=== PATIENT | female | born 1955 | race American Indian/Alaskan Native ===

== ENCOUNTER 2016-08-03 16:15 | Emergency (ER) | payer MEDICARE, OTHER ==
[2016-08-03 16:25] VITALS: BP 240/102
[2016-08-03] MEDS ORDERED: CATAPRES PO ONE (16:57)
--- NOTE | 2016-08-03 17:00 | Emergency Department Report ---
Chief Complaint: Nausea/Vomiting/Diarrhea Stated Complaint: VOMITING/COUGHING Time Seen by Provider: 08/03/16 16:53 - HPI History of Present Illness: Patient here reports cough and 3-4 days. Patient reports that she was vomiting and was noted to be actively vomiting in triage area. She reports right chest pain and abdominal pain at 10 out of 10. Patient has history of high blood pressure and end-stage renal disease and she is on hemodialysis. She got dialysis on Thursday and her chemical dependency counselor is Dr. Teague. She has a left arm fistula. Denies any history of heart disease or heart attacks in the past. She says she has a slight headache. Patient reports that she took her blood pressure medication today. Denies any fever or chills. Blood pressure is 240/ 102 in triage area. - ROS Review of Systems: All systems are negative unless stated in HPI above. - Exam Vital Signs: Vital Signs 08/03/16 16:21 Temperature 97.9 F Pulse Rate 85 Respiratory 24 Rate Blood Pressure 240/102 O2 Sat by Pulse 100 Oximetry Physical Exam: General: This is a 61-year-old female that is nontoxic in appearance. CV: Blood pressure was 240/102. S1-S2. Regular rate and rhythm. Abdomen: Mild tenderness to palpate to lower abdomen. Normal bowel sounds. MSE screening note: Focused history and physical exam performed. Due to findings the following was ordered:see mdm ED Medical Decision Making - Medical Decision Making Medical decision making: Patient seen by provider in triage area. Appropriate protocol activated and patient to main ED to be seen by physician. ED Disposition for MSE Condition: Stable
[2016-08-03 17:40] LABS: Hematocrit 33.5 % (30.3-42.9); Hemoglobin 10.4 gm/dl (10.1-14.3); Mean Corpuscular HGB Conc 31 % (30-34); Mean Corpuscular Volume 71 fl (79-97); Platelet Count 204 K/mm3 (140-440); Red Blood Count 4.74 M/mm3 (3.65-5.03)
[2016-08-03 17:49] LABS: Mean Corpuscular Hemoglobin 22 pg (28-32); Red Cell Distribution Width 25.5 % (13.2-15.2)
[2016-08-03 18:08] LABS: Alanine Aminotransferase 105 units/L (7-56); Albumin 3.9 g/dL (3.9-5); Alkaline Phosphatase 154 units/L (35-129); BUN/Creatinine Ratio 5.57; Bilirubin,Total 0.4 mg/dL (0.1-1.2); Calcium 9.6 mg/dL (8.4-10.2); Chloride 94.6 mmol/L (98-107); Potassium 4.9 mmol/L (3.6-5.0); Total Protein 7.8 g/dL (6.3-8.2)
[2016-08-03 18:12] LABS: Magnesium 2.3 mg/dL (1.7-2.3)
[2016-08-03 18:15] LABS: Bilirubin,Direct < 0.2 mg/dL (0-0.2); Bilirubin,Indirect 0.2 mg/dL
[2016-08-03] MEDS ORDERED: KETALAR IV ONE (18:16)
[2016-08-03] MEDS ORDERED: NACL 0.9% 1000 ML 1,000 ML ONE (18:21)
[2016-08-03 18:44] LABS: Creatine Kinase MB 1.6 ng/mL (0.0-4.0)
[2016-08-03 21:48] LABS: Basophils % (Manual) 0 % (0.0-1.8); Blastocytes % (Manual) 0 %
[2016-08-03 21:49] LABS: Anisocytosis 1+
[2016-08-03 21:50] LABS: Hypochromasia Few; Schistocytes Rare; Target Cells Few
[2016-08-03 21:51] LABS: Diff Status Complete; Platelet Estimate Consistent w Auto
--- NOTE | 2016-08-04 00:49 | Admit Criteria Form ---
Admission Criteria Documentation: ABDOMINAL PAIN Clinical Indications for Admission to Inpatient Care (Place 'X' for any and all applicable criteria): Admission is indicated for ANY ONE of the following(1)(2)(3)(4)(5): [ ]I. Inpatient admission required rather than observation care (Also use Abdominal Pain: Observation Care, as appropriate) because of ANY ONE of the following: [ ]a) Severe pain requiring acute inpatient management [ ]b) Identification of etiology/finding that requires inpatient care (eg, aortic dissection, free air) [ ]c) Absent bowel sounds with complete ileus(6) [ ]d) Suspected toxic megacolon [ ]e) Severe electrolyte abnormalities requiring inpatient care [ ]f) High fever or infection requiring inpatient admission as indicated by ANY ONE of following(7)(8): [ ] i) Appropriate outpatient or observational care antimicrobial treatment unavailable, not effective, or not feasible [ ] ii) Documented bacteremia [ ] iii) Temperature > 104.9 degrees F (oral) [ ] iv) T >103.1 F (oral) or < 96.8 F(rectal) that does not respond to all emergency treatment measures [ ]g) Signs of intestinal obstruction [B] [ ]h) Hemodynamic instability [ ]i) IV fluid to replace significant ongoing losses (greater than 3 L/m2 per day) (12)(13) [ ]j) Percutaneous or open drainage (eg, abscess, biliary tract ) procedures [ ]k) Parenteral nutrition regimen that must be implemented on inpatient basis [ ]l) Other condition,treatment or monitoring requiring inpatient admission. [ ]II. Peritoneal signs present [ ]III. Surgery needed that cannot be performed on an ambulatory basis. [ ]IV. Evaluation requires patient to not eat or drink for extended period ( eg, more than 24 hours). [ ]V. Contraindications and/or Inappropriate clinical situations for Observational Care in patients with abdominal pain, when ANY ONE of the following is required: [ ]a) Thorough evaluation is required to prevent catastrophic events due to delays in diagnosing (e.g.Mesenteric ischemia) 1,3 [ ]b) Patient with severe pathology or with chronic symptoms unlikely to improve in the ED stay (3) [ X]. General contraindications and/or Inappropriate clinical situations for Observational Care in patients with abdominal pain, when ANY ONE of the following is required: [ ]a) Prediction of prolongation of LOS based on ANY ONE of the following may be considered as a contraindication for observational care 2, 3, 4, 5, 6, 7, 8, 9, 10, 11 [ ]i) Age > 65 yrs. [ ]ii) Patient arriving by ambulance [ ]iii) Patient with high acuity [ ]iv) Patient requiring vital sign monitoring [ ]v) Patient on IV medication [ X]b) Systolic blood pressures 180mmHg 3,12 [ ]c) Patient with altered mental status including delirium and other alteration of consciousness, (3) [ ]d) Patient whose discharge disposition will be to a care home home or rehabilitation home should not be managed in Emergency Department Observation Unit. CMS rule requires 3 days hospital stay before such placement.3,13 [ ]e) Patient with failure to thrive due to broad array of etiologies 3,16,17 [ ]f) Inability to ambulate 3,14 Extended stay beyond goal length of stay may be needed for(2)(3): [ ]a) Persistent abdominal pain with suspected intra-abdominal process [ ]b) Diagnosed condition requiring continued stay (e.g., pancreatitis, complicated diverticulitis) [ ]c) Surgery (e.g., colectomy) The original [facility] content created by [employer] has been revised. The portions of the content which have been revised are identified through the use of italic text or in bold, and [facility] has neither reviewed nor approved the modified material.All other unmodified content is copyright [facility]. Please see references footnoted in the original [facility] edition 2016 Admission Criteria Met: Yes
--- NOTE | 2016-08-04 08:19 | XRay Report ---
Chest 2 views. Findings: The heart is mildly enlarged with moderate venous congestion and bibasilar infiltrates, worse on the right. There may be a small right pleural effusion. Impression: CHF and/or pneumonia.
--- NOTE | 2016-08-04 13:09 | ED Elopement Review ---
ED Pt Elopement review - Results review Lab results: Laboratory Tests 08/03/16 08/03/16 08/03/16 17:04 17:25 17:25 WBC 12.0 H RBC 4.74 Hgb 10.4 Hct 33.5 MCV 71 L MCH 22 L MCHC 31 RDW 25.5 H Plt Count 204 Add Manual Diff Complete Total Counted 100 Seg Neuts % (Manual) 83.0 H Band Neutrophils % 0 Lymphocytes % (Manual) 12.0 L Reactive Lymphs % (Man) 0 Monocytes % (Manual) 3.0 Eosinophils % (Manual) 2.0 Basophils % (Manual) 0 Metamyelocytes % 0 Myelocytes % 0 Promyelocytes % 0 Blast Cells % 0 Nucleated RBC % Not Reportable Seg Neutrophils # Man 10.0 H Band Neutrophils # 0.0 Lymphocytes # (Manual) 1.4 Abs React Lymphs (Man) 0.0 Monocytes # (Manual) 0.4 Eosinophils # (Manual) 0.2 Basophils # (Manual) 0.0 Metamyelocytes # 0.0 Myelocytes # 0.0 Promyelocytes # 0.0 Blast Cells # 0.0 WBC Morphology Not Reportable Hypersegmented Neuts Not Reportable Hyposegmented Neuts Not Reportable Hypogranular Neuts Not Reportable Smudge Cells Not Reportable Toxic Granulation Not Reportable Toxic Vacuolation Not Reportable Dohle Bodies Not Reportable Pelger-Huet Anomaly Not Reportable Mell Rods Not Reportable Platelet Estimate Consistent w auto Clumped Platelets Not Reportable Plt Clumps, EDTA Not Reportable Large Platelets Not Reportable Giant Platelets Not Reportable Platelet Satelliting Not Reportable Plt Morphology Comment Not Reportable RBC Morphology Not Reportable Dimorphic RBCs Not Reportable Polychromasia Not Reportable Hypochromasia Few Poikilocytosis Not Reportable Anisocytosis 1+ Microcytosis Not Reportable Macrocytosis Not Reportable Spherocytes Not Reportable Pappenheimer Bodies Not Reportable Sickle Cells Not Reportable Target Cells Few Tear Drop Cells Not Reportable Ovalocytes Not Reportable Helmet Cells Not Reportable Byrne-Bluewater Bodies Not Reportable [place] Rings Not Reportable Teja Cells Not Reportable Bite Cells Not Reportable Crenated Cell Not Reportable Elliptocytes Not Reportable Acanthocytes (Spur) Not Reportable Rouleaux Not Reportable Hemoglobin C Crystals Not Reportable Schistocytes Rare Malaria parasites Not Reportable Jeffrey Bodies Not Reportable Hem Pathologist Commnt No Sodium 140 Potassium 4.9 Chloride 94.6 L Carbon Dioxide 29 Anion Gap 21 BUN 58 H Creatinine 10.4 H Estimated GFR 5 BUN/Creatinine Ratio 5.57 Glucose 266 H POC Glucose 260 H Calcium 9.6 Magnesium Total Bilirubin Direct Bilirubin Indirect Bilirubin AST ALT Alkaline Phosphatase Total Creatine Kinase CK-MB (CK-2) CK-MB (CK-2) Rel Index Troponin T 0.063 H Total Protein Albumin Albumin/Globulin Ratio Triglycerides 96 Cholesterol 167 LDL Cholesterol Direct 103 HDL Cholesterol 45 Cholesterol/HDL Ratio 3.71 Amylase Lipase 72 H 08/03/16 08/03/16 08/03/16 17:25 17:25 20:10 WBC RBC Hgb Hct MCV MCH MCHC RDW Plt Count Add Manual Diff Total Counted Seg Neuts % (Manual) Band Neutrophils % Lymphocytes % (Manual) Reactive Lymphs % (Man) Monocytes % (Manual) Eosinophils % (Manual) Basophils % (Manual) Metamyelocytes % Myelocytes % Promyelocytes % Blast Cells % Nucleated RBC % Seg Neutrophils # Man Band Neutrophils # Lymphocytes # (Manual) Abs React Lymphs (Man) Monocytes # (Manual) Eosinophils # (Manual) Basophils # (Manual) Metamyelocytes # Myelocytes # Promyelocytes # Blast Cells # WBC Morphology Hypersegmented Neuts Hyposegmented Neuts Hypogranular Neuts Smudge Cells Toxic Granulation Toxic Vacuolation Dohle Bodies Pelger-Huet Anomaly Mell Rods Platelet Estimate Clumped Platelets Plt Clumps, EDTA Large Platelets Giant Platelets Platelet Satelliting Plt Morphology Comment RBC Morphology Dimorphic RBCs Polychromasia Hypochromasia Poikilocytosis Anisocytosis Microcytosis Macrocytosis Spherocytes Pappenheimer Bodies Sickle Cells Target Cells Tear Drop Cells Ovalocytes Helmet Cells Byrne-Bluewater Bodies [place] Rings Teja Cells Bite Cells Crenated Cell Elliptocytes Acanthocytes (Spur) Rouleaux Hemoglobin C Crystals Schistocytes Malaria parasites Jeffrey Bodies Hem Pathologist Commnt Sodium Potassium Chloride Carbon Dioxide Anion Gap BUN Creatinine Estimated GFR BUN/Creatinine Ratio Glucose POC Glucose Calcium Magnesium 2.3 Total Bilirubin 0.4 Direct Bilirubin < 0.2 Indirect Bilirubin 0.2 AST 111 H ALT 105 H Alkaline Phosphatase 154 H Total Creatine Kinase 54 CK-MB (CK-2) 1.6 CK-MB (CK-2) Rel Index 2.9 Troponin T 0.050 H D Total Protein 7.8 Albumin 3.9 Albumin/Globulin Ratio 1.0 Triglycerides Cholesterol LDL Cholesterol Direct HDL Cholesterol Cholesterol/HDL Ratio Amylase 118 Lipase - Call Back decision Pt Call Back Decision: Call pt to return to ED [facility] (hypertensive, + troponin needs to return)
== END 2016-08-04 00:05 | disposition left against medical advice (07) ==
LOC: ED 16:15
DX: R11.2 Nausea with vomiting, unspecified (principal); R05 Cough; R07.89 Other chest pain; R51 Headache; R10.30 Lower abdominal pain, unspecified; I12.0 Hypertensive chronic kidney disease with stage 5 chronic kidney disease or end stage renal disease; N18.6 End stage renal disease; Z99.2 Dependence on renal dialysis; Z53.21 Procedure and treatment not carried out due to patient leaving prior to being seen by health care provider
CPT/HCPCS: 36415; 71020; 80048; 80061; 80074; 82150; 82550; 82553; 82962; 83690; 83735; 84484; 85007; 85025; 93005; 93010; J7030

== ENCOUNTER 2016-09-01 02:28 | Inpatient (IN) | payer MEDICARE ==
[2016-09-01] MEDS ORDERED: TRIDIL DRIP 50MG/250ML 50 MG/250 ML BOTTLE IV ONE (03:03)
[2016-09-01] MEDS ORDERED: ZOFRAN IV ONE (03:06)
[2016-09-01 03:49] LABS: Basophils % (Auto) 0.5 % (0.0-1.8); Hematocrit 32.5 % (30.3-42.9); Hemoglobin 10.2 gm/dl (10.1-14.3); Mean Corpuscular HGB Conc 31 % (30-34); Mean Corpuscular Volume 74 fl (79-97); Platelet Count 176 K/mm3 (140-440); Red Blood Count 4.37 M/mm3 (3.65-5.03); White Blood Count 9.6 K/mm3 (4.5-11.0)
[2016-09-01 03:51] LABS: Mean Corpuscular Hemoglobin 23 pg (28-32); Red Cell Distribution Width 24.4 % (13.2-15.2)
[2016-09-01 03:58] LABS: Albumin/Globulin Ratio 1.1 %; BUN/Creatinine Ratio 5.33; Bilirubin,Total 0.5 mg/dL (0.1-1.2); Calcium 9.3 mg/dL (8.4-10.2); Potassium 5.5 mmol/L (3.6-5.0); Total Protein 7.7 g/dL (6.3-8.2)
--- NOTE | 2016-09-01 04:21 | Emergency Department Report ---
ED Shortness of Breath HPI - General Chief Complaint: Dyspnea/Respdistress Stated Complaint: SOB Time Seen by Provider: 09/01/16 03:01 Source: family, police, EMS Mode of arrival: Stretcher Limitations: Other - History of Present Illness Initial Comments: This is a 61-year-old female brought in by daughter. She comes in with respiratory distress. According to the daughter the patient has dialysis Thursday and Thursday. It is not unusual for her over the weekend to her becoming dyspneic due to increased fluid overload. He is anuric. She had an almost identical presentation last . She denies significant chest pain with this she just feels very short of breath. She denies significant pedal edema edema states that her legs or her baseline. He denies fever she denies cough. Of all questions are going through daughter as patient speaks foreign language. MD Complaint: shortness of breath Onset/Timin -: days(s) Severity: moderate Consistency: constant Improves With: oxygen, upright position Worsens With: lying flat Known History Of: other (esrd) Associated Symptoms: denies other symptoms - Related Data Home Medications Medication Instructions Recorded Confirmed Last Taken Cetirizine HCl 10 mg PO DAILY 09/01/16 09/01/16 Unknown Furosemide [Lasix TAB] 80 mg PO QDAY 09/01/16 09/01/16 Unknown cloNIDine [Catapres] 0.2 mg PO TID 09/01/16 09/01/16 Unknown glipiZIDE [Glucotrol] 10 mg PO QDAY 09/01/16 09/01/16 Unknown hydrALAZINE [Apresoline TAB] 10 mg PO BID 09/01/16 09/01/16 Unknown Previous Rx's Medication Instructions Recorded Last Taken Type Levothyroxine [Synthroid] 175 mcg PO QAM #30 tablet 04/16/16 Unknown Rx Simvastatin [Zocor TAB] 20 mg PO QHS #30 tablet 04/16/16 Unknown Rx Allergies Allergy/AdvReac Type Severity Reaction Status Date / Time No Known Allergies Allergy Verified 01/19/16 17:29 ED Review of Systems ROS: Stated complaint: SOB Other details as noted in HPI Constitutional: denies: chills, fever Eyes: denies: eye pain, eye discharge, vision change ENT: denies: ear pain, throat pain Respiratory: shortness of breath, SOB with exertion, SOB at rest. denies: cough , wheezing Cardiovascular: denies: chest pain, palpitations Endocrine: no symptoms reported Gastrointestinal: denies: abdominal pain, nausea, diarrhea Genitourinary: other (anuric). denies: urgency, dysuria, discharge Musculoskeletal: denies: back pain, joint swelling, arthralgia Skin: denies: rash, lesions Neurological: denies: headache, weakness, paresthesias Psychiatric: denies: anxiety, depression Hematological/Lymphatic: denies: easy bleeding, easy bruising ED Past Medical Hx - Past Medical History Hx Hypertension: Yes Hx Heart Attack/AMI: No Hx Congestive Heart Failure: No Hx Diabetes: Yes Hx Renal Disease: Yes Hx Seizures: No Hx Asthma: No Hx COPD: No Hx HIV: No Additional medical history: anemia. thyroid - Surgical History Additional Surgical History: thyroidectomy. eye surgery. abd for dialysis - Social History Smoking Status: Never Smoker Substance Use Type: None - Medications Home Medications: Home Medications Medication Instructions Recorded Confirmed Last Taken Type Levothyroxine [Synthroid] 175 mcg PO QAM #30 tablet 04/16/16 09/01/16 Unknown Rx Simvastatin [Zocor TAB] 20 mg PO QHS #30 tablet 04/16/16 09/01/16 Unknown Rx Cetirizine HCl 10 mg PO DAILY 09/01/16 09/01/16 Unknown History Furosemide [Lasix TAB] 80 mg PO QDAY 09/01/16 09/01/16 Unknown History cloNIDine [Catapres] 0.2 mg PO TID 09/01/16 09/01/16 Unknown History glipiZIDE [Glucotrol] 10 mg PO QDAY 09/01/16 09/01/16 Unknown History hydrALAZINE [Apresoline TAB] 10 mg PO BID 09/01/16 09/01/16 Unknown History ED Physical Exam - General Limitations: Language Barrier, Other General appearance: alert, in distress (anxious and dyspneic appearing- speaks in 2-3 word phrases) - Head Head exam: Present: atraumatic, normocephalic - Eye Eye exam: Present: normal appearance - ENT ENT exam: Present: mucous membranes moist - Neck Neck exam: Present: normal inspection - Respiratory Respiratory exam: Present: normal lung sounds bilaterally, rales, decreased breath sounds. Absent: respiratory distress - Cardiovascular Cardiovascular Exam: Present: regular rate, normal rhythm. Absent: systolic murmur, diastolic murmur, rubs, gallop - GI/Abdominal GI/Abdominal exam: Present: soft, normal bowel sounds. Absent: tenderness - Extremities Exam Extremities exam: Present: normal inspection, pedal edema (1+ bilat) - Back Exam Back exam: Present: normal inspection - Neurological Exam Neurological exam: Present: alert, oriented X3 - Psychiatric Psychiatric exam: Present: normal affect, normal mood - Skin Skin exam: Present: warm, dry, intact, normal color. Absent: rash ED Course Vital Signs 09/01/16 09/01/16 09/01/16 02:48 03:01 03:20 Temperature 98.1 F Pulse Rate 90 81 Respiratory 32 H 32 H 33 H Rate Blood Pressure 252/206 247/106 Blood Pressure 252/206 [Right] O2 Sat by Pulse 93 94 100 Oximetry - Reevaluation(s) Reevaluation #1: 09/01/16 04:21 ECG done at 254 demonstrating sinus rhythm at 90 bpm with left atrial enlargement and normal QRS and normal MT interval normal axis is noted as well is noted to have LVH. There is nonspecific ST and T wave abnormalities. No specific ischemic pattern is noted however. Reevaluation #2: 09/01/16 05:22 Patient subjectively much more comfortable on BiPAP. She is not even requiring significant FiO2. Leave she is a 35%. She just needs the extra pressure appears. Using Lasix as she is anuric. I did start her on a nitroglycerin drip for her blood pressure as well as mobilization of fluids. I did speak with Dr. Darling regarding admission. I don't feel like she can go home tonight as she will likely need dialysis before she is going to feel better. I suspect dialysis will solve the problem completely well. Consider acute cardiac process I don't suspect. I did consider PE. I don't suspect. Electrolyte studies noted consistent with end-stage renal disease. ED Medical Decision Making - Lab Data Result diagrams: 09/01/16 03:16 09/01/16 03:16 Critical care attestation.: If time is entered above; I have spent that time in minutes in the direct care of this critically ill patient, excluding procedure time. ED Disposition Clinical Impression: End stage renal disease Pulmonary edema Qualifiers: Chronicity: acute Qualified Code(s): J81.0 - Acute pulmonary edema Disposition: OP ADMITTED IP TO THIS HOSP Is pt being admited?: Yes Does the pt Need Aspirin: No Condition: Stable Instructions: Pulmonary Edema (ED) Referrals: PRIMARY CARE, [Primary Care Provider] - 3-5 Days Time of Disposition: 04:21
--- NOTE | 2016-09-01 04:46 | History and Physical Report ---
History of Present Illness Date of examination: 09/01/16 History of present illness: 61-year-old man with a history of hypertension, diabetes, hyperlipidemia, end- stage renal disease on dialysis Thursday, Thursday, Thursday, hypothyroidism comes emergency room because today she had acute onset of shortness of breath. Patient states she did not missed dialysis, she is currently on BiPAP, doing well Patient denies chest pain, palpitation, cough, abdominal pain, hematochezia, dysuria, frequency, focal weakness, dysarthria, fever chills, polydipsia polyuria, hot or cold intolerance, easy bruisability, or rash or bleeding from mucosal membrane, rhinorrhea, epistaxis, earache, tinnitus, blurry vision, eye discharge, anxiety, depression. Other review of systems negative PAST SURGICAL HISTORY: Thyroidectomy, AV fistula SOCIAL HISTORY: Denies alcohol, tobacco, drugs FAMILY HISTORY: Hypertension Medications and Allergies Allergies Allergy/AdvReac Type Severity Reaction Status Date / Time No Known Allergies Allergy Verified 01/19/16 17:29 Home Medications Medication Instructions Recorded Confirmed Last Taken Type Levothyroxine [Synthroid] 175 mcg PO QAM #30 tablet 04/16/16 09/01/16 Unknown Rx Simvastatin [Zocor TAB] 20 mg PO QHS #30 tablet 04/16/16 09/01/16 Unknown Rx Cetirizine HCl 10 mg PO DAILY 09/01/16 09/01/16 Unknown History Furosemide [Lasix TAB] 80 mg PO QDAY 09/01/16 09/01/16 Unknown History cloNIDine [Catapres] 0.2 mg PO TID 09/01/16 09/01/16 Unknown History glipiZIDE [Glucotrol] 10 mg PO QDAY 09/01/16 09/01/16 Unknown History hydrALAZINE [Apresoline TAB] 10 mg PO BID 09/01/16 09/01/16 Unknown History Active Meds: Active Medications Nitroglycerin/Dextrose (Tridil Drip 50mg/250ml) 50 mg in 250 mls @ 3 mls/hr IV TITR ONE; 10 MCG/MIN PRN Reason: Protocol Stop: 09/04/16 14:22 Last Admin: 09/01/16 03:49 Dose: 3 mls/hr Exam - Physical Exam Narrative exam: Gen. appearance: Patient lying in bed, no apparent distress on BiPAP HEENT: Normocephalic, atraumatic, pupils equally round and reactive to light, extraocular movement intact, and no sclericterus,. No JVD or thyromegaly or nodule,neck supple, no carotid bruit ,mucous membranes moist, no exudate or erythema Heart: S1, S2, regular rate and rhythm Lungs: crackle over the right lung, breathing comfortable Abdomen: Positive bowel sounds, nontender, nondistended, no organomegaly Extremity: No edema, cyanosis, clubbing Skin: No rash, nodules, warm, dry Neuro: Oriented 3, cranial nerves II-12 intact, speech is fluent, motor and sensory intact - Constitutional Vitals: Temp Pulse Resp BP Pulse Ox 98.1 F 90 32 H 252/206 94 09/01/16 02:48 09/01/16 02:48 09/01/16 03:01 09/01/16 02:48 09/01/16 03:01 Results - Labs CBC & Chem 7: 09/01/16 03:16 09/01/16 03:16 Labs: Abnormal lab results 09/01/16 09/01/16 Range/Units 03:16 03:16 MCV 74 L (79-97) fl MCH 23 L (28-32) pg RDW 24.4 H (13.2-15.2) % Potassium 5.5 H (3.6-5.0) mmol/L Chloride 92.0 L (98-107) mmol/L BUN 56 H (7-17) mg/dL Creatinine 10.5 H (0.7-1.2) mg/dL Glucose 271 H (65-100) mg/dL AST 247 H (5-40) units/L ALT 244 H (7-56) units/L Alkaline Phosphatase 193 H (35-129) units/L Troponin T 0.068 H (0.00-0.029) ng/mL - Imaging and Cardiology EKG: image reviewed Chest x-ray: image reviewed Assessment and Plan Acute respiratory failure Fluid overload Hypertension malignant Diabetes of 2 End-stage renal disease on dialysis Admits medicine Continue BiPAP Start Cardene drip, d/c nitroglycerin drip Check fingersticks initiate insulin sliding scale Consult renal for dialysis, consult critical care Start DVT prophylaxis
[2016-09-01] MEDS ORDERED: D50W (25GM) IV PRN (04:48)
[2016-09-01] MEDS ORDERED: ALUM-MAG HYDROX-SIMETH 200-200-20MG/5ML PO PRN (04:48)
[2016-09-01] MEDS ORDERED: DULCOLAX PR PRN (04:48)
[2016-09-01] MEDS ORDERED: ZOFRAN IV PRN (04:48)
[2016-09-01] MEDS ORDERED: TYLENOL PO PRN (04:48)
[2016-09-01] MEDS ORDERED: CARDENE DRIP 40 MG/200 ML 40 MG/200 ML BAG IV SCH (06:00)
--- NOTE | 2016-09-01 06:57 | Admit Criteria Form ---
Admission Criteria Documentation: RENAL FAILURE, CHRONIC Clinical Indications for Admission to Inpatient Care (Place 'X' for any and all applicable criteria): Admission is indicated for ANY ONE of the following (1)(2)(3)(4)(5): [X]I. Inpatient admission required rather than observation care (Use Renal Failure, Chronic: Observation Care Criteria as appropriate) because of ANY ONE of the following: [X]a) Volume overload or uremic symptoms (eg, clinically significant pulmonary edema, hypertension, pericarditis, acidosis) too severe for, or not responsive (eg, for over 24 hours) to emergency department or observation care dialysis or treatment regimen (11) [ ]b) Hemodynamic instability that is severe or persistent [X]c) Respiratory distress that is severe or persistent (11) [X]d) Clinically significant electrolyte abnormality that requires inpatient care (eg,hyperkalemia with severe ECG findings)[B] [X]e) Supplement O2 or respiratory therapy for over 24hrs that is performable only in acute inpatient setting [ ]f) Continuous IV infusion of anticoagulation, platelet inhibitor, vasoactive, or Antiarrhythmic medication (15), [ ]g) Pulmonary artery catheter monitoring [ ]h) Temporary pacemaker placement [ ]i) Emergent pericardiocentesis [X]j) Other condition, treatment or monitoring requiring inpatient admission [ ]II. Unexplained syncope [A] [ ]III. Recurrent seizures [ ]IV. Severe infections not treatable in outpatient setting (eg, peritonitis)(9 ) [ ]V. Cardiac arrhythmias of immediate concern [ ]. Encephalopathy [ ]VII.Bleeding abnormalities (eg, platelet dysfunction) with active (eg, gastrointestinal) bleeding Extended stay beyond goal length of stay may be needed for (3)(4)(35)(36): [ ]a) Continuing uremic complications [ ]b) Comorbidities or complications The original [email or web address] content created by [email or web address] has been revised. The portions of the content which have been revised are identified through the use of italic text or in bold, and [email or web address] has neither reviewed nor approved the modified material. All other unmodified content is copyright [email or web address]. Please see references footnoted in the original [email or web address] edition 2016 Admission Criteria Met: Yes
--- NOTE | 2016-09-01 07:35 | XRay Report ---
AP CHEST History: Dyspnea. Findings: Compared to 08/25/16. Cardiomegaly, pulmonary venous congestion and small bilateral pleural effusions are suspected. There is poor visualization of the lower lobes. The upper lung zones are clear. No pneumothorax. No overwhelming change since 08/25/16. Impression: Mild CHF.
--- NOTE | 2016-09-01 08:46 | Event Note ---
Date: 09/01/16 Patient 61 yo with ESRD, fluid overload, HTN emergency. She was seen and examined. Continue Nitroglycerin drip. Transferred to ICU when bed available.
[2016-09-01] MEDS: SYNTHROID PO SCH ×2 (08:51)
[2016-09-01] MEDS: NOVOLOG SUB-Q SCH ×4 (08:52→22:17)
[2016-09-01] MEDS ORDERED: SYNTHROID PO SCH (10:00)
[2016-09-01] MEDS ORDERED: NACL 0.9% 1000 ML 1,000 ML IV PRN (10:07)
[2016-09-01] MEDS: GLUCOTROL PO SCH (13:25)
[2016-09-01] MEDS: LOVENOX SUB-Q SCH (13:25)
--- NOTE | 2016-09-01 14:27 | Consultation ---
History of Present Illness - Reason for Consult Consult date: 09/01/16 end stage renal disease, accelerated hypertension Requesting physician: MARY OQUENDO - History of Present Illness This is a 61-year-old female known to us from out patient dialysis, with a past medical history difficult to control hypertension, Type 2 DM, ESRD on dialysis on MWF schedule at [facility], who has multiple hospitalizations in the past due to hypertensive emergencies, who now presents to the [facility] ER again with complaints of shortness of breath x1 day in association with, dyspnea on exertion, chest tightness, non productive cough. patient was found to be in hypertensive emergency with BP as high as 250/130s mmHg, along with evidence of acute pulmonary edema on CXR. pt was started on nitro gtt, and renal consult is requested for urgent HD for volume and BP control. Patient received her last dialysis on Thursday, reports that she was compliant with all her meds. No reports of fever, calf tenderness, or leg edema. No aggravating or relieving factors. Past History Past Medical History: diabetes, dialysis, ESRD, hypertension Past Surgical History: thyroidectomy, Other (AVF placement, peritoneal dialysis catheter placement, permacath placement, peritoneal dialysis catheter removal) Social history: lives with family. denies: smoking, alcohol abuse, prescription drug abuse, IV drug use Family history: diabetes, hypertension Medications and Allergies Allergies Allergy/AdvReac Type Severity Reaction Status Date / Time No Known Allergies Allergy Verified 01/19/16 17:29 Home Medications Medication Instructions Recorded Confirmed Last Taken Type Levothyroxine [Synthroid] 175 mcg PO QAM #30 tablet 04/16/16 09/01/16 Unknown Rx Simvastatin [Zocor TAB] 20 mg PO QHS #30 tablet 04/16/16 09/01/16 Unknown Rx Cetirizine HCl 10 mg PO DAILY 09/01/16 09/01/16 Unknown History Furosemide [Lasix TAB] 80 mg PO QDAY 09/01/16 09/01/16 Unknown History cloNIDine [Catapres] 0.2 mg PO TID 09/01/16 09/01/16 Unknown History glipiZIDE [Glucotrol] 10 mg PO QDAY 09/01/16 09/01/16 Unknown History hydrALAZINE [Apresoline TAB] 10 mg PO BID 09/01/16 09/01/16 Unknown History Active Meds: Active Medications Acetaminophen (Tylenol) 650 mg PO Q6H PRN PRN Reason: Pain Al Hydrox/Mg Hydrox/Simethicone (Alum-Mag Hydrox-Simeth [phone]/5ml) 30 ml PO Q4H PRN PRN Reason: Indigestion Bisacodyl (Dulcolax) 10 mg [place] QDAY PRN PRN Reason: constipation unrelieved by MOM Dextrose (D50w (25gm)) 50 ml IV PRN PRN PRN Reason: Hypoglycemia Enoxaparin Sodium (Lovenox) 30 mg SUB-Q QDAY [facility] Last Admin: 09/01/16 13:25 Dose: 30 mg Glipizide (Glucotrol) 10 mg PO QDDIAB [facility] Last Admin: 09/01/16 13:25 Dose: 10 mg Nitroglycerin/Dextrose (Tridil Drip 50mg/250ml) 50 mg in 250 mls @ 3 mls/hr IV TITR ONE; 10 MCG/MIN PRN Reason: Protocol Stop: 09/04/16 14:22 Last Admin: 09/01/16 03:49 Dose: 3 mls/hr Nicardipine/Sodium Chloride (Cardene Drip 40 Mg/200 Ml) 40 mg in 200 mls @ 25 mls/hr IV TITR [place]; 5 MG/HR PRN Reason: Protocol Sodium Chloride (Nacl 0.9% 1000 Ml) 1,000 mls @ 999 mls/hr IV [place] PRN PRN Reason: Hypotension Insulin Aspart (Novolog) 0 units SUB-Q ACHS [place] PRN Reason: Protocol Last Admin: 09/01/16 13:23 Dose: Not Given Levothyroxine Sodium (Synthroid) 100 mcg PO DAILY@0600 [facility] Last Admin: 09/01/16 08:51 Dose: 100 mcg Levothyroxine Sodium (Synthroid) 75 mcg PO DAILY@0600 [facility] Last Admin: 09/01/16 08:51 Dose: 75 mcg Ondansetron HCl (Zofran) 4 mg IV Q8H PRN PRN Reason: N/V unrelieved by Reglan Simvastatin (Zocor) 20 mg PO QHS [facility] Review of Systems All systems: negative Constitutional: fatigue, weakness Cardiovascular: shortness of breath, dyspnea on exertion, paroxysmal nocturnal dyspnea Respiratory: shortness of breath, dyspnea on exertion Exam - Vital Signs Vital signs: Vital Signs Pulse Ox 97 09/01/16 02:44 - General Appearance General appearance: well-developed, well-nourished, appears stated age EENT: ATNC, PERRL, mucous membranes moist Neck: Present: neck supple Respiratory: Rales, Decreased Breath Sounds Heart: regular, S1S2 Gastrointestinal: Present: normal, normoactive bowel sounds Integumentary: no rash, other (no edema ) Neurologic: no focal deficit, alert and oriented x3, strength 5/5, CN 3-12 intact Psychiatric: mood/affect appropriate, cooperative Results - Lab Results 09/01/16 03:16 09/01/16 03:16 Most recent lab results Calcium 9.3 mg/dL (8.4-10.2) 09/01/16 03:16 Laboratory Tests 09/01/16 03:16 Calcium 9.3 Total Bilirubin 0.5 AST 247 H ALT 244 H Alkaline Phosphatase 193 H Troponin T 0.068 H Total Protein 7.7 Albumin 4.0 Albumin/Globulin Ratio 1.1 Triglycerides 83 Cholesterol 159 LDL Cholesterol Direct 96 HDL Cholesterol 47 Cholesterol/HDL Ratio 3.38 Assessment and Plan - Patient Problems (1) Accelerated hypertension Current Visit: No Status: Acute Plan to address problem: continue nitro drip to target SBP 160-180smmHg within 24hrs. will arranged HD today with UF target of 4kg as tolerated. Transition to po BP regimen as tolerated. increase hydralazine to 100mg po tid, clonidine to 0.2mg tid, add nifedipine XL 30mg po qd and titrate up gradually. (2) Pulmonary edema Current Visit: Yes Status: Acute Qualifiers: Chronicity: acute Qualified Code(s): J81.0 - Acute pulmonary edema Plan to address problem: respiratory status improved with nitro gtt, will target UF of 4kg with HD for further volume/BP control (3) End stage renal disease Current Visit: Yes Status: Chronic Plan to address problem: continue HD on // schedule, will adjust UF as indicated and tolerated. total CCM time spent 41min. (4) Acute respiratory failure with hypoxemia Current Visit: No Status: Acute Plan to address problem: improved oxygenation with nitro gtt and on HD. (5) Anemia in end-stage renal disease Current Visit: No Status: Acute Plan to address problem: Hb currently at target. will consider EPO if BP better controlled and Hb < 10 (6) Type 2 diabetes mellitus with diabetic chronic kidney disease Current Visit: No Status: Chronic Qualifiers: Diabetes mellitus retirement insulin use: D Chronic kidney disease stage: on chronic dialysis Plan to address problem: glucose control as per primary attending (7) Hyperkalemia Current Visit: Yes Status: Acute Plan to address problem: will use 2 k bath to correct hyperkalemia. cont low K renal diet.
--- NOTE | 2016-09-01 16:51 | Consultation ---
History of Present Illness Consult date: 09/01/16 Requesting physician: ROJAS ANAND Reason for consult: dyspnea History of present illness: 61 yo presents with SBP > 200, increased SOB, increased work of breathing, chest tightness. No fevers, chills, sputum, hemoptysis, LE edema. Denies missing HD. Same clinical scenario happened recently. Active Medications Acetaminophen (Tylenol) 650 mg PO Q6H PRN PRN Reason: Pain Al Hydrox/Mg Hydrox/Simethicone (Alum-Mag Hydrox-Simeth [phone]/5ml) 30 ml PO Q4H PRN PRN Reason: Indigestion Bisacodyl (Dulcolax) 10 mg [place] QDAY PRN PRN Reason: constipation unrelieved by MOM Clonidine HCl (Catapres) 0.2 mg PO TID [place] Dextrose (D50w (25gm)) 50 ml IV PRN PRN PRN Reason: Hypoglycemia Enoxaparin Sodium (Lovenox) 30 mg SUB-Q QDAY [facility] Last Admin: 09/01/16 13:25 Dose: 30 mg Glipizide (Glucotrol) 10 mg PO QDDIAB [facility] Last Admin: 09/01/16 13:25 Dose: 10 mg Nitroglycerin/Dextrose (Tridil Drip 50mg/250ml) 50 mg in 250 mls @ 3 mls/hr IV TITR ONE; 10 MCG/MIN PRN Reason: Protocol Stop: 09/04/16 14:22 Last Admin: 09/01/16 03:49 Dose: 3 mls/hr Nicardipine/Sodium Chloride (Cardene Drip 40 Mg/200 Ml) 40 mg in 200 mls @ 25 mls/hr IV TITR [place]; 5 MG/HR PRN Reason: Protocol Sodium Chloride (Nacl 0.9% 1000 Ml) 1,000 mls @ 999 mls/hr IV [place] PRN PRN Reason: Hypotension Insulin Aspart (Novolog) 0 units SUB-Q ACHS [place] PRN Reason: Protocol Last Admin: 09/01/16 13:23 Dose: Not Given Levothyroxine Sodium (Synthroid) 100 mcg PO DAILY@0600 [facility] Last Admin: 09/01/16 08:51 Dose: 100 mcg Levothyroxine Sodium (Synthroid) 75 mcg PO DAILY@0600 [facility] Last Admin: 09/01/16 08:51 Dose: 75 mcg Ondansetron HCl (Zofran) 4 mg IV Q8H PRN PRN Reason: N/V unrelieved by Reglan Simvastatin (Zocor) 20 mg PO QHS [facility] Past History Past Medical History: diabetes, dialysis, ESRD, hypertension Past Surgical History: thyroidectomy, Other (AVF placement, peritoneal dialysis catheter placement, permacath placement, peritoneal dialysis catheter removal) Social history: lives with family. denies: smoking, alcohol abuse, prescription drug abuse, IV drug use Family history: diabetes, hypertension Medications and Allergies Allergies Allergy/AdvReac Type Severity Reaction Status Date / Time No Known Allergies Allergy Verified 01/19/16 17:29 Home Medications Medication Instructions Recorded Confirmed Last Taken Type Levothyroxine [Synthroid] 175 mcg PO QAM #30 tablet 04/16/16 09/01/16 Unknown Rx Simvastatin [Zocor TAB] 20 mg PO QHS #30 tablet 04/16/16 09/01/16 Unknown Rx Cetirizine HCl 10 mg PO DAILY 09/01/16 09/01/16 Unknown History Furosemide [Lasix TAB] 80 mg PO QDAY 09/01/16 09/01/16 Unknown History cloNIDine [Catapres] 0.2 mg PO TID 09/01/16 09/01/16 Unknown History glipiZIDE [Glucotrol] 10 mg PO QDAY 09/01/16 09/01/16 Unknown History hydrALAZINE [Apresoline TAB] 10 mg PO BID 09/01/16 09/01/16 Unknown History Active Meds: Active Medications Acetaminophen (Tylenol) 650 mg PO Q6H PRN PRN Reason: Pain Al Hydrox/Mg Hydrox/Simethicone (Alum-Mag Hydrox-Simeth [phone]/5ml) 30 ml PO Q4H PRN PRN Reason: Indigestion Bisacodyl (Dulcolax) 10 mg [place] QDAY PRN PRN Reason: constipation unrelieved by MOM Clonidine HCl (Catapres) 0.2 mg PO TID [facility] Dextrose (D50w (25gm)) 50 ml IV PRN PRN PRN Reason: Hypoglycemia Enoxaparin Sodium (Lovenox) 30 mg SUB-Q QDAY [facility] Last Admin: 09/01/16 13:25 Dose: 30 mg Glipizide (Glucotrol) 10 mg PO QDDIAB [facility] Last Admin: 09/01/16 13:25 Dose: 10 mg Nitroglycerin/Dextrose (Tridil Drip 50mg/250ml) 50 mg in 250 mls @ 3 mls/hr IV TITR ONE; 10 MCG/MIN PRN Reason: Protocol Stop: 09/04/16 14:22 Last Admin: 09/01/16 03:49 Dose: 3 mls/hr Nicardipine/Sodium Chloride (Cardene Drip 40 Mg/200 Ml) 40 mg in 200 mls @ 25 mls/hr IV TITR [place]; 5 MG/HR PRN Reason: Protocol Sodium Chloride (Nacl 0.9% 1000 Ml) 1,000 mls @ 999 mls/hr IV [place] PRN PRN Reason: Hypotension Insulin Aspart (Novolog) 0 units SUB-Q ACHS [place] PRN Reason: Protocol Last Admin: 09/01/16 13:23 Dose: Not Given Levothyroxine Sodium (Synthroid) 100 mcg PO DAILY@0600 [facility] Last Admin: 09/01/16 08:51 Dose: 100 mcg Levothyroxine Sodium (Synthroid) 75 mcg PO DAILY@0600 [facility] Last Admin: 09/01/16 08:51 Dose: 75 mcg Ondansetron HCl (Zofran) 4 mg IV Q8H PRN PRN Reason: N/V unrelieved by Reglan Simvastatin (Zocor) 20 mg PO QHS [facility] Review of Systems All systems: negative Physical Examination Vital signs: Vital Signs Pulse Ox 97 09/01/16 02:44 General appearance: no acute distress, alert Eyes: non-icteric ENT: oropharynx moist Neck: supple Effort: normal Ascultation: Bilateral: wheezes, rales, rhonchi Cardiovascular: regular rate and rhythm (no mrg) Gastrointestinal: normoactive bowel sounds, soft, non-tender, non-distended Integumentary: normal Extremities: no cyanosis, no edema, pink and warm normal mental status, non-focal exam, pupils equal and round, CN II-XII normal mood appropriate, affect normal Results - Laboratory Findings CBC and BMP: 09/01/16 03:16 09/01/16 03:16 Abnormal lab findings: Abnormal Labs 09/01/16 09/01/16 08:43 11:50 POC Glucose 214 H 120 H - Diagnostic Findings Chest x-ray: report reviewed, image reviewed Assessment and Plan Imp: 1. Acute diastolic CHF/pulm edema; suspect noncompliance with diet or BP meds 2. ESRD 3. Acute respiratory failure, hypoxia 4. Accelerated HTN 5. Transaminitis Rec: 1. Volume removal with HD 2. Add back Clonidine; would consider stopping this long-term as noncompliance can result in rebound HTN; will defer to renal 3. Wean off NTG drip as tolerated 4. DVT PPx 5. Monitor Plan of care reviewed w/ patient, she understands/agrees
[2016-09-01] MEDS: APRESOLINE PO SCH ×2 (18:53→22:00)
[2016-09-01] MEDS ORDERED: TRIDIL DRIP 50MG/250ML 50 MG/250 ML BOTTLE IV SCH (19:00)
[2016-09-01] MEDS: CATAPRES PO SCH (19:13)
[2016-09-01] MEDS: ZOCOR PO SCH (22:17)
[2016-09-02 04:46] LABS: Basophils % (Auto) 0.4 % (0.0-1.8); Eosinophils % (Auto) 3.5 % (0.0-4.3); Hematocrit 27.6 % (30.3-42.9); Hemoglobin 8.8 gm/dl (10.1-14.3); Mean Corpuscular HGB Conc 32 % (30-34); Mean Corpuscular Volume 75 fl (79-97); Platelet Count 150 K/mm3 (140-440); Red Blood Count 3.69 M/mm3 (3.65-5.03); White Blood Count 8.1 K/mm3 (4.5-11.0)
[2016-09-02 04:48] LABS: Mean Corpuscular Hemoglobin 24 pg (28-32); Red Cell Distribution Width 24.1 % (13.2-15.2)
[2016-09-02 04:57] LABS: BUN/Creatinine Ratio 4.69; Calcium 8.3 mg/dL (8.4-10.2); Potassium 4.8 mmol/L (3.6-5.0)
[2016-09-02] MEDS: SYNTHROID PO SCH ×2 (06:13)
[2016-09-02] MEDS: APRESOLINE PO SCH ×3 (06:15→21:04)
[2016-09-02] MEDS: NOVOLOG SUB-Q SCH ×4 (07:30→23:40)
--- NOTE | 2016-09-02 08:06 | Progress Note ---
Assessment and Plan Assessment and plan: Acute respiratory failure secondary to fluid overload. Patient was dialyzed. Less shortness of breath. Pulmonary edema/fluid overload from ESRD Hypertensive emergency. Blood pressure is now improved after nitro drip followed by Cardene drip. Since is now stable to be transferred to medical floor Diabetes mellitus type 2. Check fingerstick glucose before every meal and at bedtime Hyperlipidemia. Zocor Hypothyroidism. On Levothyroxine. FULL CODE STATUS History Interval history: Blood pressure improved, No chest pain, Less shortness of breath Hospitalist Physical - Physical exam Narrative exam: Gen appearance: not in acute distress, HEENT: Normocephalic, atraumatic Neck : supple, no JVD Lungs: Bilateral basal crackles, no wheezing. Heart : S1 and S2 regular, no murmurs rubs or gallop, Abdomen: soft, non-tender, non-distended, normal bowel sounds Extremities: No edema, clubbing, or cyanosis, Neuro :awake ,alert , oriented x 3, no focal signs Psych: calm - Constitutional Vitals: Temp Pulse Resp BP Pulse Ox 98.2 F 71 18 134/54 94 09/02/16 06:01 09/02/16 06:15 09/02/16 06:00 09/02/16 06:15 09/02/16 06:00 Results - Labs CBC & Chem 7: 09/02/16 04:25 09/02/16 04:25 Labs: Laboratory Last Values WBC 8.1 K/mm3 (4.5-11.0) 09/02/16 04:25 RBC 3.69 M/mm3 (3.65-5.03) 09/02/16 04:25 Hgb 8.8 gm/dl (10.1-14.3) L 09/02/16 04:25 Hct 27.6 % (30.3-42.9) L 09/02/16 04:25 MCV 75 fl (79-97) L 09/02/16 04:25 MCH 24 pg (28-32) L 09/02/16 04:25 MCHC 32 % (30-34) 09/02/16 04:25 RDW 24.1 % (13.2-15.2) H 09/02/16 04:25 Plt Count 150 K/mm3 (140-440) 09/02/16 04:25 Lymph % (Auto) 19.8 % (13.4-35.0) 09/02/16 04:25 [place] % (Auto) 9.8 % (0.0-7.3) H 09/02/16 04:25 Eos % (Auto) 3.5 % (0.0-4.3) 09/02/16 04:25 Baso % (Auto) 0.4 % (0.0-1.8) 09/02/16 04:25 Lymph # 1.6 K/mm3 (1.2-5.4) 09/02/16 04:25 [place] # 0.8 K/mm3 (0.0-0.8) 09/02/16 04:25 Eos # 0.3 K/mm3 (0.0-0.4) 09/02/16 04:25 Baso # 0.0 K/mm3 (0.0-0.1) 09/02/16 04:25 Seg Neutrophils % 66.5 % (40.0-70.0) 09/02/16 04:25 Seg Neutrophils # 5.4 K/mm3 (1.8-7.7) 09/02/16 04:25 Sodium 133 mmol/L (137-145) L 09/02/16 04:25 Potassium 4.8 mmol/L (3.6-5.0) 09/02/16 04:25 Chloride 92.0 mmol/L (98-107) L 09/02/16 04:25 Carbon Dioxide 28 mmol/L (22-30) 09/02/16 04:25 Anion Gap 18 mmol/L 09/02/16 04:25 BUN 39 mg/dL (7-17) H 09/02/16 04:25 Creatinine 8.3 mg/dL (0.7-1.2) H 09/02/16 04:25 Estimated GFR 6 ml/min 09/02/16 04:25 BUN/Creatinine Ratio 4.69 % 09/02/16 04:25 Glucose 88 mg/dL (65-100) 09/02/16 04:25 POC Glucose 258 (70-105) H 09/01/16 21:43 Calcium 8.3 mg/dL (8.4-10.2) L 09/02/16 04:25 Total Bilirubin 0.5 mg/dL (0.1-1.2) 09/01/16 03:16 AST 247 units/L (5-40) H 09/01/16 03:16 ALT 244 units/L (7-56) H 09/01/16 03:16 Alkaline Phosphatase 193 units/L (35-129) H 09/01/16 03:16 Troponin T 0.068 ng/mL (0.00-0.029) H 09/01/16 03:16 Total Protein 7.7 g/dL (6.3-8.2) 09/01/16 03:16 Albumin 4.0 g/dL (3.9-5) 09/01/16 03:16 Albumin/Globulin Ratio 1.1 % 09/01/16 03:16 Triglycerides 83 mg/dL (2-149) 09/01/16 03:16 Cholesterol 159 mg/dL (50-199) 09/01/16 03:16 LDL Cholesterol Direct 96 mg/dL (50-130) 09/01/16 03:16 HDL Cholesterol 47 mg/dL (40-59) 09/01/16 03:16 Cholesterol/HDL Ratio 3.38 % 09/01/16 03:16
[2016-09-02] MEDS: GLUCOTROL PO SCH (09:00)
[2016-09-02] MEDS: CATAPRES PO SCH ×3 (09:00→21:05)
[2016-09-02] MEDS: LOVENOX SUB-Q SCH (10:30)
--- NOTE | 2016-09-02 12:02 | Progress Note ---
Assessment and Plan - Patient Problems (1) Accelerated hypertension Current Visit: No Status: Acute Plan to address problem: BP well controlled currently on cardene drip. Transition to po BP regimen, titrate up hydralazine to 100mg po tid, continue clonidine to 0.2mg tid. if BP remains uncontrolled after discontinuation of cardene drip, will add nifedipine XL 30mg po qd and titrate up as indicated. Will titrate off clonidine gradually as outpatient, to avoid rebound hypertension with missed clonidine doses. D/w ICU team (2) Pulmonary edema Current Visit: Yes Status: Acute Qualifiers: Chronicity: acute Qualified Code(s): J81.0 - Acute pulmonary edema Plan to address problem: resolved with BP control and HD (3) End stage renal disease Current Visit: Yes Status: Chronic Plan to address problem: continue HD on // schedule (4) Acute respiratory failure with hypoxemia Current Visit: No Status: Acute Plan to address problem: improved respiratory status (5) Anemia in end-stage renal disease Current Visit: No Status: Acute Plan to address problem: start epo [id number] w/ HD (6) Type 2 diabetes mellitus with diabetic chronic kidney disease Current Visit: No Status: Chronic Qualifiers: Diabetes mellitus assisted insulin use: D Chronic kidney disease stage: on chronic dialysis Plan to address problem: glucose control as per primary attending (7) Hyperkalemia Current Visit: Yes Status: Acute Plan to address problem: resolved with HD, continue low K renal diet Subjective Date of service: 09/02/16 Interval history: patient awake, alert, in NAD, BP improved on cardene drip. Objective - Vital Signs Vital signs: Vital Signs - 12hr 09/02/16 09/02/16 09/02/16 02:20 06:00 06:01 Temperature 98.2 F Pulse Rate Pulse Rate [ 67 67 Right Dorsalis Pedis] Respiratory 16 18 Rate Blood Pressure O2 Sat by Pulse 96 94 Oximetry 09/02/16 09/02/16 09/02/16 06:15 08:00 08:17 Temperature 98.1 F Pulse Rate 71 Pulse Rate [ Right Dorsalis Pedis] Respiratory Rate Blood Pressure 134/54 O2 Sat by Pulse 98 Oximetry - General Appearance General appearance: well-developed, well-nourished, appears stated age EENT: ATNC, PERRL, mucous membranes moist Neck: no JVD Respiratory: Present: Clear to Ascultation Cardiology: regular, S1S2 Gastrointestinal: normal, normoactive bowel sounds Integumentary: no rash, other (no edema ) Neurologic: no focal deficit, alert and oriented x3, strength 5/5, CN 3-12 intact Psychiatric: mood/affect appropriate, cooperative - Lab 09/02/16 04:25 09/02/16 04:25 Most recent lab results Calcium 8.3 mg/dL (8.4-10.2) L 09/02/16 04:25
--- NOTE | 2016-09-02 13:37 | Progress Note ---
Assessment and Plan Imp: 1. Acute diastolic CHF/pulm edema; suspect noncompliance with diet or BP meds 2. ESRD 3. Acute respiratory failure, hypoxia 4. Accelerated HTN 5. Transaminitis Rec: 1. Volume removal with HD 2. Added back Clonidine; would consider stopping this long-term as noncompliance can result in rebound HTN; Hydralazine increased to 50mg TID 3. Wean off Cardene drip as tolerated 4. DVT PPx 5. Consider outpatient sleep study given degree of HTN; patient could not really tell me whether any symptoms of JV 6. Repeat LFTs 7. Monitor; can go to floor once off Cardene Plan of care reviewed w/ patient, she understands/agrees Subjective Date of service: 09/02/16 Principal diagnosis: Accelerated HTN Interval history: No events. Had HD. SOB better. No chest pain. On NC. Still on Cardene drip. Active Medications Acetaminophen (Tylenol) 650 mg PO Q6H PRN PRN Reason: Pain Al Hydrox/Mg Hydrox/Simethicone (Alum-Mag Hydrox-Simeth [phone]/5ml) 30 ml PO Q4H PRN PRN Reason: Indigestion Bisacodyl (Dulcolax) 10 mg [place] QDAY PRN PRN Reason: constipation unrelieved by MOM Clonidine HCl (Catapres) 0.2 mg PO TID [facility] Last Admin: 09/02/16 09:00 Dose: 0.2 mg Dextrose (D50w (25gm)) 50 ml IV PRN PRN PRN Reason: Hypoglycemia Enoxaparin Sodium (Lovenox) 30 mg SUB-Q QDAY [facility] Last Admin: 09/02/16 10:30 Dose: 30 mg Glipizide (Glucotrol) 10 mg PO QDDIAB [facility] Last Admin: 09/02/16 09:00 Dose: 10 mg Hydralazine HCl (Apresoline) 50 mg PO Q8HR [facility] Nicardipine/Sodium Chloride (Cardene Drip 40 Mg/200 Ml) 40 mg in 200 mls @ 25 mls/hr IV TITR [place]; 5 MG/HR PRN Reason: Protocol Last Titration: 09/02/16 13:12 Dose: 0 mg/hr, 0 mls/hr Sodium Chloride (Nacl 0.9% 1000 Ml) 1,000 mls @ 999 mls/hr IV [place] PRN PRN Reason: Hypotension Insulin Aspart (Novolog) 0 units SUB-Q ACHS [place] PRN Reason: Protocol Last Admin: 09/02/16 12:30 Dose: 4 units Levothyroxine Sodium (Synthroid) 100 mcg PO DAILY@0600 [facility] Last Admin: 09/02/16 06:13 Dose: 100 mcg Levothyroxine Sodium (Synthroid) 75 mcg PO DAILY@0600 [facility] Last Admin: 09/02/16 06:13 Dose: 75 mcg Ondansetron HCl (Zofran) 4 mg IV Q8H PRN PRN Reason: N/V unrelieved by [place] Last Admin: 09/01/16 17:10 Dose: 4 mg Simvastatin (Zocor) 20 mg PO QHS [facility] Last Admin: 09/01/16 22:17 Dose: 20 mg Objective Vital Signs - 12hr 09/02/16 09/02/16 09/02/16 02:20 06:00 06:01 Temperature 98.2 F Pulse Rate Pulse Rate [ 67 67 Right Dorsalis Pedis] Respiratory 16 18 Rate Blood Pressure O2 Sat by Pulse 96 94 Oximetry 09/02/16 09/02/16 09/02/16 06:15 08:00 08:17 Temperature 98.1 F Pulse Rate 71 Pulse Rate [ Right Dorsalis Pedis] Respiratory Rate Blood Pressure 134/54 O2 Sat by Pulse 98 Oximetry 09/02/16 12:00 Temperature 97.6 F Pulse Rate Pulse Rate [ Right Dorsalis Pedis] Respiratory Rate Blood Pressure O2 Sat by Pulse Oximetry Constitutional: no acute distress, alert Eyes: non-icteric ENT: oropharynx moist Neck: supple Effort: normal Ascultation: Bilateral: clear Cardiovascular: regular rate and rhythm (no mrg) Gastrointestinal: normoactive bowel sounds, soft, non-tender, non-distended Integumentary: normal Extremities: no cyanosis, no edema, pink and warm Neurologic: normal mental status, non-focal exam, pupils equal and round, CN II- XII normal Psychiatric: mood appropriate, affect normal CBC and BMP: 09/02/16 04:25 09/02/16 04:25 Abnormal lab findings: Abnormal Labs 09/01/16 09/01/16 09/01/16 08:43 11:50 17:04 Hgb Hct MCV MCH RDW [place] % (Auto) Sodium Chloride BUN Creatinine POC Glucose 214 H 120 H 218 H Calcium 09/01/16 09/02/16 09/02/16 21:43 04:25 04:25 Hgb 8.8 L Hct 27.6 L MCV 75 L MCH 24 L RDW 24.1 H [place] % (Auto) 9.8 H Sodium 133 L Chloride 92.0 L BUN 39 H Creatinine 8.3 H POC Glucose 258 H Calcium 8.3 L 09/02/16 12:18 Hgb Hct MCV MCH RDW [place] % (Auto) Sodium Chloride BUN Creatinine POC Glucose 219 H Calcium Chest x-ray: report reviewed, image reviewed
[2016-09-02] MEDS ORDERED: PROCARDIA XL PO SCH (18:00)
[2016-09-02] MEDS: ZOCOR PO SCH (21:04)
[2016-09-03] MEDS: APRESOLINE PO SCH ×3 (04:35→17:38)
[2016-09-03 05:59] LABS: Basophils % (Auto) 0.7 % (0.0-1.8); Eosinophils % (Auto) 4.1 % (0.0-4.3); Hematocrit 29.8 % (30.3-42.9); Hemoglobin 9.4 gm/dl (10.1-14.3); Mean Corpuscular HGB Conc 32 % (30-34); Mean Corpuscular Volume 74 fl (79-97); Platelet Count 190 K/mm3 (140-440); Red Blood Count 4.03 M/mm3 (3.65-5.03); White Blood Count 5.6 K/mm3 (4.5-11.0)
[2016-09-03 06:04] LABS: Mean Corpuscular Hemoglobin 23 pg (28-32); Red Cell Distribution Width 24.6 % (13.2-15.2)
[2016-09-03] MEDS: SYNTHROID PO SCH ×2 (06:23→06:25)
[2016-09-03 06:28] LABS: Albumin 3.3 g/dL (3.9-5); BUN/Creatinine Ratio 5.28; Bilirubin,Total 0.3 mg/dL (0.1-1.2); Calcium 8.5 mg/dL (8.4-10.2); Chloride 91.2 mmol/L (98-107); Potassium 5.5 mmol/L (3.6-5.0); Total Protein 6.5 g/dL (6.3-8.2)
[2016-09-03] MEDS: CATAPRES PO SCH ×2 (08:35→14:35)
[2016-09-03] MEDS: NOVOLOG SUB-Q SCH ×3 (08:35→17:20)
[2016-09-03] MEDS ORDERED: APRESOLINE IV PRN (09:37)
--- NOTE | 2016-09-03 10:21 | Discharge Summary ---
Providers - Providers Date of Admission: 09/01/16 04:49 Date of discharge: 09/03/16 Attending physician: ROJAS ANAND Primary care physician: [employer] Hospitalization Condition: Fair Hospital course: Patient is 61 yo with ESRD, hypertension, diabetes. She presented with shortness of breath. In ED her initial BP was 252/206. She was started on Nitroglycerin drip. Blood pressure remained uncontrolled so was switched to Cardene drip. her chest X ray showed pulmonary edema due to fluid overload from ESRD. She stated she did not miss dialysis. She was admitted to ICU. Hemodialysis was done. Her BP improved and she was transferred out of ICU to medical floor. BP remained controlled, shortness of breath resolved and he was discharged home 09/03/16, two days after admission. Total tie spent on dis Disposition: DISCHARGED TO HOME OR SELFCARE - Discharge Diagnoses (1) Accelerated hypertension Status: Acute (2) Acute respiratory failure with hypoxemia Status: Acute (3) Fluid overload Status: Acute Qualifiers: Hypervolemia type: H Comment: due to ESRD (4) Pulmonary edema Status: Acute Qualifiers: Chronicity: C (5) Hypertensive emergency Status: Acute (6) End stage renal disease Status: Chronic (7) Diabetes mellitus type 2 in nonobese Status: Acute Core Measure Documentation - Palliative Care Palliative Care/ Comfort Measures: Not Applicable - Core Measures Any of the following diagnoses?: none Exam - Physical Exam Narrative exam: Gen appearance: not in acute distress, HEENT: Normocephalic, atraumatic Neck : supple, no JVD Lungs:clear to auscultation, no wheezing. Heart : S1 and S2 regular, no murmurs rubs or gallop, Abdomen: soft, non-tender, non-distended, normal bowel sounds Extremities: No edema, clubbing, or cyanosis, Neuro :awake ,alert , oriented x 3, no focal signs Psych: calm - Constitutional Vitals: Temp Pulse Resp BP Pulse Ox 98.8 F 66 16 177/64 96 09/03/16 00:00 09/03/16 08:35 09/03/16 08:00 09/03/16 08:35 09/03/16 08:36 Plan Activity: advance as tolerated Diet: low fat, low cholesterol, low salt, renal Additional Instructions: 1.Follow up with PCP in 3-5 days,. 2.Continue hemodialysis as scheduled. 3.Follow up with Kerrie Longoria in 1 week to arrange outpatient sleep study Follow up with: PRIMARY CARE, [Primary Care Provider] - 3-5 Days Prescriptions: hydrALAZINE [Apresoline TAB] 50 mg PO Q8HR #90 tablet NIFEdipine XL [Procardia Xl] 60 mg PO QDAY #60 tablet
[2016-09-03] MEDS ORDERED: PROCARDIA XL PO SCH (10:30)
--- NOTE | 2016-09-03 10:30 | Progress Note ---
Assessment and Plan - Patient Problems (1) Accelerated hypertension Current Visit: No Status: Acute Plan to address problem: off cardene drip ransition to po BP regimen, continue clonidine to 0.2mg tid, increase nifedipine XL to 60mg po qd given persistently elevated BP. If BP remains uncontrolled even after HD, will titrate up hydralazine to 100mg po tid. Will titrate off clonidine gradually as outpatient, to avoid rebound hypertension with missed clonidine doses. (2) Pulmonary edema Current Visit: Yes Status: Acute Qualifiers: Chronicity: acute Qualified Code(s): J81.0 - Acute pulmonary edema Plan to address problem: resolved with BP control and HD (3) End stage renal disease Current Visit: Yes Status: Chronic Plan to address problem: continue HD on // schedule. stable for discharge from renal stand point after HD today. (4) Acute respiratory failure with hypoxemia Current Visit: No Status: Acute Plan to address problem: improved respiratory status (5) Anemia in end-stage renal disease Current Visit: No Status: Acute Plan to address problem: continue epo [id number] w/ HD (6) Type 2 diabetes mellitus with diabetic chronic kidney disease Current Visit: No Status: Chronic Qualifiers: Diabetes mellitus medical terminologist insulin use: D Chronic kidney disease stage: on chronic dialysis Plan to address problem: glucose control as per primary attending (7) Hyperkalemia Current Visit: Yes Status: Acute Plan to address problem: resolved with HD, continue low K renal diet Subjective Date of service: 09/03/16 Principal diagnosis: Accelerated HTN Interval history: patient transferred to regular floor, off cardene drip. no acute complaints, denies CP, headaches, blurry vision, SOB, f/c/n/v Objective - Vital Signs Vital signs: Vital Signs - 12hr 09/02/16 09/03/16 09/03/16 23:00 00:00 01:01 Temperature 98.8 F Pulse Rate 63 65 68 Respiratory 20 20 15 Rate Blood Pressure 174/60 173/62 176/66 O2 Sat by Pulse 93 96 97 Oximetry 09/03/16 09/03/16 09/03/16 01:51 02:00 03:00 Temperature Pulse Rate 63 62 68 Respiratory 18 19 17 Rate Blood Pressure 178/66 177/69 174/63 O2 Sat by Pulse 94 96 95 Oximetry 09/03/16 09/03/16 09/03/16 04:01 05:00 06:00 Temperature Pulse Rate 64 63 65 Respiratory 20 18 20 Rate Blood Pressure 156/60 165/60 179/69 O2 Sat by Pulse 95 96 97 Oximetry 09/03/16 09/03/16 09/03/16 07:00 08:00 08:13 Temperature Pulse Rate 68 65 Respiratory 16 16 Rate Blood Pressure 179/69 178/64 O2 Sat by Pulse 96 96 97 Oximetry 09/03/16 09/03/16 08:35 08:36 Temperature Pulse Rate 66 Respiratory Rate Blood Pressure 177/64 O2 Sat by Pulse 96 Oximetry - General Appearance General appearance: well-developed, well-nourished, appears stated age EENT: ATNC, PERRL, mucous membranes moist Neck: no JVD Respiratory: Present: Clear to Ascultation Cardiology: regular, S1S2 Gastrointestinal: normal, normoactive bowel sounds Integumentary: no rash, other (no edema ) Neurologic: no focal deficit, alert and oriented x3, strength 5/5, CN 3-12 intact Psychiatric: mood/affect appropriate, cooperative - Lab 09/03/16 04:54 09/03/16 04:54 Most recent lab results Calcium 8.5 mg/dL (8.4-10.2) 09/03/16 04:54
[2016-09-03] MEDS: LOVENOX SUB-Q SCH (12:36)
[2016-09-03] MEDS: PROCARDIA XL PO SCH ×2 (12:36→17:37)
--- NOTE | 2016-09-03 12:56 | Progress Note ---
Assessment and Plan Imp: 1. Acute diastolic CHF/pulm edema; suspect noncompliance with diet or BP meds 2. ESRD 3. Acute respiratory failure, hypoxia 4. Accelerated HTN 5. Transaminitis Rec: 1. Volume removal with HD 2. Clonidine/Hydralazine/Procardia XL; further adjustment per renal 3. DVT PPx 4. Consider outpatient sleep study given degree of HTN; patient could not really tell me whether any symptoms of JV 6. Repeat LFTs better 7. Okay to d/c home pulm-espinosa; discussed with patient/daughter about sodium avoidance Plan of care reviewed w/ patient, she understands/agrees Subjective Date of service: 09/03/16 Principal diagnosis: Accelerated HTN Interval history: No events. On HD. SOB resolved w/ no chest pain. On RA. Active Medications Acetaminophen (Tylenol) 650 mg PO Q6H PRN PRN Reason: Pain Al Hydrox/Mg Hydrox/Simethicone (Alum-Mag Hydrox-Simeth [phone]/5ml) 30 ml PO Q4H PRN PRN Reason: Indigestion Bisacodyl (Dulcolax) 10 mg DE QDAY PRN PRN Reason: constipation unrelieved by MOM Clonidine HCl (Catapres) 0.2 mg PO TID [facility] Last Admin: 09/03/16 08:35 Dose: 0.2 mg Dextrose (D50w (25gm)) 50 ml IV PRN PRN PRN Reason: Hypoglycemia Enoxaparin Sodium (Lovenox) 30 mg SUB-Q QDAY [facility] Last Admin: 09/03/16 12:36 Dose: Not Given Glipizide (Glucotrol) 10 mg PO QDDIAB [facility] Last Admin: 09/02/16 09:00 Dose: 10 mg Hydralazine HCl (Apresoline) 50 mg PO Q8HR [facility] Last Admin: 09/03/16 06:23 Dose: 50 mg Hydralazine HCl (Apresoline) 10 mg IV Q4HR PRN PRN Reason: For SBP>170 or DBP>110 Sodium Chloride (Nacl 0.9% 1000 Ml) 1,000 mls @ 999 mls/hr IV [facility] PRN PRN Reason: Hypotension Insulin Aspart (Novolog) 0 units SUB-Q ACHS [facility] PRN Reason: Protocol Last Admin: 09/03/16 12:36 Dose: Not Given Levothyroxine Sodium (Synthroid) 100 mcg PO DAILY@0600 [facility] Last Admin: 09/03/16 06:25 Dose: 100 mcg Levothyroxine Sodium (Synthroid) 75 mcg PO DAILY@0600 [facility] Last Admin: 09/03/16 06:23 Dose: 75 mcg Nifedipine (Procardia Xl) 60 mg PO QDAY [facility] Last Admin: 09/03/16 12:36 Dose: Not Given Ondansetron HCl (Zofran) 4 mg IV Q8H PRN PRN Reason: N/V unrelieved by Reglan Last Admin: 09/01/16 17:10 Dose: 4 mg Simvastatin (Zocor) 20 mg PO QHS [facility] Last Admin: 09/02/16 21:04 Dose: 20 mg Objective Vital Signs - 12hr 09/03/16 09/03/16 09/03/16 01:01 01:51 02:00 Temperature Pulse Rate 68 63 62 Respiratory 15 18 19 Rate Blood Pressure 176/66 178/66 177/69 O2 Sat by Pulse 97 94 96 Oximetry 09/03/16 09/03/16 09/03/16 03:00 04:01 05:00 Temperature Pulse Rate 68 64 63 Respiratory 17 20 18 Rate Blood Pressure 174/63 156/60 165/60 O2 Sat by Pulse 95 95 96 Oximetry 09/03/16 09/03/16 09/03/16 06:00 07:00 08:00 Temperature Pulse Rate 65 68 65 Respiratory 20 16 16 Rate Blood Pressure 179/69 179/69 178/64 O2 Sat by Pulse 97 96 96 Oximetry 09/03/16 09/03/16 09/03/16 08:13 08:35 08:36 Temperature Pulse Rate 66 Respiratory Rate Blood Pressure 177/64 O2 Sat by Pulse 97 96 Oximetry 09/03/16 09/03/16 09/03/16 11:15 11:30 11:45 Temperature 97.9 F Pulse Rate 62 64 62 Respiratory 20 Rate Blood Pressure 166/71 152/79 123/99 O2 Sat by Pulse Oximetry Constitutional: no acute distress, alert Eyes: non-icteric ENT: oropharynx moist Neck: supple Effort: normal Ascultation: Bilateral: clear Cardiovascular: regular rate and rhythm (no mrg) Gastrointestinal: normoactive bowel sounds, soft, non-tender, non-distended Integumentary: normal Extremities: no cyanosis, no edema, pink and warm Neurologic: normal mental status, non-focal exam, pupils equal and round, CN II- XII normal Psychiatric: mood appropriate, affect normal CBC and BMP: 09/03/16 04:54 09/03/16 04:54 Abnormal lab findings: Abnormal Labs 09/01/16 09/01/16 09/01/16 08:43 11:50 17:04 Hgb Hct MCV MCH RDW Craig % (Auto) Sodium Chloride BUN Creatinine Glucose POC Glucose 214 H 120 H 218 H Calcium AST ALT Alkaline Phosphatase Albumin 09/01/16 09/02/16 09/02/16 21:43 04:25 04:25 Hgb 8.8 L Hct 27.6 L MCV 75 L MCH 24 L RDW 24.1 H Craig % (Auto) 9.8 H Sodium 133 L Chloride 92.0 L BUN 39 H Creatinine 8.3 H Glucose POC Glucose 258 H Calcium 8.3 L AST ALT Alkaline Phosphatase Albumin 09/02/16 09/02/16 09/02/16 12:18 16:20 23:33 Hgb Hct MCV MCH RDW Craig % (Auto) Sodium Chloride BUN Creatinine Glucose POC Glucose 219 H 256 H 166 H Calcium AST ALT Alkaline Phosphatase Albumin 09/03/16 09/03/16 09/03/16 04:54 04:54 07:58 Hgb 9.4 L Hct 29.8 L MCV 74 L MCH 23 L RDW 24.6 H Craig % (Auto) 9.3 H Sodium Chloride BUN 55 H Creatinine 10.4 H Glucose 152 H POC Glucose 176 H Calcium AST 73 H ALT 101 H Alkaline Phosphatase 133 H Albumin 3.3 L Chest x-ray: report reviewed, image reviewed
[2016-09-03 16:28] VITALS: BP 156/69
== END 2016-09-03 18:00 | disposition home or self-care (01) | DRG 304 ==
LOC: ED 02:28 → CC1 04:49 → 3A 09-03 09:51
PROVIDERS: ADMIT Internal Medicine; ATTEND Internal Medicine
PROC: 5A1D60Z (ICD-10-PCS; principal; 2016-09-01)
PROC: 5A09357 Assistance with Respiratory Ventilation, Less than 24 Consecutive Hours, Continuous Positive Airway Pressure (ICD-10-PCS; 2016-09-01)
DX: I16.1 Hypertensive emergency (principal); I50.31 Acute diastolic (congestive) heart failure; J96.01 Acute respiratory failure with hypoxia; N18.6 End stage renal disease; J81.0 Acute pulmonary edema; I13.2 Hypertensive heart and chronic kidney disease with heart failure and with stage 5 chronic kidney disease, or end stage renal disease; E78.5 Hyperlipidemia, unspecified; E11.9 Type 2 diabetes mellitus without complications; E11.22 Type 2 diabetes mellitus with diabetic chronic kidney disease; D63.1 Anemia in chronic kidney disease; E87.5 Hyperkalemia; E03.9 Hypothyroidism, unspecified; F32.9 Major depressive disorder, single episode, unspecified; F41.9 Anxiety disorder, unspecified; Z82.49 Family history of ischemic heart disease and other diseases of the circulatory system; Z90.89 Acquired absence of other organs; Z83.3 Family history of diabetes mellitus; Z99.2 Dependence on renal dialysis; Z79.84 Long term (current) use of oral hypoglycemic drugs; Z91.14 Patient's other noncompliance with medication regimen
CPT/HCPCS: 36415; 71010; 80048; 80053; 80061; 82962; 84484; 85025; 93005; 93010; 94760; 96374; 96375; J1650; J1815; J2405; J7030

== ENCOUNTER 2017-05-24 12:31 | Inpatient (IN) | payer MEDICARE ==
[2017-05-24 13:02] LABS: Basophils % (Auto) 0.8 % (0.0-1.8); Eosinophils % (Auto) 2.3 % (0.0-4.3); Hematocrit 31.1 % (30.3-42.9); Hemoglobin 9.8 gm/dl (10.1-14.3); Mean Corpuscular HGB Conc 31 % (30-34); Mean Corpuscular Volume 74 fl (79-97); Platelet Count 156 K/mm3 (140-440); Red Blood Count 4.18 M/mm3 (3.65-5.03); White Blood Count 6.4 K/mm3 (4.5-11.0)
[2017-05-24 13:03] LABS: Mean Corpuscular Hemoglobin 23 pg (28-32); Red Cell Distribution Width 21.5 % (13.2-15.2)
--- NOTE | 2017-05-24 13:12 | XRay Report ---
Single view chest: Compared to 02/04/17. History: Shortness of breath. Findings: Marked cardiomegaly. Trachea is midline. Pulmonary venous congestion with faint interstitial infiltrates bilaterally. Normal CP angles. Impression: Probable CHF.
[2017-05-24 13:27] LABS: Calcium 9.2 mg/dL (8.4-10.2); Potassium 5.3 mmol/L (3.6-5.0)
[2017-05-24] MEDS ORDERED: CATAPRES ONE (13:51)
[2017-05-24] MEDS ORDERED: CATAPRES PO ONE (14:32)
[2017-05-24] MEDS ORDERED: APRESOLINE IV ONE (16:14)
--- NOTE | 2017-05-24 16:17 | Emergency Department Report ---
ED Shortness of Breath HPI - General Chief Complaint: Dyspnea/Respdistress Stated Complaint: SOB Time Seen by Provider: 05/24/17 16:09 Source: patient, family Mode of arrival: Ambulatory Limitations: No Limitations - History of Present Illness Initial Comments: Patient is 62 years old female end-stage renal disease on dialysis last dialysis was Thursday 2 days ago patient is coming with shortness of breath cough whitish sputum denied any fever. No nausea no vomiting. Patient denied chest pain MD Complaint: shortness of breath, cough -: days(s) - Related Data Home Medications Medication Instructions Recorded Confirmed Last Taken Cetirizine HCl 10 mg PO DAILY 09/01/16 02/01/17 Unknown Furosemide [Lasix TAB] 80 mg PO QDAY 09/01/16 02/01/17 Unknown glipiZIDE [Glucotrol] 10 mg PO BID 09/01/16 02/01/17 Unknown Brimonidine Tartrate [Brimonidine 1 drop OU BID 09/02/16 02/01/17 Unknown Tartrate 0.15%] Latanoprost 0.005% [Xalatan 0.005%] 1 drop OU QPM #0 09/02/16 02/01/17 Unknown Lisinopril [Zestril TAB] 40 mg PO QDAY 02/01/17 02/01/17 Unknown Metoprolol [Lopressor TAB] 50 mg PO BID 02/01/17 02/01/17 Unknown NIFEdipine [Nifedipine ER] 60 mg PO BID 02/01/17 02/01/17 Unknown Zolpidem [Ambien] 5 mg PO QHS PRN 02/01/17 02/01/17 Unknown hydrALAZINE [Apresoline TAB] 50 mg PO BID 02/01/17 02/01/17 Unknown Previous Rx's Medication Instructions Recorded Last Taken Type Levothyroxine [Synthroid] 175 mcg PO QAM #30 tablet 04/16/16 Unknown Rx Simvastatin [Zocor TAB] 20 mg PO QHS #30 tablet 04/16/16 Unknown Rx Allergies Allergy/AdvReac Type Severity Reaction Status Date / Time No Known Allergies Allergy Verified 01/19/16 17:29 ED Review of Systems ROS: Stated complaint: SOB Other details as noted in HPI Comment: All other systems reviewed and negative Constitutional: denies: chills, fever Respiratory: cough, orthopnea, shortness of breath, SOB with exertion, SOB at rest Cardiovascular: dyspnea on exertion. denies: chest pain, palpitations Gastrointestinal: denies: abdominal pain, nausea, vomiting Skin: denies: rash, lesions Neurological: denies: headache, weakness, numbness, paresthesias ED Past Medical Hx - Past Medical History Previous Medical History?: Yes Hx Hypertension: Yes Hx Heart Attack/AMI: No Hx Congestive Heart Failure: Yes Hx Diabetes: Yes Hx Renal Disease: Yes Hx Seizures: No Hx Asthma: No Hx COPD: No Hx HIV: No Additional medical history: anemia. thyroid - Surgical History Past Surgical History?: Yes Additional Surgical History: thyroidectomy. eye surgery. abd for dialysis - Social History Smoking Status: Never Smoker Substance Use Type: Prescribed - Medications Home Medications: Home Medications Medication Instructions Recorded Confirmed Last Taken Type Levothyroxine [Synthroid] 175 mcg PO QAM #30 tablet 04/16/16 02/01/17 Unknown Rx Simvastatin [Zocor TAB] 20 mg PO QHS #30 tablet 04/16/16 02/01/17 Unknown Rx Cetirizine HCl 10 mg PO DAILY 09/01/16 02/01/17 Unknown History Furosemide [Lasix TAB] 80 mg PO QDAY 09/01/16 02/01/17 Unknown History glipiZIDE [Glucotrol] 10 mg PO BID 09/01/16 02/01/17 Unknown History Brimonidine Tartrate [Brimonidine 1 drop OU BID 09/02/16 02/01/17 Unknown History Tartrate 0.15%] Latanoprost 0.005% [Xalatan 0.005%] 1 drop OU QPM #0 09/02/16 02/01/17 Unknown History Lisinopril [Zestril TAB] 40 mg PO QDAY 02/01/17 02/01/17 Unknown History Metoprolol [Lopressor TAB] 50 mg PO BID 02/01/17 02/01/17 Unknown History NIFEdipine [Nifedipine ER] 60 mg PO BID 02/01/17 02/01/17 Unknown History Zolpidem [Ambien] 5 mg PO QHS PRN 02/01/17 02/01/17 Unknown History hydrALAZINE [Apresoline TAB] 50 mg PO BID 02/01/17 02/01/17 Unknown History ED Physical Exam - General Limitations: No Limitations General appearance: alert, in distress (moderate respiratory distress) - Head Head exam: Present: atraumatic, normocephalic - Eye Eye exam: Present: normal appearance, PERRL - ENT ENT exam: Present: normal exam - Neck Neck exam: Present: normal inspection. Absent: tenderness, meningismus - Respiratory Respiratory exam: Present: respiratory distress, rales, decreased breath sounds. Absent: accessory muscle use - Cardiovascular Cardiovascular Exam: Present: regular rate, normal rhythm, normal heart sounds - GI/Abdominal GI/Abdominal exam: Present: soft, normal bowel sounds. Absent: distended, tenderness, guarding, rebound, mass, bruit, pulsatile mass, hernia - Back Exam Back exam: Present: normal inspection, full ROM. Absent: CVA tenderness (R), CVA tenderness (L) - Neurological Exam Neurological exam: Present: alert, oriented X3, CN II-XII intact, normal gait - Skin Skin exam: Present: warm, intact, normal color. Absent: cyanosis ED Course Vital Signs 05/24/17 05/24/17 05/24/17 12:33 12:34 12:36 Temperature 97.7 F Pulse Rate 66 66 65 Respiratory 24 Rate Blood Pressure 186/78 186/78 Blood Pressure [Right] O2 Sat by Pulse 96 97 96 Oximetry 05/24/17 05/24/17 05/24/17 13:30 13:46 14:00 Temperature Pulse Rate 65 63 64 Respiratory 11 L 18 17 Rate Blood Pressure 210/97 215/93 Blood Pressure [Right] O2 Sat by Pulse 96 97 Oximetry 05/24/17 05/24/17 05/24/17 14:03 14:04 14:52 Temperature Pulse Rate 64 66 Respiratory 20 Rate Blood Pressure 221/88 Blood Pressure [Right] O2 Sat by Pulse 7 L Oximetry 05/24/17 15:57 Temperature Pulse Rate 62 Respiratory 26 H Rate Blood Pressure Blood Pressure 218/105 [Right] O2 Sat by Pulse 98 Oximetry - Reevaluation(s) Reevaluation #1: 05/24/17 16:[address] Dempsey from [facility], the patient and he requested emergency dialysis patient will be admitted to the hospital. ED Medical Decision Making - Lab Data Result diagrams: 05/24/17 12:47 05/24/17 12:47 - EKG Data -: EKG Interpreted by Me EKG shows normal: sinus rhythm - EKG Data Interpretation: no acute changes - Radiology Data Radiology results: report reviewed Chest x-ray showed pulmonary congestion - Medical Decision Making Discussed with Dr. Gannon for admission to the hospital. Critical care attestation.: If time is entered above; I have spent that time in minutes in the direct care of this critically ill patient, excluding procedure time. ED Disposition Clinical Impression: Volume overload, ESRD on hemodialysis Disposition: OP ADMIT IP TO THIS HOSP Is pt being admited?: Yes Condition: Stable Referrals: PRIMARY CARE, [Primary Care Provider] - 3-5 Days
[2017-05-24] MEDS ORDERED: NACL 0.9% 100 ML IV PRN (16:32)
--- NOTE | 2017-05-24 18:12 | History and Physical Report ---
History of Present Illness Chief complaint: I cant breathe-my doctor History of present illness: 62 YO Female with ESRD on HD(M,W,F), HTN, CHF, Anemia, Hypothyroidism, DM presents to ED for evaluation. Pt states that she has experienced shortness of breath for the past 2 days with worsening symptoms all day today. Pt states that she checked her blood pressure and it was very high. No reports of fever, chills, CP, Palpitations, NVD, Unilateral leg swelling,prolonged travel/ immobility, calf pain, individual/family history of DVT/PE, syncope, hemoptysis. Pt seen and evaluated in ED and found to have a systolic blood pressure of 220, and in respiratory distress. Pt placed on supplemental oxygen with improvement in symptoms. Nephrology consulted in ED for urgent dialysis. Past History Past Medical History: anemia, diabetes, ESRD, heart failure, hypertension, hypothyroidism Past Surgical History: Other (LUE AVF, ) Social history: . denies: smoking, alcohol abuse, prescription drug abuse Family history: diabetes, hypertension Medications and Allergies Allergies Allergy/AdvReac Type Severity Reaction Status Date / Time No Known Allergies Allergy Verified 01/19/16 17:29 Home Medications Medication Instructions Recorded Confirmed Last Taken Type Levothyroxine [Synthroid] 175 mcg PO QAM #30 tablet 04/16/16 02/01/17 Unknown Rx Simvastatin [Zocor TAB] 20 mg PO QHS #30 tablet 04/16/16 02/01/17 Unknown Rx Cetirizine HCl 10 mg PO DAILY 09/01/16 02/01/17 Unknown History Furosemide [Lasix TAB] 80 mg PO QDAY 09/01/16 02/01/17 Unknown History glipiZIDE [Glucotrol] 10 mg PO BID 09/01/16 02/01/17 Unknown History Brimonidine Tartrate [Brimonidine 1 drop OU BID 09/02/16 02/01/17 Unknown History Tartrate 0.15%] Latanoprost 0.005% [Xalatan 0.005%] 1 drop OU QPM #0 09/02/16 02/01/17 Unknown History Lisinopril [Zestril TAB] 40 mg PO QDAY 02/01/17 02/01/17 Unknown History Metoprolol [Lopressor TAB] 50 mg PO BID 02/01/17 02/01/17 Unknown History NIFEdipine [Nifedipine ER] 60 mg PO BID 02/01/17 02/01/17 Unknown History Zolpidem [Ambien] 5 mg PO QHS PRN 02/01/17 02/01/17 Unknown History hydrALAZINE [Apresoline TAB] 50 mg PO BID 02/01/17 02/01/17 Unknown History Active Meds: Active Medications Sodium Chloride (Nacl 0.9%) 100 mls @ 999 mls/hr IV [facility] PRN PRN Reason: Hypotension Review of Systems Constitutional: no weight loss, no weight gain, no fever, no chills Ears, nose, mouth and throat: no ear pain, no ear discharge, no tinnitis, no decreased hearing, no nose pain, no nasal congestion, no nasal discharge Breasts: no change in shape, no swelling, no mass Cardiovascular: shortness of breath, dyspnea on exertion, no chest pain, no orthopnea, no palpitations Respiratory: no cough, no cough with sputum, no excessive sputum, no hemoptysis Gastrointestinal: no abdominal pain, no nausea, no vomiting, no diarrhea Genitourinary Female: no pelvic pain, no flank pain, no menorrhagia, no dysuria Rectal: no pain, no incontinence, no bleeding Musculoskeletal: no neck stiffness, no neck pain, no shooting arm pain, no arm numbness/tingling, no low back pain, no shooting leg pain Integumentary: no rash, no pruritis, no redness, no sores, no wounds, no jaundice Neurological: no head injury, no paralysis, no weakness, no parathesias, no numbness, no tingling Psychiatric: no anxiety, no memory loss, no change in sleep habits, no sleep disturbances Endocrine: no cold intolerance, no heat intolerance, no polyphagia, no excessive thirst, no polydipsia, no polyuria Hematologic/Lymphatic: no easy bruising, no easy bleeding Allergic/Immunologic: no urticaria, no allergic rhinitis, no wheezing Exam - Constitutional Vitals: Temp Pulse Resp BP Pulse Ox 97.7 F 63 25 H 216/93 96 05/24/17 12:36 05/24/17 17:20 05/24/17 17:00 05/24/17 17:20 05/24/17 17:00 General appearance: Present: mild distress - EENT Eyes: Present: PERRL ENT: hearing intact, clear oral mucosa - Neck Neck: Present: supple, normal ROM - Respiratory Respiratory effort: labored Respiratory: bilateral: diminished, rhonchi - Cardiovascular Heart Sounds: Present: S1 & S2. Absent: rub, click - Extremities Extremities: pulses symmetrical, No edema Peripheral Pulses: within normal limits - Abdominal General gastrointestinal: Present: soft, non-tender, non-distended, normal bowel sounds Female genitourinary: Present: normal - Integumentary Integumentary: Present: clear, warm, dry - Musculoskeletal Musculoskeletal: generalized weakness - Psychiatric Psychiatric: appropriate mood/affect, intact judgment & insight - Neurologic Neurologic: CNII-XII intact, moves all extremities Results - Labs CBC & Chem 7: 05/24/17 12:47 05/24/17 12:47 Labs: Abnormal lab results 05/24/17 05/24/17 Range/Units 12:47 12:47 Hgb 9.8 L (10.1-14.3) gm/dl MCV 74 L (79-97) fl MCH 23 L (28-32) pg RDW 21.5 H (13.2-15.2) % Lymph # 1.1 L (1.2-5.4) K/mm3 Seg Neutrophils % 73.5 H (40.0-70.0) % Potassium 5.3 H (3.6-5.0) mmol/L Chloride 93.0 L (98-107) mmol/L BUN 46 H (7-17) mg/dL Creatinine 8.1 H (0.7-1.2) mg/dL Glucose 246 H (65-100) mg/dL Troponin T 0.061 H (0.00-0.029) ng/mL Assessment and Plan - Patient Problems (1) Acute respiratory failure with hypoxemia Current Visit: No Status: Acute Plan to address problem: supplemental oxygen, nebs, aspiration precautions, supportive care, NIPPV as clinically indicated, (2) Malignant hypertensive urgency Current Visit: Yes Status: Acute Plan to address problem: IV hydralazine q 4 hrs. Goal systolic BP overnight 170-190. Pt admitted with systolic above 220. Urgent dialysis, monitor BP q shift, (3) ESRD on hemodialysis Current Visit: Yes Status: Acute Plan to address problem: nephrology consulted, Patient pending urgent dialysis. (4) Diabetes Current Visit: No Status: Acute Qualifiers: Diabetes mellitus type: D Diabetes mellitus complication status: D Diabetes mellitus complication detail: D Diabetic retinopathy severity: D Proliferative retinopathy type: P Diabetes mellitus macular edema: D Diabetes mellitus long-term insulin use: D Laterality: L Chronic kidney disease stage: C Plan to address problem: ADA diet, insulin, accu check (5) CHF (congestive heart failure) Current Visit: Yes Status: Acute Qualifiers: Congestive heart failure type: diastolic Congestive heart failure chronicity: acute on chronic Qualified Code(s): I50.33 - Acute on chronic diastolic (congestive) heart failure Plan to address problem: Monitor uop q shift, fluid restriction, monitor uop q shift to ensure negative fluid balance, Urgent dialysis, afterload reduction, continue medical management. remote telemetry. (6) DVT prophylaxis Current Visit: No Status: Acute
[2017-05-25] MEDS ORDERED: NACL 0.9 (PRIMING MACHINE ONLY DIALYSIS) MC ONE ×2 (00:18→15:08)
[2017-05-25] MEDS ORDERED: APRESOLINE IV ONE (05:50)
--- NOTE | 2017-05-25 07:35 | Progress Note ---
<JHON MACKEY - Last Filed: 05/25/17 08:37> Assessment and Plan Assessment and plan: Acute respiratory failure with hypoxia Patient oxygen saturation improved with 2LNC; currently SPO2 98%. No acute respiratory distress noted. Aggressive Nebulizers/Inhalers ABG when necessary Oxygen supplement Supportive care Acute on chronic diastolic Congestive heart failure Echocardiogram with EF 60-65% ON 04/15/2016 Started on IV Diuresis, beta blockers and ACEI/ARB Strict I&O's and daily weights Low-sodium/cardiac diet/fluid restriction Closely monitor electrolytes Cardiology evaluation End-stage renal disease on dialysis Nephrology consulted Hyperkalemia Patient will have hemodialysis today, that will correct it. Diabetes mellitus Accu-Chek before meals and at bedtime Sliding scale insulin/NovoLog ADA carbohydrate consistent diet Hypertensive urgency Continue home antihypertensive medications Closely monitor blood pressure Chronic anemia H&H stable for patient at this point; no blood transfusions needed Closely monitor H&H DVT prophylaxis Heparin History Interval history: Patient denies chest pain, shortness of breath at present time. Labs and nurse notes are reviewed. Hospitalist Physical - Constitutional Vitals: Temp Pulse Resp BP Pulse Ox 98.7 F 64 18 195/89 100 05/25/17 05:16 05/25/17 06:40 05/25/17 06:40 05/25/17 06:20 05/25/17 06:40 General appearance: Present: mild distress - EENT Eyes: Present: PERRL ENT: hearing intact - Neck Neck: Present: supple - Respiratory Respiratory effort: normal Respiratory: bilateral: CTA - Cardiovascular Rhythm: regular Heart Sounds: Present: S1 & S2 - Abdominal General gastrointestinal: soft, non-tender - Integumentary Integumentary: Present: clear, warm, dry - Psychiatric Psychiatric: appropriate mood/affect - Neurologic Neurologic: CNII-XII intact - Allied Health Allied health notes reviewed: nursing Results - Labs CBC & Chem 7: 05/24/17 12:47 05/24/17 12:47 Labs: Laboratory Last Values WBC 6.4 K/mm3 (4.5-11.0) 05/24/17 12:47 RBC 4.18 M/mm3 (3.65-5.03) 05/24/17 12:47 Hgb 9.8 gm/dl (10.1-14.3) L 05/24/17 12:47 Hct 31.1 % (30.3-42.9) 05/24/17 12:47 MCV 74 fl (79-97) L 05/24/17 12:47 MCH 23 pg (28-32) L 05/24/17 12:47 MCHC 31 % (30-34) 05/24/17 12:47 RDW 21.5 % (13.2-15.2) H 05/24/17 12:47 Plt Count 156 K/mm3 (140-440) 05/24/17 12:47 Lymph % (Auto) 17.3 % (13.4-35.0) 05/24/17 12:47 [place] % (Auto) 6.1 % (0.0-7.3) 05/24/17 12:47 Eos % (Auto) 2.3 % (0.0-4.3) 05/24/17 12:47 Baso % (Auto) 0.8 % (0.0-1.8) 05/24/17 12:47 Lymph # 1.1 K/mm3 (1.2-5.4) L 05/24/17 12:47 [place] # 0.4 K/mm3 (0.0-0.8) 05/24/17 12:47 Eos # 0.1 K/mm3 (0.0-0.4) 05/24/17 12:47 Baso # 0.0 K/mm3 (0.0-0.1) 05/24/17 12:47 Seg Neutrophils % 73.5 % (40.0-70.0) H 05/24/17 12:47 Seg Neutrophils # 4.7 K/mm3 (1.8-7.7) 05/24/17 12:47 Sodium 137 mmol/L (137-145) 05/24/17 12:47 Potassium 5.3 mmol/L (3.6-5.0) H 05/24/17 12:47 Chloride 93.0 mmol/L (98-107) L 05/24/17 12:47 Carbon Dioxide 30 mmol/L (22-30) 05/24/17 12:47 Anion Gap 19 mmol/L 05/24/17 12:47 BUN 46 mg/dL (7-17) H 05/24/17 12:47 Creatinine 8.1 mg/dL (0.7-1.2) H 05/24/17 12:47 Estimated GFR 6 ml/min 05/24/17 12:47 BUN/Creatinine Ratio 6 % 05/24/17 12:47 Glucose 246 mg/dL (65-100) H 05/24/17 12:47 POC Glucose 149 (70-105) H 05/25/17 05:17 Calcium 9.2 mg/dL (8.4-10.2) 05/24/17 12:47 Troponin T 0.061 ng/mL (0.00-0.029) H 05/24/17 12:47 Triglycerides 83 mg/dL (2-149) 05/24/17 12:47 Cholesterol 163 mg/dL (50-199) 05/24/17 12:47 LDL Cholesterol Direct 97 mg/dL (50-130) 05/24/17 12:47 HDL Cholesterol 50 mg/dL (40-59) 05/24/17 12:47 Cholesterol/HDL Ratio 3.26 % 05/24/17 12:47 <CAROL ANN BAÑUELOS - Last Filed: 05/25/17 19:41> Hospitalist Physical - Constitutional Vitals: Temp Pulse Resp BP Pulse Ox 97.7 F 58 L 18 158/80 99 05/25/17 17:50 05/25/17 17:50 05/25/17 17:50 05/25/17 17:50 05/25/17 08:36 Results - Labs CBC & Chem 7: 05/24/17 12:47 05/24/17 12:47 Labs: Laboratory Last Values WBC 6.4 K/mm3 (4.5-11.0) 05/24/17 12:47 RBC 4.18 M/mm3 (3.65-5.03) 05/24/17 12:47 Hgb 9.8 gm/dl (10.1-14.3) L 05/24/17 12:47 Hct 31.1 % (30.3-42.9) 05/24/17 12:47 MCV 74 fl (79-97) L 05/24/17 12:47 MCH 23 pg (28-32) L 05/24/17 12:47 MCHC 31 % (30-34) 05/24/17 12:47 RDW 21.5 % (13.2-15.2) H 05/24/17 12:47 Plt Count 156 K/mm3 (140-440) 05/24/17 12:47 Lymph % (Auto) 17.3 % (13.4-35.0) 05/24/17 12:47 [place] % (Auto) 6.1 % (0.0-7.3) 05/24/17 12:47 Eos % (Auto) 2.3 % (0.0-4.3) 05/24/17 12:47 Baso % (Auto) 0.8 % (0.0-1.8) 05/24/17 12:47 Lymph # 1.1 K/mm3 (1.2-5.4) L 05/24/17 12:47 [place] # 0.4 K/mm3 (0.0-0.8) 05/24/17 12:47 Eos # 0.1 K/mm3 (0.0-0.4) 05/24/17 12:47 Baso # 0.0 K/mm3 (0.0-0.1) 05/24/17 12:47 Seg Neutrophils % 73.5 % (40.0-70.0) H 05/24/17 12:47 Seg Neutrophils # 4.7 K/mm3 (1.8-7.7) 05/24/17 12:47 Sodium 137 mmol/L (137-145) 05/24/17 12:47 Potassium 5.3 mmol/L (3.6-5.0) H 05/24/17 12:47 Chloride 93.0 mmol/L (98-107) L 05/24/17 12:47 Carbon Dioxide 30 mmol/L (22-30) 05/24/17 12:47 Anion Gap 19 mmol/L 05/24/17 12:47 BUN 46 mg/dL (7-17) H 05/24/17 12:47 Creatinine 8.1 mg/dL (0.7-1.2) H 05/24/17 12:47 Estimated GFR 6 ml/min 05/24/17 12:47 BUN/Creatinine Ratio 6 % 05/24/17 12:47 Glucose 246 mg/dL (65-100) H 05/24/17 12:47 POC Glucose 247 (70-105) H 05/25/17 12:28 Calcium 9.2 mg/dL (8.4-10.2) 05/24/17 12:47 Troponin T 0.061 ng/mL (0.00-0.029) H 05/24/17 12:47 Triglycerides 83 mg/dL (2-149) 05/24/17 12:47 Cholesterol 163 mg/dL (50-199) 05/24/17 12:47 LDL Cholesterol Direct 97 mg/dL (50-130) 05/24/17 12:47 HDL Cholesterol 50 mg/dL (40-59) 05/24/17 12:47 Cholesterol/HDL Ratio 3.26 % 05/24/17 12:47
[2017-05-25] MEDS ORDERED: SYNTHROID PO SCH ×2 (07:55→10:00)
[2017-05-25] MEDS ORDERED: D50W (25GM) Syringe IV PRN (08:41)
[2017-05-25] MEDS ORDERED: CETIRIZINE HCL 10 MG PO SCH (10:00)
[2017-05-25] MEDS ORDERED: CLARITIN PO SCH (10:00)
--- NOTE | 2017-05-25 10:48 | Consultation ---
History of Present Illness - Reason for Consult Consult date: 05/25/17 end stage renal disease, other Requesting physician: SYLVESTER FLORES - History of Present Illness 62 YO Female with ESRD on HD(M,W,F), at [facility], HTN, CHF, Anemia, Hypothyroidism, DM presents to ED with a c/o of worsening shortness of breath x 2 days duration in association with elevated BP of >200 systolic. No chest pain , palpitations. No aggravating or reliving factors. She had her last HD on Thursday. We are consulted last night for urgent dialysis. Past History Past Medical History: anemia, diabetes, ESRD, heart failure, hypertension, hypothyroidism Past Surgical History: Other (VANDANA LAUGHLIN, ) Social history: . denies: smoking, alcohol abuse, prescription drug abuse Family history: diabetes, hypertension Medications and Allergies Allergies Allergy/AdvReac Type Severity Reaction Status Date / Time No Known Allergies Allergy Verified 01/19/16 17:29 Home Medications Medication Instructions Recorded Confirmed Last Taken Type Levothyroxine [Synthroid] 175 mcg PO QAM #30 tablet 04/16/16 05/25/17 05/24/17 Rx 200 mcg Cetirizine HCl 10 mg PO DAILY MDD 10 mg 09/01/16 05/25/17 05/24/17 History 10 mg Furosemide [Lasix TAB] 80 mg PO QDAY MDD 80 mg 09/01/16 05/25/17 05/23/17 History 80 mg glipiZIDE [Glucotrol] 10 mg PO BID MDD 10 mg 09/01/16 05/25/17 05/24/17 History 10 mg Brimonidine Tartrate [Brimonidine 1 drop OU BID MDD 1 drop 09/02/16 05/25/17 History Tartrate 0.15%] 1 drop Latanoprost 0.005% [Xalatan 0.005%] 1 drop OU QPM #0 MDD 1 drop 09/02/1605/23/17 History 1 drop Lisinopril [Zestril TAB] 40 mg PO QDAY MDD 40 mg 02/01/17 05/25/17 05/24/17 History 40 mg Metoprolol [Lopressor TAB] 50 mg PO BID MDD 50 mg 02/01/17 05/25/17 05/24/17 History 50 mg NIFEdipine [Nifedipine ER] 60 mg PO BID MDD 60 mg 02/01/17 05/25/17 05/23/17 History 60 mg Zolpidem [Ambien] 5 mg PO QHS PRN MDD 5 mg 02/01/17 05/25/17 05/23/17 History 5 mg hydrALAZINE [Apresoline TAB] 100 mg PO BID MDD 100 02/01/17 05/25/17 05/24/17 History 100 mg Loratadine [Claritin] 10 mg PO DAILY MDD 10 mg 05/25/17 05/25/17 05/24/17 History 10 mg Active Meds: Active Medications Brimonidine Tartrate (Alphagan P 0.15%) 1 drops OU BID MONTSERRAT Dextrose (D50w (25gm) Syringe) 50 ml IV PRN PRN PRN Reason: Hypoglycemia Furosemide (Lasix) 40 mg IV 0600,1800 MON[place]ERRAT Glipizide (Glucotrol) 10 mg PO BIDDIAB [place]ERRAT Hydralazine HCl (Apresoline) 50 mg PO BID MON[place]ERRAT Sodium Chloride (Nacl 0.9%) 100 mls @ 999 mls/hr IV [place] PRN PRN Reason: Hypotension Insulin Aspart (Novolog) 0 units SUB-Q AC MON[place]AT PRN Reason: Protocol Insulin Aspart (Novolog) 0 units SUB-Q QHS MON[place]ERRAT PRN Reason: Protocol Latanoprost (Xalatan 0.005%) 1 drops OU QPM [place]AT Levothyroxine Sodium (Synthroid) 100 mcg PO DAILY@0600 MON[place]AT Levothyroxine Sodium (Synthroid) 75 mcg PO DAILY@0600 [place] Lisinopril (Zestril) 40 mg PO QDAY MONTSERRAT Loratadine (Claritin) 10 mg PO DAILY MON[place]ERRAT Metoprolol Tartrate (Lopressor) 50 mg PO BID MONTSERRAT Nifedipine (Procardia Xl) 60 mg PO BID MONTSERRAT Simvastatin (Zocor) 20 mg PO QHS MONTSERRAT Zolpidem Tartrate (Ambien) 5 mg PO QHS PRN PRN Reason: Sleep Review of Systems All systems: negative Constitutional: no weight loss, no weight gain, no fever, no chills, no anorexia , no fatigue Ears, nose, mouth and throat: no ear pain, no ear discharge, no tinnitis, no decreased hearing Cardiovascular: shortness of breath, no chest pain, no orthopnea, no palpitations Respiratory: shortness of breath, no cough, no hemoptysis Gastrointestinal: no abdominal pain, no nausea, no vomiting, no diarrhea Genitourinary Female: no dysmenorrhea, no pelvic pain, no flank pain Rectal: no pain, no incontinence Musculoskeletal: no neck stiffness, no neck pain, no shooting arm pain Integumentary: no rash, no pruritis, no redness Neurological: no paralysis, no weakness, no parathesias Psychiatric: no anxiety, no memory loss Endocrine: no cold intolerance, no heat intolerance Hematologic/Lymphatic: no easy bruising, no easy bleeding Exam - Vital Signs Vital signs: Vital Signs Pulse BP Pulse Ox 66 186/78 96 05/24/17 12:33 05/24/17 12:33 05/24/17 12:33 - General Appearance General appearance: well-developed, well-nourished, appears stated age EENT: PERRL, mucous membranes moist Neck: Present: neck supple, trachea midline. Absent: JVD/HJR, Masses Respiratory: Decreased Breath Sounds, Other (no wheezing ) Heart: regular, normal heart rate, S1S2, no murmurs Gastrointestinal: Present: normoactive bowel sounds. Absent: tenderness Integumentary: no rash, warm and dry Neurologic: no focal deficit, alert and oriented x3, gait normal, strength 5/5 Musculoskeletal: Absent: deformities, joint swelling Psychiatric: mood/affect appropriate, cooperative Results - Lab Results 05/24/17 12:47 05/24/17 12:47 Most recent lab results Calcium 9.2 mg/dL (8.4-10.2) 05/24/17 12:47 Assessment and Plan (1) Fluid overload Current Visit: No Status: Acute Plan to address problem: Urgent HD arrangements made last night. HD again today and will continue on MWF schedule Discussed fluid/salt restrictions with ESRD (2) Hypertensive urgency Current Visit: Yes Status: Acute Plan to address problem: 2/2 fluid overload. Will expect more BP improvement on dialysis today Oral antihypertensives resumed-Nifedipine XL/hydralazine and Lisinopril Also added Clonidine 0.1 mg BID (3) ESRD on hemodialysis Current Visit: Yes Status: Chronic Plan to address problem: HD on MWF schedule (4) Diabetes Melliteous type II Current Visit: No Status: chronic Plan to address problem: Management per primary team (5) Anemia of ESRD Current Visit: No Status: chronic Plan to address problem: Epogen on dialysis
[2017-05-25] MEDS ORDERED: NACL 0.9% 100 ML IV PRN (11:00)
[2017-05-25] MEDS: SYNTHROID PO SCH ×2 (11:40)
[2017-05-25] MEDS: LOPRESSOR PO SCH ×2 (11:40→22:05)
[2017-05-25] MEDS: CLARITIN PO SCH (11:41)
[2017-05-25] MEDS: ZESTRIL PO SCH (11:41)
[2017-05-25] MEDS: APRESOLINE PO SCH ×2 (11:44→22:04)
[2017-05-25] MEDS: PROCARDIA XL PO SCH ×2 (11:45→22:05)
[2017-05-25] MEDS: GLUCOTROL PO SCH ×2 (12:34→18:40)
[2017-05-25] MEDS: LASIX IV SCH ×2 (12:34→18:40)
[2017-05-25] MEDS: ALPHAGAN P 0.15% OU SCH ×2 (12:36→22:55)
[2017-05-25] MEDS: CATAPRES PO SCH ×2 (12:37→22:04)
[2017-05-25] MEDS: NOVOLOG SUB-Q SCH ×2 (15:23→16:30)
[2017-05-25] MEDS ORDERED: XALATAN 0.005% OU SCH (18:00)
[2017-05-25] MEDS ORDERED: AMBIEN PO PRN (22:00)
[2017-05-25] MEDS ORDERED: ZOCOR PO SCH (22:00)
[2017-05-25] MEDS ORDERED: NOVOLOG SUB-Q SCH (22:00)
[2017-05-26] MEDS: LASIX IV SCH (05:38)
[2017-05-26] MEDS: SYNTHROID PO SCH ×2 (06:07→06:08)
[2017-05-26 09:02] LABS: Calcium 9.1 mg/dL (8.4-10.2); Chloride 96.6 mmol/L (98-107); Potassium 4.9 mmol/L (3.6-5.0)
[2017-05-26] MEDS: PROCARDIA XL PO SCH (09:34)
[2017-05-26] MEDS: CLARITIN PO SCH (09:34)
[2017-05-26] MEDS: APRESOLINE PO SCH (09:35)
[2017-05-26] MEDS: ZESTRIL PO SCH (09:39)
[2017-05-26] MEDS: GLUCOTROL PO SCH (09:39)
[2017-05-26] MEDS: LOPRESSOR PO SCH (09:41)
[2017-05-26] MEDS: CATAPRES PO SCH (09:42)
[2017-05-26] MEDS: NOVOLOG SUB-Q SCH ×2 (09:44→13:56)
[2017-05-26] MEDS: ALPHAGAN P 0.15% OU SCH (10:15)
--- NOTE | 2017-05-26 10:35 | Progress Note ---
Assessment and Plan (1) Fluid overload Current Visit: No Status: Acute Plan to address problem: S/p HD x 2 with improvement in her SOB. Discussed fluid/salt restrictions with ESRD Next HD on Thursday (2) Hypertensive urgency Current Visit: Yes Status: Acute Plan to address problem: 2/2 fluid overload. Oral antihypertensives resumed-Nifedipine XL/hydralazine and Lisinopril Also added Clonidine 0.1 mg BID BP improved with meds and dialysis (3) ESRD on hemodialysis Current Visit: Yes Status: Chronic Plan to address problem: HD on MWF schedule (4) Diabetes Melliteous type II Current Visit: No Status: chronic Plan to address problem: Management per primary team (5) Anemia of ESRD Current Visit: No Status: chronic Plan to address problem: Epogen on dialysis Subjective Date of service: 05/26/17 Interval history: SOB improved, + constipation Objective - Vital Signs Vital signs: Vital Signs - 12hr 05/25/17 05/26/17 05/26/17 23:51 08:09 09:35 Temperature 98.4 F 98.4 F Pulse Rate 18 L 61 64 Respiratory 18 18 Rate Blood Pressure 146/70 Blood Pressure 161/72 146/70 [Right] O2 Sat by Pulse 100 99 Oximetry 05/26/17 05/26/17 05/26/17 09:39 09:41 09:42 Temperature Pulse Rate 64 Respiratory Rate Blood Pressure 146/70 146/70 146/70 Blood Pressure [Right] O2 Sat by Pulse Oximetry - General Appearance General appearance: well-developed, well-nourished, appears stated age EENT: PERRL, mucous membranes moist Neck: no JVD, no thyromegaly, no carotid bruit, supple Respiratory: Present: Clear to Ascultation. Absent: Wheezes Cardiology: regular, normal heart rate, S1S2, no murmurs Gastrointestinal: normoactive bowel sounds, no tenderness Integumentary: no rash, warm and dry Neurologic: no focal deficit, alert and oriented x3, reflexes 2+ and symmetric, gait normal, strength 5/5 Musculoskeletal: no deformities, no erythema, no cyanosis, no clubbing Psychiatric: mood/affect appropriate, cooperative - Lab 05/24/17 12:47 05/26/17 08:22 Most recent lab results Calcium 9.1 mg/dL (8.4-10.2) 05/26/17 08:22
--- NOTE | 2017-05-26 11:22 | Discharge Summary ---
Providers - Providers Date of Admission: 05/24/17 18:17 Date of discharge: 05/26/17 Attending physician: CAROL ANN BAÑUELOS 05/25/17 08:27 Consult to Physician [CONS] Routine Consulting Provider: KANWAL WEISS Reason For Exam: ESRD Place consult to:: benson/DR. WEISS Notified:: OFFICE Phone number called:: [phone] Was contact made?: Yes If yes, spoke with:: SUBHASH Time called:: 09:21 Comment:: PAT NOTIFIED Primary care physician: FR[facility]IER Hospitalization Reason for admission: CHF Exacerbation Condition: Good Hospital course: Patient is a 62 years old female with past medical histroy of ESRD on HD(M,W,F) , HTN, CHF, Anemia, Hypothyroidism, DM presents to ED for evaluation. Pt states that she has experienced shortness of breath for the past 2 days with worsening symptoms all day today. Patient was diagnosed with Acute respiratory failure with hypoxia, Acute on chronic diastolic Congestive heart failure,Hypertension urgency, End-stage renal disease on dialysis, Diabetes mellitus, Hypothyroidism , Hyperlipidemia and chronic anemia. Echocardiogram with EF 60-65% ON 2015. Chest xray showed CHF. She was treated with dialysis, supplemental oxygen, nebulizer therapy, IV diuretic, antilipid, antidabetic/insulin agents, antihypertensive medication. Patient clinically improved. Patient advised to follow up with her Strip Feeder and primary care provider. Discharge Diagnosed Acute respiratory failure with hypoxia Acute on chronic diastolic Congestive heart failure Hypertension urgency End-stage renal disease on dialysis Diabetes mellitus Hypothyroidism Hyperlipidemia Chronic anemia Disposition: - TO HOME OR SELFCARE Time spent for discharge: 33 minutes Core Measure Documentation - Palliative Care Palliative Care/ Comfort Measures: Not Applicable - Core Measures Any of the following diagnoses?: none Exam - Constitutional Vitals: Temp Pulse Resp BP Pulse Ox 98.4 F 64 18 146/70 99 05/26/17 08:09 05/26/17 09:41 05/26/17 08:09 05/26/17 09:42 05/26/17 08:09 General appearance: Present: no acute distress - EENT Eyes: Present: PERRL ENT: hearing intact - Neck Neck: Present: supple - Respiratory Respiratory effort: normal Respiratory: bilateral: CTA - Cardiovascular Rhythm: regular Heart Sounds: Present: S1 & S2 - Abdominal General gastrointestinal: Present: soft, non-tender Female genitourinary: Present: deferred - Rectal Rectal Exam: deferred - Integumentary Integumentary: Present: clear, warm, dry - Musculoskeletal Musculoskeletal: strength equal bilaterally - Psychiatric Psychiatric: appropriate mood/affect - Neurologic Neurologic: CNII-XII intact - Allied Health Allied health notes reviewed: nursing Plan Weight Bearing Status: Weight Bear as Tolerated Diet: low salt Follow up with: PRIMARY CARE, [Primary Care Provider] - 3-5 Days
[2017-05-26 15:55] VITALS: BP 135/67
[2017-05-26] MEDS ORDERED: CEPHULAC PO PRN (22:00)
== END 2017-05-26 17:24 | disposition home or self-care (01) | DRG 291 ==
LOC: ED 12:31 → 3A 18:17
PROVIDERS: ADMIT Internal Medicine; ATTEND Internal Medicine
PROC: 5A1D70Z Performance of Urinary Filtration, Intermittent, Less than 6 Hours Per Day (ICD-10-PCS; principal; 2017-05-24)
PROC: 5A1D70Z Performance of Urinary Filtration, Intermittent, Less than 6 Hours Per Day (ICD-10-PCS; 2017-05-25)
DX: I13.2 Hypertensive heart and chronic kidney disease with heart failure and with stage 5 chronic kidney disease, or end stage renal disease (principal); I50.33 Acute on chronic diastolic (congestive) heart failure; N18.6 End stage renal disease; J96.01 Acute respiratory failure with hypoxia; I16.0 Hypertensive urgency; E87.5 Hyperkalemia; D64.9 Anemia, unspecified; E11.22 Type 2 diabetes mellitus with diabetic chronic kidney disease; E03.9 Hypothyroidism, unspecified; E78.5 Hyperlipidemia, unspecified; D63.1 Anemia in chronic kidney disease; Z83.3 Family history of diabetes mellitus; Z82.49 Family history of ischemic heart disease and other diseases of the circulatory system; Z99.2 Dependence on renal dialysis
CPT/HCPCS: 36415; 71020; 80048; 80061; 82962; 84484; 85025; 93005; 93010; 96374; J0360; J1815; J1940; J7030

== ENCOUNTER 2017-06-10 12:34 | Inpatient (IN) | payer MEDICARE ==
[2017-06-10 14:04] LABS: Hemoglobin 10.3 gm/dl (10.1-14.3); Mean Corpuscular HGB Conc 31 % (30-34); Mean Corpuscular Hemoglobin 24 pg (28-32); Mean Corpuscular Volume 75 fl (79-97); Red Blood Count 4.39 M/mm3 (3.65-5.03); Red Cell Distribution Width 22.4 % (13.2-15.2); White Blood Count 6.8 K/mm3 (4.5-11.0)
[2017-06-10 14:05] LABS: Platelet Count 223 K/mm3 (140-440)
[2017-06-10 14:09] LABS: Mean Platelet Volume 9.6 fl (6-12)
[2017-06-10 14:10] LABS: Basophils % (Auto) 1.1 % (0.0-1.8); Eosinophils % (Auto) 3.8 % (0.0-4.3)
[2017-06-10 14:13] LABS: Albumin 4.1 g/dL (3.9-5); Albumin/Globulin Ratio 1.1 %; Bilirubin,Total 0.3 mg/dL (0.1-1.2); Calcium 9.6 mg/dL (8.4-10.2); Chloride 92.7 mmol/L (98-107); Total Protein 7.8 g/dL (6.3-8.2)
[2017-06-10 14:14] LABS: Potassium 6.1 mmol/L (3.6-5.0)
--- NOTE | 2017-06-10 14:59 | Emergency Department Report ---
ED General Adult HPI - General Chief complaint: Medical Clearance Stated complaint: DIALYSIS, POTASSIUM HIGH Time Seen by Provider: 06/10/17 14:19 Source: patient Mode of arrival: Ambulatory Limitations: No Limitations - History of Present Illness Initial comments: The patient was transferred to this facility from her dialysis clinic. As I understand it she was on a dialysis run when the nurse practitioner was notified that she had a potassium of 7.1. Therefore it was thought to be necessary to send her to the hospital for dialysis. As far as I can tell a patient was asymptomatic during her dialysis run. She was last dialyzed as scheduled on Thursday. She admits to dietary indiscretion. History is limited secondary to language barrier. She does not appear to have any complaints at this time. -: Gradual Severity scale (0 -10): 0 Associated Symptoms: denies other symptoms - Related Data Home Medications Medication Instructions Recorded Confirmed Last Taken Cetirizine HCl 10 mg PO DAILY MDD 10 mg 09/01/16 05/25/17 05/24/17 10 mg Furosemide [Lasix TAB] 80 mg PO QDAY MDD 80 mg 09/01/16 05/25/17 05/23/17 80 mg glipiZIDE [Glucotrol] 10 mg PO BID MDD 10 mg 09/01/16 05/25/17 05/24/17 10 mg Brimonidine Tartrate [Brimonidine 1 drop OU BID MDD 1 drop 09/02/16 05/25/17 Tartrate 0.15%] 1 drop Latanoprost 0.005% [Xalatan 0.005%] 1 drop OU QPM #0 MDD 1 drop 09/02/1605/23/17 1 drop Lisinopril [Zestril TAB] 40 mg PO QDAY MDD 40 mg 02/01/17 05/25/17 05/24/17 40 mg Metoprolol [Lopressor TAB] 50 mg PO BID MDD 50 mg 02/01/17 05/25/17 05/24/17 50 mg NIFEdipine [Nifedipine ER] 60 mg PO BID MDD 60 mg 02/01/17 05/25/17 05/23/17 60 mg hydrALAZINE [Apresoline TAB] 100 mg PO BID MDD 100 02/01/17 05/25/17 05/24/17 100 mg Loratadine [Claritin] 10 mg PO DAILY MDD 10 mg 05/25/17 05/25/17 05/24/17 10 mg Previous Rx's Medication Instructions Recorded Last Taken Type Levothyroxine [Synthroid] 175 mcg PO QAM #30 tablet 04/16/16 05/24/17 Rx 200 mcg Levothyroxine [Synthroid] 75 mcg PO DAILY@0600 tablet 05/26/17 Unknown Rx Levothyroxine [Synthroid] 100 mcg PO DAILY@0600 tablet 05/26/17 Unknown Rx Loratadine [Claritin] 10 mg PO DAILY tablet 05/26/17 Unknown Rx Simvastatin [Zocor TAB] 20 mg PO QHS tablet 05/26/17 Unknown Rx cloNIDine [Catapres] 0.1 mg PO Q12HR tablet 05/26/17 Unknown Rx Allergies Allergy/AdvReac Type Severity Reaction Status Date / Time No Known Allergies Allergy Verified 01/19/16 17:29 ED Review of Systems ROS: Stated complaint: DIALYSIS, POTASSIUM HIGH Other details as noted in HPI Constitutional: denies: chills, fever Eyes: denies: eye pain, eye discharge, vision change ENT: denies: ear pain, throat pain Respiratory: denies: cough, shortness of breath, wheezing Cardiovascular: denies: chest pain, palpitations Endocrine: no symptoms reported Gastrointestinal: denies: abdominal pain, nausea, diarrhea Genitourinary: denies: urgency, dysuria, discharge Musculoskeletal: denies: back pain, joint swelling Skin: denies: rash, lesions Neurological: denies: headache, weakness Psychiatric: denies: anxiety, depression Hematological/Lymphatic: denies: easy bleeding, easy bruising ED Past Medical Hx - Past Medical History Previous Medical History?: Yes Hx Hypertension: Yes Hx Heart Attack/AMI: No Hx Congestive Heart Failure: Yes Hx Diabetes: Yes Hx Renal Disease: Yes Hx Seizures: No Hx Asthma: No Hx COPD: No Hx HIV: No Additional medical history: anemia. thyroid - Surgical History Past Surgical History?: Yes Additional Surgical History: thyroidectomy. eye surgery. abd for dialysis - Social History Smoking Status: Never Smoker Substance Use Type: Prescribed - Medications Home Medications: Home Medications Medication Instructions Recorded Confirmed Last Taken Type Levothyroxine [Synthroid] 175 mcg PO QAM #30 tablet 04/16/16 05/25/17 05/24/17 Rx 200 mcg Cetirizine HCl 10 mg PO DAILY MDD 10 mg 09/01/16 05/25/17 05/24/17 History 10 mg Furosemide [Lasix TAB] 80 mg PO QDAY MDD 80 mg 09/01/16 05/25/17 05/23/17 History 80 mg glipiZIDE [Glucotrol] 10 mg PO BID MDD 10 mg 09/01/16 05/25/17 05/24/17 History 10 mg Brimonidine Tartrate [Brimonidine 1 drop OU BID MDD 1 drop 09/02/16 05/25/17 History Tartrate 0.15%] 1 drop Latanoprost 0.005% [Xalatan 0.005%] 1 drop OU QPM #0 MDD 1 drop 09/02/1605/23/17 History 1 drop Lisinopril [Zestril TAB] 40 mg PO QDAY MDD 40 mg 02/01/17 05/25/17 05/24/17 History 40 mg Metoprolol [Lopressor TAB] 50 mg PO BID MDD 50 mg 02/01/17 05/25/17 05/24/17 History 50 mg NIFEdipine [Nifedipine ER] 60 mg PO BID MDD 60 mg 02/01/17 05/25/17 05/23/17 History 60 mg hydrALAZINE [Apresoline TAB] 100 mg PO BID MDD 100 02/01/17 05/25/17 05/24/17 History 100 mg Loratadine [Claritin] 10 mg PO DAILY MDD 10 mg 05/25/17 05/25/17 05/24/17 History 10 mg Levothyroxine [Synthroid] 75 mcg PO DAILY@0600 tablet 05/26/17 Unknown Rx Levothyroxine [Synthroid] 100 mcg PO DAILY@0600 tablet 05/26/17 Unknown Rx Loratadine [Claritin] 10 mg PO DAILY tablet 05/26/17 Unknown Rx Simvastatin [Zocor TAB] 20 mg PO QHS tablet 05/26/17 Unknown Rx cloNIDine [Catapres] 0.1 mg PO Q12HR tablet 05/26/17 Unknown Rx ED Physical Exam - General Limitations: No Limitations General appearance: alert, in no apparent distress - Head Head exam: Present: atraumatic, normocephalic - Eye Eye exam: Present: normal appearance. Absent: scleral icterus - ENT ENT exam: Present: mucous membranes moist - Neck Neck exam: Present: normal inspection. Absent: tenderness, meningismus - Respiratory Respiratory exam: Present: normal lung sounds bilaterally. Absent: respiratory distress - Cardiovascular Cardiovascular Exam: Present: regular rate, normal rhythm. Absent: systolic murmur, diastolic murmur, rubs, gallop - GI/Abdominal GI/Abdominal exam: Present: soft, normal bowel sounds. Absent: distended, tenderness, guarding, rebound, rigid - Extremities Exam Extremities exam: Present: normal inspection - Back Exam Back exam: Present: normal inspection - Neurological Exam Neurological exam: Present: alert, oriented X3, CN II-XII intact. Absent: motor sensory deficit - Psychiatric Psychiatric exam: Present: normal affect, normal mood - Skin Skin exam: Present: warm, dry, intact, normal color. Absent: rash ED Course Vital Signs 06/10/17 06/10/17 06/10/17 13:01 13:25 13:26 Temperature 97.9 F Pulse Rate 63 63 63 Respiratory 18 12 12 Rate Blood Pressure 185/75 O2 Sat by Pulse 99 99 99 Oximetry 06/10/17 06/10/17 06/10/17 13:28 13:30 13:59 Temperature Pulse Rate 62 62 Respiratory 15 14 16 Rate Blood Pressure O2 Sat by Pulse 99 98 Oximetry 06/10/17 14:03 Temperature 97.8 F Pulse Rate 61 Respiratory 12 Rate Blood Pressure O2 Sat by Pulse 96 Oximetry - Reevaluation(s) Reevaluation #1: She has been paged. Patient admitted by Dr. Adams to the hosptialist service. 06/10/17 14:59 ED Medical Decision Making - Lab Data Result diagrams: 06/10/17 13:29 06/10/17 13:29 Laboratory Results - last 24 hr 06/10/17 06/10/17 13:29 13:29 WBC 6.8 RBC 4.39 Hgb 10.3 Hct 33.0 MCV 75 L MCH 24 L MCHC 31 RDW 22.4 H Plt Count 223 Lymph % (Auto) 25.4 Atkinson % (Auto) 7.1 Eos % (Auto) 3.8 Baso % (Auto) 1.1 Lymph # 1.7 Atkinson # 0.5 Eos # 0.3 Baso # 0.1 Seg Neutrophils % 62.6 Seg Neutrophils # 4.2 Sodium 138 Potassium 6.1 H* Chloride 92.7 L Carbon Dioxide 31 H Anion Gap 20 BUN 49 H Creatinine 9.4 H Estimated GFR 5 BUN/Creatinine Ratio 5 Glucose 274 H Calcium 9.6 Total Bilirubin 0.30 AST 40 ALT 32 Alkaline Phosphatase 145 H Total Protein 7.8 Albumin 4.1 Albumin/Globulin Ratio 1.1 Lipase 139 H - EKG Data -: EKG Interpreted by Me EKG shows normal: sinus rhythm Rate: normal - EKG Data 06/10/17 15:02 Suggested hyperkalemia and LVH. Critical Care Time: Yes Critical care time in (mins) excluding proc time.: 40 Critical care attestation.: If time is entered above; I have spent that time in minutes in the direct care of this critically ill patient, excluding procedure time. ED Disposition Clinical Impression: Hyperkalemia, End-stage renal disease needing dialysis Disposition: OP ADMIT IP TO THIS HOSP Is pt being admited?: Yes Does the pt Need Aspirin: Yes Condition: Stable Referrals: PRIMARY CARE, [Primary Care Provider] - 3-5 Days Time of Disposition: 15:04
[2017-06-10] MEDS ORDERED: BABY ASPIRIN PO ONE (15:05)
[2017-06-10] MEDS ORDERED: APRESOLINE ONE ×2 (15:16→17:57)
[2017-06-10] MEDS ORDERED: APRESOLINE IV ONE (15:20)
[2017-06-10] MEDS ORDERED: NACL 0.9% 100 ML IV PRN (15:46)
--- NOTE | 2017-06-10 17:06 | Consultation ---
History of Present Illness - Reason for Consult Consult date: 06/10/17 end stage renal disease Requesting physician: HAL MULTANI - History of Present Illness 62 yo with Diabetes mellitus, Hypertension and End stage renal disease on Hemodialysis sent from the dialysis clinic because of potassium of 7.1. Patient was just discharged from the hospital on May 25 with acute respiratory failure, acute on chronic diastolic heart failure. Chest Xray showed pulmonary edema. She received intensive dialysis, IV diuretics, nebulizer and supplemental oxygen. She says she was doing well. On further inquiry, admits that she has been poorly compliant with low potassium diet. She denies any chest pain, shortness of breath, palpitations or lower extremity swelling. No nausea or vomiting. 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 denies: smoking, alcohol abuse, prescription drug abuse Family history: diabetes, hypertension Medications and Allergies Allergies Allergy/AdvReac Type Severity Reaction Status Date / Time No Known Allergies Allergy Verified 01/19/16 17:29 Home Medications Medication Instructions Recorded Confirmed Last Taken Type Levothyroxine [Synthroid] 175 mcg PO QAM #30 tablet 04/16/16 06/10/17 06/10/17 Rx Cetirizine HCl 10 mg PO DAILY MDD 10 mg 09/01/16 06/10/17 06/10/17 History Furosemide [Lasix TAB] 80 mg PO QDAY MDD 80 mg 09/01/16 06/10/17 06/10/17 History glipiZIDE [Glucotrol] 10 mg PO BID MDD 10 mg 09/01/16 06/10/17 06/10/17 History Brimonidine Tartrate [Brimonidine 1 drop OU BID MDD 1 drop 09/02/16 06/10/17 History Tartrate 0.15%] Latanoprost 0.005% [Xalatan 0.005%] 1 drop OU QPM #0 MDD 1 drop 09/02/1606/10/17 History NIFEdipine [Nifedipine ER] 60 mg PO BID MDD 60 mg 02/01/17 06/10/17 06/10/17 History hydrALAZINE [Apresoline TAB] 100 mg PO BID MDD 100 02/01/17 06/10/17 06/10/17 History Loratadine [Claritin] 10 mg PO DAILY tablet 05/26/17 06/10/17 06/10/17 Rx Simvastatin [Zocor TAB] 20 mg PO QHS tablet 05/26/17 06/10/17 06/10/17 Rx cloNIDine [Catapres] 0.1 mg PO Q12HR tablet 05/26/17 06/10/17 06/10/17 Rx Active Meds: Active Medications Sodium Chloride (Nacl 0.9%) 100 mls @ 999 mls/hr IV LAMONT PRN PRN Reason: Hypotension Review of Systems All systems: negative (Constitutional: no fever or chills. No anorexia or weight loss. HEENT: No sore throat or sinus drainage no hearing or vision impairment . Cardiovascular: No chest pain, shortness of breath, palpitations, lower extremity swelling or dizziness. Respiratory: No cough, sputum, shortness of breath, hemoptysis or wheezing. Gastrointestinal: No nausea, vomiting, diarrhea, abdominal pain, hematemesis or melena. Genitourinary: No frequency urgency dysuria or hematuria. hematologic: No abnormal bleeding or bruising. Integumentary: no pruritus or rash. Neurological: No headache no focal weakness or numbness, no syncope or seizures. Musculoskeletal: No joint pains no stiffness. Psychiatry: no anxiety or depression) Exam - Vital Signs Vital signs: Vital Signs Temp Pulse Resp BP Pulse Ox 97.9 F 63 18 185/75 99 06/10/17 13:01 06/10/17 13:01 06/10/17 13:01 06/10/17 13:01 06/10/17 13:01 - Physical Exam Narrative exam: Middle-aged -[place] female lying in bed in no acute distress HEENT: NCAT, pink oral mucous membrane Neck: Supple, no venous distention CVS: S1S2 RRR with no murmur, rub or gallop Chest: Clear to auscultation Abdomen: Protuberant, soft, nontender, no organomegaly, bowel sounds are present Extremities: No edema Neuro: Awake, alert no focal deficits Results - Lab Results 06/10/17 13:29 06/10/17 13:29 Most recent lab results Calcium 9.6 mg/dL (8.4-10.2) 06/10/17 13:29 Assessment and Plan - Patient Problems (1) End-stage renal disease needing dialysis Current Visit: Yes Status: Acute Plan to address problem: Hemodialysis PREMA. Called Dialysis nurse and gave orders - I was in my car with no computer access (2) Hyperkalemia Current Visit: Yes Status: Acute Plan to address problem: Poor dietary adherence to Potassium restriction. Reinforced improved adherence (3) Accelerated hypertension Current Visit: No Status: Acute Plan to address problem: Give Hydralazine iv now. Resume home meds and fu BP (4) Anemia in end-stage renal disease Current Visit: No Status: Acute Plan to address problem: Give Epogen on Dialysis (5) Type 2 diabetes mellitus with diabetic chronic kidney disease Current Visit: No Status: Chronic Qualifiers: Diabetes mellitus senior care insulin use: D Chronic kidney disease stage: C Plan to address problem: Blood sugar management per Keena FERNANDEZ MD
[2017-06-10] MEDS ORDERED: APRESOLINE IV PRN (17:37)
[2017-06-10] MEDS ORDERED: NACL 0.9 (PRIMING MACHINE ONLY DIALYSIS) MC ONE (18:31)
[2017-06-10] MEDS ORDERED: PERCOCET 5/325 PO PRN (19:24)
[2017-06-10] MEDS ORDERED: DULCOLAX PR PRN (19:24)
[2017-06-10] MEDS ORDERED: TYLENOL PO PRN (19:24)
[2017-06-10] MEDS ORDERED: ZOFRAN IV PRN (19:24)
[2017-06-10] MEDS ORDERED: MILK OF MAGNESIA PO PRN (19:24)
[2017-06-10] MEDS ORDERED: AMBIEN PO PRN (19:24)
--- NOTE | 2017-06-10 19:24 | History and Physical Report ---
History of Present Illness Date of examination: 06/10/17 Date of admission: 06/10/17 Chief complaint: CC Sent fromn HD clinic for k level of 7.1 History of present illness: - History of Present Illness 62 yo with Diabetes mellitus, Hypertension and End stage renal disease on Hemodialysis sent from the dialysis clinic because of potassium of 7.1. Patient was just discharged from the hospital on May 25 with acute respiratory failure, acute on chronic diastolic heart failure. Chest Xray showed pulmonary edema. She received intensive dialysis, IV diuretics, nebulizer and supplemental oxygen. She says she was doing well. On further inquiry, admits that she has been poorly compliant with low potassium diet. She denies any chest pain, shortness of breath, palpitations or lower extremity swelling. No nausea or vomiting. 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 denies: smoking, alcohol abuse, prescription drug abuse Family history: diabetes, hypertension Medications and Allergies Allergies Allergy/AdvReac Type Severity Reaction Status Date / Time No Known Allergies Allergy Verified 01/19/16 17:29 Home Medications Medication Instructions Recorded Confirmed Last Taken Type Levothyroxine [Synthroid] 175 mcg PO QAM #30 tablet 04/16/16 06/10/17 06/10/17 Rx Cetirizine HCl 10 mg PO DAILY MDD 10 mg 09/01/16 06/10/17 06/10/17 History Furosemide [Lasix TAB] 80 mg PO QDAY MDD 80 mg 09/01/16 06/10/17 06/10/17 History glipiZIDE [Glucotrol] 10 mg PO BID MDD 10 mg 09/01/16 06/10/17 06/10/17 History Brimonidine Tartrate [Brimonidine 1 drop OU BID MDD 1 drop 09/02/16 06/10/17 History Tartrate 0.15%] Latanoprost 0.005% [Xalatan 0.005%] 1 drop OU QPM #0 MDD 1 drop 09/02/1606/10/17 History NIFEdipine [Nifedipine ER] 60 mg PO BID MDD 60 mg 02/01/17 06/10/17 06/10/17 History hydrALAZINE [Apresoline TAB] 100 mg PO BID MDD 100 02/01/17 06/10/17 06/10/17 History Loratadine [Claritin] 10 mg PO DAILY tablet 05/26/17 06/10/17 06/10/17 Rx Simvastatin [Zocor TAB] 20 mg PO QHS tablet 05/26/17 06/10/17 06/10/17 Rx cloNIDine [Catapres] 0.1 mg PO Q12HR tablet 05/26/17 06/10/17 06/10/17 Rx Past History Past Medical History: CAD, diabetes, ESRD, hypertension Past Surgical History: Other (PD catheter placement, Permacath placement, PD catheter removal, AV access placement) Social history: lives with family, 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 denies: smoking, alcohol abuse, prescription drug abuse Family history: diabetes, hypertension Medications and Allergies Allergies Allergy/AdvReac Type Severity Reaction Status Date / Time No Known Allergies Allergy Verified 01/19/16 17:29 Home Medications Medication Instructions Recorded Confirmed Last Taken Type Levothyroxine [Synthroid] 175 mcg PO QAM #30 tablet 04/16/16 06/10/17 06/10/17 Rx Cetirizine HCl 10 mg PO DAILY MDD 10 mg 09/01/16 06/10/17 06/10/17 History Furosemide [Lasix TAB] 80 mg PO QDAY MDD 80 mg 09/01/16 06/10/17 06/10/17 History glipiZIDE [Glucotrol] 10 mg PO BID MDD 10 mg 09/01/16 06/10/17 06/10/17 History Brimonidine Tartrate [Brimonidine 1 drop OU BID MDD 1 drop 09/02/16 06/10/17 History Tartrate 0.15%] Latanoprost 0.005% [Xalatan 0.005%] 1 drop OU QPM #0 MDD 1 drop 09/02/1606/10/17 History NIFEdipine [Nifedipine ER] 60 mg PO BID MDD 60 mg 02/01/17 06/10/17 06/10/17 History hydrALAZINE [Apresoline TAB] 100 mg PO BID MDD 100 02/01/17 06/10/17 06/10/17 History Loratadine [Claritin] 10 mg PO DAILY tablet 05/26/17 06/10/17 06/10/17 Rx Simvastatin [Zocor TAB] 20 mg PO QHS tablet 05/26/17 06/10/17 06/10/17 Rx cloNIDine [Catapres] 0.1 mg PO Q12HR tablet 05/26/17 06/10/17 06/10/17 Rx Active Meds: Active Medications Hydralazine HCl (Apresoline) 10 mg IV PRN PRN PRN Reason: Blood Pressure Sodium Chloride (Nacl 0.9%) 100 mls @ 999 mls/hr IV LAMONT PRN PRN Reason: Hypotension Review of Systems All systems: negative Exam - Constitutional Vitals: Temp Pulse Resp BP Pulse Ox 97.5 F L 61 18 159/75 93 06/10/17 16:25 06/10/17 19:15 06/10/17 16:25 06/10/17 19:15 06/10/17 15:46 General appearance: Present: no acute distress, well-nourished - EENT Eyes: Present: PERRL ENT: hearing intact, clear oral mucosa - Neck Neck: Present: supple, normal ROM - Respiratory Respiratory effort: normal Respiratory: bilateral: CTA - Cardiovascular Heart rate: 80 Rhythm: regular Heart Sounds: Present: S1 & S2. Absent: rub, click - Extremities Extremities: no ischemia, pulses intact, pulses symmetrical, No edema Peripheral Pulses: within normal limits - Abdominal General gastrointestinal: Present: soft, non-tender, non-distended, normal bowel sounds Female genitourinary: Present: normal - Rectal Rectal Exam: deferred - Integumentary Integumentary: Present: clear, warm, dry - Musculoskeletal Musculoskeletal: gait normal, strength equal bilaterally - Psychiatric Psychiatric: appropriate mood/affect, intact judgment & insight - Neurologic Neurologic: CNII-XII intact, moves all extremities - Allied Health Allied health notes reviewed: nursing, case management Results - Labs CBC & Chem 7: 06/10/17 13:29 06/10/17 13:29 Labs: Laboratory Last Values WBC 6.8 K/mm3 (4.5-11.0) 06/10/17 13:29 RBC 4.39 M/mm3 (3.65-5.03) 06/10/17 13:29 Hgb 10.3 gm/dl (10.1-14.3) 06/10/17 13:29 Hct 33.0 % (30.3-42.9) 06/10/17 13:29 MCV 75 fl (79-97) L 06/10/17 13:29 MCH 24 pg (28-32) L 06/10/17 13:29 MCHC 31 % (30-34) 06/10/17 13:29 RDW 22.4 % (13.2-15.2) H 06/10/17 13:29 Plt Count 223 K/mm3 (140-440) 06/10/17 13:29 Lymph % (Auto) 25.4 % (13.4-35.0) 06/10/17 13:29 Lamb % (Auto) 7.1 % (0.0-7.3) 06/10/17 13:29 Eos % (Auto) 3.8 % (0.0-4.3) 06/10/17 13:29 Baso % (Auto) 1.1 % (0.0-1.8) 06/10/17 13:29 Lymph # 1.7 K/mm3 (1.2-5.4) 06/10/17 13:29 Lamb # 0.5 K/mm3 (0.0-0.8) 06/10/17 13:29 Eos # 0.3 K/mm3 (0.0-0.4) 06/10/17 13:29 Baso # 0.1 K/mm3 (0.0-0.1) 06/10/17 13:29 Seg Neutrophils % 62.6 % (40.0-70.0) 06/10/17 13:29 Seg Neutrophils # 4.2 K/mm3 (1.8-7.7) 06/10/17 13:29 Sodium 138 mmol/L (137-145) 06/10/17 13:29 Potassium 6.1 mmol/L (3.6-5.0) H* 06/10/17 13:29 Chloride 92.7 mmol/L (98-107) L 06/10/17 13:29 Carbon Dioxide 31 mmol/L (22-30) H 06/10/17 13:29 Anion Gap 20 mmol/L 06/10/17 13:29 BUN 49 mg/dL (7-17) H 06/10/17 13:29 Creatinine 9.4 mg/dL (0.7-1.2) H 06/10/17 13:29 Estimated GFR 5 ml/min 06/10/17 13:29 BUN/Creatinine Ratio 5 % 06/10/17 13:29 Glucose 274 mg/dL (65-100) H 06/10/17 13:29 Calcium 9.6 mg/dL (8.4-10.2) 06/10/17 13:29 Total Bilirubin 0.30 mg/dL (0.1-1.2) 06/10/17 13:29 AST 40 units/L (5-40) 06/10/17 13:29 ALT 32 units/L (7-56) 06/10/17 13:29 Alkaline Phosphatase 145 units/L (35-129) H 06/10/17 13:29 Total Protein 7.8 g/dL (6.3-8.2) 06/10/17 13:29 Albumin 4.1 g/dL (3.9-5) 06/10/17 13:29 Albumin/Globulin Ratio 1.1 % 06/10/17 13:29 Lipase 139 units/L (13-60) H 06/10/17 13:29 - Imaging and Cardiology EKG: report reviewed Assessment and Plan Advance Directives: Yes VTE prophylaxis?: Chemical Plan of care discussed with patient/family: Yes - Patient Problems (1) Hyperkalemia Current Visit: Yes Status: Acute Plan to address problem: Patient taken for emergent HD and Calcium gluconate given. Repeat k level pending (2) End-stage renal disease needing dialysis Current Visit: Yes Status: Chronic Plan to address problem: For HD today and Nephrology consulted (3) HTN (hypertension) Current Visit: Yes Status: Acute (4) HTN (hypertension) Current Visit: Yes Status: Chronic Qualifiers: Hypertension type: essential hypertension Qualified Code(s): I10 - Essential (primary) hypertension Plan to address problem: cont Hydralazine clonidine and Nifedipine (5) T2DM (type 2 diabetes mellitus) Current Visit: Yes Status: Chronic Qualifiers: Diabetes mellitus complication status: with kidney complications Chronic kidney disease stage: on chronic dialysis Plan to address problem: Cont Glipizide and coverage (6) Hypothyroidism Current Visit: Yes Status: Chronic Qualifiers: Hypothyroidism type: acquired Qualified Code(s): E03.9 - Hypothyroidism, unspecified Plan to address problem: Cont Levothyroxine 175 mcg po qd (7) HLD (hyperlipidemia) Current Visit: Yes Status: Chronic Qualifiers: Hyperlipidemia type: mixed hyperlipidemia Qualified Code(s): E78.2 - Mixed hyperlipidemia Plan to address problem: Cont statins (8) DVT prophylaxis Current Visit: Yes Status: Acute Plan to address problem: On Heparin sq
[2017-06-10] MEDS ORDERED: CALCIUM GLUCONATE 2,000 MG in NACL 0.9% 100 ML IV ONE (19:34)
[2017-06-10] MEDS ORDERED: CETIRIZINE HCL 10 MG PO SCH (19:45)
[2017-06-10] MEDS ORDERED: CLARITIN PO SCH (20:00)
[2017-06-10] MEDS ORDERED: PRAVACHOL PO SCH (22:00)
[2017-06-10] MEDS ORDERED: HEPARIN SUB-Q SCH (22:00)
[2017-06-10] MEDS ORDERED: NON-FORMULARY (Simvastatin 20 MG) PO SCH (22:00)
[2017-06-10] MEDS: ALPHAGAN P 0.15% OU SCH (22:19)
[2017-06-10] MEDS: CATAPRES PO SCH (23:09)
[2017-06-10] MEDS: APRESOLINE PO SCH (23:09)
[2017-06-10] MEDS: PROCARDIA XL PO SCH (23:10)
[2017-06-10] MEDS: GLUCOTROL PO SCH (23:10)
[2017-06-11] MEDS: NOVOLOG SUB-Q SCH ×2 (01:03→08:43)
[2017-06-11] MEDS ORDERED: SYNTHROID PO SCH ×3 (06:00→10:00)
[2017-06-11 06:52] LABS: Basophils % (Auto) 0.7 % (0.0-1.8); Eosinophils % (Auto) 4.1 % (0.0-4.3); Hematocrit 32.8 % (30.3-42.9); Hemoglobin 10.2 gm/dl (10.1-14.3); Mean Corpuscular HGB Conc 31 % (30-34); Mean Corpuscular Volume 76 fl (79-97); Platelet Count 198 K/mm3 (140-440); Red Blood Count 4.31 M/mm3 (3.65-5.03); White Blood Count 6.6 K/mm3 (4.5-11.0)
[2017-06-11 07:00] LABS: Mean Corpuscular Hemoglobin 24 pg (28-32)
[2017-06-11 07:11] LABS: Albumin 3.5 g/dL (3.9-5); Bilirubin,Total 0.3 mg/dL (0.1-1.2); Calcium 9.7 mg/dL (8.4-10.2); Total Protein 7.1 g/dL (6.3-8.2)
[2017-06-11 07:15] LABS: Potassium 4.4 mmol/L (3.6-5.0)
--- NOTE | 2017-06-11 08:18 | Progress Note ---
Assessment and Plan Assessment and plan: 62 yo with Diabetes mellitus, Hypertension and End stage renal disease on Hemodialysis sent from the dialysis clinic because of potassium of 7.1. Likley secondary to poor compliance with low K diet per patients own admission. (1) Hyperkalemia Current Visit: Yes Status: Acute Plan to address problem: Patient taken for emergent HD and Calcium gluconate given. Repeat k level normalized post dialysis will obtain nutrition consult for education and re-enforcement (2) End-stage renal disease needing dialysis Current Visit: Yes Status: Chronic Plan to address problem: For HD today and Nephrology consulted (3) HTN (hypertension) Current Visit: Yes Status: Acute (4) HTN (hypertension) Current Visit: Yes Status: Chronic Qualifiers: Hypertension type: essential hypertension Qualified Code(s): I10 - Essential (primary) hypertension Plan to address problem: cont Hydralazine clonidine and Nifedipine (5) T2DM (type 2 diabetes mellitus) Current Visit: Yes Status: Chronic Qualifiers: Diabetes mellitus complication status: with kidney complications Chronic kidney disease stage: on chronic dialysis Plan to address problem: Cont Glipizide and coverage (6) Hypothyroidism Current Visit: Yes Status: Chronic Qualifiers: Hypothyroidism type: acquired Qualified Code(s): E03.9 - Hypothyroidism, unspecified Plan to address problem: Cont Levothyroxine 175 mcg po qd (7) HLD (hyperlipidemia) Current Visit: Yes Status: Chronic Qualifiers: Hyperlipidemia type: mixed hyperlipidemia Qualified Code(s): E78.2 - Mixed hyperlipidemia Plan to address problem: Cont statins (8) Pulmonary Edema -No acute pulmonary distress noted. Daily weights recommended (9)DVT prophylaxis Current Visit: Yes Status: Acute Plan to address problem: On Heparin sq Hospitalist Physical - Constitutional Vitals: Temp Pulse Resp BP Pulse Ox 97.4 F L 64 20 220/82 96 06/11/17 00:02 06/10/17 23:09 06/10/17 19:50 06/10/17 23:09 06/10/17 16:00 General appearance: Present: no acute distress, well-nourished Results - Labs CBC & Chem 7: 06/11/17 05:20 06/11/17 05:20 Labs: Laboratory Last Values WBC 6.6 K/mm3 (4.5-11.0) 06/11/17 05:20 RBC 4.31 M/mm3 (3.65-5.03) 06/11/17 05:20 Hgb 10.2 gm/dl (10.1-14.3) 06/11/17 05:20 Hct 32.8 % (30.3-42.9) 06/11/17 05:20 MCV 76 fl (79-97) L 06/11/17 05:20 MCH 24 pg (28-32) L 06/11/17 05:20 MCHC 31 % (30-34) 06/11/17 05:20 RDW 22.0 % (13.2-15.2) H 06/11/17 05:20 Plt Count 198 K/mm3 (140-440) 06/11/17 05:20 Lymph % (Auto) 19.3 % (13.4-35.0) 06/11/17 05:20 Cass % (Auto) 8.6 % (0.0-7.3) H 06/11/17 05:20 Eos % (Auto) 4.1 % (0.0-4.3) 06/11/17 05:20 Baso % (Auto) 0.7 % (0.0-1.8) 06/11/17 05:20 Lymph # 1.3 K/mm3 (1.2-5.4) 06/11/17 05:20 Cass # 0.6 K/mm3 (0.0-0.8) 06/11/17 05:20 Eos # 0.3 K/mm3 (0.0-0.4) 06/11/17 05:20 Baso # 0.0 K/mm3 (0.0-0.1) 06/11/17 05:20 Seg Neutrophils % 67.3 % (40.0-70.0) 06/11/17 05:20 Seg Neutrophils # 4.4 K/mm3 (1.8-7.7) 06/11/17 05:20 Sodium 139 mmol/L (137-145) 06/11/17 05:20 Potassium 4.4 mmol/L (3.6-5.0) D 06/11/17 05:20 Chloride 98.0 mmol/L (98-107) 06/11/17 05:20 Carbon Dioxide 30 mmol/L (22-30) 06/11/17 05:20 Anion Gap 15 mmol/L 06/11/17 05:20 BUN 30 mg/dL (7-17) H 06/11/17 05:20 Creatinine 6.4 mg/dL (0.7-1.2) H 06/11/17 05:20 Estimated GFR 8 ml/min 06/11/17 05:20 BUN/Creatinine Ratio 5 % 06/11/17 05:20 Glucose 64 mg/dL (65-100) L 06/11/17 05:20 POC Glucose 314 (70-105) H 06/10/17 23:25 Hemoglobin A1c 7.1 % (4-6) H 06/10/17 13:29 Calcium 9.7 mg/dL (8.4-10.2) 06/11/17 05:20 Total Bilirubin 0.30 mg/dL (0.1-1.2) 06/11/17 05:20 AST 33 units/L (5-40) 06/11/17 05:20 ALT 27 units/L (7-56) 06/11/17 05:20 Alkaline Phosphatase 132 units/L (35-129) H 06/11/17 05:20 Total Protein 7.1 g/dL (6.3-8.2) 06/11/17 05:20 Albumin 3.5 g/dL (3.9-5) L 06/11/17 05:20 Albumin/Globulin Ratio 1.0 % 06/11/17 05:20 Lipase 139 units/L (13-60) H 06/10/17 13:29
[2017-06-11 08:24] VITALS: BP 169/72
--- NOTE | 2017-06-11 08:42 | Progress Note ---
Assessment and Plan - Patient Problems (1) End-stage renal disease needing dialysis Current Visit: Yes Status: Chronic Plan to address problem: Patient tolerated hemodialysis yesterday. Potassium is normal this morning. Okay to discharge from renal standpoint. I have discussed with the patient about importance of adhering to low potassium diet. Discussed consequences of hyperkalemia including potentially life-threatening complications. Patient expressed understanding and promises to do better. (2) Hyperkalemia Current Visit: Yes Status: Acute Plan to address problem: Poor dietary adherence to Potassium restriction. Potassium improved back to normal post dialysis. Reinforced improved adherence (3) Accelerated hypertension Current Visit: No Status: Acute Plan to address problem: Blood pressure has improved though suboptimal. Give all her medications this morning and follow blood pressure. Patient can be discharged and we'll follow- up her blood pressure as an outpatient (4) Anemia in end-stage renal disease Current Visit: No Status: Acute Plan to address problem: Give Epogen on Dialysis (5) Type 2 diabetes mellitus with diabetic chronic kidney disease Current Visit: No Status: Chronic Plan to address problem: Blood sugar management per Keena FERNANDEZ MD Subjective Date of service: 06/11/17 Principal diagnosis: end-stage renal disease Interval history: Patient seen lying in bed. She has no complaints. She feels good and would like to go home Objective - Exam Narrative Exam: Middle-aged -German female lying in bed in no acute distress HEENT: NCAT, pink oral mucous membrane Neck: Supple, no venous distention CVS: S1S2 RRR with no murmur, rub or gallop Chest: Clear to auscultation Abdomen: Protuberant, soft, nontender, no organomegaly, bowel sounds are present Extremities: No edema Neuro: Awake, alert no focal deficits - Vital Signs Vital signs: Vital Signs - 12hr 06/10/17 06/11/17 06/11/17 23:09 00:02 01:55 Temperature 97.4 F L 98.7 F Pulse Rate 64 55 L Respiratory 20 Rate Blood Pressure 220/82 188/75 O2 Sat by Pulse 99 Oximetry 06/11/17 06/11/17 06/11/17 01:56 06:34 06:35 Temperature 97.6 F Pulse Rate 55 L 62 65 Respiratory 20 Rate Blood Pressure 178/78 178/78 O2 Sat by Pulse 100 100 99 Oximetry 06/11/17 07:42 Temperature 99.3 F Pulse Rate 61 Respiratory 18 Rate Blood Pressure 169/72 O2 Sat by Pulse 97 Oximetry - Lab 06/11/17 05:20 06/11/17 05:20 Most recent lab results Calcium 9.7 mg/dL (8.4-10.2) 06/11/17 05:20
[2017-06-11] MEDS: APRESOLINE PO SCH (08:46)
[2017-06-11] MEDS: PROCARDIA XL PO SCH (08:47)
[2017-06-11] MEDS: CATAPRES PO SCH (08:47)
[2017-06-11] MEDS: GLUCOTROL PO SCH (08:47)
[2017-06-11] MEDS: ALPHAGAN P 0.15% OU SCH (08:48)
--- NOTE | 2017-06-11 09:00 | Discharge Summary ---
Providers - Providers Date of Admission: 06/10/17 19:24 Attending physician: MARGARET CHOWDARY MD 06/10/17 15:08 Consult to Physician [CONS] Stat Consulting Provider: NIRANJAN WALDEN Reason For Exam: dialysis Notified:: paged 06/11/17 08:18 Consult to Dietitian/Nutrition [CONS] Routine Physician Instructions: renal diet education Reason For Exam: Reason for Consult: Diet education Primary care physician: [employer] Hospitalization Reason for admission: hyperkalemia Condition: Stable Hospital course: 62 yo with Diabetes mellitus, Hypertension and End stage renal disease on Hemodialysis sent from the dialysis clinic because of potassium of 7.1. Likley secondary to poor compliance with low K diet per patients own admission. Patient was seen and had emergent dialysis in the ED with calcium gluconate was also given repeat potassium postdialysis shows normalization. Medication on renal diet was provided to the patient she verbalized understanding. Due to hypertensive notation and also reported by the patient and her blood pressures remain significantly elevated metoprolol was added to the patient's discharge med rec. She is clinically stable at this point for discharge of this to follow up with nephrology for continued dialysis outpatient. (1) severe Hyperkalemia (2) End-stage renal disease needing dialysis (3) HTN (hypertension) (4) HTN (hypertension) (5) T2DM (type 2 diabetes mellitus) (6) Hypothyroidism (7) HLD (hyperlipidemia) (8) Pulmonary Edema Disposition: TO HOME OR SELFCARE Time spent for discharge: 35 mins Core Measure Documentation - Palliative Care Palliative Care/ Comfort Measures: Not Applicable - Core Measures Any of the following diagnoses?: none - VTE Discharge Requirements Deep Vein Thrombosis/Pulmonary Embolism Present on Admission: Yes Exam - Physical Exam Narrative exam: VITAL SIGNS: Reviewed. GENERAL: The patient appeared well nourished and normally developed. Vital signs as documented. HEAD: No signs of head trauma. EYES: Pupils are equal. Extraocular motions intact. EARS: Hearing grossly intact. MOUTH: Oropharynx is normal. NECK: No adenopathy, no JVD. CHEST: Chest with clear breath sounds bilaterally. No wheezes, rales, or rhonchi. CARDIAC: Regular rate and rhythm. S1 and S2, without murmurs, gallops, or rubs. VASCULAR: No Edema. Peripheral pulses normal and equal in all extremities. ABDOMEN: Soft, without detectable tenderness. No sign of distention. No rebound or guarding, and no masses palpated. Bowel Sounds normal. MUSCULOSKELETAL: Good range of motion of all major joints. Extremities without clubbing, cyanosis or edema. NEUROLOGIC EXAM: Alert and oriented x 3. No focal sensory or strength deficits. Speech normal. Follows commands. PSYCHIATRIC: Mood normal. SKIN: No rash or lesions. - Constitutional Vitals: Temp Pulse Resp BP Pulse Ox 99.3 F 61 18 169/72 97 06/11/17 07:42 06/11/17 07:42 06/11/17 07:42 06/11/17 07:42 06/11/17 07:42 Plan Activity: advance as tolerated, fall precautions Diet: diabetic, renal Special Instructions: record daily weights, record daily BP diary, record blood sugar diary Follow up with: PRIMARY CAREMD [Primary Care Provider] - 3-5 Days NIRANJAN WALDEN MD [Staff Physician] - 7 Days Prescriptions: Metoprolol [Lopressor TAB] 25 mg PO BID #60 tablet
[2017-06-11] MEDS ORDERED: NON-FORMULARY (Furosemide [Lasix Tab] 80 MG) PO SCH (10:00)
[2017-06-11] MEDS ORDERED: LASIX PO SCH (10:00)
[2017-06-11] MEDS ORDERED: LOPRESSOR PO SCH (10:00)
[2017-06-11] MEDS ORDERED: CLARITIN PO SCH (10:00)
[2017-06-11] MEDS ORDERED: XALATAN 0.005% OU SCH (18:00)
== END 2017-06-11 10:37 | disposition home or self-care (01) | DRG 291 ==
LOC: ED 12:34 → 3A 19:24
PROVIDERS: ADMIT Internal Medicine; ATTEND Internal Medicine
PROC: 5A1D70Z Performance of Urinary Filtration, Intermittent, Less than 6 Hours Per Day (ICD-10-PCS; principal; 2017-06-10)
DX: I13.2 Hypertensive heart and chronic kidney disease with heart failure and with stage 5 chronic kidney disease, or end stage renal disease (principal); N18.6 End stage renal disease; J81.1 Chronic pulmonary edema; E87.5 Hyperkalemia; E78.5 Hyperlipidemia, unspecified; E11.22 Type 2 diabetes mellitus with diabetic chronic kidney disease; I50.9 Heart failure, unspecified; E89.0 Postprocedural hypothyroidism; Y83.8 Other surgical procedures as the cause of abnormal reaction of the patient, or of later complication, without mention of misadventure at the time of the procedure; D63.1 Anemia in chronic kidney disease; I25.10 Atherosclerotic heart disease of native coronary artery without angina pectoris; Z83.3 Family history of diabetes mellitus; Z82.49 Family history of ischemic heart disease and other diseases of the circulatory system; Z79.899 Other long term (current) drug therapy; Z99.2 Dependence on renal dialysis
CPT/HCPCS: 36415; 80053; 82962; 83036; 83690; 85025; 93005; 93010; 96374; J0360; J0610; J1644; J1815; J7030

== ENCOUNTER 2017-06-25 11:43 | Inpatient (IN) | payer MEDICARE ==
--- NOTE | 2017-06-25 12:39 | XRay Report ---
ROUTINE CHEST, TWO VIEWS: HISTORY: Short of breath. Mild cardiomegaly is stable since 05/24/17. There is decreased pulmonary venous congestion and trace bilateral pleural effusions. The lungs are relatively clear. The bony structures are grossly intact. IMPRESSION: Cardiomegaly. Pulmonary venous congestion and small pleural effusions have nearly resolved since 05/24/17.
[2017-06-25 12:49] LABS: Basophils % (Auto) 0.7 % (0.0-1.8); Eosinophils % (Auto) 3.7 % (0.0-4.3); Mean Corpuscular HGB Conc 30 % (30-34); Mean Corpuscular Volume 83 fl (79-97); Platelet Count 194 K/mm3 (140-440); Red Blood Count 4.85 M/mm3 (3.65-5.03); White Blood Count 4.9 K/mm3 (4.5-11.0)
[2017-06-25 12:51] LABS: Hemoglobin 12.2 gm/dl (10.1-14.3); Mean Corpuscular Hemoglobin 25 pg (28-32); Red Cell Distribution Width 23.6 % (13.2-15.2)
[2017-06-25 12:56] LABS: Calcium 9.2 mg/dL (8.4-10.2); Potassium 4.4 mmol/L (3.6-5.0)
[2017-06-25 12:58] LABS: INR 1.02 (0.87-1.13); Partial Thromboplastin Time 27.6 Sec. (24.2-36.6)
--- NOTE | 2017-06-25 15:08 | Cat Scan Report ---
FINAL REPORT EXAM: CT HEAD/BRAIN WO CON HISTORY: change in speech TECHNIQUE: CT of the Head without IV contrast. PRIORS: CT head October 12, 2015. FINDINGS: Decreased attenuation regions in the periventricular and subcortical white matter are nonspecific and may represent small vessel ischemic disease or a demyelinating process. Small vessel ischemic disease is more likely. Chronic lacunar type infarct in the left basal ganglia. Vascular calcifications noted. There is no evidence for acute ischemia. There is no hemorrhage. There is no midline shift. There is no hydrocephalus. There is no mass. Age appropriate ochoa-white matter attenuation is noted. There is no calvarial fracture. The temporal bones demonstrate aerated mastoid air cells. The middle ears appear unremarkable. Paranasal sinuses are unremarkable. Globes are intact. IMPRESSION: No acute intracranial findings. Chronic ischemic disease.
--- NOTE | 2017-06-25 18:32 | Emergency Department Report ---
HPI - General Chief Complaint: Neuro Symptoms/Deficit Time Seen by Provider: 06/25/17 18:20 - HPI HPI: This is a 62-year-old female presents to the emergency department with her brother with a complaint of a one-week history of weakness and some altered mental status. He says that she has been very forgetful, that he feels that her speech has changed, and she often will get very repetitive and ask the same things over and over again. He says that she is no longer able to get up from a laying or seated position and is not stable standing in one place let alone moving about the house. She has a past medical history of diabetes, hypertension and end-stage renal disease on hemodialysis on Thursday/Thursday/ Thursday. They contacted the director of exhibits, Dr. Teague, who also acts as her primary care physician, and they were told to come to the emergency department. She did not take anything for her symptoms prior to presentation. The patient does not appear to speak [place]ian but the brother is there and is able to translate. ED Past Medical Hx - Past Medical History Previous Medical History?: Yes Hx Hypertension: Yes Hx Heart Attack/AMI: No Hx Congestive Heart Failure: No Hx Diabetes: Yes Hx Renal Disease: Yes Hx Seizures: No Hx Asthma: No Hx COPD: No Hx HIV: No Additional medical history: anemia. thyroid - Surgical History Past Surgical History?: Yes Additional Surgical History: thyroidectomy. eye surgery. abd for dialysis - Social History Smoking Status: Never Smoker Substance Use Type: None - Medications Home Medications: Home Medications Medication Instructions Recorded Confirmed Last Taken Type Cetirizine HCl 10 mg PO DAILY MDD 10 mg 09/01/16 06/25/17 06/10/17 History Furosemide [Lasix TAB] 80 mg PO QDAY MDD 80 mg 09/01/16 06/25/17 06/10/17 History glipiZIDE [Glucotrol] 10 mg PO BID MDD 10 mg 09/01/16 06/25/17 06/10/17 History Latanoprost 0.005% [Xalatan 0.005%] 1 drop OS QPM #0 09/02/16 06/25/17 06/10/17 History NIFEdipine [Nifedipine ER] 60 mg PO BID MDD 60 mg 02/01/17 06/25/17 06/10/17 History Betaxolol HCl [Betaxolol HCl 0.5%] 1 drop OS BID 06/25/17 06/25/17 Unknown History Ketorolac Tromethamine [Acular 1 drop OD QID 06/25/17 06/25/17 Unknown History 0.5% Opth Soln] Levothyroxine [Synthroid] 200 mcg PO QDAY 06/25/17 06/25/17 Unknown History Lisinopril [Zestril] 40 mg PO QDAY 06/25/17 06/25/17 Unknown History Metoprolol [Lopressor TAB] 50 mg PO BID 06/25/17 06/25/17 Unknown History acetaZOLAMIDE [Diamox Sequels] 500 mg PO BID 06/25/17 06/25/17 Unknown History hydrALAZINE [Apresoline TAB] 100 mg PO BID 06/25/17 06/25/17 Unknown History ED Review of Systems ROS: Stated complaint: SOB, MEMORY LOST Other details as noted in HPI Comment: All other systems reviewed and negative Constitutional: weakness. denies: chills, fever Eyes: denies: eye pain, eye discharge, vision change ENT: denies: ear pain, throat pain Respiratory: shortness of breath. denies: wheezing Cardiovascular: denies: chest pain, palpitations Gastrointestinal: denies: abdominal pain, nausea, diarrhea Genitourinary: denies: urgency, dysuria, discharge Musculoskeletal: denies: back pain, joint swelling, arthralgia Skin: denies: rash, lesions Neurological: weakness, confusion. denies: headache Physical Exam - Physical Exam Vital Signs: Vital Signs 06/25/17 06/25/17 06/25/17 11:50 17:22 17:30 Temperature 98.5 F Pulse Rate 63 60 Respiratory 18 16 Rate Blood Pressure 152/63 169/69 Blood Pressure [Right] O2 Sat by Pulse 99 94 99 Oximetry 06/25/17 06/25/17 17:41 17:42 Temperature 98.2 F Pulse Rate 63 Respiratory 18 18 Rate Blood Pressure Blood Pressure 177/70 [Right] O2 Sat by Pulse 100 100 Oximetry Physical Exam: GENERAL: The patient is well-developed well-nourished. HENT: Normocephalic. Atraumatic. Patient has moist mucous membranes. EYES: Extraocular motions are intact. Pupils equal reactive to light bilaterally. No nystagmus. NECK: Supple. Trachea is midline. CHEST/LUNGS: Clear to auscultation. There is no respiratory distress noted. HEART/CARDIOVASCULAR: Regular. There is no tachycardia. There is no gallop rub or murmur. ABDOMEN: Abdomen is soft, nontender. Patient has normal bowel sounds. There is no abdominal distention. SKIN: Skin is warm and dry. NEURO: The patient is awake, alert The patient is cooperative. No facial asymmetry. No pronator drift. The patient has normal speech. MUSCULOSKELETAL: There is no tenderness or deformity. There is no evidence of acute injury. ED Course Vital Signs 06/25/17 06/25/17 06/25/17 11:50 17:22 17:30 Temperature 98.5 F Pulse Rate 63 60 Respiratory 18 16 Rate Blood Pressure 152/63 169/69 Blood Pressure [Right] O2 Sat by Pulse 99 94 99 Oximetry 06/25/17 06/25/17 17:41 17:42 Temperature 98.2 F Pulse Rate 63 Respiratory 18 18 Rate Blood Pressure Blood Pressure 177/70 [Right] O2 Sat by Pulse 100 100 Oximetry ED Medical Decision Making - Lab Data Result diagrams: 06/25/17 12:09 06/25/17 12:09 - EKG Data -: EKG Interpreted by Me EKG shows normal: sinus rhythm, axis, intervals, QRS complexes (LVH with some anterior early repolarization), ST-T waves Rate: normal - EKG Data When compared to previous EKG there are: previous EKG unavailable Interpretation: LVH - Radiology Data Radiology results: report reviewed, image reviewed interpreted by me: Chest x-ray shows some mild pulmonary vascular congestion. No obvious pneumonia. EXAM: CT HEAD/BRAIN WO CON HISTORY: change in speech TECHNIQUE: CT of the Head without IV contrast. PRIORS: CT head October 12, 2015. FINDINGS: Decreased attenuation regions in the periventricular and subcortical white matter are nonspecific and may represent small vessel ischemic disease or a demyelinating process. Small vessel ischemic disease is more likely. Chronic lacunar type infarct in the left basal ganglia. Vascular calcifications noted. There is no evidence for acute ischemia. There is no hemorrhage. There is no midline shift. There is no hydrocephalus. There is no mass. Age appropriate ochoa-white matter attenuation is noted. There is no calvarial fracture. The temporal bones demonstrate aerated mastoid air cells. The middle ears appear unremarkable. Paranasal sinuses are unremarkable. Globes are intact. IMPRESSION: No acute intracranial findings. Chronic ischemic disease. Transcribed By: TYM Dictated By: OPAL SANCHEZ MD Electronically Authenticated By: OPAL SANCHEZ MD Signed Date/Time: 06/25/17 0938 - Medical Decision Making 62-year-old female presents to the emergency department with a complaint of a one-week history of some progressively worsening weakness and/or fatigue. It has gotten to the point where she has trouble standing and weightbearing. CT of the head did not show any acute bleed, shift, mass or any other acute processes. Chest x-ray showed some mild pulmonary vascular congestion but she does not appear to be in overt CHF or a need for emergent dialysis. The patient will be admitted to the hospital for further evaluation and treatment and has been accepted for admission by the hospitalist, Dr. Adams. - Differential Diagnosis CHF, CVA, TIA, Anemia Critical Care Time: No Critical care attestation.: If time is entered above; I have spent that time in minutes in the direct care of this critically ill patient, excluding procedure time. ED Disposition Clinical Impression: Debility, Elevated troponin level, ESRD (end stage renal disease) on dialysis, Weakness generalized Hypertension Qualifiers: Hypertension type: essential hypertension Qualified Code(s): I10 - Essential ( primary) hypertension Altered mental status Qualifiers: Altered mental status type: unspecified Qualified Code(s): R41.82 - Altered mental status, unspecified Disposition: OP ADMIT IP TO THIS HOSP Is pt being admited?: Yes Condition: Stable
--- NOTE | 2017-06-25 21:17 | History and Physical Report ---
History of Present Illness Chief complaint: She is weak, and cant do anything anymore History of present illness: 62 YO Female with ESRD on HD(M,W,F), HTN, CHF, Anemia, Hypothyroidism, DM presents to ED for evaluation. Pt lethargic, and confused, and unable to provide history. Pt brother states that she has experienced progressive weakness and confusion over the past week. Pt is unable to conduct activities of daily living and now requires 6/6 assistance for ADL's. Pt brother states that she has been very forgetful, unable to speak clearly, and she often will get very repetitive and ask the same things over and over again. Pt is no longer able to get up from a lying or seated position and is not stable stand independently, or ambulate without standby assistance. No reports of fever, chills, CP, Palpitations, NVD, Unilateral leg swelling,prolonged travel/ immobility, calf pain, individual/family history of DVT/PE, syncope, hemoptysis. Pt seen and evaluated in ED and found to be lethargic with a systolic blood pressure around 190. Nephrology consulted in ED for urgent dialysis. CT head revealed chronic small vessel changes which may be due to demyelinating polyneuropathy. Past History Past Medical History: diabetes, ESRD, hypertension, hypothyroidism, renal failure Past Surgical History: thyroidectomy Social history: , lives with family. denies: smoking, alcohol abuse, prescription drug abuse, IV drug use Family history: diabetes, hypertension Medications and Allergies Allergies Allergy/AdvReac Type Severity Reaction Status Date / Time No Known Allergies Allergy Verified 01/19/16 17:29 Home Medications Medication Instructions Recorded Confirmed Last Taken Type Cetirizine HCl 10 mg PO DAILY MDD 10 mg 09/01/16 06/25/17 06/10/17 History Furosemide [Lasix TAB] 80 mg PO QDAY MDD 80 mg 09/01/16 06/25/17 06/10/17 History glipiZIDE [Glucotrol] 10 mg PO BID MDD 10 mg 09/01/16 06/25/17 06/10/17 History Latanoprost 0.005% [Xalatan 0.005%] 1 drop OS QPM #0 09/02/16 06/25/17 06/10/17 History NIFEdipine [Nifedipine ER] 60 mg PO BID MDD 60 mg 02/01/17 06/25/17 06/10/17 History Betaxolol HCl [Betaxolol HCl 0.5%] 1 drop OS BID 06/25/17 06/25/17 Unknown History Ketorolac Tromethamine [Acular 1 drop OD QID 06/25/17 06/25/17 Unknown History 0.5% Opth Soln] Levothyroxine [Synthroid] 200 mcg PO QDAY 06/25/17 06/25/17 Unknown History Lisinopril [Zestril] 40 mg PO QDAY 06/25/17 06/25/17 Unknown History Metoprolol [Lopressor TAB] 50 mg PO BID 06/25/17 06/25/17 Unknown History acetaZOLAMIDE [Diamox Sequels] 500 mg PO BID 06/25/17 06/25/17 Unknown History hydrALAZINE [Apresoline TAB] 100 mg PO BID 06/25/17 06/25/17 Unknown History Review of Systems ROS unobtainable: due to mental status Exam - Constitutional Vitals: Temp Pulse Resp BP Pulse Ox 97.9 F 62 19 182/76 100 06/25/17 20:21 06/25/17 20:21 06/25/17 20:21 06/25/17 20:21 06/25/17 20:21 General appearance: Present: mild distress, cachectic - EENT Eyes: Present: PERRL ENT: hearing intact, clear oral mucosa - Neck Neck: Present: supple, normal ROM - Respiratory Respiratory: bilateral: diminished - Cardiovascular Heart Sounds: Present: S1 & S2. Absent: rub, click - Extremities Extremities: pulses symmetrical, No edema Peripheral Pulses: within normal limits - Abdominal General gastrointestinal: Present: soft, non-tender, non-distended Female genitourinary: Present: normal - Rectal Rectal Exam: normal rectal tone - Integumentary Integumentary: Present: clear, dry, decreased turgor - Musculoskeletal Musculoskeletal: generalized weakness - Psychiatric Psychiatric: no intact judgment & insight, no memory intact - Neurologic Neurologic: moves all extremities, no gait normal Results - Labs CBC & Chem 7: 06/25/17 12:09 06/25/17 12:09 Labs: Abnormal lab results 06/25/17 06/25/17 06/25/17 Range/Units 11:57 12:09 12:09 MCH 25 L (28-32) pg RDW 23.6 H (13.2-15.2) % [place] % (Auto) 10.7 H (0.0-7.3) % Lymph # 0.8 L (1.2-5.4) K/mm3 Chloride 94.0 L (98-107) mmol/L Carbon Dioxide 33 H (22-30) mmol/L BUN 28 H (7-17) mg/dL Creatinine 7.7 H (0.7-1.2) mg/dL Glucose 153 H (65-100) mg/dL POC Glucose 137 H (70-105) Troponin T 0.062 H (0.00-0.029) ng/mL 06/25/17 Range/Units 21:07 MCH (28-32) pg RDW (13.2-15.2) % [place] % (Auto) (0.0-7.3) % Lymph # (1.2-5.4) K/mm3 Chloride (98-107) mmol/L Carbon Dioxide (22-30) mmol/L BUN (7-17) mg/dL Creatinine (0.7-1.2) mg/dL Glucose (65-100) mg/dL POC Glucose 205 H (70-105) Troponin T (0.00-0.029) ng/mL Assessment and Plan - Patient Problems (1) Accelerated hypertension Current Visit: No Status: Acute Plan to address problem: Monitor bp q shift, continue medical management, Hydralazine prn. (2) Encephalopathy Current Visit: Yes Status: Acute Plan to address problem: CT Head, MRI brain, neruro checks, supportive care (3) ESRD (end stage renal disease) on dialysis Current Visit: Yes Status: Acute Plan to address problem: Nephrology consulted in ED, fluid restriction, monitor uop q shift, (4) Demyelinating neuropathy Current Visit: Yes Status: Suspected Plan to address problem: CT Head, MRI Brain, EREN, ESR, S PEP, U PEP, consider lumbar puncture in AM (5) DVT prophylaxis Current Visit: Yes Status: Acute
[2017-06-25] MEDS ORDERED: DULCOLAX PR PRN (21:27)
[2017-06-25] MEDS ORDERED: TYLENOL PO PRN (21:27)
[2017-06-25] MEDS ORDERED: MILK OF MAGNESIA PO PRN (21:27)
[2017-06-25] MEDS ORDERED: PROVENTIL IH PRN (21:27)
[2017-06-25] MEDS ORDERED: ZOFRAN IV PRN (21:27)
[2017-06-25] MEDS ORDERED: KETOROLAC TROMETHAMINE OD SCH (22:00)
[2017-06-25] MEDS ORDERED: BETAXOLOL HCL OS SCH (22:00)
[2017-06-25] MEDS: APRESOLINE PO SCH (22:17)
[2017-06-25] MEDS ORDERED: APRESOLINE ONE (22:18)
[2017-06-26] MEDS: XALATAN 0.005% OS SCH ×2 (00:05→22:23)
[2017-06-26] MEDS: PROCARDIA XL PO SCH ×3 (00:05→22:24)
[2017-06-26] MEDS: DIAMOX PO SCH ×3 (00:06→22:24)
[2017-06-26] MEDS: LOPRESSOR PO SCH ×3 (00:06→22:24)
[2017-06-26] MEDS: LASIX IV SCH ×2 (05:26→18:26)
[2017-06-26] MEDS: SYNTHROID PO SCH (05:26)
[2017-06-26] MEDS: APRESOLINE PO SCH ×2 (09:35→22:25)
[2017-06-26] MEDS: CLARITIN PO SCH (09:36)
[2017-06-26] MEDS: ZESTRIL PO SCH (09:38)
[2017-06-26] MEDS ORDERED: NACL 0.9% 100 ML IV PRN (10:10)
--- NOTE | 2017-06-26 10:53 | Progress Note ---
Assessment and Plan Assessment and plan: Toxic metabolic encephalopathy with altered mental status. She is improved, less confused. Dialysis dysequilibrium syndrome. neurochecks, supportive care. ESRD on dialysis. Nephrology following. Discussed with nephrology Hypertension. BP uncontrolled. Will monitor Debility, generalized weakness. may consider placement Full code status History Interval history: Altered mental status generalized weakness Hospitalist Physical - Physical exam Narrative exam: GEN APPEARANCE : Not in acute distress HEENT: Normocephalic Atrauma NECK : supple, no JVD LUNGS: clear to auscultation bilaterally, no rales, no wheeze HEART: S1 and S2 regular, tachycardia, no murmurs, rubs or gallop, ABD: Soft, no tenderness, no distension, normal bowel sounds EXT: No edema, no clubbing, no cyanosis NEURO: Awake,alert,oriented x 3, no facial asymmetry,no focal signs, - Constitutional Vitals: Temp Pulse Resp BP Pulse Ox 98.0 F 60 16 172/67 99 06/26/17 08:57 06/26/17 09:35 06/26/17 08:57 06/26/17 09:38 06/26/17 08:57 General appearance: Present: mild distress, cachectic Results - Labs CBC & Chem 7: 06/25/17 12:09 06/27/17 06:00 Labs: Laboratory Last Values WBC 4.9 K/mm3 (4.5-11.0) 06/25/17 12:09 RBC 4.85 M/mm3 (3.65-5.03) 06/25/17 12:09 Hgb 12.2 gm/dl (10.1-14.3) 06/25/17 12:09 Hct 40.0 % (30.3-42.9) 06/25/17 12:09 MCV 83 fl (79-97) 06/25/17 12:09 MCH 25 pg (28-32) L 06/25/17 12:09 MCHC 30 % (30-34) 06/25/17 12:09 RDW 23.6 % (13.2-15.2) H 06/25/17 12:09 Plt Count 194 K/mm3 (140-440) 06/25/17 12:09 Lymph % (Auto) 16.0 % (13.4-35.0) 06/25/17 12:09 [place] % (Auto) 10.7 % (0.0-7.3) H 06/25/17 12:09 Eos % (Auto) 3.7 % (0.0-4.3) 06/25/17 12:09 Baso % (Auto) 0.7 % (0.0-1.8) 06/25/17 12:09 Lymph # 0.8 K/mm3 (1.2-5.4) L 06/25/17 12:09 [place] # 0.5 K/mm3 (0.0-0.8) 06/25/17 12:09 Eos # 0.2 K/mm3 (0.0-0.4) 06/25/17 12:09 Baso # 0.0 K/mm3 (0.0-0.1) 06/25/17 12:09 Seg Neutrophils % 68.9 % (40.0-70.0) 06/25/17 12:09 Seg Neutrophils # 3.4 K/mm3 (1.8-7.7) 06/25/17 12:09 ESR 11 mm/Hr (0-20) 06/25/17 Unknown PT 13.9 Sec. (12.2-14.9) 06/25/17 12:09 INR 1.02 (0.87-1.13) 06/25/17 12:09 APTT 27.6 Sec. (24.2-36.6) 06/25/17 12:09 Thrombin Time 18.4 Sec. (15.1-19.6) 06/25/17 12:09 Sodium 141 mmol/L (137-145) 06/25/17 12:09 Potassium 4.4 mmol/L (3.6-5.0) 06/25/17 12:09 Chloride 94.0 mmol/L (98-107) L 06/25/17 12:09 Carbon Dioxide 33 mmol/L (22-30) H 06/25/17 12:09 Anion Gap 18 mmol/L 06/25/17 12:09 BUN 28 mg/dL (7-17) H 06/25/17 12:09 Creatinine 7.7 mg/dL (0.7-1.2) H 06/25/17 12:09 Estimated GFR 6 ml/min 06/25/17 12:09 BUN/Creatinine Ratio 4 % 06/25/17 12:09 Glucose 153 mg/dL (65-100) H 06/25/17 12:09 POC Glucose 138 (70-105) H 06/26/17 05:33 Calcium 9.2 mg/dL (8.4-10.2) 06/25/17 12:09 Troponin T 0.062 ng/mL (0.00-0.029) H 06/25/17 12:09 Triglycerides 130 mg/dL (2-149) 06/25/17 12:09 Cholesterol 162 mg/dL (50-199) 06/25/17 12:09 LDL Cholesterol Direct 90 mg/dL (50-130) 06/25/17 12:09 HDL Cholesterol 46 mg/dL (40-59) 06/25/17 12:09 Cholesterol/HDL Ratio 3.52 % 06/25/17 12:09
--- NOTE | 2017-06-26 12:43 | Magnetic Resonance Report ---
MRI BRAIN WITHOUT CONTRAST: 06/26/17 CLINICAL: Encephalopathy. TECHNIQUE: Axial diffusion, T1, T2, FLAIR, gradient echo T2*, and sagittal T1 sequences on a 1.5 Lizy magnet. FINDINGS: Normal ventricles and sulci. No restricted diffusion. Moderate bilateral periventricular white matter hyperintensities LAYER in T2. A small chronic right basal ganglia lacunar infarct involving the putamen. No mass or mass effect. No hemorrhage, edema or extra-axial collection. Normal pituitary and optic chiasm. The brainstem and cerebellum are normal. Intact vascular flow voids. Normal sinuses. The orbits, and soft tissues are normal. Normal calvarium and skull base. IMPRESSION: Moderate chronic white matter microangiopathy. No evidence of acute/subacute infarct or hemorrhage. Chronic left basal ganglia lacunar infarct.
[2017-06-26] MEDS: NOVOLOG SUB-Q SCH ×3 (13:33→22:31)
--- NOTE | 2017-06-26 14:10 | Consultation ---
History of Present Illness - Reason for Consult Consult date: 06/26/17 end stage renal disease Requesting physician: SYLVESTER FLORES - History of Present Illness 62 yo with Diabetes mellitus, Hypertension and End stage renal disease, Anemia, Hypothyroidism, DM presents to ED with complaints of change of mental status, confusion, lethargy. As per family, pt has experienced progressive weakness and confusion over the past week. Pt is unable to perform active daily living and requires assistance around the clock. Pt is reportedly so weak that she is not able to get up from a lying or seated position and is not stable stand independently, or ambulate without standby assistance. Pt denies fever, chills, nausea, vomiting, diarrhea, abd pain, dysuria, dizziness, blurry vision, CP, SOB. Pt receives maintenance HD on MWF schedule at [facility], did not miss HD last week. Past History Past Medical History: diabetes, ESRD, hypertension, hypothyroidism, renal failure Past Surgical History: thyroidectomy Social history: , lives with family. denies: smoking, alcohol abuse, prescription drug abuse, IV drug use Family history: diabetes, hypertension Medications and Allergies Allergies Allergy/AdvReac Type Severity Reaction Status Date / Time No Known Allergies Allergy Verified 01/19/16 17:29 Home Medications Medication Instructions Recorded Confirmed Last Taken Type Cetirizine HCl 10 mg PO DAILY MDD 10 mg 09/01/16 06/25/17 06/10/17 History Furosemide [Lasix TAB] 80 mg PO QDAY MDD 80 mg 09/01/16 06/25/17 06/10/17 History glipiZIDE [Glucotrol] 10 mg PO BID MDD 10 mg 09/01/16 06/25/17 06/10/17 History Latanoprost 0.005% [Xalatan 0.005%] 1 drop OS QPM #0 09/02/16 06/25/17 06/10/17 History NIFEdipine [Nifedipine ER] 60 mg PO BID MDD 60 mg 02/01/17 06/25/17 06/10/17 History Betaxolol HCl [Betaxolol HCl 0.5%] 1 drop OS BID 06/25/17 06/25/17 Unknown History Ketorolac Tromethamine [Acular 1 drop OD QID 06/25/17 06/25/17 Unknown History 0.5% Opth Soln] Levothyroxine [Synthroid] 200 mcg PO QDAY 06/25/17 06/25/17 Unknown History Lisinopril [Zestril] 40 mg PO QDAY 06/25/17 06/25/17 Unknown History Metoprolol [Lopressor TAB] 50 mg PO BID 06/25/17 06/25/17 Unknown History acetaZOLAMIDE [Diamox Sequels] 500 mg PO BID 06/25/17 06/25/17 Unknown History hydrALAZINE [Apresoline TAB] 100 mg PO BID 06/25/17 06/25/17 Unknown History Active Meds: Active Medications Acetaminophen (Tylenol) 650 mg PO Q4H PRN PRN Reason: Pain MILD(1-3)/Fever >100.5/[place] Acetazolamide (Diamox) 500 mg PO BID [facility] Last Admin: 06/26/17 09:37 Dose: 500 mg Albuterol (Proventil) 2.5 mg IH Q4HRT PRN PRN Reason: Shortness Of Breath Bisacodyl (Dulcolax) 10 mg [place] QDAY PRN PRN Reason: Constipation unrelieved by MOM Furosemide (Lasix) 40 mg IV 0600,1800 [facility] Last Admin: 06/26/17 05:26 Dose: 40 mg Hydralazine HCl (Apresoline) 100 mg PO BID [facility] Last Admin: 06/26/17 09:35 Dose: 100 mg Sodium Chloride (Nacl 0.9%) 100 mls @ 999 mls/hr IV [place] PRN PRN Reason: Hypotension Insulin Aspart (Novolog) 0 units SUB-Q ACHS [facility] PRN Reason: Protocol Last Admin: 06/26/17 13:33 Dose: Not Given Latanoprost (Xalatan 0.005%) 1 drops OS QHS [facility] Last Admin: 06/26/17 00:05 Dose: 1 drops Levothyroxine Sodium (Synthroid) 200 mcg PO QDAY@0600 [facility] Last Admin: 06/26/17 05:26 Dose: 200 mcg Lisinopril (Zestril) 40 mg PO QDAY [facility] Last Admin: 06/26/17 09:38 Dose: 40 mg Loratadine (Claritin) 10 mg PO DAILY [facility] Last Admin: 06/26/17 09:36 Dose: 10 mg Magnesium Hydroxide (Milk Of Magnesia) 30 ml PO Q4H PRN PRN Reason: Constipation Metoprolol Tartrate (Lopressor) 50 mg PO BID [facility] Last Admin: 06/26/17 09:35 Dose: 50 mg Miscellaneous Medication (Betaxolol Hcl [Betaxolol Hcl 0.5%]) 1 drop OS BID [facility] Miscellaneous Medication (Ketorolac Tromethamine [Acular 0.5% Opth Soln]) 1 drop OD QID [facility] Nifedipine (Procardia Xl) 60 mg PO BID [facility] Last Admin: 06/26/17 09:34 Dose: 60 mg Ondansetron HCl (Zofran) 4 mg IV Q8H PRN PRN Reason: N/V unrelieved by Reglan Review of Systems All systems: negative Constitutional: fatigue, weakness, malaise, poor appetite Exam - Vital Signs Vital signs: Vital Signs Temp Pulse Resp BP Pulse Ox 98.5 F 63 18 152/63 99 06/25/17 11:50 06/25/17 11:50 06/25/17 11:50 06/25/17 11:50 06/25/17 11:50 Results - Lab Results 06/25/17 12:09 06/25/17 12:09 Most recent lab results Calcium 9.2 mg/dL (8.4-10.2) 06/25/17 12:09 Laboratory Tests 06/25/17 06/25/17 06/25/17 11:57 12:09 12:09 ESR PT 13.9 INR 1.02 APTT 27.6 Thrombin Time POC Glucose 137 H Calcium 9.2 Troponin T 0.062 H Triglycerides 130 Cholesterol 162 LDL Cholesterol Direct 90 HDL Cholesterol 46 06/25/17 06/25/17 06/25/17 12:09 21:07 Unknown ESR 11 PT INR APTT Thrombin Time 18.4 POC Glucose 205 H Calcium Troponin T Triglycerides Cholesterol LDL Cholesterol Direct HDL Cholesterol 06/26/17 05:33 ESR PT INR APTT Thrombin Time POC Glucose 138 H Calcium Troponin T Triglycerides Cholesterol LDL Cholesterol Direct HDL Cholesterol Assessment and Plan - Patient Problems (1) ESRD (end stage renal disease) on dialysis Current Visit: Yes Status: Acute Plan to address problem: cont HD on MWF schedule, will target UF 3-4L as tolerated for further volume/BP control (2) Encephalopathy Current Visit: Yes Status: Acute Plan to address problem: unclear etiology of encephalopathy, CT head shows chronic ischemic changes. MRI brain pending. pt was compliant with HD treatments, doubt uremic encephalopathy. (3) Debility Current Visit: Yes Status: Acute Plan to address problem: PT/OT eval (4) HTN (hypertension) Current Visit: Yes Status: Chronic Qualifiers: Hypertension type: essential hypertension Qualified Code(s): I10 - Essential (primary) hypertension Plan to address problem: resume home BP regimen. If BP remains uncontrolled with HD/UF will adjust meds (5) Diabetes mellitus type 2 in nonobese Current Visit: No Status: Acute Plan to address problem: glucose control as per primary attending
[2017-06-27] MEDS: LASIX IV SCH ×2 (06:15→17:39)
[2017-06-27] MEDS: SYNTHROID PO SCH (06:15)
[2017-06-27 06:44] LABS: Calcium 8.6 mg/dL (8.4-10.2); Chloride 97.7 mmol/L (98-107); Potassium 4.4 mmol/L (3.6-5.0)
[2017-06-27] MEDS: NOVOLOG SUB-Q SCH ×4 (09:08→22:29)
[2017-06-27] MEDS: PROCARDIA XL PO SCH ×2 (09:09→22:24)
[2017-06-27] MEDS: ZESTRIL PO SCH (09:09)
[2017-06-27] MEDS: APRESOLINE PO SCH ×2 (09:09→22:28)
[2017-06-27] MEDS: CLARITIN PO SCH (09:09)
[2017-06-27] MEDS: LOPRESSOR PO SCH ×2 (09:09→22:28)
--- NOTE | 2017-06-27 11:56 | Progress Note ---
Assessment and Plan - Patient Problems (1) Altered mental status Current Visit: Yes Status: Acute Qualifiers: Altered mental status type: unspecified Qualified Code(s): R41.82 - Altered mental status, unspecified Plan to address problem: Mental status improved. (2) ESRD (end stage renal disease) on dialysis Current Visit: Yes Status: Acute Plan to address problem: Continue hemodialysis on a Thursday, Thursday and Thursday schedule (3) HTN (hypertension) Current Visit: Yes Status: Chronic Qualifiers: Hypertension type: essential hypertension Qualified Code(s): I10 - Essential (primary) hypertension Plan to address problem: Blood pressure is controlled now. Follow blood pressure on current medications (4) Anemia in chronic kidney disease Current Visit: No Status: Acute Plan to address problem: Continue Erythropoetin on dialysis Subjective Date of service: 06/27/17 Principal diagnosis: end-stage renal disease Interval history: Patient seen lying in bed. She has no complaints. Says my daughter, and brother's say "I was walking and talking strange" Objective - Exam Narrative Exam: Middle-aged gentleman, comfortably lying in bed in no acute distress HEENT: NCAT, pink oral mucous membrane Neck: Supple, no venous distention CVS: S1S2 RRR with no murmur, rub or gallop Chest: Clear to auscultation Abdomen: Protuberant, soft, nontender, no organomegaly, bowel sounds are present Extremities: No edema, Neuro: Awake, alert no focal deficits - Vital Signs Vital signs: Vital Signs - 12hr 06/27/17 06/27/17 04:06 08:12 Temperature 98.5 F 98.7 F Pulse Rate 63 66 Respiratory 16 20 Rate Blood Pressure 126/63 141/62 O2 Sat by Pulse 98 100 Oximetry - Lab 06/25/17 12:09 06/27/17 06:00 Most recent lab results Calcium 8.6 mg/dL (8.4-10.2) 06/27/17 06:00
[2017-06-27] MEDS: DIAMOX PO SCH ×2 (12:56→22:25)
[2017-06-27] MEDS: COLACE PO SCH ×2 (13:49→22:28)
--- NOTE | 2017-06-27 18:53 | Progress Note ---
Assessment and Plan Assessment and plan: Toxic metabolic encephalopathy with altered mental status. She is improved, less confused. Dialysis dysequilibrium syndrome. Neurochecks, supportive care. ESRD on dialysis. Nephrology following. Discussed with nephrology Hypertension. BP improved. Will monitor Debility, generalized weakness. may consider placement Full code status I discussed with case packer and sealer about arranging placement. Patient interested in placement at SNF. History Interval history: Altered mental status improving, less confused generalized weakness Hospitalist Physical - Physical exam Narrative exam: GEN APPEARANCE : Not in acute distress HEENT: Normocephalic Atrauma NECK : supple, no JVD LUNGS: clear to auscultation bilaterally, no rales, no wheeze HEART: S1 and S2 regular, tachycardia, no murmurs, rubs or gallop, ABD: Soft, no tenderness, no distension, normal bowel sounds EXT: No edema, no clubbing, no cyanosis NEURO: Awake,alert, confusion improved, no facial asymmetry,no focal signs, - Constitutional Vitals: Temp Pulse Resp BP Pulse Ox 99.0 F 67 18 135/58 100 06/27/17 16:03 06/27/17 12:00 06/27/17 16:03 06/27/17 16:03 06/27/17 08:14 General appearance: Present: mild distress, cachectic Results - Labs CBC & Chem 7: 06/25/17 12:09 06/27/17 06:00 Labs: Laboratory Last Values WBC 4.9 K/mm3 (4.5-11.0) 06/25/17 12:09 RBC 4.85 M/mm3 (3.65-5.03) 06/25/17 12:09 Hgb 12.2 gm/dl (10.1-14.3) 06/25/17 12:09 Hct 40.0 % (30.3-42.9) 06/25/17 12:09 MCV 83 fl (79-97) 06/25/17 12:09 MCH 25 pg (28-32) L 06/25/17 12:09 MCHC 30 % (30-34) 06/25/17 12:09 RDW 23.6 % (13.2-15.2) H 06/25/17 12:09 Plt Count 194 K/mm3 (140-440) 06/25/17 12:09 Lymph % (Auto) 16.0 % (13.4-35.0) 06/25/17 12:09 [place] % (Auto) 10.7 % (0.0-7.3) H 06/25/17 12:09 Eos % (Auto) 3.7 % (0.0-4.3) 06/25/17 12:09 Baso % (Auto) 0.7 % (0.0-1.8) 06/25/17 12:09 Lymph # 0.8 K/mm3 (1.2-5.4) L 06/25/17 12:09 [place] # 0.5 K/mm3 (0.0-0.8) 06/25/17 12:09 Eos # 0.2 K/mm3 (0.0-0.4) 06/25/17 12:09 Baso # 0.0 K/mm3 (0.0-0.1) 06/25/17 12:09 Seg Neutrophils % 68.9 % (40.0-70.0) 06/25/17 12:09 Seg Neutrophils # 3.4 K/mm3 (1.8-7.7) 06/25/17 12:09 ESR 11 mm/Hr (0-20) 06/25/17 Unknown PT 13.9 Sec. (12.2-14.9) 06/25/17 12:09 INR 1.02 (0.87-1.13) 06/25/17 12:09 APTT 27.6 Sec. (24.2-36.6) 06/25/17 12:09 Thrombin Time 18.4 Sec. (15.1-19.6) 06/25/17 12:09 Sodium 142 mmol/L (137-145) 06/27/17 06:00 Potassium 4.4 mmol/L (3.6-5.0) 06/27/17 06:00 Chloride 97.7 mmol/L (98-107) L 06/27/17 06:00 Carbon Dioxide 29 mmol/L (22-30) 06/27/17 06:00 Anion Gap 20 mmol/L 06/27/17 06:00 BUN 35 mg/dL (7-17) H 06/27/17 06:00 Creatinine 8.3 mg/dL (0.7-1.2) H 06/27/17 06:00 Estimated GFR 6 ml/min 06/27/17 06:00 BUN/Creatinine Ratio 4 % 06/27/17 06:00 Glucose 140 mg/dL (65-100) H 06/27/17 06:00 POC Glucose 324 (70-105) H 06/27/17 17:03 Calcium 8.6 mg/dL (8.4-10.2) 06/27/17 06:00 Troponin T 0.062 ng/mL (0.00-0.029) H 06/25/17 12:09 Triglycerides 130 mg/dL (2-149) 06/25/17 12:09 Cholesterol 162 mg/dL (50-199) 06/25/17 12:09 LDL Cholesterol Direct 90 mg/dL (50-130) 06/25/17 12:09 HDL Cholesterol 46 mg/dL (40-59) 06/25/17 12:09 Cholesterol/HDL Ratio 3.52 % 06/25/17 12:09 TSH 6.930 mlU/mL (0.270-4.200) H 06/27/17 06:00 Free T4 1.34 ng/dL (0.76-1.46) 06/27/17 06:00
[2017-06-27] MEDS: XALATAN 0.005% OS SCH (22:22)
[2017-06-28] MEDS: LASIX IV SCH ×2 (06:41→18:05)
[2017-06-28] MEDS: SYNTHROID PO SCH (06:41)
[2017-06-28] MEDS: NOVOLOG SUB-Q SCH ×4 (10:35→22:47)
[2017-06-28] MEDS: ZESTRIL PO SCH (10:36)
[2017-06-28] MEDS: LOPRESSOR PO SCH ×2 (10:36→21:25)
[2017-06-28] MEDS: COLACE PO SCH ×2 (10:36→21:26)
[2017-06-28] MEDS: CLARITIN PO SCH (10:36)
[2017-06-28] MEDS: APRESOLINE PO SCH ×2 (10:36→21:25)
[2017-06-28] MEDS: DIAMOX PO SCH ×2 (10:36→21:24)
[2017-06-28] MEDS: PROCARDIA XL PO SCH ×2 (10:36→21:23)
--- NOTE | 2017-06-28 16:50 | Progress Note ---
Assessment and Plan - Patient Problems (1) Altered mental status Current Visit: Yes Status: Acute Qualifiers: Altered mental status type: unspecified Qualified Code(s): R41.82 - Altered mental status, unspecified Plan to address problem: Mental status improved. Patient is back to baseline. Discharge planning by primary attending. Okay to discharge from my standpoint (2) ESRD (end stage renal disease) on dialysis Current Visit: Yes Status: Acute Plan to address problem: Continue hemodialysis on a Thursday, Thursday and Thursday schedule (3) HTN (hypertension) Current Visit: Yes Status: Chronic Qualifiers: Hypertension type: essential hypertension Qualified Code(s): I10 - Essential (primary) hypertension Plan to address problem: Blood pressure is controlled now. Follow blood pressure on current medications (4) Anemia in chronic kidney disease Current Visit: No Status: Acute Plan to address problem: Continue Erythropoetin on dialysis Subjective Date of service: 06/28/17 Principal diagnosis: end-stage renal disease Interval history: Patient seen lying in bed. She has no complaints. Would like to go home Objective - Exam Narrative Exam: Middle-aged gentleman, comfortably lying in bed in no acute distress HEENT: NCAT, pink oral mucous membrane Neck: Supple, no venous distention CVS: S1S2 RRR with no murmur, rub or gallop Chest: Clear to auscultation Abdomen: Protuberant, soft, nontender, no organomegaly, bowel sounds are present Extremities: No edema, Neuro: Awake, alert no focal deficits - Vital Signs Vital signs: Vital Signs - 12hr 06/28/17 06/28/17 06/28/17 05:36 07:56 10:36 Temperature 98.1 F 98.2 F Pulse Rate 60 61 61 Respiratory 20 16 Rate Blood Pressure 161/59 164/67 164/67 O2 Sat by Pulse 98 99 Oximetry 06/28/17 06/28/17 12:22 15:18 Temperature 98.3 F 98.8 F Pulse Rate 66 67 Respiratory 18 18 Rate Blood Pressure 172/72 153/67 O2 Sat by Pulse 97 100 Oximetry - Lab 06/25/17 12:09 06/27/17 06:00 Most recent lab results Calcium 8.6 mg/dL (8.4-10.2) 06/27/17 06:00
--- NOTE | 2017-06-28 17:38 | Progress Note ---
Assessment and Plan Assessment and plan: Toxic metabolic encephalopathy with altered mental status. She is improved, No more confusion.. Dialysis dysequilibrium syndrome. Improving. Neurochecks, supportive care. ESRD on dialysis. Nephrology following. Discussed with nephrology Hypertension. BP improved. Will monitor Debility, generalized weakness. may consider placement Full code status I discussed with case picker about arranging placement. Patient interested in placement at SNF. engagement manager working on placement. She is medically stable for d/c to SNF History Interval history: Altered mental status improved, back to baseline, No more confusion generalized weakness Hospitalist Physical - Physical exam Narrative exam: GEN APPEARANCE : Not in acute distress HEENT: Normocephalic Atrauma NECK : supple, no JVD LUNGS: clear to auscultation bilaterally, no rales, no wheeze HEART: S1 and S2 regular, tachycardia, no murmurs, rubs or gallop, ABD: Soft, no tenderness, no distension, normal bowel sounds EXT: No edema, no clubbing, no cyanosis NEURO: Awake,alert, oriented, no facial asymmetry,no focal signs, - Constitutional Vitals: Temp Pulse Resp BP Pulse Ox 98.8 F 67 18 153/67 100 06/28/17 15:18 06/28/17 15:18 06/28/17 15:18 06/28/17 15:18 06/28/17 15:18 General appearance: Present: mild distress, cachectic Results - Labs CBC & Chem 7: 06/25/17 12:09 06/27/17 06:00 Labs: Laboratory Last Values WBC 4.9 K/mm3 (4.5-11.0) 06/25/17 12:09 RBC 4.85 M/mm3 (3.65-5.03) 06/25/17 12:09 Hgb 12.2 gm/dl (10.1-14.3) 06/25/17 12:09 Hct 40.0 % (30.3-42.9) 06/25/17 12:09 MCV 83 fl (79-97) 06/25/17 12:09 MCH 25 pg (28-32) L 06/25/17 12:09 MCHC 30 % (30-34) 06/25/17 12:09 RDW 23.6 % (13.2-15.2) H 06/25/17 12:09 Plt Count 194 K/mm3 (140-440) 06/25/17 12:09 Lymph % (Auto) 16.0 % (13.4-35.0) 06/25/17 12:09 [place] % (Auto) 10.7 % (0.0-7.3) H 06/25/17 12:09 Eos % (Auto) 3.7 % (0.0-4.3) 06/25/17 12:09 Baso % (Auto) 0.7 % (0.0-1.8) 06/25/17 12:09 Lymph # 0.8 K/mm3 (1.2-5.4) L 06/25/17 12:09 [place] # 0.5 K/mm3 (0.0-0.8) 06/25/17 12:09 Eos # 0.2 K/mm3 (0.0-0.4) 06/25/17 12:09 Baso # 0.0 K/mm3 (0.0-0.1) 06/25/17 12:09 Seg Neutrophils % 68.9 % (40.0-70.0) 06/25/17 12:09 Seg Neutrophils # 3.4 K/mm3 (1.8-7.7) 06/25/17 12:09 ESR 11 mm/Hr (0-20) 06/25/17 Unknown PT 13.9 Sec. (12.2-14.9) 06/25/17 12:09 INR 1.02 (0.87-1.13) 06/25/17 12:09 APTT 27.6 Sec. (24.2-36.6) 06/25/17 12:09 Thrombin Time 18.4 Sec. (15.1-19.6) 06/25/17 12:09 Sodium 142 mmol/L (137-145) 06/27/17 06:00 Potassium 4.4 mmol/L (3.6-5.0) 06/27/17 06:00 Chloride 97.7 mmol/L (98-107) L 06/27/17 06:00 Carbon Dioxide 29 mmol/L (22-30) 06/27/17 06:00 Anion Gap 20 mmol/L 06/27/17 06:00 BUN 35 mg/dL (7-17) H 06/27/17 06:00 Creatinine 8.3 mg/dL (0.7-1.2) H 06/27/17 06:00 Estimated GFR 6 ml/min 06/27/17 06:00 BUN/Creatinine Ratio 4 % 06/27/17 06:00 Glucose 140 mg/dL (65-100) H 06/27/17 06:00 POC Glucose 198 (70-105) H 06/28/17 17:17 Calcium 8.6 mg/dL (8.4-10.2) 06/27/17 06:00 Troponin T 0.062 ng/mL (0.00-0.029) H 06/25/17 12:09 Triglycerides 130 mg/dL (2-149) 06/25/17 12:09 Cholesterol 162 mg/dL (50-199) 06/25/17 12:09 LDL Cholesterol Direct 90 mg/dL (50-130) 06/25/17 12:09 HDL Cholesterol 46 mg/dL (40-59) 06/25/17 12:09 Cholesterol/HDL Ratio 3.52 % 06/25/17 12:09 TSH 6.930 mlU/mL (0.270-4.200) H 06/27/17 06:00 Free T4 1.34 ng/dL (0.76-1.46) 06/27/17 06:00
[2017-06-28] MEDS: XALATAN 0.005% OS SCH (21:26)
[2017-06-28] MEDS: HEPARIN SUB-Q SCH (21:42)
[2017-06-29] MEDS: SYNTHROID PO SCH (06:25)
[2017-06-29] MEDS: LASIX IV SCH ×2 (06:27→20:05)
[2017-06-29] MEDS: NOVOLOG SUB-Q SCH ×3 (08:47→19:31)
--- NOTE | 2017-06-29 09:20 | Progress Note ---
Hospitalist Physical - Constitutional Vitals: Temp Pulse Resp BP Pulse Ox 99.0 F 60 20 160/59 99 06/29/17 08:04 06/29/17 08:04 06/29/17 08:04 06/29/17 08:04 06/29/17 08:04 General appearance: Present: mild distress, cachectic Results - Labs CBC & Chem 7: 06/25/17 12:09 06/27/17 06:00 Labs: Laboratory Last Values WBC 4.9 K/mm3 (4.5-11.0) 06/25/17 12:09 RBC 4.85 M/mm3 (3.65-5.03) 06/25/17 12:09 Hgb 12.2 gm/dl (10.1-14.3) 06/25/17 12:09 Hct 40.0 % (30.3-42.9) 06/25/17 12:09 MCV 83 fl (79-97) 06/25/17 12:09 MCH 25 pg (28-32) L 06/25/17 12:09 MCHC 30 % (30-34) 06/25/17 12:09 RDW 23.6 % (13.2-15.2) H 06/25/17 12:09 Plt Count 194 K/mm3 (140-440) 06/25/17 12:09 Lymph % (Auto) 16.0 % (13.4-35.0) 06/25/17 12:09 [place] % (Auto) 10.7 % (0.0-7.3) H 06/25/17 12:09 Eos % (Auto) 3.7 % (0.0-4.3) 06/25/17 12:09 Baso % (Auto) 0.7 % (0.0-1.8) 06/25/17 12:09 Lymph # 0.8 K/mm3 (1.2-5.4) L 06/25/17 12:09 [place] # 0.5 K/mm3 (0.0-0.8) 06/25/17 12:09 Eos # 0.2 K/mm3 (0.0-0.4) 06/25/17 12:09 Baso # 0.0 K/mm3 (0.0-0.1) 06/25/17 12:09 Seg Neutrophils % 68.9 % (40.0-70.0) 06/25/17 12:09 Seg Neutrophils # 3.4 K/mm3 (1.8-7.7) 06/25/17 12:09 ESR 11 mm/Hr (0-20) 06/25/17 Unknown PT 13.9 Sec. (12.2-14.9) 06/25/17 12:09 INR 1.02 (0.87-1.13) 06/25/17 12:09 APTT 27.6 Sec. (24.2-36.6) 06/25/17 12:09 Thrombin Time 18.4 Sec. (15.1-19.6) 06/25/17 12:09 Sodium 142 mmol/L (137-145) 06/27/17 06:00 Potassium 4.4 mmol/L (3.6-5.0) 06/27/17 06:00 Chloride 97.7 mmol/L (98-107) L 06/27/17 06:00 Carbon Dioxide 29 mmol/L (22-30) 06/27/17 06:00 Anion Gap 20 mmol/L 06/27/17 06:00 BUN 35 mg/dL (7-17) H 06/27/17 06:00 Creatinine 8.3 mg/dL (0.7-1.2) H 06/27/17 06:00 Estimated GFR 6 ml/min 06/27/17 06:00 BUN/Creatinine Ratio 4 % 06/27/17 06:00 Glucose 140 mg/dL (65-100) H 06/27/17 06:00 POC Glucose 145 (70-105) H 06/29/17 06:20 Calcium 8.6 mg/dL (8.4-10.2) 06/27/17 06:00 Troponin T 0.062 ng/mL (0.00-0.029) H 06/25/17 12:09 Triglycerides 130 mg/dL (2-149) 06/25/17 12:09 Cholesterol 162 mg/dL (50-199) 06/25/17 12:09 LDL Cholesterol Direct 90 mg/dL (50-130) 06/25/17 12:09 HDL Cholesterol 46 mg/dL (40-59) 06/25/17 12:09 Cholesterol/HDL Ratio 3.52 % 06/25/17 12:09 TSH 6.930 mlU/mL (0.270-4.200) H 06/27/17 06:00 Free T4 1.34 ng/dL (0.76-1.46) 06/27/17 06:00
--- NOTE | 2017-06-29 10:16 | Discharge Summary ---
Providers - Providers Date of Admission: 06/25/17 21:27 Date of discharge: 06/29/17 Attending physician: ROJAS ANAND 06/25/17 21:26 Consult to Physician [CONS] Routine Consulting Provider: NIRANJAN ALLEN Reason For Exam: esrd on hd Place consult to:: dr. allen/ alexandro Notified:: office Phone number called:: Was contact made?: Yes If yes, spoke with:: fernando Time called:: 09:19 06/28/17 17:57 Physical Therapy Evaluation and Treat [CONS] Routine Comment: Reason For Exam: Gen weakness Primary care physician: SYSTEMS ANALYST DEVELOPER Hospitalization Condition: Good Hospital course: Patient is 62 yo with ESRD on dialysis, hypertension, diabetes, presented with generalized weakness, lethargy, altered mental status. CT head showed chronic changes. She was admitted, evaluated by Patient Resource Specialist and dialysis resumed. She had metabolic encephalopathy, mental status returned close to baseline. Patient debilitated and patient and family interested in SNF placement. This was arranged by Case management and she was discharged to SNF on 06/29/17. Total time spent on discharge, 33 mins. Disposition: DC/TX-03 SNF W [facility] CERT - Discharge Diagnoses (1) Acute metabolic encephalopathy Status: Acute (2) ESRD on hemodialysis Status: Chronic (3) HLD (hyperlipidemia) Status: Chronic Qualifiers: Hyperlipidemia type: mixed hyperlipidemia Qualified Code(s): E78.2 - Mixed hyperlipidemia (4) Hypertension Status: Chronic Qualifiers: Hypertension type: essential hypertension Qualified Code(s): I10 - Essential (primary) hypertension (5) Hypothyroidism Status: Chronic Qualifiers: Hypothyroidism type: acquired Qualified Code(s): E03.9 - Hypothyroidism, unspecified (6) T2DM (type 2 diabetes mellitus) Status: Chronic Qualifiers: Diabetes mellitus complication status: with kidney complications Chronic kidney disease stage: on chronic dialysis Core Measure Documentation - Palliative Care Palliative Care/ Comfort Measures: Not Applicable - Core Measures Any of the following diagnoses?: none Exam - Physical Exam Narrative exam: GEN APPEARANCE : Not in acute distress HEENT: Normocephalic Atrauma NECK : supple, no JVD LUNGS: clear to auscultation bilaterally, no rales, no wheeze HEART: S1 and S2 regular, tachycardia, no murmurs, rubs or gallop, ABD: Soft, no tenderness, no distension, normal bowel sounds EXT: No edema, no clubbing, no cyanosis NEURO: Awake,alert, oriented, no facial asymmetry,no focal signs, - Constitutional Vitals: Temp Pulse Resp BP Pulse Ox 99.0 F 60 20 160/59 99 06/29/17 08:04 06/29/17 08:04 06/29/17 08:04 06/29/17 08:04 06/29/17 08:04 Plan Activity: advance as tolerated Diet: low fat, low cholesterol, low salt, renal Additional Instructions: 1.Follow up with Physician at SNF in 3-5 days. 2.Continue routine hemodialysis as scheduled Follow up with: PRIMARY CAREMD [Primary Care Provider] - 3-5 Days
[2017-06-29] MEDS: HEPARIN SUB-Q SCH (10:27)
[2017-06-29] MEDS: APRESOLINE PO SCH (10:27)
[2017-06-29] MEDS: LOPRESSOR PO SCH (10:27)
[2017-06-29 17:44] VITALS: BP 173/73
--- NOTE | 2017-06-29 17:45 | Progress Note ---
Assessment and Plan (1) Altered mental status Current Visit: Yes Status: Acute Qualifiers: Altered mental status type: unspecified Qualified Code(s): R41.82 - Altered mental status, unspecified Plan to address problem: Mental status improved. Patient is back to baseline. Discharge planning by primary team (2) ESRD (end stage renal disease) on dialysis Current Visit: Yes Status: Acute Plan to address problem: Continue hemodialysis on a Thursday, Thursday and Thursday schedule (3) HTN (hypertension) Current Visit: Yes Status: Chronic Qualifiers: Hypertension type: essential hypertension Qualified Code(s): I10 - Essential (primary) hypertension Plan to address problem: Blood pressure is controlled now. Follow blood pressure on current medications (4) Anemia in chronic kidney disease Current Visit: No Status: Acute Plan to address problem: Continue Erythropoetin on dialysis Subjective Date of service: 06/29/17 Principal diagnosis: end-stage renal disease Interval history: No SOB/CP Objective - Vital Signs Vital signs: Vital Signs - 12hr 06/29/17 06/29/17 06/29/17 08:04 12:55 13:15 Temperature 99.0 F 98.4 F 98.2 F Pulse Rate 60 67 67 Respiratory 20 18 18 Rate Blood Pressure 160/59 118/43 170/75 O2 Sat by Pulse 99 96 Oximetry 06/29/17 06/29/17 06/29/17 13:25 13:30 13:45 Temperature Pulse Rate 66 64 63 Respiratory Rate Blood Pressure 167/75 166/73 136/69 O2 Sat by Pulse Oximetry 06/29/17 06/29/17 06/29/17 14:00 14:15 14:30 Temperature Pulse Rate 62 66 63 Respiratory Rate Blood Pressure 134/65 151/72 136/69 O2 Sat by Pulse Oximetry 06/29/17 06/29/17 06/29/17 14:45 15:00 15:15 Temperature Pulse Rate 66 66 66 Respiratory Rate Blood Pressure 143/65 142/65 149/70 O2 Sat by Pulse Oximetry 06/29/17 06/29/17 06/29/17 15:30 15:45 16:00 Temperature Pulse Rate 67 67 66 Respiratory Rate Blood Pressure 127/55 155/70 126/60 O2 Sat by Pulse Oximetry 06/29/17 06/29/17 06/29/17 16:15 16:30 16:45 Temperature Pulse Rate 66 64 64 Respiratory Rate Blood Pressure 132/66 131/59 134/58 O2 Sat by Pulse Oximetry 06/29/17 17:39 Temperature 98.4 F Pulse Rate 66 Respiratory 18 Rate Blood Pressure 173/73 O2 Sat by Pulse 100 Oximetry - General Appearance General appearance: well-developed, well-nourished, appears stated age EENT: PERRL, mucous membranes moist Neck: no JVD, no thyromegaly, no carotid bruit, supple Respiratory: Present: Clear to Ascultation Cardiology: regular, normal heart rate, S1S2, no murmurs Gastrointestinal: normoactive bowel sounds, no tenderness Integumentary: no rash, warm and dry Neurologic: no focal deficit, alert and oriented x3, reflexes 2+ and symmetric, gait normal, strength 5/5 Musculoskeletal: no deformities, no erythema, no cyanosis, no clubbing Psychiatric: mood/affect appropriate, cooperative - Lab 06/25/17 12:09 06/27/17 06:00 Most recent lab results Calcium 8.6 mg/dL (8.4-10.2) 06/27/17 06:00
[2017-06-29] MEDS ORDERED: APRESOLINE IV ONE (18:32)
[2017-06-29] MEDS: DIAMOX PO SCH (19:10)
[2017-06-29] MEDS: CLARITIN PO SCH (20:03)
[2017-06-29] MEDS: COLACE PO SCH (20:04)
[2017-06-29] MEDS: ZESTRIL PO SCH (20:04)
[2017-06-29] MEDS: PROCARDIA XL PO SCH (20:04)
[2017-07-06 13:27] LABS: Albumin 3.8 g/dL (3.8-4.8); Gamma Globulin 1.6 g/dL (0.8-1.7)
== END 2017-06-29 20:30 | DRG 91 ==
LOC: ED 11:43 → 3A 21:27
PROVIDERS: ADMIT Internal Medicine; ATTEND Internal Medicine
PROC: 5A1D70Z Performance of Urinary Filtration, Intermittent, Less than 6 Hours Per Day (ICD-10-PCS; principal; 2017-06-26)
PROC: 5A1D70Z Performance of Urinary Filtration, Intermittent, Less than 6 Hours Per Day (ICD-10-PCS; 2017-06-29)
DX: G92 Toxic encephalopathy (principal); N18.6 End stage renal disease; I13.2 Hypertensive heart and chronic kidney disease with heart failure and with stage 5 chronic kidney disease, or end stage renal disease; E03.9 Hypothyroidism, unspecified; E78.5 Hyperlipidemia, unspecified; E11.22 Type 2 diabetes mellitus with diabetic chronic kidney disease; Z99.2 Dependence on renal dialysis; Z79.899 Other long term (current) drug therapy; I50.9 Heart failure, unspecified; Z83.3 Family history of diabetes mellitus; Z82.49 Family history of ischemic heart disease and other diseases of the circulatory system; E11.40 Type 2 diabetes mellitus with diabetic neuropathy, unspecified; D63.1 Anemia in chronic kidney disease; R42 Dizziness and giddiness
CPT/HCPCS: 36415; 70450; 70551; 71020; 80048; 80061; 82962; 84165; 84166; 84439; 84443; 84484; 85025; 85610; 85652; 85670; 85730; 86038; 93005; 93010; G8978-GP; G8979-GP; J0360; J1644; J1815; J1940

== ENCOUNTER 2017-12-08 19:07 | Inpatient (IN) | payer MEDICARE ==
[2017-12-08 20:21] LABS: Eosinophils # (Auto) 0.1 K/mm3 (0.0-0.4); Eosinophils % (Auto) 2.4 % (0.0-4.3); Hematocrit 35.3 % (30.3-42.9); Hemoglobin 11.1 gm/dl (10.1-14.3); Lymphocytes % (Auto) 23.5 % (13.4-35.0); Mean Corpuscular HGB Conc 31 % (30-34); Mean Corpuscular Hemoglobin 24 pg (28-32); Mean Corpuscular Volume 76 fl (79-97); Monocytes # (Auto) 0.4 K/mm3 (0.0-0.8); Monocytes % (Auto) 8.4 % (0.0-7.3); Platelet Count 178 K/mm3 (140-440); Red Blood Count 4.67 M/mm3 (3.65-5.03); Red Cell Distribution Width 19.7 % (13.2-15.2)
[2017-12-08 20:38] LABS: BUN/Creatinine Ratio 6; Blood Urea Nitrogen 45 mg/dL (7-17); Calcium 9.8 mg/dL (8.4-10.2); Hemolysis Index 4
[2017-12-08] MEDS ORDERED: APRESOLINE IV ONE (21:27)
[2017-12-08] MEDS ORDERED: HumuLIN R IV ONE (21:27)
--- NOTE | 2017-12-08 21:36 | Emergency Department Report ---
HPI - General Chief Complaint: Dyspnea/Respdistress Time Seen by Provider: 12/08/17 21:30 - HPI HPI: The patient is 62-year-old female with a history of end-stage renal disease and diabetes, who presents for evaluation of dyspnea. The patient reports 1 day of constant and severe dyspnea, exacerbated by lying flat or exertion, improved with sitting up. The patient denies trauma to the chest, chest pain, syncope, hemoptysis, unilateral leg swelling, recent immobilization. ED Past Medical Hx - Past Medical History Hx Hypertension: Yes Hx Heart Attack/AMI: No Hx Congestive Heart Failure: No Hx Diabetes: Yes Hx Renal Disease: Yes (HD MWF- left arm graft) Hx Seizures: No Hx Asthma: No Hx COPD: No Hx HIV: No Additional medical history: anemia, transaminasemia,catarats,pancreatitis, pnuemonia. thyroid - Surgical History Additional Surgical History: thyroidectomy. eye surgery. abd for dialysis - Social History Smoking Status: Never Smoker Substance Use Type: None - Medications Home Medications: Home Medications Medication Instructions Recorded Confirmed Last Taken Type Cetirizine HCl 10 mg PO DAILY MDD 10 mg 09/01/16 12/08/17 06/10/17 History Furosemide [Lasix TAB] 80 mg PO QDAY MDD 80 mg 09/01/16 12/08/17 06/10/17 History glipiZIDE [Glucotrol] 10 mg PO BID MDD 10 mg 09/01/16 12/08/17 06/10/17 History Latanoprost 0.005% 1 drop OS QPM #0 09/02/16 12/09/17 06/10/17 History NIFEdipine [Nifedipine ER] 60 mg PO BID MDD 60 mg 02/01/17 12/08/17 06/10/17 History Betaxolol HCl [Betaxolol HCl 0.5%] 1 drop OS BID 06/25/17 12/09/17 Unknown History Levothyroxine (Nf) [Synthroid (Nf)] 200 mcg PO QDAY 06/25/17 12/08/17 Unknown History Lisinopril [Zestril] 40 mg PO QDAY 06/25/17 12/08/17 Unknown History Metoprolol [Lopressor TAB] 50 mg PO BID 06/25/17 12/08/17 Unknown History hydrALAZINE [Apresoline TAB] 100 mg PO BID 06/25/17 12/08/17 Unknown History ED Review of Systems ROS: Stated complaint: DIFFICULTY BREATHING Other details as noted in HPI Constitutional: denies: fever ENT: denies: throat or neck pain Respiratory: denies: cough reports shortness of breath Cardiovascular: denies: chest pain Endocrine: denies unexplained weight loss or gain Gastrointestinal: denies: abdominal pain, nausea Genitourinary: denies: dysuria Musculoskeletal: re[ports leg swelling Skin: denies: rash Neurological: denies: headache Hematological/Lymphatic: denies: easy bleeding or easy bruising Psych: denies sadness or hopelessness Physical Exam - Physical Exam Vital Signs: Vital Signs 12/08/17 20:00 Temperature 98.2 F Pulse Rate 65 Respiratory 18 Rate Blood Pressure 192/78 O2 Sat by Pulse 94 Oximetry Physical Exam: General: well-nourished, well-developed, no acute distress Head: Normocephalic, atraumatic Eyes: normal sclera ENT: Mucous membranes are pink and moist Neck: trachea midline, neck supple, No neck stiffness, no cervical adenopathy Respiratory: Mildly decreased breath sounds and rales present bibasilar lung lei Cardio: S1 and S2 present, no murmurs, rubs, gallops, capillary refill is brisk Abdomen: Normoactive bowel sounds, soft abdomen, no rigidity, no guarding or rebound tenderness Chest WALL/Back: No tenderness to palpation of the chest wall, no CVA tenderness with percussion Musc: 1+ pitting edema of bilateral lower legs Skin: No rash Neuro: no facial drooping, normal speech Psych: Normal affect ED Course Vital Signs 12/08/17 20:00 Temperature 98.2 F Pulse Rate 65 Respiratory 18 Rate Blood Pressure 192/78 O2 Sat by Pulse 94 Oximetry ED Medical Decision Making - Lab Data Result diagrams: 12/08/17 20:12 12/08/17 20:12 - Medical Decision Making The patient was seen and examined by myself. The patient is placed on a manager cardiac cath and continuous pulse ox. On initial evaluation, the patient was found to be in no distress. EKG was negative for findings suggestive of acute cardiac infarct. Labs and imaging are obtained. Chest x-ray exhibits cardiomegaly and pulmonary vascular congestion. Lab results reveal elevated BUN /creatinine 45 and 8, elevated glucose of 225, mildly elevated troponin 0.094, at patient baseline, and elevated BNP 35,000. The patient is given IV insulin for treatment of her hyperglycemia. ABG reveals low PaO2 of 50, consistent with acute hypoxic respiratory failure. The on-call hospitalist service was contacted. They agreed to admit the patient for further treatment and close monitoring. The ED admit order was placed. The patient was admitted in guarded condition. Critical care attestation.: If time is entered above; I have spent that time in minutes in the direct care of this critically ill patient, excluding procedure time. ED Disposition Clinical Impression: Acute hypoxemic respiratory failure, End-stage renal disease needing dialysis, Acute hyperglycemia CHF (congestive heart failure) Qualifiers: Heart failure type: systolic Heart failure chronicity: acute Qualified Code(s) : I50.21 - Acute systolic (congestive) heart failure Disposition: OP ADMIT IP TO THIS HOSP Is pt being admited?: Yes Does the pt Need Aspirin: Yes Condition: Serious Time of Disposition: 22:28
--- NOTE | 2017-12-08 22:26 | XRay Report ---
FINAL REPORT EXAM: XR CHEST 1V AP HISTORY: dyspnea TECHNIQUE: Chest single portable upright PRIORS: Comparison is dated August 25, 2016 FINDINGS: Cardiac silhouette is moderately enlarged There is some mild diffuse interstitial and vascular prominence may reflect CHF. More focal infiltrate in the right lower lobe seen previously is resolved. No pleural fluid collection identified. IMPRESSION: Cardiomegaly with findings suggestive of mild CHF
[2017-12-08] MEDS ORDERED: BABY ASPIRIN PO ONE (23:59)
[2017-12-09] MEDS ORDERED: APRESOLINE IV PRN (01:33)
[2017-12-09] MEDS ORDERED: PROVENTIL IH PRN (01:34)
[2017-12-09] MEDS ORDERED: ZOFRAN IV PRN (01:34)
[2017-12-09] MEDS ORDERED: TYLENOL PO PRN (01:35)
[2017-12-09] MEDS ORDERED: D50W (25GM) Syringe IV PRN (01:37)
[2017-12-09] MEDS: HEPARIN SUB-Q SCH ×3 (02:38→22:29)
--- NOTE | 2017-12-09 04:09 | History and Physical Report ---
CHIEF COMPLAINT: Shortness of breath. HISTORY OF PRESENT ILLNESS: The patient is a 62-year-old female with end-stage renal disease, on dialysis, who presented with shortness of breath. The patient's symptoms started yesterday and worse on exertion and also when the patient lays flat on the bed. Symptoms improve with sitting up. The patient denies history of chest pain. Denies history of cough, nausea or vomiting, and gets her dialysis on Mondays, Wednesdays and Fridays, and had dialysis the day prior to symptoms initiation. There is also no history of fever and chills. PAST MEDICAL HISTORY: Pertinent for heart, diabetes mellitus, anemia, cataract, pancreatitis, pneumonia, thyroid disease. PAST SURGICAL HISTORY: Pertinent for thyroidectomy, eye surgery, dialysis shunt placement. FAMILY HISTORY: Noncontributory. SOCIAL HISTORY: The patient lives with family. Does not smoke cigarette, does not drink and does not use illicit drug. MEDICATIONS: The patient is on Lasix 80 mg by mouth daily, hydralazine 50 mg by mouth twice daily, Synthroid 175 mcg by mouth daily, lisinopril 40 mg by mouth daily, Lopressor 50 mg by mouth twice daily, nifedipine ER 60 mg by mouth twice daily, Zocor 20 mg by mouth at bedtime, Catapres 0.1 mg by mouth twice daily, glipizide 10 mg by mouth daily, cetirizine 10 mg by mouth daily, Lasix 80 mg by mouth daily, latanoprost 0.005% one drop affected eye every evening, nifedipine 60 mg by mouth twice daily at bedtime, betaxolol hydrochloride 1 drop affected eye twice daily, ketorolac 1 drop to affected eye 4 times daily, Synthroid 200 mcg by mouth daily, lisinopril 40 mg by mouth daily, metoprolol 50 mg by mouth twice daily, Diamox 500 mg by mouth twice daily, hydralazine 100 mg by mouth twice daily. ALLERGIES: There are no known drug allergies. REVIEW OF SYSTEMS: CONSTITUTIONAL: There is no fever, no chills, no diaphoresis. HEENT: There is no headache or sore throat. CARDIOVASCULAR: There is no chest pain, but there is orthopnea. RESPIRATORY: Shortness of breath is present. No cough. GASTROINTESTINAL: There is no nausea, no vomiting, no abdominal pain, diarrhea or constipation. NEUROLOGICAL: There is no numbness, no dizziness, no altered mental status. MUSCULOSKELETAL: Swelling of the left noted. No joint pain. DERMATOLOGICAL: There is no skin rash or itching. GENITOURINARY: There is dysuria, but no hematuria or flank pain. Rest of system review is normal. PHYSICAL EXAMINATION: GENERAL: At the time of exam, the patient was found to be alert, oriented x3 and not in acute distress. VITAL SIGNS: Shows normal temperature with pulse of 63, respirations 21, blood pressure 152/74, O2 sat of 95% on room air. HEENT: Showed pupils appear to be septal round, reactive to light and accommodating. The extraocular muscles are intact. NECK: Supple, with no JVD or carotid bruit. CARDIOVASCULAR: Showed normal first and second heart sounds with no gallops, murmurs. RESPIRATORY: Show good air entry on both sides of the lungs with bibasilar rales. GASTROINTESTINAL: Show abdomen to be full, soft, nontender with no organomegaly or rigidity. NEUROLOGIC: Shows no focal deficit. MUSCULOSKELETAL: Shows ankle swelling with no joint tenderness. DERMATOLOGICAL: Show no skin rash. GENITOURINARY: Showing no costovertebral angle tenderness. PERTINENT LABORATORY AND IMAGING STUDIES: The patient had chest x-ray done that shows cardiomegaly with findings suggestive of mild congestive heart failure. Patient's lab results shows CBC with a normal hemoglobin, normal hematocrit with low MCV of 76, but CBC differential showing elevated monocyte count of 8.4%, and ABG shows elevated pH of 7.52 with normal pCO2, low pO2 of 50, low O2 sat of 89, and this was done on room air. The patient's chemistry shows elevated BUN of 45, elevated creatinine of 8.0 consistent with end-stage renal disease, on dialysis. The patient's glucose level is high with a value of 226 and troponin level is elevated with a value of 0.094. The patient's brain natriuretic peptide level is high with a value of 35,000. DIAGNOSES: 1. Fluid overload. 2. Hypertensive crisis. 3. End-stage renal disease, on dialysis. PLAN: The patient will be admitted to medical floor on telemetry, and we will have cardiac enzymes checked q. 6 hours x 2 more levels. The patient will be on Accu-Chek a.c. and at bedtime, followed by sliding scale using low dose sliding scale involving the use of regular insulin coverage. The patient will be on IV hydralazine 10 mg every 4 hours as needed for elevated blood pressure with systolic of more than 160 mmHg. The patient will be on albuterol nebulizer 2.5 mg every 6 hours as needed for shortness of breath. We will have a Nephrology consult with Dr. Mora for management of end-stage renal disease, on dialysis. The patient's diet will be consistent carbohydrate diet with low sodium. The patient's home medications will be reconciled and started accordingly. The patient's DVT prophylaxis will be through heparin 5000 subcutaneously q. 12 hours. The patient will also be on Zofran 4 mg IV every 8 hours as needed for nausea and vomiting and will be on Tylenol 650 mg by mouth every 4 hours for fever and headache. JOB# [id number] OCN/NTS
[2017-12-09] MEDS ORDERED: CATAPRES PO ONE ×2 (04:33→05:46)
[2017-12-09] MEDS: APRESOLINE IV PRN (05:58)
[2017-12-09 07:09] LABS: Creatine Kinase MB 1.7 ng/mL (0.0-4.0)
[2017-12-09 07:22] LABS: Chol/HDL Ratio 2.97 %
[2017-12-09] MEDS: HumuLIN R SUB-Q SCH ×4 (08:29→22:39)
[2017-12-09] MEDS ORDERED: PROCARDIA XL PO SCH ×2 (10:00→16:10)
[2017-12-09] MEDS ORDERED: NON-FORMULARY (Furosemide [Lasix Tab] 80 MG) PO SCH (10:00)
[2017-12-09] MEDS ORDERED: CETIRIZINE HCL 10 MG PO SCH (10:00)
[2017-12-09] MEDS ORDERED: BETAXOLOL HCL OS SCH (10:00)
[2017-12-09] MEDS ORDERED: APRESOLINE PO SCH (10:00)
[2017-12-09] MEDS ORDERED: NON-FORMULARY (Levothyroxine (Nf) [Synthroid (Nf)] 200 MCG) PO SCH (10:00)
[2017-12-09] MEDS: SYNTHROID PO SCH (10:14)
[2017-12-09] MEDS: LOPRESSOR PO SCH ×2 (10:14→22:29)
[2017-12-09] MEDS: ZESTRIL PO SCH (10:15)
[2017-12-09] MEDS: LASIX PO SCH (10:15)
[2017-12-09] MEDS: GLUCOTROL PO SCH ×2 (10:15→18:44)
[2017-12-09] MEDS ORDERED: NACL 0.9% 100 ML IV PRN (10:22)
[2017-12-09] MEDS ORDERED: NACL 0.9 (PRIMING MACHINE ONLY DIALYSIS) MC ONE (12:12)
[2017-12-09 15:17] LABS: Creatine Kinase MB 1.7 ng/mL (0.0-4.0)
--- NOTE | 2017-12-09 16:02 | Consultation ---
History of Present Illness - Reason for Consult Consult date: 12/09/17 end stage renal disease, accelerated hypertension Requesting physician: LA MCCLELLAN - History of Present Illness This is a 62 yo F with history of Diabetes mellitus, uncontrolled Hypertension and End stage renal disease, Anemia, Hypothyroidism, who presents to ED with complaints of progressive shortness of breath, dyspnea on exertion, for the last 1-2 days, exacerbated by lying flat or exertion, improved with sitting up. The patient denies fever, chills, nausea, vomiting, diarrhea, abd pain, dysuria, dizziness, blurry vision, trauma to the chest, chest pain, syncope, hemoptysis, leg swelling, recent immobilization. Pt receives maintenance HD on MWF schedule at [facility], did not miss HD last week. CXR showed cardiomegaly with suggestion of pulmonary edema. BP was elevated at 220/100mmHg, pt is admitted for hypertensive emergency, renal consult requested for management of ESRD/HD. Past History Past Medical History: diabetes, ESRD, hypertension, hypothyroidism Past Surgical History: thyroidectomy, Other (AVF placement ) Social history: denies: smoking, alcohol abuse, prescription drug abuse, IV drug use Family history: diabetes, hypertension Medications and Allergies Allergies Allergy/AdvReac Type Severity Reaction Status Date / Time No Known Allergies Allergy Verified 01/19/16 17:29 Home Medications Medication Instructions Recorded Confirmed Last Taken Type Cetirizine HCl 10 mg PO DAILY MDD 10 mg 09/01/16 12/08/17 06/10/17 History Furosemide [Lasix TAB] 80 mg PO QDAY MDD 80 mg 09/01/16 12/08/17 06/10/17 History glipiZIDE [Glucotrol] 10 mg PO BID MDD 10 mg 09/01/16 12/08/17 06/10/17 History Latanoprost 0.005% 1 drop OS QPM #0 09/02/16 12/09/17 06/10/17 History NIFEdipine [Nifedipine ER] 60 mg PO BID MDD 60 mg 02/01/17 12/08/17 06/10/17 History Betaxolol HCl [Betaxolol HCl 0.5%] 1 drop OS BID 06/25/17 12/09/17 Unknown History Levothyroxine (Nf) [Synthroid (Nf)] 200 mcg PO QDAY 06/25/17 12/08/17 Unknown History Lisinopril [Zestril] 40 mg PO QDAY 06/25/17 12/08/17 Unknown History Metoprolol [Lopressor TAB] 50 mg PO BID 06/25/17 12/08/17 Unknown History hydrALAZINE [Apresoline TAB] 100 mg PO BID 06/25/17 12/08/17 Unknown History Active Meds: Active Medications Acetaminophen (Tylenol) 650 mg PO Q4H PRN PRN Reason: For Pain/Fever/Headache Albuterol (Proventil) 2.5 mg IH Q6H PRN PRN Reason: Shortness Of Breath Dextrose (D50w (25gm) Syringe) 50 ml IV PRN PRN PRN Reason: Hypoglycemia Furosemide (Lasix) 80 mg PO DAILY [facility] Last Admin: 12/09/17 10:15 Dose: 80 mg Glipizide (Glucotrol) 10 mg PO BIDDIAB [facility] Last Admin: 12/09/17 10:15 Dose: 10 mg Heparin Sodium (Porcine) (Heparin) 5,000 unit SUB-Q Q12HR [facility] Last Admin: 12/09/17 10:17 Dose: 5,000 unit Hydralazine HCl (Apresoline) 20 mg IV Q4HR PRN PRN Reason: Blood Pressure Last Admin: 12/09/17 05:58 Dose: 20 mg Hydralazine HCl (Apresoline) 100 mg PO BID [facility] Last Admin: 12/09/17 10:15 Dose: 100 mg Sodium Chloride (Nacl 0.9%) 100 mls @ 999 mls/hr IV [facility] PRN PRN Reason: Hypotension Insulin Human Regular (Humulin R) 0 units SUB-Q [facility]; Protocol Last Admin: 12/09/17 08:29 Dose: Not Given Insulin Human Regular (Humulin R) 0 units SUB-Q QHS [facility]; Protocol Latanoprost (Latanoprost 0.005%) 1 drops OS QPM [facility] Levothyroxine Sodium (Synthroid) 200 mcg PO DAILY@0600 [facility] Last Admin: 12/09/17 10:14 Dose: 200 mcg Lisinopril (Zestril) 40 mg PO QDAY [facility] Last Admin: 12/09/17 10:15 Dose: 40 mg Loratadine (Claritin) 10 mg PO DAILY [facility] Metoprolol Tartrate (Lopressor) 50 mg PO BID [facility] Last Admin: 12/09/17 10:14 Dose: 50 mg Miscellaneous Medication (Betaxolol Hcl [Betaxolol Hcl 0.5%]) 1 drop OS BID [facility] Nifedipine (Procardia Xl) 60 mg PO BID [facility] Last Admin: 12/09/17 10:15 Dose: 60 mg Ondansetron HCl (Zofran) 4 mg IV Q8H PRN PRN Reason: Nausea And Vomiting Review of Systems All systems: negative Constitutional: weakness Cardiovascular: orthopnea, shortness of breath, dyspnea on exertion Respiratory: cough Exam - Vital Signs Vital signs: Vital Signs Temp Pulse Resp BP Pulse Ox 98.2 F 65 18 192/78 94 12/08/17 20:00 12/08/17 20:00 12/08/17 20:00 12/08/17 20:00 12/08/17 20:00 - General Appearance General appearance: well-developed, well-nourished, appears stated age EENT: ATNC, PERRL, mucous membranes moist Neck: Present: neck supple Respiratory: Decreased Breath Sounds Heart: regular, S1S2 Gastrointestinal: Present: normoactive bowel sounds Integumentary: no rash, other (no edema ) Neurologic: no focal deficit, alert and oriented x3, strength 5/5, CN 3-12 intact Psychiatric: mood/affect appropriate, cooperative Results - Lab Results 12/08/17 20:12 12/08/17 20:12 Most recent lab results Calcium 9.8 mg/dL (8.4-10.2) 12/08/17 20:12 Laboratory Tests 12/08/17 12/09/17 12/09/17 20:12 06:03 14:34 Calcium 9.8 CK-MB (CK-2) 1.7 CK-MB (CK-2) Rel Index 5.3 H 5.0 H Troponin T 0.094 H 0.085 H 0.121 H* D NT-Pro-B Natriuret Pep > 39402 H Triglycerides 60 Cholesterol 146 LDL Cholesterol Direct 92 HDL Cholesterol 49 Cholesterol/HDL Ratio 2.97 Assessment and Plan - Patient Problems (1) Hypertensive emergency Current Visit: No Status: Acute Plan to address problem: resume home BP regimen. will increase hydralazine to 100mg po tid and nifedipine to 90mg po bid. Will target UF 3-4L as tolerated with HD for further volume control. (2) Pulmonary edema Current Visit: No Status: Acute Plan to address problem: fluid removal with HD today (3) End stage renal disease Current Visit: No Status: Chronic Plan to address problem: will cont HD on MWF schedule, target UF 3-4 L as tolerated (4) Hypertensive chronic kidney disease with stage 5 chronic kidney disease or end stage renal disease Current Visit: Yes Status: Acute Plan to address problem: BP meds adjusted as above
--- NOTE | 2017-12-09 16:28 | Event Note ---
Date: 12/09/17 Pt seen and examined Admitted with complaints of progressive shortness of breath, dyspnea on exertion Nephrology consulted for HD, BP on admission was 220/110 resumed home meds, obtain 2d echo for elevated troponin, cont current mx and plan as dictated in H and p
[2017-12-09] MEDS: LATANOPROST 0.005% OS SCH (18:46)
[2017-12-09] MEDS: APRESOLINE PO SCH (21:28)
[2017-12-09] MEDS: PROCARDIA XL PO SCH (22:29)
[2017-12-10] MEDS: SYNTHROID PO SCH (05:33)
[2017-12-10] MEDS: PROCARDIA XL PO SCH ×2 (10:44→22:21)
[2017-12-10] MEDS: ZESTRIL PO SCH (10:44)
[2017-12-10] MEDS: LASIX PO SCH (10:44)
[2017-12-10] MEDS: CLARITIN PO SCH (10:44)
[2017-12-10] MEDS: BABY ASPIRIN PO SCH (10:45)
[2017-12-10] MEDS: LOPRESSOR PO SCH ×2 (10:45→22:22)
[2017-12-10] MEDS: HEPARIN SUB-Q SCH ×2 (10:45→22:23)
[2017-12-10] MEDS: APRESOLINE PO SCH ×3 (10:48→22:23)
[2017-12-10] MEDS: GLUCOTROL PO SCH ×2 (10:49→18:58)
[2017-12-10] MEDS: HumuLIN R SUB-Q SCH ×4 (11:04→22:33)
--- NOTE | 2017-12-10 15:49 | Progress Note ---
Assessment and Plan Acute respiratory failure, POA - due to pulmonary edema from Volume overload - improved with HD /Hypertensive emergency - resumed home BP regimen. - Increased hydralazine to 100mg po tid and nifedipine to 90mg po bid. / Pulmonary edema Due to ESRD fluid removal with HD per renal / End stage renal disease ON HD with MWF schedule, nephrology following / Hypoglycemic event - monitor BG, could be from poor oral intake - will do SSI as needed and hypoglycemia protocol /DM type 2, cont SSI only /hypothyroidism, cont synthroid /physical debility, PT consult Brief History: This is a 62 yo F with history of Diabetes mellitus, uncontrolled Hypertension and End stage renal disease, Anemia, Hypothyroidism, who presents to ED with complaints of progressive shortness of breath, dyspnea on exertion, for the last 1-2 days. Pt receives maintenance HD on MWF schedule at [facility], did not miss HD last week. CXR showed cardiomegaly with suggestion of pulmonary edema. BP was elevated at 220/100mmHg, pt was admitted for hypertensive emergency, renal consult requested for management of ESRD/HD. Subjective Date of service: 12/10/17 Interval history: Pt seen and examined was hypoglycemic earlier today c/o generalized weakness Objective - Constitutional Vitals: Vital Signs - 12hr 12/10/17 12/10/17 12/10/17 04:25 07:48 10:00 Temperature 98.6 F 97.3 F L Pulse Rate 58 L 53 L Pulse Rate [ 59 L Apical] Respiratory 18 Rate Blood Pressure 123/63 140/67 Blood Pressure [Right] O2 Sat by Pulse 100 99 Oximetry 12/10/17 12/10/17 12/10/17 10:45 11:29 12:46 Temperature 97.6 F Pulse Rate 66 57 L Pulse Rate [ Apical] Respiratory 20 Rate Blood Pressure 140/67 165/75 Blood Pressure [Right] O2 Sat by Pulse 100 Oximetry 12/10/17 13:30 Temperature Pulse Rate Pulse Rate [ Apical] Respiratory Rate Blood Pressure Blood Pressure 146/72 [Right] O2 Sat by Pulse Oximetry General appearance: Present: no acute distress, other (lethergic) - EENT Eyes: PERRL, EOM intact ENT: hearing intact, clear oral mucosa Ears: bilateral: normal - Neck Neck: supple, normal ROM - Respiratory Respiratory effort: normal Respiratory: bilateral: CTA - Cardiovascular Rhythm: regular Heart Sounds: Present: S1 & S2. Absent: gallop, rub Extremities: pulses intact, No edema, normal color, Full ROM - Gastrointestinal General gastrointestinal: Present: soft, non-tender, non-distended, normal bowel sounds - Integumentary Integumentary: clear, warm, dry - Musculoskeletal Musculoskeletal: 1, strength equal bilaterally - Neurologic Neurologic: moves all extremities - Psychiatric Psychiatric: memory intact, appropriate mood/affect, intact judgment & insight - Labs CBC & Chem 7: 12/08/17 20:12 12/08/17 20:12 Labs: Abnormal lab results 12/09/17 12/09/17 12/10/17 Range/Units 17:26 21:52 06:19 POC Glucose 214 H 257 H 307 H (70-105) 12/10/17 Range/Units 11:42 POC Glucose 310 H (70-105)
--- NOTE | 2017-12-10 17:39 | Progress Note ---
Assessment and Plan - Patient Problems (1) Hypertensive emergency Current Visit: No Status: Acute Plan to address problem: BP improved with HD and on current BP regimen (2) Pulmonary edema Current Visit: No Status: Acute Plan to address problem: improved with HD (3) End stage renal disease Current Visit: No Status: Chronic Plan to address problem: cont HD on MWF schedule (4) Hypertensive chronic kidney disease with stage 5 chronic kidney disease or end stage renal disease Current Visit: Yes Status: Acute Plan to address problem: monitor BP on current meds Subjective Date of service: 12/10/17 Principal diagnosis: ESRD Interval history: pt awake, alert, in NAD Objective - Vital Signs Vital signs: Vital Signs - 12hr 12/10/17 12/10/17 12/10/17 07:48 10:00 10:45 Temperature 97.3 F L Pulse Rate 53 L Pulse Rate [ 59 L Apical] Respiratory 18 Rate Blood Pressure 140/67 140/67 Blood Pressure [Right] O2 Sat by Pulse 99 Oximetry 12/10/17 12/10/17 12/10/17 11:29 12:46 13:30 Temperature 97.6 F Pulse Rate 66 57 L Pulse Rate [ Apical] Respiratory 20 Rate Blood Pressure 165/75 Blood Pressure 146/72 [Right] O2 Sat by Pulse 100 Oximetry - General Appearance General appearance: well-developed, well-nourished, appears stated age EENT: ATNC, PERRL, mucous membranes moist Neck: no JVD Respiratory: Present: Clear to Ascultation Cardiology: regular, S1S2 Gastrointestinal: normoactive bowel sounds Integumentary: no rash, other (no edema ) Neurologic: no focal deficit, alert and oriented x3, strength 5/5, CN 3-12 intact Psychiatric: mood/affect appropriate, cooperative - Lab 12/08/17 20:12 12/08/17 20:12 Most recent lab results Calcium 9.8 mg/dL (8.4-10.2) 12/08/17 20:12
[2017-12-10] MEDS: LATANOPROST 0.005% OS SCH (20:28)
[2017-12-11] MEDS: SYNTHROID PO SCH (06:10)
[2017-12-11] MEDS: HumuLIN R SUB-Q SCH ×4 (07:30→18:26)
[2017-12-11] MEDS: APRESOLINE PO SCH ×3 (08:40→21:45)
[2017-12-11] MEDS: GLUCOTROL PO SCH ×2 (08:40→18:25)
[2017-12-11] MEDS: LOPRESSOR PO SCH ×2 (10:00→21:45)
[2017-12-11] MEDS: PROCARDIA XL PO SCH ×2 (10:00→21:47)
[2017-12-11] MEDS: HEPARIN SUB-Q SCH ×2 (10:00→21:47)
--- NOTE | 2017-12-11 13:57 | Progress Note ---
Assessment and Plan - Patient Problems (1) Hypertensive emergency Current Visit: No Status: Acute Plan to address problem: BP improved with HD and on current BP regimen (2) Pulmonary edema Current Visit: No Status: Acute Plan to address problem: improved with HD (3) End stage renal disease Current Visit: No Status: Chronic Plan to address problem: cont HD on MWF schedule. stable for discharge from renal stand point (4) Hypertensive chronic kidney disease with stage 5 chronic kidney disease or end stage renal disease Current Visit: Yes Status: Acute Plan to address problem: monitor BP on current meds Subjective Date of service: 12/11/17 Principal diagnosis: ESRD Interval history: pt seen and examined during HD, no acute complaints, awake, alert, BP 125/69, UF 3 L as tolerated Objective - Vital Signs Vital signs: Vital Signs - 12hr 12/11/17 12/11/17 12/11/17 05:17 10:25 11:00 Temperature 98.9 F 97.4 F L Pulse Rate 58 L 55 L 56 L Respiratory 18 16 Rate Blood Pressure 167/73 167/73 Blood Pressure 130/64 [Right] O2 Sat by Pulse 98 Oximetry 12/11/17 12/11/17 12/11/17 11:15 11:30 11:45 Temperature Pulse Rate 55 L 53 L 54 L Respiratory Rate Blood Pressure 158/74 159/69 148/70 Blood Pressure [Right] O2 Sat by Pulse Oximetry - General Appearance General appearance: well-developed, well-nourished, appears stated age EENT: ATNC, PERRL, mucous membranes moist Neck: no JVD Respiratory: Present: Clear to Ascultation Cardiology: regular, S1S2 Gastrointestinal: normoactive bowel sounds Integumentary: no rash, other (no edema ) Neurologic: no focal deficit, alert and oriented x3, strength 5/5, CN 3-12 intact Psychiatric: mood/affect appropriate, cooperative - Lab 12/08/17 20:12 12/08/17 20:12 Most recent lab results Calcium 9.8 mg/dL (8.4-10.2) 12/08/17 20:12
--- NOTE | 2017-12-11 14:02 | Discharge Summary ---
Providers - Providers Date of Admission: 12/09/17 01:30 Date of discharge: 12/11/17 Attending physician: JANA DONOVAN 12/09/17 06:32 Consult to Physician [CONS] Routine Comment: Consulting Provider: NIRANJAN WALDEN Physician Instructions: Reason For Exam: ESRD ON DIALYSIS 12/10/17 15:48 Physical Therapy Evaluation and Treat [CONS] Routine Comment: Reason For Exam: debility Primary care physician: [employer] Hospitalization Condition: Serious Hospital course: Brief History: This is a 62 yo F with history of Diabetes mellitus, uncontrolled Hypertension and End stage renal disease, Anemia, Hypothyroidism, who presents to ED with complaints of progressive shortness of breath, dyspnea on exertion, for the last 1-2 days. Pt receives maintenance HD on MWF schedule at [facility], did not miss HD last week. CXR showed cardiomegaly with suggestion of pulmonary edema. BP was elevated at 220/100mmHg, pt was admitted for hypertensive emergency, renal consult requested for management of ESRD/HD. Discharge diagnosis and management: Acute respiratory failure, POA - due to pulmonary edema from Volume overload and CHF exacerbation - improved with HD /Hypertensive emergency - resumed home BP regimen. - Increased hydralazine to 100mg po tid and nifedipine to 90mg po bid. / Pulmonary edema Due to ESRD and underlying CHF fluid removal with HD per renal /acute CHF with systolic dysfuction - No prior h/o CHF - will consult cardiology /Elevated troponin, chonically elevated / End stage renal disease ON HD with MWF schedule, nephrology following / Hypoglycemic event - monitor BG, could be from poor oral intake - will do SSI as needed and hypoglycemia protocol /DM type 2, cont SSI only /hypothyroidism, cont synthroid /physical debility, ordered PT Disposition: [id number] HOME UNDER HOME HLTH Time spent for discharge: 32 minutes Core Measure Documentation - Palliative Care Palliative Care/ Comfort Measures: Not Applicable - Core Measures Any of the following diagnoses?: none Exam - Constitutional Vitals: Temp Pulse Resp BP Pulse Ox 97.4 F L 54 L 16 148/70 98 12/11/17 10:25 12/11/17 11:45 12/11/17 10:25 12/11/17 11:45 12/11/17 05:17 Plan Activity: advance as tolerated (with roller walker) Weight Bearing Status: Non-Weight Bearing Diet: renal Durable Medical Equipment Needed Upon Discharge: Walker-Rolling Follow up with: PRIMARY CARE, [Primary Care Provider] - 7 Days Prescriptions: AtorvaSTATin [Lipitor] 40 mg PO QHS #30 tablet Aspirin [Aspirin BABY CHEW TAB] 81 mg PO QDAY #30 tab.chew hydrALAZINE [Apresoline TAB] 100 mg PO TID #30 tab NIFEdipine XL [Procardia Xl] 90 mg PO BID #60 tablet
--- NOTE | 2017-12-11 14:08 | Progress Note ---
Assessment and Plan Acute respiratory failure, POA - due to pulmonary edema from Volume overload and CHF exacerbation - improved with HD /acute CHF with systolic dysfuction - No prior h/o CHF, 2d echo on 2015 showed preserved EF - will consult cardiology /Elevated troponin, chonically elevated - will follow cardiology recommendation /Hypertensive emergency - resumed home BP regimen. - Increased hydralazine to 100mg po tid and nifedipine to 90mg po bid. / Pulmonary edema Due to ESRD and underlying CHF fluid removal with HD per renal / End stage renal disease ON HD with MWF schedule, nephrology following / Hypoglycemic event - monitor BG, could be from poor oral intake - will do SSI as needed and hypoglycemia protocol /DM type 2, cont SSI only /hypothyroidism, cont synthroid /physical debility, ordered PT consult Brief History: This is a 62 yo F with history of Diabetes mellitus, uncontrolled Hypertension and End stage renal disease, Anemia, Hypothyroidism, who presents to ED with complaints of progressive shortness of breath, dyspnea on exertion, for the last 1-2 days. Pt receives maintenance HD on MWF schedule at [facility], did not miss HD last week. CXR showed cardiomegaly with suggestion of pulmonary edema. BP was elevated at 220/100mmHg, pt was admitted for hypertensive emergency, renal consult requested for management of ESRD/HD. Subjective Date of service: 12/11/17 Principal diagnosis: ESRD Interval history: Pt seen and examined getting HD today 2d echo showed reduction of EF comparing to prior study Objective - Constitutional Vitals: Vital Signs - 12hr 12/11/17 12/11/17 12/11/17 05:17 10:25 11:00 Temperature 98.9 F 97.4 F L Pulse Rate 58 L 55 L 56 L Respiratory 18 16 Rate Blood Pressure 167/73 167/73 Blood Pressure 130/64 [Right] O2 Sat by Pulse 98 Oximetry 12/11/17 12/11/17 12/11/17 11:15 11:30 11:45 Temperature Pulse Rate 55 L 53 L 54 L Respiratory Rate Blood Pressure 158/74 159/69 148/70 Blood Pressure [Right] O2 Sat by Pulse Oximetry 12/11/17 12/11/17 12/11/17 12:00 12:15 12:30 Temperature Pulse Rate 47 L 42 L 56 L Respiratory Rate Blood Pressure 119/59 110/59 116/64 Blood Pressure [Right] O2 Sat by Pulse Oximetry 12/11/17 13:45 Temperature Pulse Rate 46 L Respiratory Rate Blood Pressure 125/69 Blood Pressure [Right] O2 Sat by Pulse Oximetry General appearance: Present: no acute distress - EENT Eyes: PERRL, EOM intact ENT: hearing intact, clear oral mucosa Ears: bilateral: normal - Neck Neck: supple, normal ROM - Respiratory Respiratory effort: normal Respiratory: bilateral: CTA - Cardiovascular Rhythm: regular Heart Sounds: Present: S1 & S2. Absent: gallop, rub Extremities: pulses intact, No edema, normal color, Full ROM - Gastrointestinal General gastrointestinal: Present: soft, non-tender, non-distended, normal bowel sounds - Integumentary Integumentary: clear, warm, dry - Musculoskeletal Musculoskeletal: 1, strength equal bilaterally - Neurologic Neurologic: moves all extremities - Psychiatric Psychiatric: memory intact, appropriate mood/affect, intact judgment & insight - Labs CBC & Chem 7: 12/08/17 20:12 12/08/17 20:12 Labs: Abnormal lab results 12/10/17 12/10/17 12/10/17 Range/Units 16:41 18:49 22:36 POC Glucose 233 H 201 H 55 L (70-105) 12/11/17 Range/Units 07:49 POC Glucose 140 H (70-105) - Imaging and cardiology Chest x-ray: report reviewed
--- NOTE | 2017-12-11 14:31 | Consultation ---
History of Present Illness Consult date: 12/11/17 Requesting physician: JANA DONOVAN Consult reason: congestive heart failure History of present illness: The pt is a 62 Yo female with a past medical history significant for ESRD on HD (MWF schedule, followed by Dr. Teague), HTN, HLP, DM, hypothyroidism. She is previously unknown to our practice. She presented with complaints of shortness of breath for 1 week prior to arrival. Following arrival, she was found to have elevated BPs and CXR consistent with mild heart failure. She reports compliance with her medication regimen and dialysis schedule. On evaluation, she is undergoing HD and states that her SOB has improved. She underwent echo on 2017 which showed EF 25-30%, LV mildly dilated, mod to severe LVH, LA mildly dilated, mild MR, mild TR. Pt denies any prior diagnosis of heart failure or other cardiac issues. Stress MPI done 09/2015 was negative, EF greater than 65%. Echo done 03/2016 showed EF 60-65%, LVH, grade 1 diastolic dysfunction, mild MR, mild TR, trivial pericardial effusion. Past History Past Medical History: diabetes, dialysis, ESRD, hypertension, hyperlipidemia, hypothyroidism Past Surgical History: thyroidectomy, Other (AVF placement ) Social history: denies: smoking, alcohol abuse, prescription drug abuse, IV drug use Family history: diabetes, hypertension Medications and Allergies Allergies Allergy/AdvReac Type Severity Reaction Status Date / Time No Known Allergies Allergy Verified 01/19/16 17:29 Home Medications Medication Instructions Recorded Confirmed Last Taken Type Cetirizine HCl 10 mg PO DAILY MDD 10 mg 09/01/16 12/08/17 06/10/17 History Furosemide [Lasix TAB] 80 mg PO QDAY MDD 80 mg 09/01/16 12/08/17 06/10/17 History Latanoprost 0.005% 1 drop OS QPM #0 09/02/16 12/09/17 06/10/17 History NIFEdipine [Nifedipine ER] 60 mg PO BID MDD 60 mg 02/01/17 12/08/17 06/10/17 History Betaxolol HCl [Betaxolol HCl 0.5%] 1 drop OS BID 06/25/17 12/09/17 Unknown History Levothyroxine (Nf) [Synthroid (Nf)] 200 mcg PO QDAY 06/25/17 12/08/17 Unknown History Lisinopril [Zestril] 40 mg PO QDAY 06/25/17 12/08/17 Unknown History Metoprolol [Lopressor TAB] 50 mg PO BID 06/25/17 12/08/17 Unknown History Aspirin [Aspirin BABY CHEW TAB] 81 mg PO QDAY #30 tab.chew 12/11/17 Unknown Rx AtorvaSTATin [Lipitor] 40 mg PO QHS #30 tablet 12/11/17 Unknown Rx NIFEdipine XL [Procardia Xl] 90 mg PO BID #60 tablet 12/11/17 Unknown Rx glipiZIDE [Glucotrol] 5 mg PO BID #30 MDD 10 mg 12/11/17 12/08/17 06/10/17 Rx hydrALAZINE [Apresoline TAB] 100 mg PO TID #30 tab 12/11/17 Unknown Rx Active Meds: Active Medications Acetaminophen (Tylenol) 650 mg PO Q4H PRN PRN Reason: For Pain/Fever/Headache Albuterol (Proventil) 2.5 mg IH Q6H PRN PRN Reason: Shortness Of Breath Aspirin (Baby Aspirin) 81 mg PO QDAY [facility] Last Admin: 12/10/17 10:45 Dose: 81 mg Atorvastatin Calcium (Lipitor) 40 mg PO QHS [facility] Last Admin: 12/10/17 22:22 Dose: 40 mg Dextrose (D50w (25gm) Syringe) 50 ml IV PRN PRN PRN Reason: Hypoglycemia Furosemide (Lasix) 80 mg PO DAILY [facility] Last Admin: 12/10/17 10:44 Dose: 80 mg Glipizide (Glucotrol) 10 mg PO BIDDIAB [facility] Last Admin: 12/11/17 08:40 Dose: 10 mg Heparin Sodium (Porcine) (Heparin) 5,000 unit SUB-Q Q12HR [facility] Last Admin: 12/10/17 22:23 Dose: 5,000 unit Hydralazine HCl (Apresoline) 20 mg IV Q4HR PRN PRN Reason: Blood Pressure Last Admin: 12/09/17 05:58 Dose: 20 mg Hydralazine HCl (Apresoline) 100 mg PO TID [facility] Last Admin: 12/11/17 08:40 Dose: 100 mg Sodium Chloride (Nacl 0.9%) 100 mls @ 999 mls/hr IV [place] PRN PRN Reason: Hypotension Insulin Human Regular (Humulin R) 0 units SUB-Q AC [facility]; Protocol Last Admin: 12/11/17 07:30 Dose: Not Given Insulin Human Regular (Humulin R) 0 units SUB-Q QHS [facility]; Protocol Last Admin: 12/10/17 22:33 Dose: Not Given Latanoprost (Latanoprost 0.005%) 1 drops OS QPM [facility] Last Admin: 12/10/17 20:28 Dose: 1 drops Levothyroxine Sodium (Synthroid) 200 mcg PO DAILY@0600 [facility] Last Admin: 12/11/17 06:10 Dose: 200 mcg Lisinopril (Zestril) 40 mg PO QDAY [facility] Last Admin: 12/10/17 10:44 Dose: 40 mg Loratadine (Claritin) 10 mg PO DAILY [facility] Last Admin: 12/10/17 10:44 Dose: 10 mg Metoprolol Tartrate (Lopressor) 50 mg PO BID [facility] Last Admin: 12/10/17 22:22 Dose: 50 mg Nifedipine (Procardia Xl) 90 mg PO BID [facility] Last Admin: 12/10/17 22:21 Dose: 90 mg Ondansetron HCl (Zofran) 4 mg IV Q8H PRN PRN Reason: Nausea And Vomiting Review of Systems Constitutional: no weight loss, no weight gain, no fever, no chills, no sweats Ears, nose, mouth and throat: no ear pain, no nose pain, no sinus pressure, no sinus pain Cardiovascular: shortness of breath, dyspnea on exertion, high blood pressure, no chest pain, no palpitations, no rapid/irregular heart beat, no edema, no syncope, no lightheadedness, no leg edema Respiratory: shortness of breath, dyspnea on exertion, no cough, no congestion, no wheezing, no pain on inspiration Gastrointestinal: no abdominal pain, no nausea, no vomiting, no diarrhea, no constipation, no change in bowel habits, no hematemesis Genitourinary Female: no pelvic pain, no flank pain, no dysuria, no urinary frequency, no urgency Musculoskeletal: no neck stiffness, no neck pain, no shooting arm pain, no arm numbness/tingling, no low back pain, no shooting leg pain, no leg numbness/ tingling, no redness of joints Integumentary: no rash, no pruritis, no redness, no sores, no wounds Neurological: no head injury, no paralysis, no weakness, no parathesias, no numbness, no tingling, no seizures, no syncope Psychiatric: no anxiety Endocrine: no cold intolerance, no heat intolerance Hematologic/Lymphatic: no easy bruising, no easy bleeding, no lymphadenopathy Allergic/Immunologic: no urticaria, no wheezing, no persistent infections Physical Examination Vital Signs Temp Pulse Resp BP Pulse Ox 98.2 F 65 18 192/78 94 12/08/17 20:00 12/08/17 20:00 12/08/17 20:00 12/08/17 20:00 12/08/17 20:00 General appearance: no acute distress HEENT: Positive: PERRL, Normocephaly, Mucus Membranes Moist Neck: Positive: neck supple, trachea midline Cardiac: Positive: Reg Rate and Rhythm, S1/S2 Lungs: Positive: clear to auscultation Neuro: Positive: Grossly Intact, Cranial Nerve 2-12 Intact Abdomen: Positive: Soft. Negative: Tender Skin: Positive: Clear. Negative: Rash, Wound Musculoskeletal: No Fluid Collection, No Pain, Normal Range of Motion Extremities: Absent: edema Results 12/08/17 20:12 12/08/17 20:12 - Imaging and Cardiology Echo: report reviewed (12/09/2017 which showed EF 25-30%, LV mildly dilated, mod to severe LVH, LA mildly dilated, mild MR, mild TR.) EKG: report reviewed, image reviewed EKG interpretations - Telemetry EKG Rhythm: Sinus Bradycardia - EKG Sinus rhythms and dysrhythmias: sinus rhythm Supraventricular dysrhythmia: atrial premature complexe Chamber hypertrophy or enlargement: left ventricular hypertro Repolarization changes or abnormalities: repolarization abn secondary to ventricular hypertrophy Assessment and Plan Assessment: Acute systolic heart failure Dilated CMP - EF 25-30% Accelerated HTN - improving ESRD on HD NSTEMI type II - pt denies chest pain; ECG with NAF; suspect CE elevation is secondary to ESRD, HF and accelerated HTN HLP DM Hypothyroidism Mod to severe LVH Plan: Agree with current cardiac regimen. Continue volume optimization per HD. Plan for ischemic evaluation once medically stabilized. Assessment and plan reviewed with pt at bedside. The patient has been seen in conjunction with Dr. Lopez who agrees with the assessment and plan of care.
[2017-12-11] MEDS ORDERED: NACL 0.9 (PRIMING MACHINE ONLY DIALYSIS) MC ONE (16:18)
[2017-12-11] MEDS: ZESTRIL PO SCH (18:25)
[2017-12-11] MEDS: LASIX PO SCH (18:25)
[2017-12-11] MEDS: BABY ASPIRIN PO SCH (18:25)
[2017-12-11] MEDS: CLARITIN PO SCH (18:25)
[2017-12-11] MEDS: LATANOPROST 0.005% OS SCH (18:26)
[2017-12-12] MEDS: HumuLIN R SUB-Q SCH ×5 (01:22→22:34)
[2017-12-12] MEDS: SYNTHROID PO SCH (05:08)
[2017-12-12 07:47] LABS: Creatine Kinase MB 1.2 ng/mL (0.0-4.0)
[2017-12-12 07:49] LABS: Calcium 9.1 mg/dL (8.4-10.2)
[2017-12-12] MEDS: GLUCOTROL PO SCH ×2 (09:24→17:01)
[2017-12-12] MEDS: BABY ASPIRIN PO SCH (10:02)
[2017-12-12] MEDS: LOPRESSOR PO SCH ×2 (10:03→22:30)
--- NOTE | 2017-12-12 10:16 | Progress Note ---
Assessment and Plan 62yo female: Assessment: Acute systolic heart failure/volume overload Dilated CMP - EF 25-30% Accelerated HTN - improving ESRD on HD NSTEMI type II - pt denies chest pain; ECG with NAF; suspect CE elevation is secondary to ESRD, HF and accelerated HTN HLP DM Hypothyroidism Mod to severe LVH - hypertensive heart disease Plan: Agree with current cardiac regimen. Continue volume optimization per HD. Stress mpi in am Assessment and plan reviewed with pt at bedside. Subjective Date of service: 12/12/17 Principal diagnosis: ESRD Interval history: feeling better rn at bedside Objective Vital Signs Temp Pulse Resp BP BP Pulse Ox 12/12/17 08:00 98.2 F 57 L 18 135/65 100 12/12/17 04:09 49 L 104/41 100 12/12/17 04:07 98.1 F 18 102/46 12/12/17 01:31 100 12/11/17 23:37 98.2 F 55 L 16 121/61 100 12/11/17 22:00 52 L 12/11/17 21:01 98.3 F 59 L 18 122/58 100 12/11/17 18:08 100 12/11/17 17:49 97.6 F 53 L 18 159/64 100 12/11/17 16:00 16 12/11/17 15:48 97.4 F L 56 L 16 159/80 12/11/17 15:15 56 L 127/64 12/11/17 15:00 53 L 129/54 12/11/17 14:45 56 L 131/60 12/11/17 14:30 56 L 114/60 12/11/17 14:15 56 L 114/60 12/11/17 14:00 56 L 124/55 12/11/17 13:45 56 L 125/69 12/11/17 13:30 56 L 117/53 12/11/17 13:15 50 L 108/52 12/11/17 13:00 58 L 95/40 12/11/17 12:45 56 L 107/52 12/11/17 12:30 56 L 116/64 12/11/17 12:15 56 L 110/59 12/11/17 12:00 55 L 119/59 12/11/17 11:45 54 L 148/70 12/11/17 11:30 53 L 159/69 12/11/17 11:15 55 L 158/74 12/11/17 11:00 56 L 167/73 12/11/17 10:25 97.4 F L 55 L 16 167/73 - Physical Examination HEENT: Positive: PERRL, Normocephaly, Mucus Membranes Moist Neck: Positive: neck supple, trachea midline Neuro: Positive: Grossly Intact, Cranial Nerve 2-12 Intact Abdomen: Positive: Soft. Negative: Tender Skin: Positive: Clear. Negative: Rash, Wound Musculoskeletal: No Fluid Collection, No Pain, Normal Range of Motion Extremities: Absent: edema - Labs and Meds Cardiac Enzymes 12/12/17 Range/Units 06:01 CK-MB (CK-2) 1.2 (0.0-4.0) ng/mL Comprehensive Metabolic Panel 12/12/17 Range/Units 06:01 Sodium 139 (137-145) mmol/L Potassium 4.7 (3.6-5.0) mmol/L Chloride 93.4 L (98-107) mmol/L Carbon Dioxide 28 (22-30) mmol/L BUN 38 H (7-17) mg/dL Creatinine 6.6 H (0.7-1.2) mg/dL Glucose 143 H (65-100) mg/dL Calcium 9.1 (8.4-10.2) mg/dL - Imaging and Cardiology EKG: report reviewed, image reviewed Echo: report reviewed (12/09/2017 which showed EF 25-30%, LV mildly dilated, mod to severe LVH, LA mildly dilated, mild MR, mild TR.) - EKG Sinus rhythms and dysrhythmias: sinus rhythm Chamber hypertrophy or enlargement: left ventricular hypertro Repolarization changes or abnormalities: repolarization abn secondary to ventricular hypertrophy
[2017-12-12] MEDS: ZESTRIL PO SCH (10:24)
[2017-12-12] MEDS: CLARITIN PO SCH (10:24)
[2017-12-12] MEDS: LASIX PO SCH (10:32)
[2017-12-12] MEDS: HEPARIN SUB-Q SCH ×2 (10:32→22:23)
[2017-12-12] MEDS: APRESOLINE PO SCH ×3 (10:43→20:10)
[2017-12-12] MEDS: PROCARDIA XL PO SCH (10:55)
--- NOTE | 2017-12-12 14:28 | Progress Note ---
Assessment and Plan - Patient Problems (1) CHF (congestive heart failure) Current Visit: Yes Status: Acute Qualifiers: Heart failure type: systolic Heart failure chronicity: acute Qualified Code(s): I50.21 - Acute systolic (congestive) heart failure Plan to address problem: Fluid removal on dialysis (2) Hypertensive chronic kidney disease with stage 5 chronic kidney disease or end stage renal disease Current Visit: Yes Status: Acute Plan to address problem: Follow up Blood pressure current medications (3) Dizziness Current Visit: Yes Status: Acute Plan to address problem: Decrease hypotensive medications and monitor standing blood pressure. Suspect related to hypotension Subjective Date of service: 12/12/17 Principal diagnosis: ESRD Interval history: Patient seen lying in bed. She is unhappy with the nursing care she is receiving. Vomited earlier. She had been calling for help for more than 30 minutes with no response. Objective - Exam Narrative Exam: Middle-aged -[place] female lying in bed in no acute distress HEENT: NCAT, pink oral mucous membrane Neck: Supple, no venous distention CVS: S1S2 RRR with no murmur, rub or gallop Chest: Clear to auscultation Abdomen: Protuberant, soft, nontender, no organomegaly, bowel sounds are present Extremities: No edema Neuro: Awake, alert no focal deficits - Vital Signs Vital signs: Vital Signs - 12hr 12/12/17 12/12/17 12/12/17 04:07 04:09 08:00 Temperature 98.1 F 98.2 F Pulse Rate 49 L 57 L Respiratory 18 18 Rate Blood Pressure 102/46 104/41 Blood Pressure 135/65 [Right] O2 Sat by Pulse 100 100 Oximetry 12/12/17 11:30 Temperature 97.9 F Pulse Rate 59 L Respiratory 20 Rate Blood Pressure Blood Pressure 136/65 [Right] O2 Sat by Pulse 100 Oximetry - Lab 12/08/17 20:12 12/12/17 06:01 Most recent lab results Calcium 9.1 mg/dL (8.4-10.2) 12/12/17 06:01
[2017-12-12] MEDS: APRESOLINE IV PRN (17:01)
--- NOTE | 2017-12-12 19:33 | Progress Note ---
Assessment and Plan Acute respiratory failure, POA - due to pulmonary edema from Volume overload and CHF exacerbation - improved with HD /acute CHF with systolic dysfuction - No prior h/o CHF, 2d echo on 2015 showed preserved EF - Consult cardiology, plan for stress test tomorrow /Elevated troponin, chonically elevated - will follow stress test result /Hypertensive emergency, improving - resumed home BP regimen. - Increased hydralazine to 100mg po tid and nifedipine to 90mg po bid. / Pulmonary edema Due to ESRD and underlying CHF fluid removal with HD per renal / End stage renal disease ON HD with MWF schedule, nephrology following / Hypoglycemic event - monitor BG, could be from poor oral intake - will do SSI as needed and hypoglycemia protocol /DM type 2, cont SSI only /hypothyroidism, cont synthroid /physical debility, ordered PT consult Brief History: This is a 62 yo F with history of Diabetes mellitus, uncontrolled Hypertension and End stage renal disease, Anemia, Hypothyroidism, who presents to ED with complaints of progressive shortness of breath, dyspnea on exertion, for the last 1-2 days. Pt receives maintenance HD on MWF schedule at [facility], did not miss HD last week. CXR showed cardiomegaly with suggestion of pulmonary edema. BP was elevated at 220/100mmHg, pt was admitted for hypertensive emergency, renal consult requested for management of ESRD/HD. Physical exam: General appearance: Present: no acute distress, other (lethergic) - EENT Eyes: PERRL, EOM intact ENT: hearing intact, clear oral mucosa Ears: bilateral: normal - Neck Neck: supple, normal ROM - Respiratory Respiratory effort: normal Respiratory: bilateral: CTA - Cardiovascular Rhythm: regular Heart Sounds: Present: S1 & S2. Absent: gallop, rub Extremities: pulses intact, No edema, normal color, Full ROM - Gastrointestinal General gastrointestinal: Present: soft, non-tender, non-distended, normal bowel sounds - Integumentary Integumentary: clear, warm, dry - Musculoskeletal Musculoskeletal: 1, strength equal bilaterally - Neurologic Neurologic: moves all extremities - Psychiatric Psychiatric: memory intact, appropriate mood/affect, intact judgment & insight Subjective Date of service: 12/12/17 Principal diagnosis: ESRD Interval history: Pt seen and examined denies any chest pain or SOB Objective - Constitutional Vitals: Vital Signs - 12hr 12/12/17 12/12/17 12/12/17 07:44 08:00 09:39 Temperature 98.2 F 98.2 F 97.8 F Pulse Rate 57 L 57 L 58 L Respiratory 18 18 20 Rate Blood Pressure 135/65 178/73 Blood Pressure 135/65 [Right] O2 Sat by Pulse 100 100 100 Oximetry 12/12/17 12/12/17 12/12/17 10:00 11:26 11:30 Temperature 97.9 F 97.9 F Pulse Rate 58 L 59 L Respiratory 20 Rate Blood Pressure 136/65 Blood Pressure 136/65 [Right] O2 Sat by Pulse 95 100 100 Oximetry 12/12/17 12/12/17 15:10 17:01 Temperature 97.1 F L Pulse Rate 62 60 Respiratory 16 Rate Blood Pressure 183/77 164/70 Blood Pressure [Right] O2 Sat by Pulse 100 Oximetry - Labs CBC & Chem 7: 12/08/17 20:12 12/12/17 06:01 Labs: Abnormal lab results 12/11/17 12/12/17 12/12/17 Range/Units 22:00 06:01 06:43 Chloride 93.4 L (98-107) mmol/L BUN 38 H (7-17) mg/dL Creatinine 6.6 H (0.7-1.2) mg/dL Glucose 143 H (65-100) mg/dL POC Glucose 218 H 190 H (70-105) Troponin T 0.081 H D (0.00-0.029) ng/mL 12/12/17 12/12/17 12/12/17 Range/Units 10:01 11:36 16:29 Chloride (98-107) mmol/L BUN (7-17) mg/dL Creatinine (0.7-1.2) mg/dL Glucose (65-100) mg/dL POC Glucose 175 H 186 H 211 H (70-105) Troponin T (0.00-0.029) ng/mL
[2017-12-13] MEDS: SYNTHROID PO SCH (07:20)
[2017-12-13] MEDS ORDERED: LEXISCAN IV ONE ×2 (07:58→08:07)
[2017-12-13] MEDS: GLUCOTROL PO SCH (08:21)
--- NOTE | 2017-12-13 10:57 | Progress Note ---
Assessment and Plan 62yo female: Assessment: Acute systolic heart failure/volume overload Dilated CMP - EF 25-30% Accelerated HTN - improving ESRD on HD NSTEMI type II - pt denies chest pain; ECG with NAF; suspect CE elevation is secondary to ESRD, HF and accelerated HTN HLP DM Hypothyroidism Mod to severe LVH - hypertensive heart disease Plan: Agree with current cardiac regimen. Continue volume optimization per HD. stress mpi this am without evidence of ischemia or prior infarct. EF 53% stable cv status BP control improved as well Subjective Date of service: 12/13/17 Principal diagnosis: ESRD Interval history: feel a lot better Objective Vital Signs Temp Pulse Resp BP BP Pulse Ox 12/13/17 03:55 55 L 100 12/13/17 03:54 98.5 F 54 L 16 144/58 100 12/13/17 00:22 98.5 F 60 18 127/64 100 12/12/17 22:30 57 L 137/59 12/12/17 20:19 98.6 F 65 18 146/63 99 12/12/17 17:01 60 164/70 12/12/17 15:10 97.1 F L 62 16 183/77 100 12/12/17 11:30 97.9 F 59 L 20 136/65 100 12/12/17 11:26 97.9 F 58 L 136/65 100 - Physical Examination HEENT: Positive: PERRL, Normocephaly, Mucus Membranes Moist Neck: Positive: neck supple, trachea midline Neuro: Positive: Grossly Intact, Cranial Nerve 2-12 Intact Abdomen: Positive: Soft. Negative: Tender Skin: Positive: Clear. Negative: Rash, Wound Musculoskeletal: No Fluid Collection, No Pain, Normal Range of Motion Extremities: Absent: edema - Imaging and Cardiology EKG: report reviewed, image reviewed Echo: report reviewed (12/09/2017 which showed EF 25-30%, LV mildly dilated, mod to severe LVH, LA mildly dilated, mild MR, mild TR.) - EKG Sinus rhythms and dysrhythmias: sinus rhythm Chamber hypertrophy or enlargement: left ventricular hypertro Repolarization changes or abnormalities: repolarization abn secondary to ventricular hypertrophy
[2017-12-13 11:47] VITALS: BP 136/60
[2017-12-13] MEDS: LOPRESSOR PO SCH (11:51)
[2017-12-13] MEDS: ZESTRIL PO SCH (11:52)
[2017-12-13] MEDS: CLARITIN PO SCH (11:52)
[2017-12-13] MEDS: LASIX PO SCH (11:52)
[2017-12-13] MEDS: BABY ASPIRIN PO SCH (11:53)
[2017-12-13] MEDS: HEPARIN SUB-Q SCH (11:53)
[2017-12-13] MEDS: HumuLIN R SUB-Q SCH ×2 (12:21→12:22)
[2017-12-13 12:41] LABS: Creatine Kinase MB 1.3 ng/mL (0.0-4.0)
--- NOTE | 2017-12-13 14:59 | Discharge Summary ---
Providers - Providers Date of Admission: 12/09/17 01:30 Date of discharge: 12/13/17 Attending physician: JANA DONOVAN 12/09/17 06:32 Consult to Physician [CONS] Routine Comment: Consulting Provider: NIRANJAN WALDEN Physician Instructions: Reason For Exam: ESRD ON DIALYSIS 12/10/17 15:48 Physical Therapy Evaluation and Treat [CONS] Routine Comment: Reason For Exam: debility 12/11/17 14:09 Consult to Physician [CONS] Routine Comment: Consulting Provider: VI MARADIAGA Physician Instructions: Reason For Exam: acute chf Primary care physician: ACCOUNTANT CERTIFIED PUBLIC Hospitalization Condition: Serious Hospital course: Brief History: This is a 62 yo F with history of Diabetes mellitus, uncontrolled Hypertension and End stage renal disease, Anemia, Hypothyroidism, who presents to ED with complaints of progressive shortness of breath, dyspnea on exertion, for the last 1-2 days. Pt receives maintenance HD on MWF schedule at [facility], did not miss HD last week. CXR showed cardiomegaly with suggestion of pulmonary edema. BP was elevated at 220/100mmHg, pt was admitted for hypertensive emergency, renal consult requested for management of ESRD/HD. Discharge diagnosi and management: Acute respiratory failure, POA - due to pulmonary edema from Volume overload and CHF exacerbation - improved with HD /Acute CHF with systolic dysfuction - due to nonischemic cardiomyopathy - No prior h/o CHF, 2d echo on 2015 showed preserved EF - 2d echo on this admission showed Ef of 25-30% - Consulted cardiology, s/p stress test today and that was normal /NSTEMI type 2, chronically elevated troponin - likley from underlying CHF and volume overload - normal stress test result /Hypertensive emergency, improving - resumed home BP regimen. - Increased hydralazine to 100mg po tid and nifedipine to 90mg po bid. / Pulmonary edema Due to ESRD and underlying CHF fluid removal with HD per renal / End stage renal disease ON HD with MWF schedule, nephrology following / Hypoglycemic event - monitor BG, could be from poor oral intake - will do SSI as needed and hypoglycemia protocol /DM type 2, cont SSI only /hypothyroidism, cont synthroid /physical debility, ordered PT consult Physical exam: General appearance: Present: no acute distress, other (lethergic) - EENT Eyes: PERRL, EOM intact ENT: hearing intact, clear oral mucosa Ears: bilateral: normal - Neck Neck: supple, normal ROM - Respiratory Respiratory effort: normal Respiratory: bilateral: CTA - Cardiovascular Rhythm: regular Heart Sounds: Present: S1 & S2. Absent: gallop, rub Extremities: pulses intact, No edema, normal color, Full ROM - Gastrointestinal General gastrointestinal: Present: soft, non-tender, non-distended, normal bowel sounds - Integumentary Integumentary: clear, warm, dry - Musculoskeletal Musculoskeletal: 1, strength equal bilaterally - Neurologic Neurologic: moves all extremities - Psychiatric Psychiatric: memory intact, appropriate mood/affect, intact judgment & insight Disposition: [id number] HOME UNDER HOME HL Time spent for discharge: 34 minutes Core Measure Documentation - Palliative Care Palliative Care/ Comfort Measures: Not Applicable - Core Measures Any of the following diagnoses?: heart failure - Heart Failure Discharge Requirements TEODORA/ARB for LVSD if EF <40%: Yes Beta dulce maria at discharge: Yes Exam - Constitutional Vitals: Temp Pulse Resp BP Pulse Ox 98.5 F 73 16 136/60 97 12/13/17 03:54 12/13/17 10:13 12/13/17 03:54 12/13/17 10:13 12/13/17 12:47 Plan Activity: advance as tolerated Weight Bearing Status: Non-Weight Bearing Diet: renal Special Instructions: record daily BP diary Follow up with: PRIMARY CARE, [Primary Care Provider] - 7 Days Prescriptions: AtorvaSTATin [Lipitor] 40 mg PO QHS #30 tablet Aspirin [Aspirin BABY CHEW TAB] 81 mg PO QDAY #30 tab.chew hydrALAZINE [Apresoline TAB] 100 mg PO TID #30 tab NIFEdipine XL [Procardia Xl] 90 mg PO BID #60 tablet
--- NOTE | 2017-12-13 15:35 | Progress Note ---
Assessment and Plan - Patient Problems (1) CHF (congestive heart failure) Current Visit: Yes Status: Acute Qualifiers: Heart failure type: systolic Heart failure chronicity: acute Qualified Code(s): I50.21 - Acute systolic (congestive) heart failure Plan to address problem: Fluid removal on dialysis (2) Hypertensive chronic kidney disease with stage 5 chronic kidney disease or end stage renal disease Current Visit: Yes Status: Acute Plan to address problem: Follow up Blood pressure on current medications (3) Dizziness Current Visit: Yes Status: Acute Plan to address problem: Blood pressure has improved and no longer having episodes of dizziness Subjective Date of service: 12/13/17 Principal diagnosis: ESRD Interval history: Patient seen lying in bed. She has no complaints. She is feeling better. No longer having dizziness. Objective - Exam Narrative Exam: Middle-aged -[place] female lying in bed in no acute distress HEENT: NCAT, pink oral mucous membrane Neck: Supple, no venous distention CVS: S1S2 RRR with no murmur, rub or gallop Chest: Clear to auscultation Abdomen: Protuberant, soft, nontender, no organomegaly, bowel sounds are present Extremities: No edema Neuro: Awake, alert no focal deficits - Vital Signs Vital signs: Vital Signs - 12hr 12/13/17 12/13/17 12/13/17 03:54 03:55 08:46 Temperature 98.5 F Pulse Rate 54 L 55 L 60 Respiratory 16 Rate Blood Pressure 144/58 176/78 O2 Sat by Pulse 100 100 Oximetry 12/13/17 12/13/17 12/13/17 10:09 10:10 10:11 Temperature Pulse Rate 74 76 75 Respiratory Rate Blood Pressure 151/69 177/73 151/69 O2 Sat by Pulse Oximetry 12/13/17 12/13/17 12/13/17 10:12 10:13 12:47 Temperature Pulse Rate 73 73 Respiratory Rate Blood Pressure 129/59 136/60 O2 Sat by Pulse 97 Oximetry - Lab 12/08/17 20:12 12/12/17 06:01 Most recent lab results Calcium 9.1 mg/dL (8.4-10.2) 12/12/17 06:01
[2017-12-13] MEDS ORDERED: PROCARDIA XL PO SCH (22:00)
--- NOTE | 2017-12-14 04:10 | Treadmill Report ---
NUCLEAR PERFUSION SCAN REFERRING PHYSICIAN: Aubrie Earl MD PROTOCOL: The patient was brought to the stress lab in a postabsorptive state, given 10 mCi of technetium 99m. The patient underwent rest imaging. The patient underwent Lexiscan stress test. At peak stress, the patient was given 26 mCi of technetium 99m. Shortly thereafter, the patient underwent stress imaging. Raw imaging reveals mild GI artifact, no significant motion artifact. SPECT images examined carefully in horizontal long axis, vertical long axis, short axis views. There is normal homogenous uptake of radioisotope in all reported segments. No evidence of significant fixed or reversible perfusion defects suggestive of prior infarction or ischemia. Gated wall motion reveals normal systolic thickening, calculated ejection fraction of 53%, no TID. CONCLUSIONS: 1. Normal myocardial perfusion scan without evidence of active ischemia or prior infarction. 2. Normal left ventricular systolic performance with a calculated ejection fraction of 53% without evidence of transient ischemic dilatation or stress-induced segmental wall motion abnormalities. JOB# [id number] JULIETA/RAMOS
== END 2017-12-13 18:08 | disposition home health service (06) | DRG 280 ==
LOC: ED 19:07 → 4A 12-09 01:30
PROVIDERS: ADMIT Internal Medicine; ATTEND Internal Medicine
PROC: 4A033R1 Measurement of Arterial Saturation, Peripheral, Percutaneous Approach (ICD-10-PCS; principal; 2017-12-09)
PROC: 5A1D70Z Performance of Urinary Filtration, Intermittent, Less than 6 Hours Per Day (ICD-10-PCS; 2017-12-09)
PROC: 5A1D70Z Performance of Urinary Filtration, Intermittent, Less than 6 Hours Per Day (ICD-10-PCS; 2017-12-11)
DX: I21.A1 Myocardial infarction type 2 (principal); N18.6 End stage renal disease; J96.01 Acute respiratory failure with hypoxia; I50.23 Acute on chronic systolic (congestive) heart failure; I13.2 Hypertensive heart and chronic kidney disease with heart failure and with stage 5 chronic kidney disease, or end stage renal disease; I16.1 Hypertensive emergency; I42.0 Dilated cardiomyopathy; E87.70 Fluid overload, unspecified; E11.22 Type 2 diabetes mellitus with diabetic chronic kidney disease; E11.65 Type 2 diabetes mellitus with hyperglycemia; E89.0 Postprocedural hypothyroidism; Y83.8 Other surgical procedures as the cause of abnormal reaction of the patient, or of later complication, without mention of misadventure at the time of the procedure; E11.649 Type 2 diabetes mellitus with hypoglycemia without coma; E78.5 Hyperlipidemia, unspecified; I08.2 Rheumatic disorders of both aortic and tricuspid valves; Z79.899 Other long term (current) drug therapy; Z83.3 Family history of diabetes mellitus; Z87.01 Personal history of pneumonia (recurrent); Z82.49 Family history of ischemic heart disease and other diseases of the circulatory system; Z79.4 Long term (current) use of insulin; Z99.2 Dependence on renal dialysis
CPT/HCPCS: 36415; 71045; 78452; 80048; 80061; 82550; 82553; 82803; 82962; 83880; 84484; 85025; 93005; 93010; 93017; 93306; 94760; 99285; A9270-GY; A9502; G8978-GP; G8979-GP; J0360; J1644; J1815; J2405; J2785; J7030

== ENCOUNTER 2018-01-24 22:13 | Inpatient (IN) | payer MEDICARE, OTHER ==
[2018-01-24] MEDS ORDERED: NACL 0.9% 1000 ML 1,000 ML IV ONE (22:36)
[2018-01-24] MEDS ORDERED: APRESOLINE PO ONE (23:45)
[2018-01-24 23:57] LABS: Calcium 9.5 mg/dL (8.4-10.2)
--- NOTE | 2018-01-25 00:15 | Emergency Department Report ---
ED General Adult HPI - General Chief complaint: Dizziness Stated complaint: DIZZY,SOB, Time Seen by Provider: 01/24/18 23:19 Source: patient, family Mode of arrival: Wheelchair Limitations: Language Barrier - History of Present Illness Initial comments: Ms Schroeder is a 62 year-old woman with hx of ESRD (MWF) HTN, DM who presents with nausea, vomiting, dizziness, weakness, dyspnea. Was dialyzed on Thursday. Has bene having hard to control BP for one day now. Has been taking all meds, just has not had her PM dose of hydralazine. Has vomited multiple times today. Non-bloody. Normal bowel function. No chest pain. Endorses dry cough and dyspnea with exertion. Baseline orthopnea. Not on home O2 hx supplemented by her brother, Manjinder. [phone] - Related Data Home Medications Medication Instructions Recorded Confirmed Last Taken Cetirizine HCl 10 mg PO DAILY MDD 10 mg 09/01/16 01/24/18 06/10/17 Furosemide [Lasix TAB] 80 mg PO QDAY MDD 80 mg 09/01/16 01/24/18 06/10/17 Latanoprost 0.005% 1 drop OS QPM #0 09/02/16 01/24/18 06/10/17 Betaxolol HCl [Betaxolol HCl 0.5%] 1 drop OS BID 06/25/17 01/24/18 Unknown Levothyroxine (Nf) [Synthroid (Nf)] 200 mcg PO QDAY 06/25/17 01/24/18 Unknown Lisinopril [Zestril] 40 mg PO QDAY 06/25/17 01/24/18 Unknown Metoprolol [Lopressor TAB] 50 mg PO BID 06/25/17 01/24/18 Unknown Previous Rx's Medication Instructions Recorded Last Taken Type Aspirin [Aspirin BABY CHEW TAB] 81 mg PO QDAY #30 tab.chew 12/11/17 Unknown Rx AtorvaSTATin [Lipitor] 40 mg PO QHS #30 tablet 12/11/17 Unknown Rx NIFEdipine XL [Procardia Xl] 90 mg PO BID #60 tablet 12/11/17 Unknown Rx glipiZIDE [Glucotrol] 5 mg PO BID #30 MDD 10 mg 12/11/17 06/10/17 Rx hydrALAZINE [Apresoline TAB] 100 mg PO TID #30 tab 12/11/17 Unknown Rx Levofloxacin [Levaquin TAB] 500 mg PO ONCE #3 tablet 01/25/18 Unknown Rx Allergies Allergy/AdvReac Type Severity Reaction Status Date / Time No Known Allergies Allergy Verified 01/19/16 17:29 ED Review of Systems ROS: Stated complaint: DIZZY,SOB, Other details as noted in HPI Comment: All other systems reviewed and negative ED Past Medical Hx - Past Medical History Hx Hypertension: Yes Hx Heart Attack/AMI: No Hx Congestive Heart Failure: No Hx Diabetes: Yes Hx Renal Disease: Yes (HD MWF- left arm graft) Hx Seizures: No Hx Asthma: No Hx COPD: No Hx HIV: No Additional medical history: anemia, transaminasemia,catarats,pancreatitis, pnuemonia. thyroid - Surgical History Additional Surgical History: thyroidectomy. eye surgery. abd for dialysis - Social History Smoking Status: Never Smoker Substance Use Type: None - Medications Home Medications: Home Medications Medication Instructions Recorded Confirmed Last Taken Type Cetirizine HCl 10 mg PO DAILY MDD 10 mg 09/01/16 01/24/18 06/10/17 History Furosemide [Lasix TAB] 80 mg PO QDAY MDD 80 mg 09/01/16 01/24/18 06/10/17 History Latanoprost 0.005% 1 drop OS QPM #0 09/02/16 01/24/18 06/10/17 History Betaxolol HCl [Betaxolol HCl 0.5%] 1 drop OS BID 06/25/17 01/24/18 Unknown History Levothyroxine (Nf) [Synthroid (Nf)] 200 mcg PO QDAY 06/25/17 01/24/18 Unknown History Lisinopril [Zestril] 40 mg PO QDAY 06/25/17 01/24/18 Unknown History Metoprolol [Lopressor TAB] 50 mg PO BID 06/25/17 01/24/18 Unknown History Aspirin [Aspirin BABY CHEW TAB] 81 mg PO QDAY #30 tab.chew 12/11/17 01/24/18 Unknown Rx AtorvaSTATin [Lipitor] 40 mg PO QHS #30 tablet 12/11/17 01/24/18 Unknown Rx NIFEdipine XL [Procardia Xl] 90 mg PO BID #60 tablet 12/11/17 01/24/18 Unknown Rx glipiZIDE [Glucotrol] 5 mg PO BID #30 MDD 10 mg 12/11/17 01/24/18 06/10/17 Rx hydrALAZINE [Apresoline TAB] 100 mg PO TID #30 tab 12/11/17 01/24/18 Unknown Rx Levofloxacin [Levaquin TAB] 500 mg PO ONCE #3 tablet 01/25/18 Unknown Rx ED Physical Exam - General Limitations: Language Barrier General appearance: alert, in no apparent distress - Head Head exam: Present: atraumatic, normocephalic - Eye Eye exam: Present: normal appearance, PERRL, EOMI - ENT ENT exam: Present: normal exam - Neck Neck exam: Present: normal inspection, full ROM. Absent: tenderness, lymphadenopathy - Respiratory Respiratory exam: Present: normal lung sounds bilaterally. Absent: respiratory distress, wheezes, rales - Cardiovascular Cardiovascular Exam: Present: regular rate, normal rhythm. Absent: systolic murmur, diastolic murmur, rubs, gallop - GI/Abdominal GI/Abdominal exam: Present: soft. Absent: distended, tenderness, guarding, rebound - Extremities Exam Extremities exam: Present: normal inspection, full ROM. Absent: pedal edema - Back Exam Back exam: Present: normal inspection. Absent: tenderness - Neurological Exam Neurological exam: Present: alert, oriented X3, CN II-XII intact. Absent: motor sensory deficit - Psychiatric Psychiatric exam: Present: normal affect, normal mood - Skin Skin exam: Present: warm, dry, intact, normal color. Absent: rash ED Course Vital Signs 01/24/18 01/24/18 01/25/18 22:15 22:34 00:42 Temperature 98.2 F 98.2 F Pulse Rate 62 64 87 Respiratory 18 18 16 Rate Blood Pressure 232/92 232/92 Blood Pressure 236/84 [Left] O2 Sat by Pulse 98 99 97 Oximetry 01/25/18 01/25/18 01/25/18 01:39 02:17 02:46 Temperature Pulse Rate 84 84 Respiratory Rate Blood Pressure 234/96 229/93 Blood Pressure 217/89 [Left] O2 Sat by Pulse Oximetry 01/25/18 01/25/18 01/25/18 02:59 03:07 03:21 Temperature Pulse Rate 86 Respiratory Rate Blood Pressure 217/89 212/83 Blood Pressure 203/80 [Left] O2 Sat by Pulse Oximetry 07/09/1301/25/18 01/25/18 03:47 04:00 04:16 Temperature Pulse Rate 61 63 58 L Respiratory 11 L 15 Rate Blood Pressure 215/86 Blood Pressure 205/82 [Left] O2 Sat by Pulse 94 93 Oximetry 01/25/18 01/25/18 01/25/18 04:30 04:46 05:00 Temperature Pulse Rate 58 L 60 61 Respiratory 15 18 13 Rate Blood Pressure Blood Pressure [Left] O2 Sat by Pulse 97 96 99 Oximetry 01/25/18 01/25/18 01/25/18 05:16 05:30 05:46 Temperature Pulse Rate 62 62 60 Respiratory 20 13 8 L Rate Blood Pressure Blood Pressure [Left] O2 Sat by Pulse 99 96 98 Oximetry 01/25/18 01/25/18 01/25/18 06:00 06:16 06:30 Temperature Pulse Rate 59 L 61 60 Respiratory 9 L 9 L 14 Rate Blood Pressure 206/91 Blood Pressure [Left] O2 Sat by Pulse 98 98 100 Oximetry 01/25/18 01/25/18 01/25/18 06:46 07:00 07:16 Temperature Pulse Rate 62 60 61 Respiratory 8 L 11 L 13 Rate Blood Pressure 156/66 Blood Pressure [Left] O2 Sat by Pulse 97 97 97 Oximetry 01/25/18 01/25/18 01/25/18 07:30 07:46 07:54 Temperature 98.2 F Pulse Rate 70 69 68 Respiratory 14 12 16 Rate Blood Pressure Blood Pressure 158/68 [Left] O2 Sat by Pulse 98 95 95 Oximetry 01/25/18 01/25/18 01/25/18 08:00 08:15 08:30 Temperature Pulse Rate 66 60 64 Respiratory 9 L 13 12 Rate Blood Pressure 158/62 150/61 155/66 Blood Pressure [Left] O2 Sat by Pulse 92 Oximetry 01/25/18 01/25/18 01/25/18 08:46 09:00 09:15 Temperature Pulse Rate 66 64 62 Respiratory 10 L 16 10 L Rate Blood Pressure 143/65 147/67 154/65 Blood Pressure [Left] O2 Sat by Pulse 80 L 97 Oximetry 01/25/18 01/25/18 01/25/18 09:30 09:46 10:00 Temperature Pulse Rate 61 65 60 Respiratory 13 14 13 Rate Blood Pressure 143/63 142/76 154/64 Blood Pressure [Left] O2 Sat by Pulse 96 93 98 Oximetry 01/25/18 01/25/18 01/25/18 10:16 10:30 10:45 Temperature Pulse Rate 60 62 62 Respiratory 15 17 16 Rate Blood Pressure 147/65 144/68 149/66 Blood Pressure [Left] O2 Sat by Pulse 95 99 98 Oximetry 01/25/18 01/25/18 01/25/18 11:00 11:12 11:13 Temperature Pulse Rate 65 65 65 Respiratory 20 Rate Blood Pressure 131/64 149/66 149/66 Blood Pressure [Left] O2 Sat by Pulse 98 Oximetry 01/25/18 11:15 Temperature Pulse Rate 60 Respiratory 17 Rate Blood Pressure 152/69 Blood Pressure [Left] O2 Sat by Pulse 99 Oximetry ED Medical Decision Making - Lab Data Result diagrams: 01/24/18 22:45 01/24/18 22:45 - EKG Data 2227; HR 62, sinus, normal axis, intervals wnl, no ST changes concerning for acute ischemia - Radiology Data IMPRESSION: Heart is enlarged Lungs are expanded. There is a focal infiltrate at the right lung base. There is no pleural effusion or pneumothorax. - Medical Decision Making Ms Schroeder is a 62 year-old woman who presents with nausea, vomiting, episode of dyspnea and poorly controlled BP. ESRD MWF dialysis. Well appearing on exam, however is markedly hypertensive. Is neuro intact, NIHSS 0. Giving home meds. Labs unremarkable for ESRD needing dialysis at 10am tomorrow. CXR with RLL infiltrate. Given n/v and episode of dyspnea, will treat for CAP. Initial dose of levaquin 750mg PO, then will give 500mg every other day as she is ESRD. Given clonidine 0.1mg x2 with BP remaining markedly elevated. Remains without symptoms. Discussion is whether to admit to admit for dialysis for presumed volume overload or to discharge for outpatient dialysis at 10am. Her brother is primary care aid and has good understanding of her medical problems. Initial plan was to discharge to home. I was unable to get a hold of her brother. I left the department and Dr. Strickland was kind enough to observe the patient after my departure. Her BP remained elevated. Decision to admit the patient for monitoring and dialysis. Critical care attestation.: If time is entered above; I have spent that time in minutes in the direct care of this critically ill patient, excluding procedure time. ED Disposition Clinical Impression: Community acquired pneumonia Qualifiers: Laterality: right Lung location: lower lobe of lung Qualified Code(s): J18.1 - Lobar pneumonia, unspecified organism Hypertension Qualifiers: Hypertension type: essential hypertension Qualified Code(s): I10 - Essential ( primary) hypertension Disposition: OP ADMIT IP TO THIS HOSP Is pt being admited?: Yes Condition: Stable
[2018-01-25 00:24] LABS: Basophils % (Auto) 0.8 % (0.0-1.8); Eosinophils # (Auto) 0.2 K/mm3 (0.0-0.4); Eosinophils % (Auto) 3.3 % (0.0-4.3); Hematocrit 34.9 % (30.3-42.9); Hemoglobin 11.1 gm/dl (10.1-14.3); Lymphocytes % (Auto) 36.8 % (13.4-35.0); Mean Corpuscular HGB Conc 32 % (30-34); Mean Corpuscular Volume 73 fl (79-97); Monocytes # (Auto) 0.5 K/mm3 (0.0-0.8); Monocytes % (Auto) 8.4 % (0.0-7.3); Platelet Count 210 K/mm3 (140-440); Red Blood Count 4.77 M/mm3 (3.65-5.03)
[2018-01-25 00:29] LABS: Mean Corpuscular Hemoglobin 23 pg (28-32); Red Cell Distribution Width 23.2 % (13.2-15.2)
--- NOTE | 2018-01-25 00:54 | XRay Report ---
FINAL REPORT PROCEDURE: XR CHEST 1V AP TECHNIQUE: Chest radiograph anteroposterior view. CPT 06886 HISTORY: dyspnea COMPARISON: No prior studies are available for comparison. FINDINGS: Heart: Heart is enlarged Mediastinum/Vessels: Normal. Lungs/Pleural space: Lungs are expanded. There is a focal infiltrate at the right lung base. There is no pleural effusion or pneumothorax. Bony thorax: No acute osseous abnormality. Life support devices: None. IMPRESSION: Heart is enlarged Lungs are expanded. There is a focal infiltrate at the right lung base. There is no pleural effusion or pneumothorax. .
[2018-01-25] MEDS ORDERED: LEVAQUIN PO ONE (01:06)
[2018-01-25] MEDS ORDERED: CATAPRES PO ONE ×2 (01:12→02:06)
[2018-01-25] MEDS ORDERED: NITRO-BID 2% TP ONE ×2 (02:39→02:58)
[2018-01-25] MEDS ORDERED: APRESOLINE ONE (03:16)
[2018-01-25] MEDS ORDERED: APRESOLINE IV ONE (03:19)
--- NOTE | 2018-01-25 03:31 | Emergency Department Report ---
Blank Doc - Documentation Documentation: Progress note, transfer of care, 0324 hours Patient has had resistant hypertension, with clonidine and oral hydralazine, with blood pressure systolic remained in over 200, although the diastolic has dropped to the 90-100 range. I have given patient a dose 1 inch of Nitropaste, but blood pressure still remains persistently with systolic hypertension of 203/89. Patient is asymptomatic, having no respiratory distress, and no other acute symptoms. Patient treated with 20 mg of hydralazine, and awaiting recheck on results after intravenous administration. On recheck at 5:30 hours, patient is still significantly hypertensive with systolic blood pressure of 215/86, although she is asymptomatic, she will need continuous IV drip for control of blood pressure, and started on nicardipine, with initial bolus, followed by routine drip. Patient's findings discussed with on-call hospitalist, Dr. Darling, and she will admit for further care.
--- NOTE | 2018-01-25 05:54 | History and Physical Report ---
History of Present Illness Date of examination: 01/25/18 History of present illness: 62-year-old man with a history of hypertension, diabetes, hyperlipidemia, end- stage renal disease on dialysis Thursday, Thursday, Thursday, hypothyroidism comes emergency room because todaybecause she did not feel well. States her blood pressure has been very high at home and she feels nauseated. Patient states she did not missed dialysis, she is compliant with medications. No headache, chest pain Review of systems Constitutional: no weight loss, chills, fever Ears, eyes, nose, mouth and throat: no nasal congestion, no nasal discharge, no sinus pressure, no vision change, no red eye. Neck: No neck pain or rigidity. Cardiovascular: no chest pain palpitations Respiratory: no cough, shortness of breath Gastrointestinal: no abdominal pain, hematochezia Genitourinary : no frequency , no hematuria Musculoskeletal: no joint swelling or muscle ache Integumentary: no rash, no pruritis Neurological: no parathesias, no numbness, no focal weakness Endocrine: no cold or heat intolerance, no polyuria or polydipsia Hematologic/Lymphatic: no easy bruising, no easy bleeding, no gland swelling Allergic/Immunologic: no urticaria, no angioedema. PAST MEDICAL HISTORY:hypertension, diabetes, hyperlipidemia, end-stage renal disease, hypothyroidism PAST SURGICAL HISTORY: Thyroidectomy, AV fistula SOCIAL HISTORY: Denies alcohol, tobacco, drugs FAMILY HISTORY: Hypertension Medications and Allergies Allergies Allergy/AdvReac Type Severity Reaction Status Date / Time No Known Allergies Allergy Verified 01/19/16 17:29 Home Medications Medication Instructions Recorded Confirmed Last Taken Type Cetirizine HCl 10 mg PO DAILY MDD 10 mg 09/01/16 01/24/18 06/10/17 History Furosemide [Lasix TAB] 80 mg PO QDAY MDD 80 mg 09/01/16 01/24/18 06/10/17 History Latanoprost 0.005% 1 drop OS QPM #0 09/02/16 01/24/18 06/10/17 History Betaxolol HCl [Betaxolol HCl 0.5%] 1 drop OS BID 06/25/17 01/24/18 Unknown History Levothyroxine (Nf) [Synthroid (Nf)] 200 mcg PO QDAY 06/25/17 01/24/18 Unknown History Metoprolol [Lopressor TAB] 50 mg PO BID 06/25/17 01/24/18 Unknown History Aspirin [Aspirin BABY CHEW TAB] 81 mg PO QDAY #30 tab.chew 12/11/17 01/24/18 Unknown Rx AtorvaSTATin [Lipitor] 40 mg PO QHS #30 tablet 12/11/17 01/24/18 Unknown Rx NIFEdipine XL [Procardia Xl] 90 mg PO BID #60 tablet 12/11/17 01/24/18 Unknown Rx glipiZIDE [Glucotrol] 5 mg PO BID #30 MDD 10 mg 12/11/17 01/24/18 06/10/17 Rx hydrALAZINE [Apresoline TAB] 100 mg PO TID #30 tab 12/11/17 01/24/18 Unknown Rx Levofloxacin [Levaquin TAB] 500 mg PO ONCE #3 tablet 01/25/18 Unknown Rx Spironolactone [Aldactone] 25 mg PO BID #30 tablet 01/27/18 Unknown Rx Valsartan [Diovan] 320 mg PO QDAY #30 tablet 01/27/18 Unknown Rx cloNIDine [Catapres] 0.1 mg PO Q12HR #60 tablet 01/27/18 Unknown Rx Active Meds: Active Medications Nicardipine HCl 50 mg/ Sodium (Chloride) 250 mls @ 25 mls/hr IV TITR MON[place]ERRAT; Protocol Exam - Physical Exam Narrative exam: Gen. appearance: Patient lying in bed, no apparent distress HEENT: Normocephalic, atraumatic, pupils equally round and reactive to light, eyes are , extraocular movement intact, and no sclericterus,. No JVD or thyromegaly or nodule,neck supple, no carotid bruit ,mucous membranes dry, no exudate or erythema Heart: S1, S2, regular rate and rhythm Lungs: Clear bilaterally, breathing comfortable Abdomen: Positive bowel sounds, nontender , nondistended, no organomegaly Extremity:no edema cyanosis, clubbing Skin: no rash, dry, warm Neuro: Oriented 3, cranial nerves II-12 intact, speech is fluent, motor and sensory intact - Constitutional Vitals: Temp Pulse Resp BP Pulse Ox 98.2 F 61 16 205/82 97 01/24/18 22:34 01/25/18 03:47 01/25/18 00:42 01/25/18 03:47 01/25/18 00:42 Results - Labs CBC & Chem 7: 07/03/18 08:24 01/26/18 08:12 Labs: Abnormal lab results 01/24/18 01/24/18 Range/Units 22:45 22:45 MCV 73 L (79-97) fl MCH 23 L (28-32) pg RDW 23.2 H (13.2-15.2) % Lymph % (Auto) 36.8 H (13.4-35.0) % [place] % (Auto) 8.4 H (0.0-7.3) % Chloride 95.3 L (98-107) mmol/L Carbon Dioxide 33 H (22-30) mmol/L BUN 57 H (7-17) mg/dL Creatinine 9.2 H (0.7-1.2) mg/dL Glucose 210 H (65-100) mg/dL Lipase 127 H (13-60) units/L - Imaging and Cardiology EKG: report reviewed Chest x-ray: report reviewed Assessment and Plan Assessment Hypertension urgency, malignant Diabetes of 2 End-stage renal disease on dialysis Hypothyroidism Plan Admit to medicine Continue Cardene drip Check fingersticks initiate insulin sliding scale Consult renal for dialysis, consult critical care Start DVT prophylaxis
[2018-01-25] MEDS ORDERED: CARDENE 50 MG in NACL 0.9% 250ML 230 ML IV SCH (06:00)
[2018-01-25] MEDS ORDERED: TYLENOL PO PRN (06:06)
[2018-01-25] MEDS ORDERED: ZOFRAN IV PRN (06:06)
[2018-01-25] MEDS ORDERED: SODIUM CHLORIDE FLUSH SYRINGE 10 ML IV PRN (06:06)
[2018-01-25] MEDS ORDERED: D50W (25GM) Syringe IV PRN (06:06)
[2018-01-25] MEDS: HumaLOG SUB-Q SCH ×3 (07:55→17:54)
[2018-01-25] MEDS ORDERED: NACL 0.9% 100 ML IV PRN (09:33)
[2018-01-25] MEDS: SODIUM CHLORIDE FLUSH SYRINGE 10 ML IV SCH (09:45)
--- NOTE | 2018-01-25 09:52 | Consultation ---
History of Present Illness - Reason for Consult Consult date: 01/25/18 end stage renal disease, accelerated hypertension Requesting physician: MARY OQUENDO - History of Present Illness This is a 62 yo F with history of Diabetes mellitus, uncontrolled Hypertension and End stage renal disease, Anemia, Hypothyroidism, who presents to ED with complaints of generalized weakness, nausea, headaches, for the last 1-2 days. In ER patient was found to be in hypertensive emergency with BP as high as 230/ 100s mmHg. Patient denies CP, SOB, fever, chills, vomiting, diarrhea, abd pain, dysuria, dizziness, blurry vision, trauma to the chest,syncope. Pt receives maintenance HD on MWF schedule at [facility], did not miss HD last week. Renal consult is requested for management of ESRD/HD Past History Past Medical History: diabetes, ESRD, hypertension, hypothyroidism Past Surgical History: thyroidectomy, Other (AVF placement ) Social history: lives with family. denies: smoking, alcohol abuse, prescription drug abuse, IV drug use Family history: diabetes, hypertension Medications and Allergies Allergies Allergy/AdvReac Type Severity Reaction Status Date / Time No Known Allergies Allergy Verified 01/19/16 17:29 Home Medications Medication Instructions Recorded Confirmed Last Taken Type Cetirizine HCl 10 mg PO DAILY MDD 10 mg 09/01/16 01/24/18 06/10/17 History Furosemide [Lasix TAB] 80 mg PO QDAY MDD 80 mg 09/01/16 01/24/18 06/10/17 History Latanoprost 0.005% 1 drop OS QPM #0 09/02/16 01/24/18 06/10/17 History Betaxolol HCl [Betaxolol HCl 0.5%] 1 drop OS BID 06/25/17 01/24/18 Unknown History Levothyroxine (Nf) [Synthroid (Nf)] 200 mcg PO QDAY 06/25/17 01/24/18 Unknown History Lisinopril [Zestril] 40 mg PO QDAY 06/25/17 01/24/18 Unknown History Metoprolol [Lopressor TAB] 50 mg PO BID 06/25/17 01/24/18 Unknown History Aspirin [Aspirin BABY CHEW TAB] 81 mg PO QDAY #30 tab.chew 12/11/17 01/24/18 Unknown Rx AtorvaSTATin [Lipitor] 40 mg PO QHS #30 tablet 12/11/17 01/24/18 Unknown Rx NIFEdipine XL [Procardia Xl] 90 mg PO BID #60 tablet 12/11/17 01/24/18 Unknown Rx glipiZIDE [Glucotrol] 5 mg PO BID #30 MDD 10 mg 12/11/17 01/24/18 06/10/17 Rx hydrALAZINE [Apresoline TAB] 100 mg PO TID #30 tab 12/11/17 01/24/18 Unknown Rx Levofloxacin [Levaquin TAB] 500 mg PO ONCE #3 tablet 01/25/18 Unknown Rx Active Meds: Active Medications Acetaminophen (Tylenol) 650 mg PO Q4H PRN PRN Reason: Pain MILD(1-3)/Fever >100.5/[place] Aspirin (Baby Aspirin) 81 mg PO QDAY [facility] Atorvastatin Calcium (Lipitor) 40 mg PO QHS [facility] Dextrose (D50w (25gm) Syringe) 50 ml IV PRN PRN PRN Reason: Hypoglycemia Enoxaparin Sodium (Lovenox) 30 mg SUB-Q QDAY [facility] Glipizide (Glucotrol) 5 mg PO BID [facility] Hydralazine HCl (Apresoline) 100 mg PO TID [facility] Nicardipine HCl 50 mg/ Sodium (Chloride) 250 mls @ 25 mls/hr IV TITR [facility]; Protocol Last Titration: 01/25/18 08:25 Dose: 2.5 mg/hr, 12.5 mls/hr Sodium Chloride (Nacl 0.9%) 100 mls @ 999 mls/hr IV [place] PRN PRN Reason: Hypotension Insulin Human Lispro (Humalog) 0 unit SUB-Q ACHS [facility]; Protocol Last Admin: 01/25/18 07:55 Dose: Not Given Latanoprost (Latanoprost 0.005%) drops OS QPM [facility] Lisinopril (Zestril) 40 mg PO QDAY [facility] Metoprolol Tartrate (Lopressor) 50 mg PO BID [facility] Miscellaneous Medication (Betaxolol Hcl [Betaxolol Hcl 0.5%]) 1 drop OS BID [facility] Miscellaneous Medication (Cetirizine Hcl [Cetirizine Hcl]) 10 mg PO DAILY [facility] Miscellaneous Medication (Furosemide [Lasix Tab]) 80 mg PO QDAY [facility] Miscellaneous Medication (Levothyroxine (Nf) [Synthroid (Nf)]) 200 mcg PO QDAY [facility] Nifedipine (Procardia Xl) 90 mg PO BID [facility] Ondansetron HCl (Zofran) 4 mg IV Q8H PRN PRN Reason: Nausea And Vomiting Last Admin: 01/25/18 08:26 Dose: 4 mg Sodium Chloride (Sodium Chloride Flush Syringe 10 Ml) 10 ml IV BID [facility] Last Admin: 01/25/18 09:45 Dose: 10 ml Sodium Chloride (Sodium Chloride Flush Syringe 10 Ml) 10 ml IV PRN PRN PRN Reason: LINE FLUSH Review of Systems All systems: negative Constitutional: fatigue, weakness, malaise, poor appetite Gastrointestinal: nausea Neurological: headaches Exam - Vital Signs Vital signs: Vital Signs Temp Pulse Resp BP Pulse Ox 98.2 F 62 18 232/92 98 01/24/18 22:15 01/24/18 22:15 01/24/18 22:15 01/24/18 22:15 01/24/18 22:15 - General Appearance General appearance: well-developed, well-nourished, appears stated age EENT: ATNC, PERRL, mucous membranes moist Neck: Present: neck supple Respiratory: Clear to Ascultation Heart: regular, S1S2 Gastrointestinal: Present: normoactive bowel sounds Integumentary: no rash, other (no edema ) Neurologic: no focal deficit, alert and oriented x3, strength 5/5, CN 3-12 intact Psychiatric: mood/affect appropriate, cooperative Results - Lab Results 01/24/18 22:45 01/24/18 22:45 Most recent lab results Calcium 9.5 mg/dL (8.4-10.2) 01/24/18 22:45 Assessment and Plan - Patient Problems (1) Hypertensive emergency Current Visit: No Status: Acute Plan to address problem: cont cardene gtt for BP control, transition to home BP meds. pt reports compliance with all her HD treatments and BP meds. Will add spironolactone 25mg po bid and titrate up gradually. (2) ESRD on hemodialysis Current Visit: No Status: Acute Plan to address problem: cont HD on MWF schedule (3) T2DM (type 2 diabetes mellitus) Current Visit: No Status: Chronic Qualifiers: Diabetes mellitus complication status: with kidney complications Chronic kidney disease stage: on chronic dialysis Plan to address problem: glucose control as per primary attending (4) Anemia in end-stage renal disease Current Visit: No Status: Acute Plan to address problem: Hb at target, no need for EPO at present
[2018-01-25] MEDS ORDERED: NON-FORMULARY (Levothyroxine (Nf) [Synthroid (Nf)] 200 MCG) PO SCH (10:00)
[2018-01-25] MEDS ORDERED: BETAXOLOL HCL OS SCH (10:00)
[2018-01-25] MEDS ORDERED: NON-FORMULARY (Furosemide [Lasix Tab] 80 MG) PO SCH (10:00)
[2018-01-25] MEDS ORDERED: CETIRIZINE HCL 10 MG PO SCH (10:00)
[2018-01-25] MEDS ORDERED: ZESTRIL ONE (11:01)
--- NOTE | 2018-01-25 11:02 | Consultation ---
History of Present Illness Consult date: 01/25/18 Requesting physician: MARY OQUENDO Reason for consult: other (Hypertensive Emergency) History of present illness: PULMONARY/CCM CONSULT NOTE (Full dictation # [id number]) Please see dictated notes for full details Past History Past Medical History: diabetes, ESRD, hypertension, hypothyroidism Past Surgical History: thyroidectomy, Other (AVF placement ) Social history: lives with family. denies: smoking, alcohol abuse, prescription drug abuse, IV drug use Family history: diabetes, hypertension Medications and Allergies Allergies Allergy/AdvReac Type Severity Reaction Status Date / Time No Known Allergies Allergy Verified 01/19/16 17:29 Home Medications Medication Instructions Recorded Confirmed Last Taken Type Cetirizine HCl 10 mg PO DAILY MDD 10 mg 09/01/16 01/24/18 06/10/17 History Furosemide [Lasix TAB] 80 mg PO QDAY MDD 80 mg 09/01/16 01/24/18 06/10/17 History Latanoprost 0.005% 1 drop OS QPM #0 09/02/16 01/24/18 06/10/17 History Betaxolol HCl [Betaxolol HCl 0.5%] 1 drop OS BID 06/25/17 01/24/18 Unknown History Levothyroxine (Nf) [Synthroid (Nf)] 200 mcg PO QDAY 06/25/17 01/24/18 Unknown History Lisinopril [Zestril] 40 mg PO QDAY 06/25/17 01/24/18 Unknown History Metoprolol [Lopressor TAB] 50 mg PO BID 06/25/17 01/24/18 Unknown History Aspirin [Aspirin BABY CHEW TAB] 81 mg PO QDAY #30 tab.chew 12/11/17 01/24/18 Unknown Rx AtorvaSTATin [Lipitor] 40 mg PO QHS #30 tablet 12/11/17 01/24/18 Unknown Rx NIFEdipine XL [Procardia Xl] 90 mg PO BID #60 tablet 12/11/17 01/24/18 Unknown Rx glipiZIDE [Glucotrol] 5 mg PO BID #30 MDD 10 mg 12/11/17 01/24/18 06/10/17 Rx hydrALAZINE [Apresoline TAB] 100 mg PO TID #30 tab 12/11/17 01/24/18 Unknown Rx Levofloxacin [Levaquin TAB] 500 mg PO ONCE #3 tablet 01/25/18 Unknown Rx Active Meds: Active Medications Acetaminophen (Tylenol) 650 mg PO Q4H PRN PRN Reason: Pain MILD(1-3)/Fever >100.5/[place] Aspirin (Baby Aspirin) 81 mg PO QDAY [facility] Atorvastatin Calcium (Lipitor) 40 mg PO QHS [facility] Dextrose (D50w (25gm) Syringe) 50 ml IV PRN PRN PRN Reason: Hypoglycemia Enoxaparin Sodium (Lovenox) 30 mg SUB-Q QDAY [facility] Furosemide (Lasix) 80 mg PO QDAY [facility] Glipizide (Glucotrol) 5 mg PO BID [facility] Hydralazine HCl (Apresoline) 100 mg PO TID [facility] Sodium Chloride (Nacl 0.9%) 100 mls @ 999 mls/hr IV [place] PRN PRN Reason: Hypotension Insulin Human Lispro (Humalog) 0 unit SUB-Q ACHS [facility]; Protocol Last Admin: 01/25/18 07:55 Dose: Not Given Latanoprost (Latanoprost 0.005%) 1 drops OS QPM [facility] Levothyroxine Sodium (Synthroid) 200 mcg PO DAILY@0600 [facility] Lisinopril (Zestril) 40 mg PO QDAY [facility] Loratadine (Claritin) 10 mg PO DAILY [facility] Metoprolol Tartrate (Lopressor) 50 mg PO BID [facility] Miscellaneous Medication (Betaxolol Hcl [Betaxolol Hcl 0.5%]) 1 drop OS BID [facility] Nifedipine (Procardia Xl) 90 mg PO BID [facility] Ondansetron HCl (Zofran) 4 mg IV Q8H PRN PRN Reason: Nausea And Vomiting Last Admin: 01/25/18 08:26 Dose: 4 mg Sodium Chloride (Sodium Chloride Flush Syringe 10 Ml) 10 ml IV BID [facility] Last Admin: 01/25/18 09:45 Dose: 10 ml Sodium Chloride (Sodium Chloride Flush Syringe 10 Ml) 10 ml IV PRN PRN PRN Reason: LINE FLUSH Spironolactone (Aldactone) 25 mg PO BID [facility] Physical Examination Vital signs: Vital Signs Temp Pulse Resp BP Pulse Ox 98.2 F 62 18 232/92 98 01/24/18 22:15 01/24/18 22:15 01/24/18 22:15 01/24/18 22:15 01/24/18 22:15 Results - Laboratory Findings CBC and BMP: 01/24/18 22:45 01/24/18 22:45 Abnormal lab findings: Abnormal Labs 01/24/18 01/24/18 01/25/18 22:45 22:45 07:53 MCV 73 L MCH 23 L RDW 23.2 H Lymph % (Auto) 36.8 H [place] % (Auto) 8.4 H Chloride 95.3 L Carbon Dioxide 33 H BUN 57 H Creatinine 9.2 H Glucose 210 H POC Glucose 142 H Lipase 127 H
[2018-01-25] MEDS: LOPRESSOR PO SCH ×2 (11:12→12:42)
[2018-01-25] MEDS: ZESTRIL PO SCH ×2 (11:13→12:42)
[2018-01-25] MEDS: BABY ASPIRIN PO SCH ×2 (11:13→12:42)
[2018-01-25] MEDS: LOVENOX SUB-Q SCH (13:20)
[2018-01-25] MEDS: ALDACTONE PO SCH ×2 (13:21→23:59)
[2018-01-25] MEDS: GLUCOTROL PO SCH ×2 (13:21→23:59)
[2018-01-25] MEDS: PROCARDIA XL PO SCH (13:21)
[2018-01-25] MEDS: APRESOLINE PO SCH ×2 (13:22→20:00)
[2018-01-25] MEDS: BETOPTIC S OS SCH (17:17)
[2018-01-25] MEDS: PEPCID PO SCH (17:54)
[2018-01-25] MEDS: LATANOPROST 0.005% OS SCH (17:55)
[2018-01-25] MEDS ORDERED: NACL 0.9 (PRIMING MACHINE ONLY DIALYSIS) MC ONE (20:51)
--- NOTE | 2018-01-25 22:02 | Consultation ---
PULMONARY CRITICAL CARE CONSULTATION CONSULTING PHYSICIAN: Mariangel Darling MD REASON FOR CONSULTATION: Hypertensive emergency need for critical care administration for vasoactive medication administration. CHIEF COMPLAINT AND HISTORY OF PRESENT ILLNESS: The patient is a 62-year-old -[place] female with past medical history significant in this context for diagnosis of end-stage renal disease, on dialysis Thursday, Thursday and Thursday as well as hypertension who stated that she has been compliant with her medications. She presented yesterday with nausea, vomiting, dizziness. According to her daughter, she had fallen flat in the house. The patient denied any injury to her head or any associated headaches. She did get her dialysis on Thursday. She has been taking her blood pressure medications, but they have been difficult to control for about a day. In the emergency room, she was evaluated. Again, there was no hematemesis reported. She was found to essentially be in the throes of a hypertensive emergency. Blood pressure was severely elevated with her systolic blood pressure of 232 at presentation. She was started on a Cardene drip, ICU admission was requested. When I stopped by to see her, she remained on the Cardene drip. She had been dropped to 2.5 mg per hour. Systolic blood pressures were still creeping up in the 170s. She denied any chest pain. She denied cough or hemoptysis. She denied fevers or chills. This really is as much of the history of this presentation as I have. Now with regard to tobacco use/abuse history, she describes herself as a never smoker. PAST MEDICAL HISTORY: Hypertension; end-stage renal disease, on dialysis. She is diabetic, history of anemia, history of cataracts, history of pancreatitis, and a thyroid disorder that she is unclear of up; I believe it is hypothyroidism. PAST SURGICAL HISTORY: She has had AV access I believe for dialysis. She has had a thyroidectomy. She has had surgery I believe to the right eye. MEDICATIONS: She was on at the time I stopped by to see her were reviewed. Pertinent medications include the following: She was on a Cardene drip going at 2.5 mg per hour, aspirin 81 mg p.o. daily, Lipitor 40 mg p.o. at bedtime, betaxolol eye drops 1 drop OS b.i.d., Lovenox 30 mg subQ daily, Lasix 80 mg p.o. daily, glipizide 5 mg p.o. b.i.d., hydralazine 100 mg p.o. t.i.d., insulin via sliding scale, latanoprost 0.005% eye drops to os at bedtime, 200 mcg per day of Levoxyl, lisinopril 40 mg p.o. daily, Claritin 10 mg p.o. daily, Lopressor 50 mg p.o. b.i.d., nifedipine 90 mg p.o. b.i.d., Zofran 4 mg IV q.8 hours p.r.n. nausea and vomiting, and Aldactone 25 mg p.o. b.i.d. ALLERGIES: No known drug allergies. DIET: Petite lady. Denies significant weight loss or gain though in her preceding few weeks to months. FAMILY AND SOCIAL HISTORY: Lives in the community, good support. I believe her daughter is in the room with her. She denies alcohol, tobacco, or illicit drug use or abuse. FAMILY HISTORY: Otherwise noncontributory. REVIEW OF SYSTEMS: No loss of consciousness. She did have the dizziness. Denied any new onset of focal weakness. Denied gross or streaky hemoptysis. She denied any gross hematochezia or melena. No gross hematuria or dysuria. No palpitations. Denies heat or cold intolerance. Denies polydipsia or polyuria. Denies any new lumps, bumps, or swellings on her body. Complete 13-system review of systems obtained. Pertinent positives and/or negatives as in body of history above, otherwise noncontributory. PHYSICAL EXAMINATION: VITAL SIGNS: At presentation in the emergency room, she was afebrile, temperature 98.2, pulse 62, respiratory rate 18, blood pressure 232/92, oxygen sats were 98%. She was on 3 liters nasal cannula at that time. GENERAL: Elderly looking elderly looking female, normocephalic, atraumatic, talking to me in mostly full sentences, at worst in mild respiratory distress. HEAD, EYES, EARS, NOSE, AND THROAT: She is anicteric. No conjunctival erythema. No gross jugular venous distention. Oropharynx is a Mallampati #2 oropharynx. Oropharynx is moist. No thyromegaly. Grossly, no palpable lymph nodes in the supraclavicular or submandibular lymph node chains. LUNGS: Auscultation of both lung lei slightly diminished bibasilar air entry; however, clear. At the time of my examination. HEART: Heart sounds 1 and 2 are heard at the time of my evaluation. There were regular in rate and rhythm. No rubs or murmurs. ABDOMEN: Soft, full, bowel sounds are positive, nontender. No hepatosplenomegaly was palpable. EXTREMITIES: Without overt digital clubbing or cyanosis. No pedal edema. Dorsalis pedis pulses were palpable bilaterally. The skin was of poor turgor without cellulitis or rash and no decubitus ulcers. NEUROLOGIC: The right pupil is irregular postoperatively, but they are both sluggishly reactive to light. Left pupil was about 3 mm. Extraocular muscle movements appeared intact. She moved all 4 extremities spontaneously. LABORATORY DATA: From my review are as follows: White cell count 5500, hemoglobin 11.1, hematocrit 34.9, and platelet count 210. Serum sodium was 142, potassium 4.3, chloride 95, bicarbonate 33, BUN 57, creatinine 9.2, glucose was 210. Liver function tests essentially within normal limits except for the serum lipase that was elevated at 127. No microbiology studies. Chest x-ray has been reviewed. I have also reviewed the radiologist's interpretation. I do agree with it. The film is slightly rotated to the left. There is a confluence of rib shadows really in the right costophrenic angle area, but also some suggestion of an infiltrate in that area. I think accentuated by the rotation. Otherwise, there is gross cardiomegaly, mild enlargement of the right main pulmonary artery trunk, may suggest pulmonary hypertension. No gross pneumothorax. I think there is a mild increase in interstitial markings consistent in my opinion with mild pulmonary edema. ASSESSMENT AND PLAN: 1. Hypertensive emergency with associated dizziness and possible near syncope. 2. End-stage renal disease, on dialysis. 3. Diabetes. 4. Hypertension. 5. Hypothyroidism. 6. Elevated serum lipase. 7. History of anemia, not so much today. PLAN: 1. We will continue the IV Cardene drip as we introduce oral medications. She should be due for dialysis today and hopefully that will improve her blood pressure control, at least it will reduce intravascular volume. We will continue the p.r.n. Zofran for any nausea and vomiting. The right lower lobe infiltrate, may be related to an aspiration event. I will order a sputum culture and send that for cultures if she does produce any sputum. No acute indication for antibiotic therapy. I will follow her off antibiotics. I will go ahead and get a CRP level, plus or minus a lactic acid level just to get a better idea of any true infectious process that might be going on. She has been seen by the supervisor carton and can supply. She will be started on GI prophylaxis. She will be continued on DVT prophylaxis. Her chronic medications will be continued. Flu and pneumonia vaccination will be addressed per protocol. She will be offered ICU admission until she is off the IV Cardene drip at which time we will transfer her to the regular floor. I have examined her forehead. I should see her head any evidence of trauma there. It is really unclear if she will benefit from a CT of her brain. She is following commands appropriately, moving all extremities. The exam is nonfocal. We will follow her clinically. Thank you very much for the consult. We will follow along and make further recommendations as picture progresses/becomes clearer. She is critically ill on life-sustaining interventions including the IV Cardene drip, and at high risk for further deterioration in the neurologic and cardiovascular system including . At this time, I have spent about 35-40 minutes of critical care time without overlap and excluding any procedural time that may be necessary. JOB# [id number] KSENIA/RAMOS PINA
[2018-01-26] MEDS: SODIUM CHLORIDE FLUSH SYRINGE 10 ML IV SCH ×3 (00:01→21:31)
[2018-01-26] MEDS: SYNTHROID PO SCH (06:23)
[2018-01-26] MEDS: APRESOLINE IV PRN ×4 (06:23→21:41)
[2018-01-26] MEDS: HumaLOG SUB-Q SCH ×5 (08:25→23:01)
[2018-01-26] MEDS: APRESOLINE PO SCH ×3 (08:37→21:30)
[2018-01-26 09:13] LABS: Basophils % (Auto) 0.9 % (0.0-1.8); Eosinophils # (Auto) 0.2 K/mm3 (0.0-0.4); Eosinophils % (Auto) 3.5 % (0.0-4.3); Hematocrit 34.8 % (30.3-42.9); Hemoglobin 11.1 gm/dl (10.1-14.3); Lymphocytes # (Auto) 1.3 K/mm3 (1.2-5.4); Lymphocytes % (Auto) 27.2 % (13.4-35.0); Mean Corpuscular HGB Conc 32 % (30-34); Mean Corpuscular Volume 75 fl (79-97); Monocytes # (Auto) 0.4 K/mm3 (0.0-0.8); Monocytes % (Auto) 9.5 % (0.0-7.3); Platelet Count 231 K/mm3 (140-440); Red Blood Count 4.67 M/mm3 (3.65-5.03)
[2018-01-26 09:15] LABS: Mean Corpuscular Hemoglobin 24 pg (28-32)
[2018-01-26 09:29] LABS: Calcium 9.2 mg/dL (8.4-10.2)
--- NOTE | 2018-01-26 09:37 | Progress Note ---
Assessment and Plan - Patient Problems (1) Hypertensive emergency Current Visit: No Status: Acute Plan to address problem: BP improved with HD/UF. pt now off cardene gtt, transitioned to home BP meds and spironolactone 25mg po bid was added. (2) ESRD on hemodialysis Current Visit: No Status: Acute Plan to address problem: cont HD on MWF schedule. otherwise stable for discharge from renal stand point (3) T2DM (type 2 diabetes mellitus) Current Visit: No Status: Chronic Qualifiers: Diabetes mellitus complication status: with kidney complications Chronic kidney disease stage: on chronic dialysis Plan to address problem: glucose control as per primary attending (4) Anemia in end-stage renal disease Current Visit: No Status: Acute Plan to address problem: Hb at target, no need for EPO at present Subjective Date of service: 01/26/18 Principal diagnosis: ESRD, hypertension Interval history: Pt awake, alert, in NAD, denies headaches, blurry vision, SOB, CP, palpitations. now off cardene gtt Objective - Vital Signs Vital signs: Vital Signs - 12hr 01/25/18 01/25/18 01/25/18 21:45 22:00 22:30 Temperature 98.0 F Pulse Rate 53 L 54 L 76 Respiratory 18 Rate Blood Pressure 143/61 140/64 157/71 Blood Pressure [Right] O2 Sat by Pulse Oximetry 01/25/18 01/25/18 01/26/18 23:24 23:25 06:15 Temperature 98.0 F 98.2 F Pulse Rate 56 L 55 L 57 L Respiratory 18 18 Rate Blood Pressure 144/62 177/76 Blood Pressure [Right] O2 Sat by Pulse 95 96 Oximetry 01/26/18 08:39 Temperature Pulse Rate 69 Respiratory Rate Blood Pressure Blood Pressure 163/73 [Right] O2 Sat by Pulse Oximetry - General Appearance General appearance: well-developed, well-nourished, appears stated age EENT: ATNC, PERRL, mucous membranes moist Neck: no JVD Respiratory: Present: Clear to Ascultation Cardiology: regular, S1S2 Gastrointestinal: normoactive bowel sounds Integumentary: no rash, other (no edema ) Neurologic: no focal deficit, alert and oriented x3, strength 5/5, CN 3-12 intact Psychiatric: mood/affect appropriate, cooperative - Lab 01/26/18 08:24 01/26/18 08:12 Most recent lab results Calcium 9.2 mg/dL (8.4-10.2) 01/26/18 08:12
[2018-01-26] MEDS: LASIX PO SCH (10:21)
[2018-01-26] MEDS: PEPCID PO SCH (10:21)
[2018-01-26] MEDS: ZESTRIL PO SCH (10:21)
[2018-01-26] MEDS: GLUCOTROL PO SCH ×3 (10:21→17:26)
[2018-01-26] MEDS: BABY ASPIRIN PO SCH (10:21)
[2018-01-26] MEDS: ALDACTONE PO SCH ×2 (10:22→21:30)
[2018-01-26] MEDS: LOVENOX SUB-Q SCH (10:22)
[2018-01-26] MEDS: PROCARDIA XL PO SCH ×3 (10:22→21:31)
[2018-01-26] MEDS: BETOPTIC S OS SCH ×3 (10:22→21:36)
[2018-01-26] MEDS: LOPRESSOR PO SCH ×3 (10:23→21:30)
[2018-01-26] MEDS: CLARITIN PO SCH (10:24)
--- NOTE | 2018-01-26 13:19 | Progress Note ---
Assessment and Plan Assessment and plan: 62-year-old man with a history of hypertension, diabetes, hyperlipidemia, end- stage renal disease on dialysis Thursday, Thursday, Thursday, hypothyroidism who pw high BP and nausea Hypertension urgency, malignant Diabetes of 2 End-stage renal disease on dialysis Hypothyroidism Plan -optimize bp meds -continue ssi -continue HD History Interval history: Review of systems Constitutional: No fevers, no malaise, no joint pains CVS: No chest pain, no orthopnea, no dyspnea on exertion, no pedal edema GI: No abdominal pain, no diarrhea, no vomiting, no constipation Respiratory: No shortness of breath, no wheezing, no coughing Hospitalist Physical - Physical exam Narrative exam: General.: Appears well, no distress, nontoxic HEENT: Moist mucous membranes, extraocular muscles intact, no lymphadenopathy Neck: supple Cardiac: S1-S2 heard Lungs: clear to auscultation bilaterally Abdomen: soft , nontender, nondistended, bowel sounds positive Extremities: no edema clubbing or cyanosis Skin: no rash or lesions Neurologic: no gross focal deficits Psych: appropriate behavior, appropriate mood, corporative, judgment intact - Constitutional Vitals: Temp Pulse Resp BP Pulse Ox 98.8 F 64 18 186/80 100 01/26/18 12:12 01/26/18 12:12 01/26/18 12:12 01/26/18 12:12 01/26/18 12:12 Results - Labs CBC & Chem 7: 01/26/18 08:24 01/26/18 08:12 Labs: Laboratory Last Values WBC 4.7 K/mm3 (4.5-11.0) 01/26/18 08:24 RBC 4.67 M/mm3 (3.65-5.03) 01/26/18 08:24 Hgb 11.1 gm/dl (10.1-14.3) 01/26/18 08:24 Hct 34.8 % (30.3-42.9) 01/26/18 08:24 MCV 75 fl (79-97) L 01/26/18 08:24 MCH 24 pg (28-32) L 01/26/18 08:24 MCHC 32 % (30-34) 01/26/18 08:24 RDW 23.0 % (13.2-15.2) H 01/26/18 08:24 Plt Count 231 K/mm3 (140-440) 01/26/18 08:24 Lymph % (Auto) 27.2 % (13.4-35.0) 01/26/18 08:24 [place] % (Auto) 9.5 % (0.0-7.3) H 01/26/18 08:24 Eos % (Auto) 3.5 % (0.0-4.3) 01/26/18 08:24 Baso % (Auto) 0.9 % (0.0-1.8) 01/26/18 08:24 Lymph # 1.3 K/mm3 (1.2-5.4) 01/26/18 08:24 [place] # 0.4 K/mm3 (0.0-0.8) 01/26/18 08:24 Eos # 0.2 K/mm3 (0.0-0.4) 01/26/18 08:24 Baso # 0.0 K/mm3 (0.0-0.1) 01/26/18 08:24 Seg Neutrophils % 58.9 % (40.0-70.0) 01/26/18 08:24 Seg Neutrophils # 2.7 K/mm3 (1.8-7.7) 01/26/18 08:24 Sodium 139 mmol/L (137-145) 01/26/18 08:12 Potassium 4.6 mmol/L (3.6-5.0) 01/26/18 08:12 Chloride 96.2 mmol/L (98-107) L 01/26/18 08:12 Carbon Dioxide 32 mmol/L (22-30) H 01/26/18 08:12 Anion Gap 15 mmol/L 01/26/18 08:12 BUN 28 mg/dL (7-17) H 01/26/18 08:12 Creatinine 7.1 mg/dL (0.7-1.2) H 01/26/18 08:12 Estimated GFR 7 ml/min 01/26/18 08:12 BUN/Creatinine Ratio 4 % 01/26/18 08:12 Glucose 154 mg/dL (65-100) H 01/26/18 08:12 POC Glucose 153 (70-105) H 01/26/18 12:23 Calcium 9.2 mg/dL (8.4-10.2) 01/26/18 08:12 Total Bilirubin 0.30 mg/dL (0.1-1.2) 01/24/18 22:45 AST 33 units/L (5-40) 01/24/18 22:45 ALT 14 units/L (7-56) 01/24/18 22:45 Alkaline Phosphatase 120 units/L (35-129) 01/24/18 22:45 C-Reactive Protein 0.10 mg/dL (0.00-1.30) 01/25/18 13:52 Total Protein 7.3 g/dL (6.3-8.2) 01/24/18 22:45 Albumin 4.0 g/dL (3.9-5) 01/24/18 22:45 Albumin/Globulin Ratio 1.2 % 01/24/18 22:45 Lipase 127 units/L (13-60) H 01/24/18 22:45
[2018-01-26] MEDS ORDERED: CATAPRES PO PRN (16:48)
[2018-01-26] MEDS: LATANOPROST 0.005% OS SCH (17:41)
[2018-01-26] MEDS: CATAPRES PO SCH (21:30)
[2018-01-27] MEDS: SYNTHROID PO SCH (06:16)
[2018-01-27] MEDS: GLUCOTROL PO SCH ×2 (08:51→17:52)
[2018-01-27] MEDS: HumaLOG SUB-Q SCH ×4 (08:51→23:51)
[2018-01-27] MEDS: LOVENOX SUB-Q SCH (10:00)
[2018-01-27] MEDS: BETOPTIC S OS SCH ×2 (10:00→23:25)
[2018-01-27] MEDS ORDERED: APRESOLINE IV PRN (11:38)
[2018-01-27] MEDS ORDERED: NACL 0.9 (PRIMING MACHINE ONLY DIALYSIS) MC ONE (12:35)
--- NOTE | 2018-01-27 12:35 | Progress Note ---
Assessment and Plan Hypertensive emergency with associated dizziness and possible near syncope. End-stage renal disease, on dialysis. Diabetes. Hypertension. Hypothyroidism. Elevated serum lipase. History of anemia, not so much today. - continue HD/UF M/W/F - off cardene drip - repeat CXR tomorrow re: RLL infiltrate - follow off AB's - wean oxygen to keep O2 Sats > 90% - continue GI & VTE prophylaxis - continue oral antihypertensives - continue levoxyl for hypothyroidism - flu & pneumovax addressed per protocol - get PT/OT to evaluate and treat - continue other care per attending / other consultants ... re-evaluate in am & prn .. 35' Subjective Date of service: 01/27/18 Principal diagnosis: Hypertensive Urgency; ESRD on Dialysis Interval history: LATE ENTRY FOR DOS 01/26/18 Patient is seen today for: Hypertensive Urgency; ESRD on Dialysis Seen and examined at bedside; 24hour events reviewed; nursing and respiratory care staff consulted; no adverse overnight events reported to me; resting peacefully in bed; denies acute chest pains or increased SOB; No N/V/F/C Objective Vital Signs - 12hr 01/27/18 01/27/18 01/27/18 05:33 09:30 09:45 Temperature 98.5 F 98.2 F Pulse Rate 61 58 L 58 L Respiratory 20 18 Rate Blood Pressure 194/73 194/76 185/85 O2 Sat by Pulse 97 Oximetry 01/27/18 01/27/18 01/27/18 10:00 10:15 10:30 Temperature Pulse Rate 56 L 58 L 55 L Respiratory Rate Blood Pressure 189/78 182/83 179/78 O2 Sat by Pulse Oximetry 01/27/18 01/27/18 01/27/18 10:45 11:00 11:15 Temperature Pulse Rate 55 L 60 52 L Respiratory Rate Blood Pressure 185/81 181/90 175/77 O2 Sat by Pulse Oximetry 01/27/18 01/27/18 01/27/18 11:30 11:45 12:00 Temperature Pulse Rate 55 L 54 L 57 L Respiratory Rate Blood Pressure 176/80 151/77 157/74 O2 Sat by Pulse Oximetry Constitutional: no acute distress, alert, other (elderly lloking female ; normocephalic and atraumatic; chronically ill looking) Eyes: non-icteric ENT: oropharynx moist, other (mallampati 2 ) Neck: supple, no lymphadenopathy, no JVD, other (no thyromegaly) Effort: mildly labored Ascultation: Bilateral: diminished breath sounds, rhonchi Percussion: Bilateral: not dull Cardiovascular: regular rate and rhythm, murmur noted, other (S1S2 heard) Gastrointestinal: normoactive bowel sounds, soft, non-tender, non-distended, other (no HSM) Integumentary: other (poor turgor) Extremities: no cyanosis, no edema, pulses normal, no ischemia or petechiae Neurologic: normal mental status, non-focal exam, pupils equal and round, motor strength normal and Psychiatric: mood appropriate, affect normal CBC and BMP: 01/26/18 08:24 01/26/18 08:12 Abnormal lab findings: Abnormal Labs 01/24/18 01/24/18 01/25/18 22:45 22:45 07:53 MCV 73 L MCH 23 L RDW 23.2 H Lymph % (Auto) 36.[address] [place] % (Auto) 8.4 H Chloride 95.3 L Carbon Dioxide 33 H BUN 57 H Creatinine 9.2 H Glucose 210 H POC Glucose 142 H Lipase 127 H 01/25/18 01/25/18 01/26/18 12:04 17:43 00:00 MCV MCH RDW Lymph % (Auto) [place] % (Auto) Chloride Carbon Dioxide BUN Creatinine Glucose POC Glucose 247 H 109 H 219 H Lipase 01/26/18 01/26/18 01/26/18 08:12 08:15 08:24 MCV 75 L MCH 24 L RDW 23.0 H Lymph % (Auto) [place] % (Auto) 9.5 H Chloride 96.2 L Carbon Dioxide 32 H BUN 28 H Creatinine 7.1 H Glucose 154 H POC Glucose 169 H Lipase 01/26/18 01/26/18 01/26/18 12:23 16:14 22:13 MCV MCH RDW Lymph % (Auto) [place] % (Auto) Chloride Carbon Dioxide BUN Creatinine Glucose POC Glucose 153 H 63 L 172 H Lipase 01/27/18 07:37 MCV MCH RDW Lymph % (Auto) [place] % (Auto) Chloride Carbon Dioxide BUN Creatinine Glucose POC Glucose 182 H Lipase Chest x-ray: image reviewed (cardiomegaly and RLL infiltrate) Allied health notes reviewed: nursing
--- NOTE | 2018-01-27 12:45 | Progress Note ---
Assessment and Plan Hypertensive emergency with associated dizziness and possible near syncope. End-stage renal disease, on dialysis. Diabetes. Hypertension. Hypothyroidism. Elevated serum lipase. History of anemia, not so much today. - continue HD/UF M/W/F - off cardene drip - repeat CXR tomorrow re: RLL infiltrate - follow off AB's - wean oxygen to keep O2 Sats > 90% - continue GI & VTE prophylaxis - continue oral antihypertensives - continue levoxyl for hypothyroidism - flu & pneumovax addressed per protocol - get PT/OT to evaluate and treat - continue other care per attending / other consultants ... re-evaluate in am & prn .. 25' Subjective Date of service: 01/27/18 Principal diagnosis: Hypertensive Urgency; ESRD on Dialysis; Hypothyroidism Interval history: Patient is seen today for: Hypertensive Urgency; ESRD on Dialysis Seen and examined at bedside; 24hour events reviewed; nursing and respiratory care staff consulted; no adverse overnight events reported to me; resting peacefully in bed; denies acute chest pains or increased SOB; No N/V/F/C Objective Vital Signs - 12hr 01/27/18 01/27/18 01/27/18 05:33 09:30 09:45 Temperature 98.5 F 98.2 F Pulse Rate 61 58 L 58 L Respiratory 20 18 Rate Blood Pressure 194/73 194/76 185/85 O2 Sat by Pulse 97 Oximetry 01/27/18 01/27/18 01/27/18 10:00 10:15 10:30 Temperature Pulse Rate 56 L 58 L 55 L Respiratory Rate Blood Pressure 189/78 182/83 179/78 O2 Sat by Pulse Oximetry 01/27/18 01/27/18 01/27/18 10:45 11:00 11:15 Temperature Pulse Rate 55 L 60 52 L Respiratory Rate Blood Pressure 185/81 181/90 175/77 O2 Sat by Pulse Oximetry 01/27/18 01/27/18 01/27/18 11:30 11:45 12:00 Temperature Pulse Rate 55 L 54 L 57 L Respiratory Rate Blood Pressure 176/80 151/77 157/74 O2 Sat by Pulse Oximetry Constitutional: no acute distress, alert, other (elderly lloking female ; normocephalic and atraumatic; chronically ill looking) Eyes: non-icteric ENT: oropharynx moist, other (mallampati 2 ) Neck: supple, no lymphadenopathy, no JVD, other (no thyromegaly) Effort: mildly labored Ascultation: Bilateral: diminished breath sounds, rhonchi Percussion: Bilateral: not dull Cardiovascular: regular rate and rhythm, murmur noted, other (S1S2 heard) Gastrointestinal: normoactive bowel sounds, soft, non-tender, non-distended, other (no HSM) Integumentary: other (poor turgor) Extremities: no cyanosis, no edema, pulses normal, no ischemia or petechiae Neurologic: normal mental status, non-focal exam, pupils equal and round, motor strength normal and Psychiatric: mood appropriate, affect normal CBC and BMP: 01/26/18 08:24 01/26/18 08:12 Abnormal lab findings: Abnormal Labs 01/24/18 01/24/18 01/25/18 22:45 22:45 07:53 MCV 73 L MCH 23 L RDW 23.2 H Lymph % (Auto) 36.8 H [place] % (Auto) 8.4 H Chloride 95.3 L Carbon Dioxide 33 H BUN 57 H Creatinine 9.2 H Glucose 210 H POC Glucose 142 H Lipase 127 H 01/25/18 01/25/18 01/26/18 12:04 17:43 00:00 MCV MCH RDW Lymph % (Auto) [place] % (Auto) Chloride Carbon Dioxide BUN Creatinine Glucose POC Glucose 247 H 109 H 219 H Lipase 01/26/18 01/26/18 01/26/18 08:12 08:15 08:24 MCV 75 L MCH 24 L RDW 23.0 H Lymph % (Auto) [place] % (Auto) 9.5 H Chloride 96.2 L Carbon Dioxide 32 H BUN 28 H Creatinine 7.1 H Glucose 154 H POC Glucose 169 H Lipase 01/26/18 01/26/18 01/26/18 12:23 16:14 22:13 MCV MCH RDW Lymph % (Auto) [place] % (Auto) Chloride Carbon Dioxide BUN Creatinine Glucose POC Glucose 153 H 63 L 172 H Lipase 01/27/18 07:37 MCV MCH RDW Lymph % (Auto) [place] % (Auto) Chloride Carbon Dioxide BUN Creatinine Glucose POC Glucose 182 H Lipase Allied health notes reviewed: nursing
[2018-01-27] MEDS: APRESOLINE PO SCH ×2 (15:06→15:20)
[2018-01-27] MEDS: ALDACTONE PO SCH ×2 (15:19→23:23)
[2018-01-27] MEDS: LASIX PO SCH (15:19)
[2018-01-27] MEDS: BABY ASPIRIN PO SCH (15:20)
[2018-01-27] MEDS: CLARITIN PO SCH (15:20)
[2018-01-27] MEDS: PROCARDIA XL PO SCH ×2 (15:20→23:23)
[2018-01-27] MEDS: LOPRESSOR PO SCH ×2 (15:20→23:26)
[2018-01-27] MEDS: CATAPRES PO SCH ×2 (15:21→23:24)
[2018-01-27] MEDS: PEPCID PO SCH (15:21)
[2018-01-27] MEDS: DIOVAN PO SCH (15:21)
--- NOTE | 2018-01-27 16:10 | Progress Note ---
Assessment and Plan - Patient Problems (1) Accelerated hypertension Current Visit: No Status: Acute Plan to address problem: Blood pressure is still uncontrolled. Discussed with primary attending to hold discharge so we can observe blood pressure on adjusted medications. (2) Dizziness Current Visit: No Status: Acute Plan to address problem: We'll check orthostatic vital signs. Discussed with the nurse (3) ESRD (end stage renal disease) on dialysis Current Visit: No Status: Acute Plan to address problem: Hemodialysis on a Thursday, Thursday and Thursday schedule. Establish dry weight (4) Hypertensive chronic kidney disease with stage 5 chronic kidney disease or end stage renal disease Current Visit: No Status: Acute Plan to address problem: Instructed to give patient antihypertensive medications as scheduled and then we will monitor blood pressure (5) Type 2 diabetes mellitus with diabetic chronic kidney disease Current Visit: No Status: Chronic Plan to address problem: Blood sugar management by primary attending (6) Anemia in chronic kidney disease (CKD) Current Visit: Yes Status: Acute Plan to address problem: Give erythropoietin on dialysis Subjective Date of service: 01/27/18 Principal diagnosis: Hypertensive Urgency; ESRD on Dialysis; Hypothyroidism Interval history: I sent seen lying in bed. Still complains of dizziness. Did not get her morning blood pressure medications and went to dialysis. Just got back a little more than 1 hr ago and got her first BP medications today. Blood pressure standing 208/88 mmHg. Patient feeling lightheaded Objective - Exam Narrative Exam: Middle-aged -[place] female In bed in no acute distress HEENT: NCAT, pink oral mucous membrane Neck: Supple, no venous distention CVS: S1S2 RRR with no murmur, rub or gallop Chest: Clear to auscultation Abdomen: Protuberant, soft, nontender, no organomegaly, bowel sounds are present Extremities: No edema clubbing Skin warm and dry, no rash Neuro: Awake, alert no focal deficits - Vital Signs Vital signs: Vital Signs - 12hr 01/27/18 01/27/18 01/27/18 05:33 09:30 09:45 Temperature 98.5 F 98.2 F Pulse Rate 61 58 L 58 L Respiratory 20 18 Rate Blood Pressure 194/73 194/76 185/85 Blood Pressure [Right] O2 Sat by Pulse 97 Oximetry 01/27/18 01/27/18 01/27/18 10:00 10:15 10:30 Temperature Pulse Rate 56 L 58 L 55 L Respiratory Rate Blood Pressure 189/78 182/83 179/78 Blood Pressure [Right] O2 Sat by Pulse Oximetry 01/27/18 01/27/18 01/27/18 10:45 11:00 11:15 Temperature Pulse Rate 55 L 60 52 L Respiratory Rate Blood Pressure 185/81 181/90 175/77 Blood Pressure [Right] O2 Sat by Pulse Oximetry 01/27/18 01/27/18 01/27/18 11:30 11:45 12:00 Temperature Pulse Rate 55 L 54 L 57 L Respiratory Rate Blood Pressure 176/80 151/77 157/74 Blood Pressure [Right] O2 Sat by Pulse Oximetry 01/27/18 01/27/18 01/27/18 12:15 12:30 12:45 Temperature Pulse Rate 57 L 58 L 58 L Respiratory Rate Blood Pressure 157/74 149/75 150/74 Blood Pressure [Right] O2 Sat by Pulse Oximetry 01/27/18 01/27/18 01/27/18 13:00 13:20 15:27 Temperature 97.8 F 98.8 F Pulse Rate 58 L 59 L 57 L Respiratory 18 18 Rate Blood Pressure 152/75 165/78 Blood Pressure 185/74 [Right] O2 Sat by Pulse 99 Oximetry 01/27/18 16:03 Temperature Pulse Rate Respiratory Rate Blood Pressure Blood Pressure 208/88 [Right] O2 Sat by Pulse Oximetry - Lab 01/26/18 08:24 01/26/18 08:12 Most recent lab results Calcium 9.2 mg/dL (8.4-10.2) 01/26/18 08:12
--- NOTE | 2018-01-27 16:10 | XRay Report ---
FINAL REPORT EXAM: XR CHEST 1V AP HISTORY: pneumonia COMPARISON: Chest radiograph performed on 01/24/2018 TECHNIQUE: Single frontal view of the FINDINGS: Stable cardiomegaly. Some residual patchy opacity in the peripheral right lung base. The left lung is clear. No pleural effusion or pneumothorax. No acute bony or soft tissue abnormality. IMPRESSION: Minimal residual opacity in the peripheral right lung base that may reflect infiltrate.
--- NOTE | 2018-01-27 16:27 | Progress Note ---
Assessment and Plan Assessment and plan: 62-year-old man with a history of hypertension, diabetes, hyperlipidemia, end- stage renal disease on dialysis Thursday, Thursday, Thursday, hypothyroidism who pw high BP and nausea Hypertension urgency, malignant Diabetes of 2 End-stage renal disease on dialysis Hypothyroidism Plan -optimize bp meds -continue ssi -continue HD History Interval history: Review of systems Constitutional: No fevers, no malaise, no joint pains CVS: No chest pain, no orthopnea, no dyspnea on exertion, no pedal edema GI: No abdominal pain, no diarrhea, no vomiting, no constipation Respiratory: No shortness of breath, no wheezing, no coughing Hospitalist Physical - Physical exam Narrative exam: General.: Appears well, no distress, nontoxic HEENT: Moist mucous membranes, extraocular muscles intact, no lymphadenopathy Neck: supple Cardiac: S1-S2 heard Lungs: clear to auscultation bilaterally Abdomen: soft , nontender, nondistended, bowel sounds positive Extremities: no edema clubbing or cyanosis Skin: no rash or lesions Neurologic: no gross focal deficits Psych: appropriate behavior, appropriate mood, corporative, judgment intact - Constitutional Vitals: Temp Pulse Resp BP Pulse Ox 98.8 F 67 18 208/88 99 01/27/18 15:27 01/27/18 16:08 01/27/18 15:27 01/27/18 16:08 01/27/18 15:27 Results - Labs CBC & Chem 7: 01/26/18 08:24 01/26/18 08:12 Labs: Laboratory Last Values WBC 4.7 K/mm3 (4.5-11.0) 01/26/18 08:24 RBC 4.67 M/mm3 (3.65-5.03) 01/26/18 08:24 Hgb 11.1 gm/dl (10.1-14.3) 01/26/18 08:24 Hct 34.8 % (30.3-42.9) 01/26/18 08:24 MCV 75 fl (79-97) L 01/26/18 08:24 MCH 24 pg (28-32) L 01/26/18 08:24 MCHC 32 % (30-34) 01/26/18 08:24 RDW 23.0 % (13.2-15.2) H 01/26/18 08:24 Plt Count 231 K/mm3 (140-440) 01/26/18 08:24 Lymph % (Auto) 27.2 % (13.4-35.0) 01/26/18 08:24 [place] % (Auto) 9.5 % (0.0-7.3) H 01/26/18 08:24 Eos % (Auto) 3.5 % (0.0-4.3) 01/26/18 08:24 Baso % (Auto) 0.9 % (0.0-1.8) 01/26/18 08:24 Lymph # 1.3 K/mm3 (1.2-5.4) 01/26/18 08:24 [place] # 0.4 K/mm3 (0.0-0.8) 01/26/18 08:24 Eos # 0.2 K/mm3 (0.0-0.4) 01/26/18 08:24 Baso # 0.0 K/mm3 (0.0-0.1) 01/26/18 08:24 Seg Neutrophils % 58.9 % (40.0-70.0) 01/26/18 08:24 Seg Neutrophils # 2.7 K/mm3 (1.8-7.7) 01/26/18 08:24 Sodium 139 mmol/L (137-145) 01/26/18 08:12 Potassium 4.6 mmol/L (3.6-5.0) 01/26/18 08:12 Chloride 96.2 mmol/L (98-107) L 01/26/18 08:12 Carbon Dioxide 32 mmol/L (22-30) H 01/26/18 08:12 Anion Gap 15 mmol/L 01/26/18 08:12 BUN 28 mg/dL (7-17) H 01/26/18 08:12 Creatinine 7.1 mg/dL (0.7-1.2) H 01/26/18 08:12 Estimated GFR 7 ml/min 01/26/18 08:12 BUN/Creatinine Ratio 4 % 01/26/18 08:12 Glucose 154 mg/dL (65-100) H 01/26/18 08:12 POC Glucose 182 (70-105) H 01/27/18 07:37 Calcium 9.2 mg/dL (8.4-10.2) 01/26/18 08:12 Total Bilirubin 0.30 mg/dL (0.1-1.2) 01/24/18 22:45 AST 33 units/L (5-40) 01/24/18 22:45 ALT 14 units/L (7-56) 01/24/18 22:45 Alkaline Phosphatase 120 units/L (35-129) 01/24/18 22:45 C-Reactive Protein 0.10 mg/dL (0.00-1.30) 01/25/18 13:52 Total Protein 7.3 g/dL (6.3-8.2) 01/24/18 22:45 Albumin 4.0 g/dL (3.9-5) 01/24/18 22:45 Albumin/Globulin Ratio 1.2 % 01/24/18 22:45 Lipase 127 units/L (13-60) H 01/24/18 22:45
[2018-01-27] MEDS: SODIUM CHLORIDE FLUSH SYRINGE 10 ML IV SCH (23:25)
[2018-01-28] MEDS: APRESOLINE PO SCH ×4 (02:35→20:43)
[2018-01-28] MEDS: SODIUM CHLORIDE FLUSH SYRINGE 10 ML IV SCH ×2 (02:40→12:26)
[2018-01-28] MEDS: SYNTHROID PO SCH (05:49)
--- NOTE | 2018-01-28 09:18 | Progress Note ---
Assessment and Plan - Patient Problems (1) Accelerated hypertension Current Visit: No Status: Acute Plan to address problem: Blood pressure is still uncontrolled. I am concerned about the validity of the blood pressure numbers. I would like to recheck blood pressure with manual sphygmomanometer. Unable to locate one on the floor. Need to check manual orthostatic blood pressures and make further recommendations based on the results Di (2) Dizziness Current Visit: No Status: Acute Plan to address problem: Follow up orthostatic vital signs. (3) ESRD (end stage renal disease) on dialysis Current Visit: No Status: Acute Plan to address problem: Hemodialysis on a Thursday, Thursday and Thursday schedule. Establish dry weight (4) Hypertensive chronic kidney disease with stage 5 chronic kidney disease or end stage renal disease Current Visit: No Status: Acute Plan to address problem: Instructed to give patient antihypertensive medications as scheduled and then we will monitor blood pressure (5) Type 2 diabetes mellitus with diabetic chronic kidney disease Current Visit: No Status: Chronic Plan to address problem: Blood sugar management by primary attending (6) Anemia in chronic kidney disease (CKD) Current Visit: Yes Status: Acute Plan to address problem: Give erythropoietin on dialysis Subjective Date of service: 01/28/18 Principal diagnosis: Hypertensive Urgency; ESRD on Dialysis; Hypothyroidism Interval history: Patient seen sitting up in bed this morning. Just had breakfast. She feels better. No dizziness this morning. No headache or shortness of breath Objective - Exam Narrative Exam: Middle-aged -[place] female In bed in no acute distress HEENT: NCAT, pink oral mucous membrane Neck: Supple, no venous distention CVS: S1S2 RRR with no murmur, rub or gallop Chest: Clear to auscultation Abdomen: Protuberant, soft, nontender, no organomegaly, bowel sounds are present Extremities: No edema clubbing Skin warm and dry, no rash Neuro: Awake, alert no focal deficits - Vital Signs Vital signs: Vital Signs - 12hr 01/27/18 01/27/18 01/27/18 22:00 23:03 23:23 Temperature 98.9 F Pulse Rate 58 L 58 L 58 L Respiratory 20 Rate Blood Pressure 186/81 186/101 O2 Sat by Pulse 96 Oximetry 01/27/18 01/27/18 01/27/18 23:24 23:25 23:26 Temperature Pulse Rate 58 L 58 L 58 L Respiratory Rate Blood Pressure 186/101 186/101 186/101 O2 Sat by Pulse Oximetry - Lab 01/26/18 08:24 01/26/18 08:12 Most recent lab results Calcium 9.2 mg/dL (8.4-10.2) 01/26/18 08:12
[2018-01-28] MEDS: HumaLOG SUB-Q SCH ×3 (10:25→17:33)
[2018-01-28] MEDS: LOPRESSOR PO SCH ×2 (10:29→22:31)
[2018-01-28] MEDS: BABY ASPIRIN PO SCH (10:29)
[2018-01-28] MEDS: CATAPRES PO SCH ×2 (10:29→22:33)
[2018-01-28] MEDS: DIOVAN PO SCH (10:29)
[2018-01-28] MEDS: ALDACTONE PO SCH ×2 (10:30→22:40)
[2018-01-28] MEDS: PROCARDIA XL PO SCH ×2 (10:30→22:34)
[2018-01-28] MEDS: CLARITIN PO SCH (10:30)
[2018-01-28] MEDS: PEPCID PO SCH (10:30)
[2018-01-28] MEDS: LASIX PO SCH (10:30)
[2018-01-28] MEDS: BETOPTIC S OS SCH ×2 (10:39→22:35)
--- NOTE | 2018-01-28 11:49 | Progress Note ---
Assessment and Plan Assessment and plan: 62-year-old man with a history of hypertension, diabetes, hyperlipidemia, end- stage renal disease on dialysis Thursday, Thursday, Thursday, hypothyroidism who pw high BP and nausea Hypertension urgency, malignant Diabetes of 2 End-stage renal disease on dialysis Hypothyroidism Plan -optimize bp meds, increase clonidine dose today (had hx of Pulmonary edema on minoxidil, so not a good choice for her) -continue ssi -continue HD History Interval history: Review of systems Constitutional: No fevers, no malaise, no joint pains CVS: No chest pain, no orthopnea, no dyspnea on exertion, no pedal edema GI: No abdominal pain, no diarrhea, no vomiting, no constipation Respiratory: No shortness of breath, no wheezing, no coughing Hospitalist Physical - Physical exam Narrative exam: General.: Appears well, no distress, nontoxic HEENT: Moist mucous membranes, extraocular muscles intact, no lymphadenopathy Neck: supple Cardiac: S1-S2 heard Lungs: clear to auscultation bilaterally Abdomen: soft , nontender, nondistended, bowel sounds positive Extremities: no edema clubbing or cyanosis Skin: no rash or lesions Neurologic: no gross focal deficits Psych: appropriate behavior, appropriate mood, corporative, judgment intact - Constitutional Vitals: Temp Pulse Resp BP Pulse Ox 98.9 F 62 20 191/80 96 01/27/18 23:03 01/28/18 10:32 01/27/18 23:03 01/28/18 10:23 01/27/18 23:03 Results - Labs CBC & Chem 7: 01/26/18 08:24 01/29/18 05:52 Labs: Laboratory Last Values WBC 4.7 K/mm3 (4.5-11.0) 01/26/18 08:24 RBC 4.67 M/mm3 (3.65-5.03) 01/26/18 08:24 Hgb 11.1 gm/dl (10.1-14.3) 01/26/18 08:24 Hct 34.8 % (30.3-42.9) 01/26/18 08:24 MCV 75 fl (79-97) L 01/26/18 08:24 MCH 24 pg (28-32) L 01/26/18 08:24 MCHC 32 % (30-34) 01/26/18 08:24 RDW 23.0 % (13.2-15.2) H 01/26/18 08:24 Plt Count 231 K/mm3 (140-440) 01/26/18 08:24 Lymph % (Auto) 27.2 % (13.4-35.0) 01/26/18 08:24 [place] % (Auto) 9.5 % (0.0-7.3) H 01/26/18 08:24 Eos % (Auto) 3.5 % (0.0-4.3) 01/26/18 08:24 Baso % (Auto) 0.9 % (0.0-1.8) 01/26/18 08:24 Lymph # 1.3 K/mm3 (1.2-5.4) 01/26/18 08:24 [place] # 0.4 K/mm3 (0.0-0.8) 01/26/18 08:24 Eos # 0.2 K/mm3 (0.0-0.4) 01/26/18 08:24 Baso # 0.0 K/mm3 (0.0-0.1) 01/26/18 08:24 Seg Neutrophils % 58.9 % (40.0-70.0) 01/26/18 08:24 Seg Neutrophils # 2.7 K/mm3 (1.8-7.7) 01/26/18 08:24 Sodium 139 mmol/L (137-145) 01/26/18 08:12 Potassium 4.6 mmol/L (3.6-5.0) 01/26/18 08:12 Chloride 96.2 mmol/L (98-107) L 01/26/18 08:12 Carbon Dioxide 32 mmol/L (22-30) H 01/26/18 08:12 Anion Gap 15 mmol/L 01/26/18 08:12 BUN 28 mg/dL (7-17) H 01/26/18 08:12 Creatinine 7.1 mg/dL (0.7-1.2) H 01/26/18 08:12 Estimated GFR 7 ml/min 01/26/18 08:12 BUN/Creatinine Ratio 4 % 01/26/18 08:12 Glucose 154 mg/dL (65-100) H 01/26/18 08:12 POC Glucose 130 (70-105) H 01/28/18 07:36 Calcium 9.2 mg/dL (8.4-10.2) 01/26/18 08:12 Total Bilirubin 0.30 mg/dL (0.1-1.2) 01/24/18 22:45 AST 33 units/L (5-40) 01/24/18 22:45 ALT 14 units/L (7-56) 01/24/18 22:45 Alkaline Phosphatase 120 units/L (35-129) 01/24/18 22:45 C-Reactive Protein 0.10 mg/dL (0.00-1.30) 01/25/18 13:52 Total Protein 7.3 g/dL (6.3-8.2) 01/24/18 22:45 Albumin 4.0 g/dL (3.9-5) 01/24/18 22:45 Albumin/Globulin Ratio 1.2 % 01/24/18 22:45 Lipase 127 units/L (13-60) H 01/24/18 22:45
[2018-01-28] MEDS: GLUCOTROL PO SCH ×2 (12:18→18:58)
[2018-01-28] MEDS: HEPARIN SUB-Q SCH ×2 (15:42→22:40)
[2018-01-28] MEDS: LATANOPROST 0.005% OS SCH ×3 (18:58→18:59)
--- NOTE | 2018-01-28 19:22 | Progress Note ---
Assessment and Plan Patient alert, awake. resting on room air.O2 saturation 100%.No acute respiratory distress. Denies chest pain, shortness of breath or cough. - Patient Problems (1) Community acquired pneumonia Current Visit: Yes Status: Acute Qualifiers: Laterality: right Lung location: lower lobe of lung Qualified Code(s): J18.1 - Lobar pneumonia, unspecified organism Plan to address problem: Patient afebrile, no leukocytosis If patient febrile recommend to start on I/V antibiotics. (2) Acute respiratory failure with hypoxemia Current Visit: No Status: Acute Plan to address problem: Improved. Patients O2 saturation 100% on room air. Repeating blood gases. (3) ESRD on hemodialysis Current Visit: No Status: Chronic Plan to address problem: Management as per nephrology. Subjective Date of service: 01/28/18 Principal diagnosis: Hypertensive Urgency; ESRD on Dialysis; Hypothyroidism Interval history: Patient alert, awake. resting on room air.O2 saturation 100%.No acute respiratory distress. Denies chest pain, shortness of breath or cough. Objective Vital Signs - 12hr 01/28/18 01/28/18 01/28/18 10:23 10:32 11:33 Temperature 97.8 F Pulse Rate 62 59 L Respiratory 18 Rate Blood Pressure 191/80 192/79 Blood Pressure [Right] O2 Sat by Pulse 100 Oximetry 01/28/18 01/28/18 15:36 17:25 Temperature 98.8 F Pulse Rate 60 Respiratory 18 Rate Blood Pressure 172/72 Blood Pressure 171/72 [Right] O2 Sat by Pulse Oximetry Constitutional: no acute distress, alert Eyes: non-icteric ENT: oropharynx moist, other (mallampati 2 ) Neck: supple, no lymphadenopathy, no JVD, other (no thyromegaly) Effort: mildly labored Ascultation: Bilateral: diminished breath sounds, rhonchi Percussion: Bilateral: not dull Cardiovascular: regular rate and rhythm, murmur noted, other (S1S2 heard) Gastrointestinal: normoactive bowel sounds, soft, non-tender, non-distended, other (no HSM) Integumentary: other (poor turgor) Extremities: no cyanosis, no edema, pulses normal, no ischemia or petechiae Neurologic: normal mental status, non-focal exam, pupils equal and round, motor strength normal and Psychiatric: mood appropriate, affect normal CBC and BMP: 07/03/18 08:24 01/26/18 08:12 Abnormal lab findings: Abnormal Labs 01/24/18 01/24/18 01/25/18 22:45 22:45 07:53 MCV 73 L MCH 23 L RDW 23.2 H Lymph % (Auto) 36.8 H [place] % (Auto) 8.4 H Chloride 95.3 L Carbon Dioxide 33 H BUN 57 H Creatinine 9.2 H Glucose 210 H POC Glucose 142 H Lipase 127 H 01/25/18 01/25/18 01/26/18 12:04 17:43 00:00 MCV MCH RDW Lymph % (Auto) [place] % (Auto) Chloride Carbon Dioxide BUN Creatinine Glucose POC Glucose 247 H 109 H 219 H Lipase 01/26/18 01/26/18 01/26/18 08:12 08:15 08:24 MCV 75 L MCH 24 L RDW 23.0 H Lymph % (Auto) [place] % (Auto) 9.5 H Chloride 96.2 L Carbon Dioxide 32 H BUN 28 H Creatinine 7.1 H Glucose 154 H POC Glucose 169 H Lipase 01/26/18 01/26/18 01/26/18 12:23 16:14 22:13 MCV MCH RDW Lymph % (Auto) [place] % (Auto) Chloride Carbon Dioxide BUN Creatinine Glucose POC Glucose 153 H 63 L 172 H Lipase 01/27/18 01/27/18 01/27/18 07:37 16:32 22:13 MCV MCH RDW Lymph % (Auto) [place] % (Auto) Chloride Carbon Dioxide BUN Creatinine Glucose POC Glucose 182 H 291 H 162 H Lipase 01/28/18 01/28/18 01/28/18 07:36 11:41 16:23 MCV MCH RDW Lymph % (Auto) [place] % (Auto) Chloride Carbon Dioxide BUN Creatinine Glucose POC Glucose 130 H 194 H 202 H Lipase Chest x-ray: report reviewed (Minimal residual opacity right lung base.), image reviewed Allied health notes reviewed: nursing
[2018-01-29] MEDS: SODIUM CHLORIDE FLUSH SYRINGE 10 ML IV SCH ×2 (00:01→10:19)
[2018-01-29] MEDS: HumaLOG SUB-Q SCH ×5 (00:02→23:27)
[2018-01-29] MEDS: HEPARIN SUB-Q SCH ×3 (06:14→23:27)
[2018-01-29] MEDS: SYNTHROID PO SCH (06:15)
[2018-01-29 06:36] LABS: Calcium 9.2 mg/dL (8.4-10.2)
[2018-01-29] MEDS: BETOPTIC S OS SCH ×2 (10:00→23:29)
[2018-01-29] MEDS: ALDACTONE PO SCH ×2 (10:17→23:27)
[2018-01-29] MEDS: CATAPRES PO SCH (10:17)
[2018-01-29] MEDS: LASIX PO SCH (10:17)
[2018-01-29] MEDS: DULCOLAX PR SCH (10:18)
[2018-01-29] MEDS: BABY ASPIRIN PO SCH (10:18)
[2018-01-29] MEDS: PROCARDIA XL PO SCH ×2 (10:18→23:27)
[2018-01-29] MEDS: GLUCOTROL PO SCH ×2 (10:18→16:12)
[2018-01-29] MEDS: DIOVAN PO SCH (10:18)
[2018-01-29] MEDS: APRESOLINE PO SCH ×2 (10:18→15:05)
[2018-01-29] MEDS: CLARITIN PO SCH (10:18)
[2018-01-29] MEDS: PEPCID PO SCH (10:19)
[2018-01-29] MEDS: LOPRESSOR PO SCH ×2 (10:19→23:26)
--- NOTE | 2018-01-29 12:58 | Discharge Summary ---
Providers - Providers Date of Admission: 01/25/18 06:06 Attending physician: ANA REBOLLEDO MD 01/25/18 06:06 Consult to Physician [CONS] Routine Comment: Consulting Provider: NURIA GONZALEZ Physician Instructions: Reason For Exam: cc Consult to Physician [CONS] Routine Comment: Consulting Provider: NIRANJAN WALDEN Physician Instructions: Reason For Exam: esrd on hd Primary care physician: GLASS MAKER Hospitalization Condition: Stable Hospital course: 62-year-old man with a history of hypertension, diabetes, hyperlipidemia, end- stage renal disease on dialysis Thursday, Thursday, Thursday, hypothyroidism who pw high BP and nausea. Her BP meds were optimized and she continued HD while in hospital. Her BP improved and she was dc home Diagnosis Hypertension urgency, malignant Diabetes of 2 End-stage renal disease on dialysis Hypothyroidism Disposition: DC-01 TO HOME OR SELFCARE Time spent for discharge: 33 minutes Core Measure Documentation - Palliative Care Palliative Care/ Comfort Measures: Not Applicable - Core Measures Any of the following diagnoses?: none Exam - Constitutional Vitals: Temp Pulse Resp BP Pulse Ox 98.0 F 57 L 20 183/79 99 01/29/18 06:27 01/29/18 06:27 01/29/18 06:27 01/29/18 06:27 01/29/18 06:27 General appearance: Present: no acute distress, well-nourished - EENT Eyes: Present: PERRL ENT: hearing intact, clear oral mucosa - Neck Neck: Present: supple, normal ROM - Respiratory Respiratory effort: normal Respiratory: bilateral: CTA - Cardiovascular Heart Sounds: Present: S1 & S2. Absent: rub, click - Extremities Extremities: pulses symmetrical, No edema Peripheral Pulses: within normal limits - Abdominal General gastrointestinal: Present: soft, non-tender, non-distended, normal bowel sounds Female genitourinary: Present: normal - Integumentary Integumentary: Present: clear, warm, dry - Musculoskeletal Musculoskeletal: gait normal, strength equal bilaterally - Psychiatric Psychiatric: appropriate mood/affect, intact judgment & insight - Neurologic Neurologic: CNII-XII intact, moves all extremities Plan Follow up with: PRIMARY CARE, [Primary Care Provider] - 3-5 Days Prescriptions: cloNIDine [Catapres] 0.1 mg PO Q12HR #60 tablet Clonidine HCl [Catapres] 0.3 mg PO BID #60 tablet Levofloxacin [Levaquin TAB] 500 mg PO ONCE #3 tablet Spironolactone [Aldactone] 25 mg PO BID #30 tablet Valsartan [Diovan] 320 mg PO QDAY #30 tablet
--- NOTE | 2018-01-29 13:50 | Progress Note ---
Assessment and Plan Patient alert, awake. resting on room air.O2 saturation 99%.No acute respiratory distress. Denies chest pain, shortness of breath or cough.Patient just came from dialysis. - Patient Problems (1) Community acquired pneumonia Current Visit: Yes Status: Acute Qualifiers: Laterality: right Lung location: lower lobe of lung Qualified Code(s): J18.1 - Lobar pneumonia, unspecified organism Plan to address problem: Patient afebrile, no leukocytosis If patient febrile recommend to start on I/V antibiotics. (2) Acute respiratory failure with hypoxemia Current Visit: No Status: Acute Plan to address problem: Improved. Patients O2 saturation 99% on room air. Repeat ABGs reported PO2 81 on room air. (3) ESRD on hemodialysis Current Visit: No Status: Chronic Plan to address problem: Management as per nephrology. Subjective Date of service: 01/29/18 Principal diagnosis: Hypertensive Urgency; ESRD on Dialysis; Hypothyroidism Interval history: Patient alert, awake. resting on room air.O2 saturation 99%.No acute respiratory distress. Denies chest pain, shortness of breath or cough.Patient just came from dialysis. Objective Vital Signs - 12hr 01/29/18 06:27 Temperature 98.0 F Pulse Rate 57 L Respiratory 20 Rate Blood Pressure 183/79 O2 Sat by Pulse 99 Oximetry Constitutional: no acute distress, alert Eyes: non-icteric ENT: oropharynx moist, other (mallampati 2 ) Neck: supple, no lymphadenopathy, no JVD, other (no thyromegaly) Effort: mildly labored Ascultation: Bilateral: diminished breath sounds, rhonchi Percussion: Bilateral: not dull Cardiovascular: regular rate and rhythm, murmur noted, other (S1S2 heard) Gastrointestinal: normoactive bowel sounds, soft, non-tender, non-distended, other (no HSM) Integumentary: other (poor turgor) Extremities: no cyanosis, no edema, pulses normal, no ischemia or petechiae Neurologic: normal mental status, non-focal exam, pupils equal and round, motor strength normal and Psychiatric: mood appropriate, affect normal CBC and BMP: 01/26/18 08:24 01/29/18 05:52 ABG, PT/INR, D-dimer: ABG POC ABG pH 7.468 (7.35-7.45) H 01/29/18 12:23 POC ABG pCO2 39.5 (35-45) 01/29/18 12:23 POC ABG pO2 81 (80-105) 01/29/18 12:23 POC ABG HCO3 28.6 01/29/18 12:23 POC ABG Total CO2 30 01/29/18 12:23 POC ABG O2 Sat 97 01/29/18 12:23 Abnormal lab findings: Abnormal Labs 01/24/18 01/24/18 01/25/18 22:45 22:45 07:53 MCV 73 L MCH 23 L RDW 23.2 H Lymph % (Auto) 36.8 H [place] % (Auto) 8.4 H POC ABG pH Potassium Chloride 95.3 L Carbon Dioxide 33 H BUN 57 H Creatinine 9.2 H Glucose 210 H POC Glucose 142 H Lipase 127 H 01/25/18 01/25/18 01/26/18 12:04 17:43 00:00 MCV MCH RDW Lymph % (Auto) [place] % (Auto) POC ABG pH Potassium Chloride Carbon Dioxide BUN Creatinine Glucose POC Glucose 247 H 109 H 219 H Lipase 01/26/18 01/26/18 01/26/18 08:12 08:15 08:24 MCV 75 L MCH 24 L RDW 23.0 H Lymph % (Auto) [place] % (Auto) 9.5 H POC ABG pH Potassium Chloride 96.2 L Carbon Dioxide 32 H BUN 28 H Creatinine 7.1 H Glucose 154 H POC Glucose 169 H Lipase 01/26/18 01/26/18 01/26/18 12:23 16:14 22:13 MCV MCH RDW Lymph % (Auto) [place] % (Auto) POC ABG pH Potassium Chloride Carbon Dioxide BUN Creatinine Glucose POC Glucose 153 H 63 L 172 H Lipase 01/27/18 01/27/18 01/27/18 07:37 16:32 22:13 MCV MCH RDW Lymph % (Auto) [place] % (Auto) POC ABG pH Potassium Chloride Carbon Dioxide BUN Creatinine Glucose POC Glucose 182 H 291 H 162 H Lipase 01/28/18 01/28/18 01/28/18 07:36 11:41 16:23 MCV MCH RDW Lymph % (Auto) [place] % (Auto) POC ABG pH Potassium Chloride Carbon Dioxide BUN Creatinine Glucose POC Glucose 130 H 194 H 202 H Lipase 01/28/18 01/29/18 01/29/18 21:42 05:52 08:33 MCV MCH RDW Lymph % (Auto) [place] % (Auto) POC ABG pH Potassium 5.5 H Chloride Carbon Dioxide BUN 56 H Creatinine 9.4 H Glucose 171 H POC Glucose 133 H 165 H Lipase 01/29/18 01/29/18 11:11 12:23 MCV MCH RDW Lymph % (Auto) [place] % (Auto) POC ABG pH 7.468 H Potassium Chloride Carbon Dioxide BUN Creatinine Glucose POC Glucose 199 H Lipase Allied health notes reviewed: nursing
[2018-01-29] MEDS: LATANOPROST 0.005% OS SCH (17:24)
--- NOTE | 2018-01-29 18:09 | Progress Note ---
Assessment and Plan - Patient Problems (1) Accelerated hypertension Current Visit: No Status: Acute Plan to address problem: Blood pressure control has improved on increased dose of clonidine. I agree with discharge plan for after dialysis. Discussed with patient (2) Dizziness Current Visit: No Status: Acute Plan to address problem: Dizziness resolved (3) ESRD (end stage renal disease) on dialysis Current Visit: No Status: Acute Plan to address problem: Hemodialysis on a Thursday, Thursday and Thursday schedule. Re-establish dry weight. Follow up in the outpatient dialysis clinic on Thursday (4) Hypertensive chronic kidney disease with stage 5 chronic kidney disease or end stage renal disease Current Visit: No Status: Acute Plan to address problem: Instructed to give patient antihypertensive medications as scheduled and then we will monitor blood pressure (5) Type 2 diabetes mellitus with diabetic chronic kidney disease Current Visit: No Status: Chronic Plan to address problem: Blood sugar management by primary attending (6) Anemia in chronic kidney disease (CKD) Current Visit: Yes Status: Acute Plan to address problem: Give erythropoietin on dialysis Subjective Date of service: 01/29/18 Principal diagnosis: Hypertensive Urgency; ESRD on Dialysis; Hypothyroidism Interval history: Patient seen lying in bed on dialysis. She has no complaints. No chest pain nausea or vomiting. No headache or shortness of breath Blood pressure 124/69 pulse 57 ultrafiltration 3.5 L Q 350/700 Objective - Exam Narrative Exam: Middle-aged -[place] female In bed in no acute distress HEENT: NCAT, pink oral mucous membrane Neck: Supple, no venous distention CVS: S1S2 RRR with no murmur, rub or gallop Chest: Clear to auscultation Abdomen: Protuberant, soft, nontender, no organomegaly, bowel sounds are present Extremities: No edema clubbing Skin warm and dry, no rash Neuro: Awake, alert no focal deficits - Vital Signs Vital signs: Vital Signs - 12hr 01/29/18 01/29/18 01/29/18 06:27 15:30 15:45 Temperature 98.0 F 98.2 F Pulse Rate 57 L 57 L 54 L Respiratory 20 18 Rate Blood Pressure 183/79 169/75 168/75 O2 Sat by Pulse 99 Oximetry 01/29/18 01/29/18 01/29/18 16:00 16:15 16:30 Temperature Pulse Rate 56 L 58 L 60 Respiratory Rate Blood Pressure 139/75 148/76 149/68 O2 Sat by Pulse Oximetry 01/29/18 01/29/18 16:45 17:00 Temperature Pulse Rate 54 L 47 L Respiratory Rate Blood Pressure 128/68 142/70 O2 Sat by Pulse Oximetry - Lab 01/26/18 08:24 01/29/18 05:52 Most recent lab results Calcium 9.2 mg/dL (8.4-10.2) 01/29/18 05:52
[2018-01-29] MEDS ORDERED: NACL 0.9 (PRIMING MACHINE ONLY DIALYSIS) MC ONE (20:32)
[2018-01-30] MEDS: APRESOLINE PO SCH ×3 (01:04→15:18)
[2018-01-30] MEDS: CATAPRES PO SCH ×2 (01:05→09:51)
[2018-01-30] MEDS: SODIUM CHLORIDE FLUSH SYRINGE 10 ML IV SCH ×2 (01:05→10:05)
[2018-01-30] MEDS: SYNTHROID PO SCH (06:14)
[2018-01-30] MEDS: HEPARIN SUB-Q SCH ×2 (06:14→15:15)
[2018-01-30] MEDS: HumaLOG SUB-Q SCH ×2 (09:44→12:59)
[2018-01-30] MEDS: DIOVAN PO SCH (09:46)
[2018-01-30] MEDS: PEPCID PO SCH (09:46)
[2018-01-30] MEDS: ALDACTONE PO SCH (09:49)
[2018-01-30] MEDS: BABY ASPIRIN PO SCH (09:51)
[2018-01-30] MEDS: LASIX PO SCH (09:51)
[2018-01-30] MEDS: GLUCOTROL PO SCH (09:51)
[2018-01-30] MEDS: PROCARDIA XL PO SCH (09:52)
[2018-01-30] MEDS: CLARITIN PO SCH (09:52)
[2018-01-30] MEDS: BETOPTIC S OS SCH (10:04)
[2018-01-30] MEDS: DULCOLAX PR SCH (10:05)
[2018-01-30] MEDS: LOPRESSOR PO SCH (11:12)
--- NOTE | 2018-01-30 13:35 | Progress Note ---
Assessment and Plan Hypertensive emergency with associated dizziness and possible near syncope. End-stage renal disease, on dialysis. Diabetes. Hypertension. Hypothyroidism. Elevated serum lipase. History of anemia, not so much today. - continue HD/UF M/W/F - off cardene drip - repeat CXR tomorrow re: RLL infiltrate - follow off AB's - wean oxygen to keep O2 Sats > 90% - continue GI & VTE prophylaxis - continue oral antihypertensives - continue levoxyl for hypothyroidism - flu & pneumovax addressed per protocol - get PT/OT to evaluate and treat - continue other care per attending / other consultants ... re-evaluate in am & prn .. 25' Subjective Date of service: 01/30/18 Principal diagnosis: Hypertensive Urgency; ESRD on Dialysis; Hypothyroidism Interval history: Patient is seen today for: Hypertensive Urgency; ESRD on Dialysis Seen and examined at bedside; 24hour events reviewed; nursing and respiratory care staff consulted; no adverse overnight events reported to me; resting peacefully in bed; Objective Vital Signs - 12hr 01/30/18 01/30/18 01/30/18 05:15 09:49 10:00 Temperature 97.9 F Pulse Rate 54 L 55 L 61 Respiratory 18 Rate Blood Pressure 140/68 145/72 O2 Sat by Pulse 99 Oximetry Constitutional: no acute distress, alert Eyes: non-icteric ENT: oropharynx moist, other (mallampati 2 ) Neck: supple, no lymphadenopathy, no JVD, other (no thyromegaly) Effort: mildly labored Ascultation: Bilateral: diminished breath sounds, rhonchi Percussion: Bilateral: not dull Cardiovascular: regular rate and rhythm, murmur noted, other (S1S2 heard) Gastrointestinal: normoactive bowel sounds, soft, non-tender, non-distended, other (no HSM) Integumentary: other (poor turgor) Extremities: no cyanosis, no edema, pulses normal, no ischemia or petechiae Neurologic: normal mental status, non-focal exam, pupils equal and round, motor strength normal and Psychiatric: mood appropriate, affect normal CBC and BMP: 01/26/18 08:24 01/29/18 05:52 ABG, PT/INR, D-dimer: ABG POC ABG pH 7.468 (7.35-7.45) H 01/29/18 12:23 POC ABG pCO2 39.5 (35-45) 01/29/18 12:23 POC ABG pO2 81 (80-105) 01/29/18 12:23 POC ABG HCO3 28.6 01/29/18 12:23 POC ABG Total CO2 30 01/29/18 12:23 POC ABG O2 Sat 97 01/29/18 12:23 Abnormal lab findings: Abnormal Labs 01/24/18 01/24/18 01/25/18 22:45 22:45 07:53 MCV 73 L MCH 23 L RDW 23.2 H Lymph % (Auto) 36.8 H [place] % (Auto) 8.4 H POC ABG pH Potassium Chloride 95.3 L Carbon Dioxide 33 H BUN 57 H Creatinine 9.2 H Glucose 210 H POC Glucose 142 H Lipase 127 H 01/25/18 01/25/18 01/26/18 12:04 17:43 00:00 MCV MCH RDW Lymph % (Auto) [place] % (Auto) POC ABG pH Potassium Chloride Carbon Dioxide BUN Creatinine Glucose POC Glucose 247 H 109 H 219 H Lipase 01/26/18 01/26/18 01/26/18 08:12 08:15 08:24 MCV 75 L MCH 24 L RDW 23.0 H Lymph % (Auto) [place] % (Auto) 9.5 H POC ABG pH Potassium Chloride 96.2 L Carbon Dioxide 32 H BUN 28 H Creatinine 7.1 H Glucose 154 H POC Glucose 169 H Lipase 01/26/18 01/26/18 01/26/18 12:23 16:14 22:13 MCV MCH RDW Lymph % (Auto) [place] % (Auto) POC ABG pH Potassium Chloride Carbon Dioxide BUN Creatinine Glucose POC Glucose 153 H 63 L 172 H Lipase 01/27/18 01/27/18 01/27/18 07:37 16:32 22:13 MCV MCH RDW Lymph % (Auto) [place] % (Auto) POC ABG pH Potassium Chloride Carbon Dioxide BUN Creatinine Glucose POC Glucose 182 H 291 H 162 H Lipase 01/28/18 01/28/18 01/28/18 07:36 11:41 16:23 MCV MCH RDW Lymph % (Auto) [place] % (Auto) POC ABG pH Potassium Chloride Carbon Dioxide BUN Creatinine Glucose POC Glucose 130 H 194 H 202 H Lipase 01/28/18 01/29/18 01/29/18 21:42 05:52 08:33 MCV MCH RDW Lymph % (Auto) [place] % (Auto) POC ABG pH Potassium 5.5 H Chloride Carbon Dioxide BUN 56 H Creatinine 9.4 H Glucose 171 H POC Glucose 133 H 165 H Lipase 01/29/18 01/29/18 01/29/18 11:11 12:23 22:06 MCV MCH RDW Lymph % (Auto) [place] % (Auto) POC ABG pH 7.468 H Potassium Chloride Carbon Dioxide BUN Creatinine Glucose POC Glucose 199 H 275 H Lipase 01/30/18 01/30/18 07:56 12:57 MCV MCH RDW Lymph % (Auto) [place] % (Auto) POC ABG pH Potassium Chloride Carbon Dioxide BUN Creatinine Glucose POC Glucose 123 H 227 H Lipase Allied health notes reviewed: nursing
--- NOTE | 2018-01-30 15:10 | Progress Note ---
Assessment and Plan - Patient Problems (1) Accelerated hypertension Current Visit: No Status: Acute Plan to address problem: Blood pressure control has improved on increased dose of clonidine. Okay to discharge from renal perspective. Discussed with patient. Discussed with RN (2) Dizziness Current Visit: No Status: Acute Plan to address problem: Dizziness resolved (3) ESRD (end stage renal disease) on dialysis Current Visit: No Status: Acute Plan to address problem: Hemodialysis on a Thursday, Thursday and Thursday schedule. Re-establish dry weight. Follow up in the outpatient dialysis clinic on Thursday (4) Hypertensive chronic kidney disease with stage 5 chronic kidney disease or end stage renal disease Current Visit: No Status: Acute Plan to address problem: Instructed to give patient antihypertensive medications as scheduled and then we will monitor blood pressure (5) Type 2 diabetes mellitus with diabetic chronic kidney disease Current Visit: No Status: Chronic Plan to address problem: Blood sugar management by primary attending (6) Anemia in chronic kidney disease (CKD) Current Visit: Yes Status: Acute Plan to address problem: Give erythropoietin on dialysis Subjective Date of service: 01/30/18 Principal diagnosis: Hypertensive Urgency; ESRD on Dialysis; Hypothyroidism Interval history: Patient seen lying in bed. She has no complaints. No chest pain nausea or vomiting. No headache or shortness of breath Objective - Exam Narrative Exam: Middle-aged -[place] female In bed in no acute distress HEENT: NCAT, pink oral mucous membrane Neck: Supple, no venous distention CVS: S1S2 RRR with no murmur, rub or gallop Chest: Clear to auscultation Abdomen: Protuberant, soft, nontender, no organomegaly, bowel sounds are present Extremities: No edema clubbing Skin warm and dry, no rash Neuro: Awake, alert no focal deficits - Vital Signs Vital signs: Vital Signs - 12hr 01/30/18 01/30/18 01/30/18 05:15 09:41 09:49 Temperature 97.9 F Pulse Rate 54 L 55 L Respiratory 18 Rate Blood Pressure 140/68 145/72 145/72 O2 Sat by Pulse 99 Oximetry 01/30/18 01/30/18 10:00 12:45 Temperature 97.8 F Pulse Rate 61 57 L Respiratory 20 Rate Blood Pressure 135/69 O2 Sat by Pulse 99 Oximetry - Lab 01/26/18 08:24 01/29/18 05:52 Most recent lab results Calcium 9.2 mg/dL (8.4-10.2) 01/29/18 05:52
[2018-01-30 15:17] VITALS: BP 127/62
== END 2018-01-30 16:50 | disposition home health service (06) | DRG 193 ==
LOC: ED 22:13 → CC1 01-25 06:06 → 3A 01-25 10:43
PROVIDERS: ADMIT Internal Medicine; ATTEND Internal Medicine
PROC: 5A1D70Z Performance of Urinary Filtration, Intermittent, Less than 6 Hours Per Day (ICD-10-PCS; 2018-01-25)
PROC: 5A1D70Z Performance of Urinary Filtration, Intermittent, Less than 6 Hours Per Day (ICD-10-PCS; 2018-01-27)
PROC: 4A033R1 Measurement of Arterial Saturation, Peripheral, Percutaneous Approach (ICD-10-PCS; principal; 2018-01-29)
PROC: 5A1D70Z Performance of Urinary Filtration, Intermittent, Less than 6 Hours Per Day (ICD-10-PCS; 2018-01-29)
DX: J18.9 Pneumonia, unspecified organism (principal); J96.01 Acute respiratory failure with hypoxia; N18.6 End stage renal disease; I12.0 Hypertensive chronic kidney disease with stage 5 chronic kidney disease or end stage renal disease; I16.1 Hypertensive emergency; E89.0 Postprocedural hypothyroidism; D63.1 Anemia in chronic kidney disease; I16.0 Hypertensive urgency; E11.22 Type 2 diabetes mellitus with diabetic chronic kidney disease; Z99.2 Dependence on renal dialysis; Z95.828 Presence of other vascular implants and grafts; Z79.899 Other long term (current) drug therapy; Z79.84 Long term (current) use of oral hypoglycemic drugs; Z83.3 Family history of diabetes mellitus
CPT/HCPCS: 36415; 36600; 71045; 80048; 80053; 82803; 82962; 83690; 85025; 86140; 93005; 93010; 96374; A9270-GY; J0360; J1644; J1650; J1815; J2405; J7030

== ENCOUNTER 2018-10-07 18:43 | Emergency (ER) | payer MEDICARE ==
--- NOTE | 2018-10-07 18:57 | Emergency Department Report ---
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 Due to findings the following was ordered: labs, ekg, cxr ED Disposition for MSE Condition: Stable
[2018-10-07 19:59] LABS: Basophils % (Auto) 0.8 % (0.0-1.8); Eosinophils # (Auto) 0.2 K/mm3 (0.0-0.4); Eosinophils % (Auto) 2.4 % (0.0-4.3); Hematocrit 33.2 % (30.3-42.9); Hemoglobin 10.5 gm/dl (10.1-14.3); Lymphocytes # (Auto) 0.9 K/mm3 (1.2-5.4); Lymphocytes % (Auto) 14.6 % (13.4-35.0); Mean Corpuscular HGB Conc 32 % (30-34); Mean Corpuscular Volume 76 fl (79-97); Monocytes # (Auto) 0.5 K/mm3 (0.0-0.8); Monocytes % (Auto) 8.7 % (0.0-7.3); Platelet Count 162 K/mm3 (140-440); Red Blood Count 4.39 M/mm3 (3.65-5.03)
[2018-10-07 20:07] LABS: Red Cell Distribution Width 22.8 % (13.2-15.2)
--- NOTE | 2018-10-07 20:46 | XRay Report ---
PROCEDURE: XR CHEST ROUTINE 2V TECHNIQUE: PA and lateral chest radiographs were obtained. HISTORY: cough COMPARISONS: 02/21/2018. FINDINGS: Heart: Moderate cardiomegaly is noted which is stable since the prior study. Mediastinum/Vessels: Normal. Lungs/Pleural space: Diffuse prominence of interstitial markings is again noted. There are no conflu ent infiltrates or mass lesions. Pleural spaces are clear.. Bony thorax: No acute osseous abnormality. IMPRESSION: Diffuse prominence of interstitial markings are again noted suspicious for interstitial fibrosis. Any superimposed interstitial edema cannot be excluded. Moderate degree cardiomegaly. This document is electronically signed by Uche Lr MD., October 07 2018 08:44:24 PM ET
[2018-10-07] MEDS ORDERED: CATAPRES PO ONE (22:01)
[2018-10-07] MEDS ORDERED: APRESOLINE PO ONE (22:01)
[2018-10-07] MEDS ORDERED: LOPRESSOR PO ONE (22:01)
[2018-10-07 22:08] LABS: Albumin 3.8 g/dL (3.9-5); Calcium 8.4 mg/dL (8.4-10.2)
--- NOTE | 2018-10-07 22:21 | Emergency Department Report ---
ED General Adult HPI - General Chief complaint: Weakness Stated complaint: WEAK/COUGH/HEADACHE Time Seen by Provider: 10/07/18 18:53 Source: patient Mode of arrival: Wheelchair Limitations: Other - History of Present Illness Initial comments: Mrs. Schroeder is a 63 yo female with hx of ESRD MWF HD, pneumonia, cataracts, pancreatitis who presents with generalized weakness and cough for 2 days. Has had headache associated with right eye surgery for 2-3 months. Mild to moderate symptoms. Followed by Dr. Teague. Last dialysis on yesterday. Family member bedside provided language interpretation. Mrs. Schroeder speaks a language dialect of [facility]. Has had trouble sleeping due to headache. -: Gradual, days(s) (2), month(s) (2-3) Location: head Severity scale (0 -10): 0 Consistency: constant Improves with: none Worsens with: cold therapy Associated Symptoms: cough, malaise - Related Data Home Medications Medication Instructions Recorded Confirmed Last Taken Cetirizine HCl 10 mg PO DAILY MDD 10 mg 09/01/16 02/22/18 06/10/17 Furosemide [Lasix TAB] 80 mg PO QDAY MDD 80 mg 09/01/16 02/22/18 06/10/17 Latanoprost 0.005% 1 drop OS QPM #0 09/02/16 02/22/18 06/10/17 Betaxolol HCl [Betaxolol HCl 0.5%] 1 drop OS BID 06/25/17 02/22/18 Unknown Levothyroxine (Nf) [Synthroid (Nf)] 200 mcg PO QDAY 06/25/17 02/22/18 Unknown Previous Rx's Medication Instructions Recorded Last Taken Type Aspirin [Aspirin BABY CHEW TAB] 81 mg PO QDAY #30 tab.chew 12/11/17 Unknown Rx AtorvaSTATin [Lipitor] 40 mg PO QHS #30 tablet 12/11/17 Unknown Rx NIFEdipine XL [Procardia Xl] 90 mg PO BID #60 tablet 12/11/17 Unknown Rx glipiZIDE [Glucotrol] 5 mg PO BID #30 MDD 10 mg 12/11/17 06/10/17 Rx hydrALAZINE [Apresoline TAB] 100 mg PO TID #30 tab 12/11/17 Unknown Rx Spironolactone [Aldactone] 25 mg PO BID #30 tablet 01/27/18 Unknown Rx Valsartan [Diovan] 320 mg PO QDAY #30 tablet 01/27/18 Unknown Rx Clonidine HCl [Catapres] 0.3 mg PO Q8H #90 tablet 03/11/18 Unknown Rx Metoprolol [Lopressor TAB] 75 mg PO BID #60 tablet 03/11/18 Unknown Rx Minoxidil [Loniten] 5 mg PO QDAY #30 tablet 03/11/18 Unknown Rx Meclizine [Antivert] 25 mg PO TID PRN #30 tablet 06/27/18 Unknown Rx Ondansetron [Zofran Odt] 4 mg PO Q8HR PRN #20 tab.rapdis 06/27/18 Unknown Rx HYDROcodone/APAP 5-325 [Petroleum 1 each PO Q6HR PRN #10 tablet 10/07/18 Unknown Rx 5/325] Allergies Allergy/AdvReac Type Severity Reaction Status Date / Time No Known Allergies Allergy Verified 10/07/18 18:44 ED Review of Systems ROS: Stated complaint: WEAK/COUGH/HEADACHE Other details as noted in HPI Comment: All other systems reviewed and negative Constitutional: malaise. denies: fever Respiratory: cough Cardiovascular: denies: chest pain ED Past Medical Hx - Past Medical History Previous Medical History?: Yes Hx Hypertension: Yes Hx Heart Attack/AMI: No Hx Congestive Heart Failure: No Hx Diabetes: Yes Hx Renal Disease: Yes (ESRD Thursday, Thursday, and Thursday) Hx Seizures: No Hx Asthma: No Hx COPD: No Hx HIV: No Additional medical history: anemia, transaminasemia,catarats,pancreatitis, pnuemonia. thyroid - Surgical History Past Surgical History?: Yes Additional Surgical History: thyroidectomy. eye surgery. abd for dialysis - Social History Smoking Status: Never Smoker Substance Use Type: None - Medications Home Medications: Home Medications Medication Instructions Recorded Confirmed Last Taken Type Cetirizine HCl 10 mg PO DAILY MDD 10 mg 09/01/16 02/22/18 06/10/17 History Furosemide [Lasix TAB] 80 mg PO QDAY MDD 80 mg 09/01/16 02/22/18 06/10/17 History Latanoprost 0.005% 1 drop OS QPM #0 09/02/16 02/22/18 06/10/17 History Betaxolol HCl [Betaxolol HCl 0.5%] 1 drop OS BID 06/25/17 02/22/18 Unknown History Levothyroxine (Nf) [Synthroid (Nf)] 200 mcg PO QDAY 06/25/17 02/22/18 Unknown History Aspirin [Aspirin BABY CHEW TAB] 81 mg PO QDAY #30 tab.chew 12/11/17 02/22/18 Unknown Rx AtorvaSTATin [Lipitor] 40 mg PO QHS #30 tablet 12/11/17 02/22/18 Unknown Rx NIFEdipine XL [Procardia Xl] 90 mg PO BID #60 tablet 12/11/17 02/22/18 Unknown Rx glipiZIDE [Glucotrol] 5 mg PO BID #30 MDD 10 mg 12/11/17 02/22/18 06/10/17 Rx hydrALAZINE [Apresoline TAB] 100 mg PO TID #30 tab 12/11/17 02/22/18 Unknown Rx Spironolactone [Aldactone] 25 mg PO BID #30 tablet 01/27/18 02/22/18 Unknown Rx Valsartan [Diovan] 320 mg PO QDAY #30 tablet 01/27/18 02/22/18 Unknown Rx Clonidine HCl [Catapres] 0.3 mg PO Q8H #90 tablet 03/11/18 02/22/18 Unknown Rx Metoprolol [Lopressor TAB] 75 mg PO BID #60 tablet 03/11/18 Unknown Rx Minoxidil [Loniten] 5 mg PO QDAY #30 tablet 03/11/18 Unknown Rx Meclizine [Antivert] 25 mg PO TID PRN #30 tablet 06/27/18 Unknown Rx Ondansetron [Zofran Odt] 4 mg PO Q8HR PRN #20 tab.rapdis 06/27/18 Unknown Rx HYDROcodone/APAP 5-325 [Petroleum 1 each PO Q6HR PRN #10 tablet 10/07/18 Unknown Rx 5/325] ED Physical Exam - General Limitations: Other General appearance: alert, in no apparent distress - Head Head exam: Present: atraumatic, normocephalic - Eye Eye exam: Present: conjunctival injection (right eye) - ENT ENT exam: Present: mucous membranes moist - Neck Neck exam: Present: normal inspection - Respiratory Respiratory exam: Present: normal lung sounds bilaterally. Absent: respiratory distress, wheezes, rales, rhonchi - Cardiovascular Cardiovascular Exam: Present: regular rate, normal rhythm. Absent: systolic murmur, diastolic murmur, rubs, gallop - GI/Abdominal GI/Abdominal exam: Present: soft, normal bowel sounds. Absent: distended, tenderness, guarding, rebound - Extremities Exam Extremities exam: Present: normal inspection - Back Exam Back exam: Present: normal inspection - Neurological Exam Neurological exam: Present: alert, oriented X3 - Psychiatric Psychiatric exam: Present: normal affect, normal mood - Skin Skin exam: Present: warm, dry, intact, normal color. Absent: rash ED Course Vital Signs 10/07/18 10/07/18 18:54 21:51 Temperature 98.4 F 98.7 F Pulse Rate 68 66 Respiratory 16 12 Rate Blood Pressure 200/81 Blood Pressure 223/92 [Right] O2 Sat by Pulse 96 94 Oximetry ED Medical Decision Making - Lab Data Result diagrams: 10/07/18 19:30 10/07/18 19:30 Laboratory Results - last 24 hr 10/07/18 10/07/18 19:30 19:30 WBC 6.3 RBC 4.39 Hgb 10.5 Hct 33.2 MCV 76 L MCH 24 L MCHC 32 RDW 22.8 H Plt Count 162 Lymph % (Auto) 14.6 [place] % (Auto) 8.7 H Eos % (Auto) 2.4 Baso % (Auto) 0.8 Lymph # 0.9 L [place] # 0.5 Eos # 0.2 Baso # 0.0 Seg Neutrophils % 73.5 H Seg Neutrophils # 4.6 Sodium 139 Potassium 4.9 Chloride 95.5 L Carbon Dioxide 30 Anion Gap 18 BUN 40 H Creatinine 7.0 H Estimated GFR 7 BUN/Creatinine Ratio 6 Glucose 164 H Calcium 8.4 Phosphorus 5.70 H Magnesium 2.20 Total Bilirubin 0.50 AST 27 ALT 11 Alkaline Phosphatase 116 Total Protein 7.5 Albumin 3.8 L Albumin/Globulin Ratio 1.0 - Radiology Data Radiology results: report reviewed According to radiology report, chest radiograph revealed findings of interstit ial fibrosis. No gross infiltrate - Medical Decision Making Mrs. Schroeder presents with generalized weakness, cough, headache. No indication of sepsis, bacteremia or pneumonia. I suspect headache related to recent eye surgery as explained by family member. No acute emergent illness evident with the exception of likely mild bronchitis. Blood pressure addressed with home medications. Discharged home with medication Petroleum for pain relief. The patient and family member understand to follow-up with PCP Dr. Teague. Critical care attestation.: If time is entered above; I have spent that time in minutes in the direct care of this critically ill patient, excluding procedure time. ED Disposition Clinical Impression: Malaise, Headache, Bronchitis, End stage renal disease, Hypertensive urgency, malignant, Weakness generalized Disposition: TO HOME OR SELFCARE Is pt being admited?: No Does the pt Need Aspirin: No Condition: Stable Additional Instructions: Please see Dr. Teague tomorrow. Prescriptions: HYDROcodone/APAP 5-325 [Petroleum 5/325] 1 each PO Q6HR PRN #10 tablet PRN Reason: Pain Referrals: NIRANJAN TEAGUE MD [Staff Physician] - [facility]
[2018-10-07] MEDS ORDERED: NORCO 5/325 PO ONE (22:25)
[2018-10-07] MEDS ORDERED: TYLENOL PO ONE (22:26)
[2018-10-07 23:50] VITALS: BP 176/73
== END 2018-10-08 00:06 | disposition home or self-care (01) ==
LOC: ED 18:43
DX: J40 Bronchitis, not specified as acute or chronic (principal); E11.22 Type 2 diabetes mellitus with diabetic chronic kidney disease; I12.0 Hypertensive chronic kidney disease with stage 5 chronic kidney disease or end stage renal disease; N18.6 End stage renal disease; Z99.2 Dependence on renal dialysis
CPT/HCPCS: 36415; 71046; 80053; 83735; 84100; 85025; 93005; 93010

== ENCOUNTER 2020-07-21 14:42 | Inpatient (IN) | payer MEDICARE ==
[2020-07-21 17:13] LABS: Basophils % (Auto) 0.6 % (0.0-1.8); Eosinophils % (Auto) 0.7 % (0.0-4.3); Hematocrit 34.5 % (30.3-42.9); Hemoglobin 11.1 gm/dl (10.1-14.3); Lymphocytes # (Auto) 1.8 K/mm3 (1.2-5.4); Lymphocytes % (Auto) 27.7 % (13.4-35.0); Mean Corpuscular HGB Conc 32 % (30-34); Mean Corpuscular Volume 79 fl (79-97); Monocytes # (Auto) 0.5 K/mm3 (0.0-0.8); Monocytes % (Auto) 7.4 % (0.0-7.3); Platelet Count 140 K/mm3 (140-440); Red Blood Count 4.38 M/mm3 (3.65-5.03); Red Cell Distribution Width 18.3 % (13.2-15.2)
[2020-07-21 17:34] LABS: Albumin 3.9 g/dL (3.9-5); Calcium 10.3 mg/dL (8.4-10.2)
[2020-07-21] MEDS ORDERED: CALCIUM GLUCONATE 1,000 MG in SODIUM CHLORIDE 0.9% 100 ML IV ONE (18:20)
[2020-07-21] MEDS ORDERED: ALBUTEROL 2.5 MG/3 ML NEBU IH ONE (18:21)
[2020-07-21] MEDS ORDERED: DEXTROSE 50% IN WATER (25GM) 50 ML SYRINGE IV ONE (18:21)
--- NOTE | 2020-07-21 18:30 | Emergency Department Report ---
HPI - General Chief Complaint: Weakness Time Seen by Provider: 07/21/20 18:13 - HPI HPI: This is a 65-year-old female who presents to the emergency department via EMS from dialysis and the patient was brought here when they would not perform dialysis secondary to an extremely elevated blood pressure. The patient has a history of diabetes, hypertension, anemia, previous thyroidectomy, and his end- stage renal disease on hemodialysis on Thursday/Thursday/Thursday. The patient last had dialysis on Thursday. The patient does not speak much [place] so I spoke to the patient's daughter who gave me her history. The retort unloader is Dr. Teague. ED Past Medical Hx - Past Medical History Previous Medical History?: Yes Hx Hypertension: Yes Hx Heart Attack/AMI: No Hx Congestive Heart Failure: No Hx Diabetes: Yes Hx Renal Disease: Yes (ESRD Thursday, Thursday, and Thursday) Hx Seizures: No Hx Asthma: No Hx COPD: No Hx HIV: No Additional medical history: anemia, transaminasemia,catarats,pancreatitis, pnuemonia. thyroid - Surgical History Past Surgical History?: Yes Additional Surgical History: thyroidectomy. eye surgery. abd for dialysis - Social History Smoking Status: Never Smoker - Medications Home Medications: Home Medications Medication Instructions Recorded Confirmed Last Taken Type Furosemide [Lasix TAB] 80 mg PO QDAY MDD 80 mg 09/01/16 12/11/18 06/10/17 History Latanoprost 0.005% 1 drop OS QPM #0 09/02/16 12/11/18 06/10/17 History Betaxolol HCl [Betaxolol HCl 0.5%] 1 drop OS BID 06/25/17 12/11/18 Unknown History Levothyroxine (Nf) [Synthroid (Nf)] 200 mcg PO QDAY 06/25/17 12/11/18 Unknown History AtorvaSTATin [Lipitor] 40 mg PO QHS #30 tablet 12/11/17 12/11/18 Unknown Rx glipiZIDE [Glucotrol] 5 mg PO BID #30 MDD 10 mg 12/11/17 12/11/18 06/10/17 Rx hydrALAZINE [Apresoline TAB] 100 mg PO TID #30 tab 12/11/17 12/11/18 Unknown Rx Spironolactone [Aldactone] 25 mg PO BID #30 tablet 01/27/18 12/11/18 Unknown Rx Insulin Detemir (Nf) [Levemir 30 unit SQ QHS PRN 12/11/18 12/11/18 Unknown History Flextouch (Nf)] Temazepam (Nf) [Restoril (Nf)] 30 mg PO QHS PRN 12/11/18 12/11/18 Unknown History Aspirin [Aspirin BABY CHEW TAB] 81 mg PO QDAY #30 tab.chew 12/12/18 Unknown Rx Metoprolol [Lopressor TAB] 50 mg PO BID #60 tablet 12/12/18 Unknown Rx NIFEdipine [Nifedipine ER] 60 mg PO BID #60 tablet.er 12/12/18 Unknown Rx cloNIDine [Catapres] 0.1 mg PO BID #60 tablet 12/12/18 Unknown Rx cloNIDine [Catapres] 0.1 mg PO Q12HR #60 tablet 12/12/18 Unknown Rx lisinopriL [Zestril TAB] 40 mg PO QDAY #30 tablet 12/12/18 Unknown Rx ED Review of Systems ROS: Stated complaint: HYPERTENSION Other details as noted in HPI Comment: All other systems reviewed and negative Constitutional: weakness. denies: chills, fever Respiratory: shortness of breath Cardiovascular: denies: chest pain Gastrointestinal: denies: abdominal pain, nausea, vomiting Physical Exam - Physical Exam Vital Signs: Vital Signs 07/21/20 15:14 Temperature 97.5 F L Pulse Rate 53 L Respiratory 16 Rate Blood Pressure 228/92 [Right] O2 Sat by Pulse 97 Oximetry Physical Exam: GENERAL: The patient is well-developed well-nourished. HENT: Normocephalic. Atraumatic. Patient has moist mucous membranes. EYES: Extraocular motions are intact. NECK: Supple. Trachea is midline. CHEST/LUNGS: Coarse breath sounds throughout the chest. No tachypnea or accessory muscle use. There is no respiratory distress noted. HEART/CARDIOVASCULAR: Regular. There is no tachycardia. There is no murmur. ABDOMEN: Abdomen is soft, nontender. Patient has normal bowel sounds. SKIN: Skin is warm and dry. NEURO: The patient is awake, alert, and cooperative. The patient has no focal neurologic deficits. Normal speech. MUSCULOSKELETAL: There is no tenderness or deformity. There is a patent appearing left upper extremity dialysis fistula. ED Course Vital Signs 07/21/20 15:14 Temperature 97.5 F L Pulse Rate 53 L Respiratory 16 Rate Blood Pressure 228/92 [Right] O2 Sat by Pulse 97 Oximetry - Consultations Consultation #1: 07/21/20 18:[address] Milian, retort unloader on for Dr. Teague. He is aware of the patient's hypertensive issues, severe hyperkalemia, and will arrange for the patient to get stat dialysis this evening. He has been placed as a consult and has asked for us to call in the dialysis nurse. ED Medical Decision Making - Lab Data Result diagrams: 07/21/20 16:54 07/21/20 16:54 Lab Results 07/21/20 07/21/20 07/21/20 Range/Units 15:13 16:54 16:54 WBC 6.6 (4.5-11.0) K/mm3 RBC 4.38 (3.65-5.03) M/mm3 Hgb 11.1 (10.1-14.3) gm/dl Hct 34.5 (30.3-42.9) % MCV 79 (79-97) fl MCH 25 L (28-32) pg MCHC 32 (30-34) % RDW 18.3 H (13.2-15.2) % Plt Count 140 (140-440) K/mm3 Lymph % (Auto) 27.7 (13.4-35.0) % [place] % (Auto) 7.4 H (0.0-7.3) % Eos % (Auto) 0.7 (0.0-4.3) % Baso % (Auto) 0.6 (0.0-1.8) % Lymph # (Auto) 1.8 (1.2-5.4) K/mm3 [place] # (Auto) 0.5 (0.0-0.8) K/mm3 Eos # (Auto) 0.0 (0.0-0.4) K/mm3 Baso # (Auto) 0.0 (0.0-0.1) K/mm3 Seg Neutrophils % 63.6 (40.0-70.0) % Seg Neutrophils # 4.2 (1.8-7.7) K/mm3 Sodium 135 L (137-145) mmol/L Potassium 8.0 H* (3.6-5.0) mmol/L Chloride 92.4 L (98-107) mmol/L Carbon Dioxide 23 (22-30) mmol/L Anion Gap 28 mmol/L BUN 89 H (7-17) mg/dL Creatinine 11.8 H (0.6-1.2) mg/dL Estimated GFR 4 ml/min BUN/Creatinine Ratio 8 % Glucose 250 H (65-100) mg/dL POC Glucose 228 H (70-105) mg/dL Calcium 10.3 H (8.4-10.2) mg/dL Total Bilirubin 0.50 (0.1-1.2) mg/dL AST 57 H (5-40) units/L ALT 27 (7-56) units/L Alkaline Phosphatase 215 H (35-129) units/L Total Protein 7.9 (6.3-8.2) g/dL Albumin 3.9 (3.9-5) g/dL Albumin/Globulin Ratio 1.0 % - EKG Data -: EKG Interpreted by Me EKG shows normal: sinus rhythm, axis, intervals (Prolonged CT and QT intervals), QRS complexes (LVH), ST-T waves (Anterior T waves are starting to peak) Rate: bradycardia (53 bpm) - EKG Data When compared to previous EKG there are: no significant change (other than anterior T waves starting to peak on current EKG) Interpretation: unchanged when compared t (12/09/18) - Radiology Data Radiology results: image reviewed interpreted by me: Chest x-ray shows moderate cardiomegaly. There is some pulmonary vascular congestion. No obvious pneumonia. No pneumothorax. - Medical Decision Making This patient presents to the emergency department with severe hypertension which is the reason why the patient was unable to get dialyzed earlier today. Some labs were ordered and performed through triage that came back showing severe hyperkalemia with a potassium of 8, signs of impending uremia with a BUN of 90, creatinine of almost 12, GFR of 4. The patient does have severe hypertension with a systolic blood pressure that has reached as high as 250. Nephrology has been contacted and consulted and will provide stat dialysis this evening. Patient has been given albuterol, calcium gluconate, IV insulin, D50, to try and push some of the potassium into her cells until dialysis can be performed. Patient is also been given IV hydra lazine for her hypertensive issues. Patient has been accepted for admission by the hospitalist, Dr. Gannon. Critical Care Time: Yes Critical care time in (mins) excluding proc time.: 35 Critical care attestation.: If time is entered above; I have spent that time in minutes in the direct care of this critically ill patient, excluding procedure time. Critical care time was spent on this patient in doing her initial evaluation, multiple reevaluations, discussion with the patient's daughter, discussion with the retort unloader, multiple medications for severe hyperkalemia, IV antihypertensive medication. Critical Care Time: 35 minutes ED Disposition Clinical Impression: Hypertensive emergency, Acute hyperkalemia, ESRD needing dialysis Disposition: OP ADMIT IP TO THIS HOSP Is pt being admited?: Yes Condition: Serious Instructions: Hypertension (ED) Time of Disposition: 19:15
[2020-07-21] MEDS ORDERED: hydrALAZINE 20 MG/1 ML INJ IV ONE (18:31)
--- NOTE | 2020-07-21 18:45 | History and Physical Report ---
History of Present Illness Chief complaint: She needs dialysis History of present illness: 65 YO Female with ESRD on HD(M,W,F), HTN, CHF, Anemia, Hypothyroidism, DM presents to ED for evaluation. Patient is unable to provide detailed history due to difficulty speaking [place] language. Patient family provides detailed history. As per family the patient was in her usual state of health and presented to her dialysis center for her usual routine scheduled dialysis. Patient was found to have a systolic blood pressure of around 200 and was unable to undergo dialysis. EMS was notified and upon arrival the patient was found to be in distress and subsequently transported to [facility] for further care and evaluation of the aforementioned symptoms. Patient seen and evaluated in the emergency department. All lab and imaging studies reviewed. Patient found to have end-stage renal disease in need of urgent dialysis, accelerated hypertension. Nephrology team consulted in ED for urgent dialysis. Patient initiated on antihypertensive therapy in the emergency department. No reported fever, chills, CP, Palpitations, NVD, Unilateral leg swelling,prolonged travel/immobility, calf pain, individual/family history of DVT/PE, syncope, hemoptysis, recent ill contacts, or known exposure to COVID-19. Prior admission on 12/10/2018 reviewed. All medication listed at time of admission has been reconciled. Advanced care planning conducted in ED. Past History Past Medical History: anemia, ESRD, heart failure, hypertension, other (See HPI) Past Surgical History: thyroidectomy, Other (Surgery, dialysis access) Social history: , lives with family. denies: smoking, alcohol abuse Family history: hypertension Medications and Allergies Allergies Allergy/AdvReac Type Severity Reaction Status Date / Time No Known Allergies Allergy Verified 10/07/18 18:44 Home Medications Medication Instructions Recorded Confirmed Last Taken Type Furosemide [Lasix TAB] 80 mg PO QDAY MDD 80 mg 09/01/16 12/11/18 06/10/17 His tory Latanoprost 0.005% 1 drop OS QPM #0 09/02/16 12/11/18 06/10/17 History Betaxolol HCl [Betaxolol HCl 0.5%] 1 drop OS BID 06/25/17 12/11/18 Unknown History Levothyroxine (Nf) [Synthroid (Nf)] 200 mcg PO QDAY 06/25/17 12/11/18 Unknown History AtorvaSTATin [Lipitor] 40 mg PO QHS #30 tablet 12/11/17 12/11/18 Unknown Rx glipiZIDE [Glucotrol] 5 mg PO BID #30 MDD 10 mg 12/11/17 12/11/18 06/10/17 Rx hydrALAZINE [Apresoline TAB] 100 mg PO TID #30 tab 12/11/17 12/11/18 Unknown Rx Spironolactone [Aldactone] 25 mg PO BID #30 tablet 01/27/18 12/11/18 Unknown Rx Insulin Detemir (Nf) [Levemir 30 unit SQ QHS PRN 12/11/18 12/11/18 Unknown History Flextouch (Nf)] Temazepam (Nf) [Restoril (Nf)] 30 mg PO QHS PRN 12/11/18 12/11/18 Unknown History Aspirin [Aspirin BABY CHEW TAB] 81 mg PO QDAY #30 tab.chew 12/12/18 Unknown Rx Metoprolol [Lopressor TAB] 50 mg PO BID #60 tablet 12/12/18 Unknown Rx NIFEdipine [Nifedipine ER] 60 mg PO BID #60 tablet.er 12/12/18 Unknown Rx cloNIDine [Catapres] 0.1 mg PO BID #60 tablet 12/12/18 Unknown Rx cloNIDine [Catapres] 0.1 mg PO Q12HR #60 tablet 12/12/18 Unknown Rx lisinopriL [Zestril TAB] 40 mg PO QDAY #30 tablet 12/12/18 Unknown Rx Active Meds: Active Medications Insulin Human Regular (Insulin Regular, Human 100 Unit/Ml 3ml Vial) 5 unit IV ONCE [place] Stop: 07/21/20 23:00 Review of Systems ROS unobtainable: due to mental status Exam - Constitutional Vitals: Temp Pulse Resp BP Pulse Ox 97.5 F L 53 L 16 228/92 97 07/21/20 15:14 07/21/20 15:14 07/21/20 15:14 07/21/20 15:14 07/21/20 15:14 General appearance: Present: mild distress - EENT Eyes: Present: PERRL ENT: hearing intact, clear oral mucosa - Neck Neck: Present: supple, normal ROM - Respiratory Respiratory effort: normal Respiratory: bilateral: CTA - Cardiovascular Heart Sounds: Present: S1 & S2. Absent: rub, click - Extremities Extremities: pulses symmetrical, No edema Peripheral Pulses: within normal limits - Abdominal General gastrointestinal: Present: soft, non-tender, non-distended, normal bowel sounds Female genitourinary: Present: normal - Integumentary Integumentary: Present: clear, warm, dry - Musculoskeletal Musculoskeletal: gait normal, strength equal bilaterally - Psychiatric Psychiatric: appropriate mood/affect, intact judgment & insight - Neurologic Neurologic: CNII-XII intact, moves all extremities Results - Labs CBC & Chem 7: 07/21/20 16:54 07/21/20 16:54 Labs: Abnormal lab results 07/21/20 07/21/20 07/21/20 Range/Units 15:13 16:54 16:54 MCH 25 L (28-32) pg RDW 18.3 H (13.2-15.2) % [place] % (Auto) 7.4 H (0.0-7.3) % Sodium 135 L (137-145) mmol/L Potassium 8.0 H* (3.6-5.0) mmol/L Chloride 92.4 L (98-107) mmol/L BUN 89 H (7-17) mg/dL Creatinine 11.8 H (0.6-1.2) mg/dL Glucose 250 H (65-100) mg/dL POC Glucose 228 H (70-105) mg/dL Calcium 10.3 H (8.4-10.2) mg/dL AST 57 H (5-40) units/L Alkaline Phosphatase 215 H (35-129) units/L Assessment and Plan - Patient Problems (1) End-stage renal disease needing dialysis Current Visit: Yes Status: Chronic Plan to address problem: Nephrology team consulted in ED, strict I's/O, monitor urine output every shift, afterload reduction, avoid nephrotoxic agents. Dialysis as per renal team. (2) CHF (congestive heart failure) Current Visit: Yes Status: Acute Qualifiers: Heart failure type: diastolic Plan to address problem: Strict I/O, monitor urine output every shift, daily weight, afterload reduction, monitor blood pressure every shift, continue medical management. (3) Accelerated hypertension Current Visit: Yes Status: Acute Plan to address problem: Monitor blood pressure every shift, resume prehospital antihypertensive therapy, IV hydralazine every 6 hours as needed for systolic blood pressure greater than 155 mmHg (4) Hypothyroidism Current Visit: Yes Status: Acute Plan to address problem: Continue current therapy. Supportive care. (5) DVT prophylaxis Current Visit: Yes Status: Acute Plan to address problem: SCD to bilateral lower extremities while in bed, prophylactic anticoagulation (6) Advance care planning Current Visit: Yes Status: Acute Plan to address problem: Disease education conducted, patient is full code, prognosis discussed, care plan discussed, patient family knowledges understanding and agreement with care plan. +30 minutes.
[2020-07-21] MEDS ORDERED: TEMAZEPAM 30 MG PO PRN (18:46)
[2020-07-21] MEDS ORDERED: INSULIN REGULAR, HUMAN 100 UNIT/ML 3ML VIAL IV SCH (19:00)
--- NOTE | 2020-07-21 19:06 | XRay Report ---
CHEST 1 VIEW 6:51 PM INDICATION / CLINICAL INFORMATION: SOB. COMPARISON: 09/12/19. FINDINGS: SUPPORT DEVICES: None. HEART / MEDIASTINUM: Moderate cardiomegaly is stable. There is mild prominence of the central pulmona ry vessels. Diffuse atherosclerotic calcifications involving the thoracic aorta without aneurysm. LUNGS / PLEURA: Mild diffuse interstitial lung disease is similar to the prior exam. No focal consoli dation or effusion. No pneumothorax. ADDITIONAL FINDINGS: No significant additional findings. IMPRESSION:Cardiomegaly with probable mild recurrent or chronic congestive heart failure. Signer Name: Shar Yap MD Signed: 07/21/2020 7:02 PM Workstation Name: [id number]
[2020-07-21] MEDS: hydrALAZINE 100 MG TAB PO SCH (19:56)
[2020-07-21] MEDS: METOPROLOL TARTRATE 50 MG TAB PO SCH (19:58)
[2020-07-21] MEDS ORDERED: BETAXOLOL HCL OS SCH (22:00)
[2020-07-21] MEDS ORDERED: TEMAZEPAM 15 MG CAP PO PRN (22:00)
[2020-07-22] MEDS: hydrALAZINE 20 MG/1 ML INJ IV PRN (01:20)
[2020-07-22 01:52] LABS: Hepatitis B Surface Antigen Non-Reactive (Negative); Hepatitis C Virus Antibody Non-Reactive (NonReactive)
[2020-07-22] MEDS ORDERED: oxyCODONE /ACETAMINOPHEN 5-325MG TAB PO PRN (01:59)
[2020-07-22] MEDS ORDERED: ACETAMINOPHEN 325 MG TAB PO PRN (01:59)
[2020-07-22] MEDS ORDERED: ONDANSETRON 4 MG/2 ML INJ IV PRN (01:59)
[2020-07-22] MEDS ORDERED: HYDROmorphone 1 MG/1 ML INJ IV PRN (01:59)
[2020-07-22] MEDS: cloNIDine 0.1 MG TAB PO SCH ×3 (03:06→22:59)
[2020-07-22] MEDS: SPIRONOLACTONE 25 MG TAB PO SCH ×3 (03:06→22:59)
[2020-07-22 06:15] LABS: Calcium 9.4 mg/dL (8.4-10.2)
[2020-07-22] MEDS: LEVOTHYROXINE 100 MCG TAB PO SCH (07:00)
[2020-07-22] MEDS ORDERED: NON-FORMULARY EACH (Furosemide [Lasix Tab] 80 MG Tablet) PO SCH (10:00)
[2020-07-22] MEDS ORDERED: LEVOTHYROXINE 200 MCG PO SCH (10:00)
--- NOTE | 2020-07-22 11:22 | Consultation ---
History of Present Illness - History of Present Illness Pleasant 65-year-old female with past medical history of end-stage renal disease in the setting of hypertension, who is well-known to us from the outpatient dialysis clinic, presented to the emergency department secondary to elevated blood pressures and need for dialysis. While here in the emergency department her blood pressures were found to be significantly elevated and labs indicated significant hyperkalemia with potassium over 8 for which she underwent emergent dialysis yesterday. Corrected potassium now down to 5.3 post dialysis treatment. She is very altered at this time upon my evaluation and is not making any sense at this time. Apparently per nursing staff she has been that way since coming into the emergency department yesterday. I do not see any neurologic work-up done at this time. Nephrology was consulted for urgent hemodialysis needs. Past History Past Medical History: anemia, ESRD, heart failure, hypertension, other (See HPI) Past Surgical History: thyroidectomy, Other (Surgery, dialysis access) Social history: , lives with family. denies: smoking, alcohol abuse Family history: hypertension Medications and Allergies Allergies Allergy/AdvReac Type Severity Reaction Status Date / Time No Known Allergies Allergy Verified 10/07/18 18:44 Home Medications Medication Instructions Recorded Confirmed Last Taken Type Furosemide [Lasix TAB] 80 mg PO QDAY MDD 80 mg 09/01/16 12/11/18 06/10/17 History Latanoprost 0.005% 1 drop OS QPM #0 09/02/16 12/11/18 06/10/17 History Betaxolol HCl [Betaxolol HCl 0.5%] 1 drop OS BID 06/25/17 12/11/18 Unknown History Levothyroxine (Nf) [Synthroid (Nf)] 200 mcg PO QDAY 06/25/17 12/11/18 Unknown History AtorvaSTATin [Lipitor] 40 mg PO QHS #30 tablet 12/11/17 12/11/18 Unknown Rx glipiZIDE [Glucotrol] 5 mg PO BID #30 MDD 10 mg 12/11/17 12/11/18 06/10/17 Rx hydrALAZINE [Apresoline TAB] 100 mg PO TID #30 tab 12/11/17 12/11/18 Unknown Rx Spironolactone [Aldactone] 25 mg PO BID #30 tablet 01/27/18 12/11/18 Unknown Rx Insulin Detemir (Nf) [Levemir 30 unit SQ QHS PRN 12/11/18 12/11/18 Unknown History Flextouch (Nf)] Temazepam (Nf) [Restoril (Nf)] 30 mg PO QHS PRN 12/11/18 12/11/18 Unknown History Aspirin [Aspirin BABY CHEW TAB] 81 mg PO QDAY #30 tab.chew 12/12/18 Unknown Rx Metoprolol [Lopressor TAB] 50 mg PO BID #60 tablet 12/12/18 Unknown Rx NIFEdipine [Nifedipine ER] 60 mg PO BID #60 tablet.er 12/12/18 Unknown Rx cloNIDine [Catapres] 0.1 mg PO BID #60 tablet 12/12/18 Unknown Rx cloNIDine [Catapres] 0.1 mg PO Q12HR #60 tablet 12/12/18 Unknown Rx lisinopriL [Zestril TAB] 40 mg PO QDAY #30 tablet 12/12/18 Unknown Rx Active Meds: Active Medications Acetaminophen (Acetaminophen 325 Mg Tab) 650 mg PO Q4H PRN PRN Reason: Pain MILD(1-3)/Fever >100.5/[place] Aspirin (Aspirin 81 Mg Tab Chew) 81 mg PO QDAY [facility] Atorvastatin Calcium (Atorvastatin 40 Mg Tab) 40 mg PO QHS [facility] Last Admin: 07/22/20 03:07 Dose: Not Given Documented by: Clonidine HCl (Clonidine 0.1 Mg Tab) 0.1 mg PO BID [facility] Last Admin: 07/22/20 03:06 Dose: Not Given Documented by: Famotidine (Famotidine 10 Mg Tab) 10 mg PO BID [facility] Furosemide (Furosemide 40 Mg Tab) 80 mg PO QDAY [facility] Hydralazine HCl (Hydralazine 100 Mg Tab) 100 mg PO TID [facility] Last Admin: 07/21/20 19:56 Dose: 100 mg Documented by: Hydralazine HCl (Hydralazine 20 Mg/1 Ml Inj) 10 mg IV Q6HR PRN PRN Reason: Hypertension Last Admin: 07/22/20 01:20 Dose: 10 mg Documented by: Hydromorphone HCl (Hydromorphone 1 Mg/1 Ml Inj) 0.5 mg IV Q3H PRN PRN Reason: Pain , Severe (7-10) Latanoprost (Latanoprost 0.005% Ophth Soln 2.5 Ml) 1 drops OS QPM [facility] Levothyroxine Sodium (Levothyroxine 100 Mcg Tab) 200 mcg PO DAILY@0600 [facility] Last Admin: 07/22/20 07:00 Dose: 200 mcg Documented by: Lisinopril (Lisinopril 40 Mg Tab) 40 mg PO QDAY [facility] Metoprolol Tartrate (Metoprolol Tartrate 50 Mg Tab) 50 mg PO BID [facility] Last Admin: 07/21/20 19:58 Dose: Not Given Documented by: Miscellaneous Medication (Betaxolol Hcl [Betaxolol Hcl 0.5%]) 1 drop OS BID [facility] Ondansetron HCl (Ondansetron 4 Mg/2 Ml Inj) 4 mg IV Q8H PRN PRN Reason: Nausea And Vomiting Oxycodone/Acetaminophen (Oxycodone /Acetaminophen 5-325mg Tab) 1 tab PO Q6H PRN PRN Reason: Pain, Moderate (4-6) Sodium Chloride (Sodium Chloride 0.9% 10 Ml Flush Syringe) 10 ml IV BID [facility] Last Admin: 07/22/20 02:10 Dose: 10 ml Documented by: Sodium Chloride (Sodium Chloride 0.9% 10 Ml Flush Syringe) 10 ml IV PRN PRN PRN Reason: LINE FLUSH Spironolactone (Spironolactone 25 Mg Tab) 25 mg PO BID [facility] Last Admin: 07/22/20 03:06 Dose: Not Given Documented by: Temazepam (Temazepam 15 Mg Cap) 30 mg PO QHS PRN PRN Reason: Sleep Review of Systems ROS unobtainable: due to mental status Exam - Vital Signs Vital signs: Vital Signs Temp Pulse Resp BP Pulse Ox 97.5 F L 53 L 16 228/92 97 07/21/20 15:14 07/21/20 15:14 07/21/20 15:14 07/21/20 15:14 07/21/20 15:14 - General Appearance General appearance: appears stated age EENT: ATNC Neck: Present: neck supple Respiratory: Clear to Ascultation Heart: regular, S1S2 Gastrointestinal: Present: normal Integumentary: no rash Neurologic: confused, disoriented Musculoskeletal: Present: deferred Results - Lab Results 07/21/20 16:54 07/22/20 04:40 Most recent lab results Calcium 9.4 mg/dL (8.4-10.2) 07/22/20 04:40 Assessment and Plan - Patient Problems (1) End-stage renal disease needing dialysis Current Visit: Yes Status: Chronic Plan to address problem: Patient had stat hemodialysis session yesterday secondary to significant hyperkalemia along with volume overload and accelerated hypertension. Tolerated hemodialysis treatment well. While here in the hospital we will place her back on Thursday inpatient hemodialysis schedule. We will also evaluate daily for needs of extra isolated ultrafiltration treatments. (2) Acute hyperkalemia Current Visit: Yes Status: Acute (3) Accelerated hypertension Current Visit: Yes Status: Acute Plan to address problem: Improvement noted in blood pressure control after hemodialysis. Monitor blood pressures carefully on current management. (4) Altered mental state Current Visit: Yes Status: Acute Plan to address problem: Unclear etiology at this time, in the setting of etc. hypertension. I would strongly recommend a CT of the head for further evaluation. Would also recommend other further neurologic work-up as appropriate. We will need to monitor very closely at this time. (5) Volume overload Current Visit: Yes Status: Acute Plan to address problem: Patient was able to have 3 L ultrafiltration removed yesterday with dialysis treatment. We will need to continue to challenge her dry weight appropriately for volume optimization. (6) Type 2 diabetes mellitus with diabetic chronic kidney disease Current Visit: No Status: Chronic Plan to address problem: Management per primary attending.
[2020-07-22] MEDS: ASPIRIN 81 MG TAB CHEW PO SCH (11:26)
[2020-07-22] MEDS: METOPROLOL TARTRATE 50 MG TAB PO SCH ×2 (11:27→23:06)
[2020-07-22] MEDS: FAMOTIDINE 10 MG TAB PO SCH ×2 (11:28→22:59)
[2020-07-22] MEDS: LISINOPRIL 40 MG TAB PO SCH (11:29)
[2020-07-22] MEDS: hydrALAZINE 100 MG TAB PO SCH ×3 (13:38→23:06)
[2020-07-22] MEDS: FUROSEMIDE 40 MG TAB PO SCH (13:39)
--- NOTE | 2020-07-22 17:51 | Progress Note ---
Assessment and Plan - Patient Problems (1) Metabolic encephalopathy Current Visit: Yes Status: Acute Plan to address problem: CT scan brain, neuro check, seizure precautions, aspiration precaution, supportive care. (2) End-stage renal disease needing dialysis Current Visit: Yes Status: Chronic Plan to address problem: Nephrology team consulted in ED, strict I's/O, monitor urine output every shift, afterload reduction, avoid nephrotoxic agents. Dialysis as per renal team. (3) CHF (congestive heart failure) Current Visit: Yes Status: Acute Qualifiers: Heart failure type: diastolic Plan to address problem: Strict I/O, monitor urine output every shift, daily weight, afterload reduction, monitor blood pressure every shift, continue medical management. (4) Accelerated hypertension Current Visit: Yes Status: Acute Plan to address problem: Monitor blood pressure every shift, resume prehospital antihypertensive therapy, IV hydralazine every 6 hours as needed for systolic blood pressure greater than 155 mmHg (5) Hypothyroidism Current Visit: Yes Status: Acute Plan to address problem: Continue current therapy. Supportive care. (6) DVT prophylaxis Current Visit: Yes Status: Acute Plan to address problem: SCD to bilateral lower extremities while in bed, prophylactic anticoagulation (7) Advance care planning Current Visit: Yes Status: Acute Plan to address problem: Disease education conducted, patient is full code, prognosis discussed, care plan discussed, patient family knowledges understanding and agreement with care plan. +30 minutes. History Interval history: 65 YO Female HD #2 with ESRD on HD(M,W,F), HTN, CHF, Anemia, Hypothyroidism, DM who is at baseline level of cognition and function. Patient neurologic status has not improved with dialysis. No reported nursing events. No reports of pain. No acute decompensation at this time. Patient does not understand [place] language but appears altered. Hospitalist Physical - Constitutional Vitals: Temp Pulse Resp BP Pulse Ox 97.4 F L 58 L 23 141/61 100 07/22/20 11:10 07/22/20 14:00 07/22/20 14:00 07/22/20 14:00 07/22/20 14:00 General appearance: Present: mild distress, cachectic - EENT Eyes: Present: PERRL - Neck Neck: Present: supple - Respiratory Respiratory: bilateral: CTA - Cardiovascular Rhythm: regular Heart Sounds: Present: S1 & S2 - Extremities Extremities: no ischemia Peripheral Pulses: within normal limits - Abdominal General gastrointestinal: soft, non-tender, non-distended - Integumentary Integumentary: Present: clear, dry - Psychiatric Psychiatric: no intact judgment & insight, no memory intact - Neurologic Neurologic: CNII-XII intact Results - Labs CBC & Chem 7: 07/21/20 16:54 07/22/20 04:40 Labs: Laboratory Last Values WBC 6.6 K/mm3 (4.5-11.0) 07/21/20 16:54 RBC 4.38 M/mm3 (3.65-5.03) 07/21/20 16:54 Hgb 11.1 gm/dl (10.1-14.3) 07/21/20 16:54 Hct 34.5 % (30.3-42.9) 07/21/20 16:54 MCV 79 fl (79-97) 07/21/20 16:54 MCH 25 pg (28-32) L 07/21/20 16:54 MCHC 32 % (30-34) 07/21/20 16:54 RDW 18.3 % (13.2-15.2) H 07/21/20 16:54 Plt Count 140 K/mm3 (140-440) 07/21/20 16:54 Lymph % (Auto) 27.7 % (13.4-35.0) 07/21/20 16:54 [place] % (Auto) 7.4 % (0.0-7.3) H 07/21/20 16:54 Eos % (Auto) 0.7 % (0.0-4.3) 07/21/20 16:54 Baso % (Auto) 0.6 % (0.0-1.8) 07/21/20 16:54 Lymph # (Auto) 1.8 K/mm3 (1.2-5.4) 07/21/20 16:54 [place] # (Auto) 0.5 K/mm3 (0.0-0.8) 07/21/20 16:54 Eos # (Auto) 0.0 K/mm3 (0.0-0.4) 07/21/20 16:54 Baso # (Auto) 0.0 K/mm3 (0.0-0.1) 07/21/20 16:54 Seg Neutrophils % 63.6 % (40.0-70.0) 07/21/20 16:54 Seg Neutrophils # 4.2 K/mm3 (1.8-7.7) 07/21/20 16:54 Sodium 139 mmol/L (137-145) 07/22/20 04:40 Potassium 5.3 mmol/L (3.6-5.0) H D 07/22/20 04:40 Chloride 94.5 mmol/L (98-107) L 07/22/20 04:40 Carbon Dioxide 28 mmol/L (22-30) 07/22/20 04:40 Anion Gap 22 mmol/L 07/22/20 04:40 BUN 42 mg/dL (7-17) H 07/22/20 04:40 Creatinine 7.5 mg/dL (0.6-1.2) H 07/22/20 04:40 Estimated GFR 7 ml/min 07/22/20 04:40 BUN/Creatinine Ratio 6 % 07/22/20 04:40 Glucose 158 mg/dL (65-100) H 07/22/20 04:40 POC Glucose 228 mg/dL (70-105) H 07/21/20 15:13 Calcium 9.4 mg/dL (8.4-10.2) 07/22/20 04:40 Total Bilirubin 0.50 mg/dL (0.1-1.2) 07/21/20 16:54 AST 57 units/L (5-40) H 07/21/20 16:54 ALT 27 units/L (7-56) 07/21/20 16:54 Alkaline Phosphatase 215 units/L (35-129) H 07/21/20 16:54 Total Protein 7.9 g/dL (6.3-8.2) 07/21/20 16:54 Albumin 3.9 g/dL (3.9-5) 07/21/20 16:54 Albumin/Globulin Ratio 1.0 % 07/21/20 16:54 Hepatitis A IgM Ab Non-reactive (NonReactive) 07/22/20 01:10 Hep Bs Antigen Non-reactive (Negative) 07/22/20 01:10 Hep B Core IgM Ab Non-reactive (NonReactive) 07/22/20 01:10 Hepatitis C Antibody Non-reactive (NonReactive) 07/22/20 01:10 Guy/IV: IV Catheter Type [Right INT / Saline Lock Antecubital] Active Medications - Current Medications Current Medications: Generic Name Dose Route Start Last Admin Trade Name Freq PRN Reason Stop Dose Admin Acetaminophen 650 mg 07/22/20 01:59 Acetaminophen 325 Mg Tab PO Q4H PRN Pain MILD(1-3)/Fever >100.5/[place] Aspirin 81 mg 07/22/20 10:00 07/22/20 11:26 Aspirin 81 Mg Tab Chew PO 81 mg QDAY [facility] Administration Atorvastatin Calcium 40 mg 07/21/20 22:00 07/22/20 03:07 Atorvastatin 40 Mg Tab PO Not Given QHS [facility] Clonidine HCl 0.1 mg 07/21/20 22:00 07/22/20 11:25 Clonidine 0.1 Mg Tab PO 0.1 mg BID [facility] Administration Famotidine 10 mg 07/22/20 10:00 07/22/20 11:28 Famotidine 10 Mg Tab PO 10 mg BID [facility] Administration Furosemide 80 mg 07/22/20 10:00 07/22/20 13:39 Furosemide 40 Mg Tab PO 80 mg QDAY [facility] Administration Hydralazine HCl 100 mg 07/21/20 19:00 07/22/20 13:39 Hydralazine 100 Mg Tab PO 100 mg TID [facility] Administration Hydralazine HCl 10 mg 07/21/20 18:48 07/22/20 01:20 Hydralazine 20 Mg/1 Ml Inj IV 10 mg Q6HR PRN Administration Hypertension Hydromorphone HCl 0.5 mg 07/22/20 01:59 Hydromorphone 1 Mg/1 Ml Inj IV Q3H PRN Pain , Severe (7-10) Latanoprost 1 drops 07/22/20 18:00 Latanoprost 0.005% Ophth Soln 2.5 Ml OS QPM [facility] Levothyroxine Sodium 200 mcg 07/22/20 06:00 07/22/20 07:00 Levothyroxine 100 Mcg Tab PO 200 mcg DAILY@0600 [facility] Administration Lisinopril 40 mg 07/22/20 10:00 07/22/20 11:29 Lisinopril 40 Mg Tab PO 40 mg QDAY [facility] Administration Metoprolol Tartrate 50 mg 07/21/20 19:46 07/22/20 11:27 Metoprolol Tartrate 50 Mg Tab PO 50 mg BID [facility] Administration Miscellaneous Medication 1 drop 07/21/20 22:00 Betaxolol Hcl [Betaxolol Hcl 0.5%] OS BID [facility] Ondansetron HCl 4 mg 07/22/20 01:59 Ondansetron 4 Mg/2 Ml Inj IV Q8H PRN Nausea And Vomiting Oxycodone/Acetaminophen 1 tab 07/22/20 01:59 Oxycodone /Acetaminophen 5-325mg Tab PO Q6H PRN Pain, Moderate (4-6) Sodium Chloride 10 ml 07/22/20 02:00 07/22/20 11:28 Sodium Chloride 0.9% 10 Ml Flush Syringe IV 10 ml BID [facility] Administration Sodium Chloride 10 ml 07/22/20 01:59 Sodium Chloride 0.9% 10 Ml Flush Syringe IV PRN PRN LINE FLUSH Spironolactone 25 mg 07/21/20 22:00 07/22/20 11:26 Spironolactone 25 Mg Tab PO 25 mg BID [facility] Administration Temazepam 30 mg 07/21/20 22:00 Temazepam 15 Mg Cap PO QHS PRN Sleep
[2020-07-22] MEDS: INSULIN LISPRO 100 UNIT/ML VIAL 3 mL SUB-Q SCH (23:01)
[2020-07-22] MEDS: LATANOPROST 0.005% OPHTH SOLN 2.5 ML OS SCH (23:06)
[2020-07-23] MEDS: LEVOTHYROXINE 100 MCG TAB PO SCH (05:26)
[2020-07-23] MEDS: hydrALAZINE 20 MG/1 ML INJ IV PRN (05:29)
[2020-07-23 06:34] LABS: Basophils % (Auto) 0.5 % (0.0-1.8); Eosinophils # (Auto) 0.2 K/mm3 (0.0-0.4); Eosinophils % (Auto) 2.2 % (0.0-4.3); Hematocrit 30.1 % (30.3-42.9); Hemoglobin 9.9 gm/dl (10.1-14.3); Lymphocytes # (Auto) 1.7 K/mm3 (1.2-5.4); Lymphocytes % (Auto) 22.5 % (13.4-35.0); Mean Corpuscular HGB Conc 33 % (30-34); Mean Corpuscular Volume 77 fl (79-97); Monocytes # (Auto) 0.8 K/mm3 (0.0-0.8); Monocytes % (Auto) 10.2 % (0.0-7.3); Platelet Count 130 K/mm3 (140-440); Red Blood Count 3.89 M/mm3 (3.65-5.03); Red Cell Distribution Width 18.3 % (13.2-15.2)
[2020-07-23 07:00] LABS: Albumin 3.3 g/dL (3.9-5); Calcium 9.4 mg/dL (8.4-10.2)
[2020-07-23] MEDS ORDERED: INSULIN LISPRO 100 UNIT/ML VIAL 3 mL SUB-Q SCH (07:30)
[2020-07-23] MEDS ORDERED: SODIUM CHLORIDE 0.9% 100 ML IV PRN (08:57)
[2020-07-23] MEDS: INSULIN LISPRO 100 UNIT/ML VIAL 3 mL SUB-Q SCH ×4 (09:02→23:12)
[2020-07-23] MEDS: SPIRONOLACTONE 25 MG TAB PO SCH ×3 (12:30→23:15)
[2020-07-23] MEDS: FAMOTIDINE 10 MG TAB PO SCH ×3 (12:30→23:18)
[2020-07-23] MEDS: hydrALAZINE 100 MG TAB PO SCH ×3 (12:30→20:32)
[2020-07-23] MEDS: cloNIDine 0.1 MG TAB PO SCH ×2 (12:30→23:15)
[2020-07-23] MEDS: METOPROLOL TARTRATE 50 MG TAB PO SCH ×3 (12:30→23:15)
--- NOTE | 2020-07-23 14:26 | Cat Scan Report ---
CT HEAD WITHOUT CONTRAST INDICATION / CLINICAL INFORMATION: confusion. TECHNIQUE: Axial imaging performed from the skull apex through the skull base without the use of cont rast. Sagittal and coronal reformatted images. All CT scans at this location are performed using CT dose reduction for ALARA by means of automated exposure control. COMPARISON: 09/12/2019 FINDINGS: CEREBRAL PARENCHYMA: No significant abnormality. No acute territorial infarct. HEMORRHAGE: None. EXTRA-AXIAL SPACES: Normal in size and morphology for the patient's age. VENTRICULAR SYSTEM: Normal in size and morphology for the patient's age. MIDLINE SHIFT OR HERNIATION: None. CEREBELLUM / BRAINSTEM: No significant abnormality. CALVARIUM: No significant abnormality. ORBITS: Normal as visualized. PARANASAL SINUSES / MASTOID AIR CELLS: Normal as visualized. SOFT TISSUES of HEAD: No significant abnormality. ADDITIONAL FINDINGS: None. IMPRESSION: No acute intracranial abnormality. Signer Name: Andrew Parra Jr, MD Signed: 07/23/2020 2:21 PM Workstation Name: [id number]
[2020-07-23] MEDS: LISINOPRIL 40 MG TAB PO SCH (14:56)
[2020-07-23] MEDS: FUROSEMIDE 40 MG TAB PO SCH (14:58)
[2020-07-23] MEDS: ASPIRIN 81 MG TAB CHEW PO SCH (14:58)
[2020-07-23] MEDS: LATANOPROST 0.005% OPHTH SOLN 2.5 ML OS SCH (19:28)
--- NOTE | 2020-07-23 20:15 | Progress Note ---
Assessment and Plan - Patient Problems (1) Metabolic encephalopathy Current Visit: Yes Status: Acute Plan to address problem: CT scan brain reviewed, neuro check, seizure precautions, aspiration precaution, supportive care. (2) End-stage renal disease needing dialysis Current Visit: Yes Status: Chronic Plan to address problem: Nephrology team consulted in ED, strict I's/O, monitor urine output every shift, afterload reduction, avoid nephrotoxic agents. Dialysis as per renal team. (3) CHF (congestive heart failure) Current Visit: Yes Status: Acute Qualifiers: Heart failure type: diastolic Plan to address problem: Strict I/O, monitor urine output every shift, daily weight, afterload reduction, monitor blood pressure every shift, continue medical management. (4) Accelerated hypertension Current Visit: Yes Status: Acute Plan to address problem: Monitor blood pressure every shift, resume prehospital antihypertensive therapy, IV hydralazine every 6 hours as needed for systolic blood pressure greater than 155 mmHg (5) Hypothyroidism Current Visit: Yes Status: Acute Plan to address problem: Continue current therapy. Supportive care. (6) DVT prophylaxis Current Visit: Yes Status: Acute Plan to address problem: SCD to bilateral lower extremities while in bed, prophylactic anticoagulation (7) Advance care planning Current Visit: Yes Status: Acute Plan to address problem: Disease education conducted, patient is full code, prognosis discussed, care plan discussed, patient family knowledges understanding and agreement with care plan. +30 minutes. History Interval history: 65 YO Female HD #3 with ESRD on HD(M,W,F), HTN, CHF, Anemia, Hypothyroidism, DM who is currently at baseline level of cognition and function. Patient neurologic status has improved today. No reported nursing events. No reports of pain. No acute decompensation at this time. Patient does not understand [place] language but is more alert today. D/C Planning in AM after dialysis. Hospitalist Physical - Constitutional Vitals: Temp Pulse Resp BP Pulse Ox 98.3 F 62 18 161/68 99 07/23/20 16:42 07/23/20 16:42 07/23/20 16:42 07/23/20 16:42 07/23/20 16:42 General appearance: Present: mild distress, cachectic - EENT Eyes: Present: PERRL, EOM intact ENT: hearing intact - Neck Neck: Present: supple - Respiratory Respiratory: bilateral: CTA - Cardiovascular Rhythm: regular Heart Sounds: Present: S1 & S2 - Extremities Extremities: no ischemia Peripheral Pulses: within normal limits - Abdominal General gastrointestinal: soft, non-tender, non-distended - Integumentary Integumentary: Present: clear, dry - Psychiatric Psychiatric: cooperative - Neurologic Neurologic: CNII-XII intact Results - Labs CBC & Chem 7: 07/23/20 05:40 07/23/20 05:40 Labs: Laboratory Last Values WBC 7.7 K/mm3 (4.5-11.0) 07/23/20 05:40 RBC 3.89 M/mm3 (3.65-5.03) 07/23/20 05:40 Hgb 9.9 gm/dl (10.1-14.3) L 07/23/20 05:40 Hct 30.1 % (30.3-42.9) L 07/23/20 05:40 MCV 77 fl (79-97) L 07/23/20 05:40 MCH 25 pg (28-32) L 07/23/20 05:40 MCHC 33 % (30-34) 07/23/20 05:40 RDW 18.3 % (13.2-15.2) H 07/23/20 05:40 Plt Count 130 K/mm3 (140-440) L 07/23/20 05:40 Lymph % (Auto) 22.5 % (13.4-35.0) 07/23/20 05:40 [place] % (Auto) 10.2 % (0.0-7.3) H 07/23/20 05:40 Eos % (Auto) 2.2 % (0.0-4.3) 07/23/20 05:40 Baso % (Auto) 0.5 % (0.0-1.8) 07/23/20 05:40 Lymph # (Auto) 1.7 K/mm3 (1.2-5.4) 07/23/20 05:40 [place] # (Auto) 0.8 K/mm3 (0.0-0.8) 07/23/20 05:40 Eos # (Auto) 0.2 K/mm3 (0.0-0.4) 07/23/20 05:40 Baso # (Auto) 0.0 K/mm3 (0.0-0.1) 07/23/20 05:40 Seg Neutrophils % 64.6 % (40.0-70.0) 07/23/20 05:40 Seg Neutrophils # 5.0 K/mm3 (1.8-7.7) 07/23/20 05:40 Sodium 136 mmol/L (137-145) L 07/23/20 05:40 Potassium 6.0 mmol/L (3.6-5.0) H 07/23/20 05:40 Chloride 93.6 mmol/L (98-107) L 07/23/20 05:40 Carbon Dioxide 30 mmol/L (22-30) 07/23/20 05:40 Anion Gap 18 mmol/L 07/23/20 05:40 BUN 74 mg/dL (7-17) H 07/23/20 05:40 Creatinine 10.4 mg/dL (0.6-1.2) H 07/23/20 05:40 Estimated GFR 4 ml/min 07/23/20 05:40 BUN/Creatinine Ratio 7 % 07/23/20 05:40 Glucose 175 mg/dL (65-100) H 07/23/20 05:40 POC Glucose 382 mg/dL (70-105) H 07/23/20 16:21 Calcium 9.4 mg/dL (8.4-10.2) 07/23/20 05:40 Total Bilirubin 0.30 mg/dL (0.1-1.2) 07/23/20 05:40 AST 39 units/L (5-40) 07/23/20 05:40 ALT 19 units/L (7-56) 07/23/20 05:40 Alkaline Phosphatase 146 units/L (35-129) H 07/23/20 05:40 Total Protein 6.7 g/dL (6.3-8.2) 07/23/20 05:40 Albumin 3.3 g/dL (3.9-5) L 07/23/20 05:40 Albumin/Globulin Ratio 1.0 % 07/23/20 05:40 Hepatitis A IgM Ab Non-reactive (NonReactive) 07/22/20 01:10 Hep Bs Antigen Non-reactive (Negative) 07/22/20 01:10 Hep B Core IgM Ab Non-reactive (NonReactive) 07/22/20 01:10 Hepatitis C Antibody Non-reactive (NonReactive) 07/22/20 01:10 Guy/IV: Voiding Method Diaper IV Catheter Type [Right INT / Saline Lock Antecubital] Active Medications - Current Medications Current Medications: Generic Name Dose Route Start Last Admin Trade Name Freq PRN Reason Stop Dose Admin Acetaminophen 650 mg 07/22/20 01:59 Acetaminophen 325 Mg Tab PO Q4H PRN Pain MILD(1-3)/Fever >100.5/HENS[place] Aspirin 81 mg 07/22/20 10:00 07/23/20 14:58 Aspirin 81 Mg Tab Chew PO 81 mg QDAY [place] Administration Atorvastatin Calcium 40 mg 07/21/20 22:00 07/22/20 22:59 Atorvastatin 40 Mg Tab PO 40 mg QHS [place] Administration Clonidine HCl 0.1 mg 07/21/20 22:00 07/23/20 12:30 Clonidine 0.1 Mg Tab PO Not Given BID [place] Famotidine 10 mg 07/22/20 10:00 07/23/20 14:59 Famotidine 10 Mg Tab PO 10 mg BID [place] Administration Furosemide 80 mg 07/22/20 10:00 07/23/20 14:58 Furosemide 40 Mg Tab PO 80 mg QDAY [place] Administration Hydralazine HCl 100 mg 07/21/20 19:00 07/23/20 14:56 Hydralazine 100 Mg Tab PO 100 mg TID [place] Administration Hydralazine HCl 10 mg 07/21/20 18:48 07/23/20 05:29 Hydralazine 20 Mg/1 Ml Inj IV 10 mg Q6HR PRN Administration Hypertension Hydromorphone HCl 0.5 mg 07/22/20 01:59 Hydromorphone 1 Mg/1 Ml Inj IV Q3H PRN Pain , Severe (7-10) Sodium Chloride 100 mls @ 999 mls/hr 07/23/20 08:57 Nacl 0.9% IV [place] PRN Hypotension Insulin Human Lispro 0 unit 07/22/20 23:30 07/23/20 16:34 Insulin Lispro 100 Unit/Ml Vial 3 Ml SUB-Q 8 unit ACHS [place] Administration Protocol Latanoprost 1 drops 07/22/20 18:00 07/23/20 19:28 Latanoprost 0.005% Ophth Soln 2.5 Ml OS 1 drops QPM [place] Administration Levothyroxine Sodium 200 mcg 07/22/20 06:00 07/23/20 05:26 Levothyroxine 100 Mcg Tab PO 200 mcg DAILY@0600 [place] Administration Lisinopril 40 mg 07/22/20 10:00 07/23/20 14:56 Lisinopril 40 Mg Tab PO 40 mg QDAY [place] Administration Metoprolol Tartrate 50 mg 07/21/20 19:46 07/23/20 12:30 Metoprolol Tartrate 50 Mg Tab PO Not Given BID [place] Miscellaneous Medication 1 drop 07/21/20 22:00 Betaxolol Hcl [Betaxolol Hcl 0.5%] OS BID [place] Ondansetron HCl 4 mg 07/22/20 01:59 Ondansetron 4 Mg/2 Ml Inj IV Q8H PRN Nausea And Vomiting Oxycodone/Acetaminophen 1 tab 07/22/20 01:59 Oxycodone /Acetaminophen 5-325mg Tab PO Q6H PRN Pain, Moderate (4-6) Sodium Chloride 10 ml 07/22/20 02:00 07/23/20 14:59 Sodium Chloride 0.9% 10 Ml Flush Syringe IV 10 ml BID [place] Administration Sodium Chloride 10 ml 07/22/20 01:59 Sodium Chloride 0.9% 10 Ml Flush Syringe IV PRN PRN LINE FLUSH Spironolactone 25 mg 07/21/20 22:00 07/23/20 12:30 Spironolactone 25 Mg Tab PO Not Given BID [place] Temazepam 30 mg 07/21/20 22:00 Temazepam 15 Mg Cap PO QHS PRN Sleep Nutrition/Malnutrition Assess - Dietary Evaluation Nutrition/Malnutrition Findings: Nutrition Notes Start: 07/23/20 10:22 Freq: Status: Active Protocol: Document 07/23/20 10:22 NVVENUS (Rec: 07/23/20 10:36 [facility] [id number]) Nutrition Notes Need for Assessment generated from: MD Order,orthotic and prosthetic technician Initial or Follow up Assessment Current Diagnosis CKD (stage V CKD),Diabetes, Hypertension,Heart Failure Other Pertinent Diagnosis Accelerated HTN, Urgent HD needed; Hx of hypothyroidism, thyroidectomy Current Diet Renal Labs/Tests K 6 BUN 74 Cr 10.4 BG 175 Pertinent Medications Lasix Height 5 ft 4 in Weight 54.431 kg [place] Body Weight (kg) 54.54 BMI 20.5 Weight Status Underweight Subjective/Other Information RD consulted for ONS; pt also screened for chewing difficulty. Pt BP upon admission was 228/92. Pt does not speak [place] very well. She was admitted for urgent HD as she missed her last HD session sec to elevated BP. Burn Absent Trauma Absent Skin Integrity/Comment Wilmar score: 15 Minimum of two criteria No #1 Nutrition Diagnosis Predicted suboptimal energy intake Etiology pt confused and underweight for her age As Evidenced by Signs and Symptoms MD requests ONS for pt Is patient on ventilator? No Is Patient Ambulatory and/or Out of Bed Yes REE-([facility]-ambulatory/OOB) [ 1383.603 [id number]] Kcal/Kg value to use for calculation 30 Approximate Energy Requirements Using 1633 kcal/Kg Calculation Used for Recommendations Kcal/kg Additional Notes Pro needs >1.2g/kg: >65g/day Fluid needs 1-1.5L/day Nutrition Intervention Change Diet Order: Add Consistent CHO and mech soft modifiers to current diet order Add Supplement/Snack (indicate name/kcal Nepro once daily /protein ) Provides kCal: 425 Provides Protein (gm) 19 Goal #1 PO intake of meals plus ONS to meet at least 75% energy and pro needs Goal #2 Wt maintenance Anticipated Discharge Needs: Continue ONS daily if PO intake remains suboptimal Follow-Up By: 07/25/20 Additional Comments F/U: intakes (meals/ONS)
[2020-07-24 05:08] VITALS: BP 147/59
[2020-07-24] MEDS: LEVOTHYROXINE 100 MCG TAB PO SCH (05:19)
[2020-07-24] MEDS: ASPIRIN 81 MG TAB CHEW PO SCH (09:21)
[2020-07-24] MEDS: METOPROLOL TARTRATE 50 MG TAB PO SCH (09:21)
[2020-07-24] MEDS: FUROSEMIDE 40 MG TAB PO SCH (09:21)
[2020-07-24] MEDS: LISINOPRIL 40 MG TAB PO SCH (09:21)
[2020-07-24] MEDS: hydrALAZINE 100 MG TAB PO SCH (09:22)
[2020-07-24] MEDS: cloNIDine 0.1 MG TAB PO SCH (09:22)
[2020-07-24] MEDS: SPIRONOLACTONE 25 MG TAB PO SCH (09:22)
[2020-07-24] MEDS: INSULIN LISPRO 100 UNIT/ML VIAL 3 mL SUB-Q SCH ×2 (09:22→13:00)
[2020-07-24 11:47] LABS: Calcium 9.7 mg/dL (8.4-10.2)
== END 2020-07-24 13:50 | disposition home health service (06) | DRG 291 ==
LOC: ED 14:42 → OBSVTOIN 07-22 01:59 → 3A 07-22 01:59
PROVIDERS: ADMIT Internal Medicine; ATTEND Internal Medicine
PROC: 5A1D70Z Performance of Urinary Filtration, Intermittent, Less than 6 Hours Per Day (ICD-10-PCS; principal; 2020-07-21)
PROC: 5A1D70Z Performance of Urinary Filtration, Intermittent, Less than 6 Hours Per Day (ICD-10-PCS; 2020-07-23)
DX: I13.2 Hypertensive heart and chronic kidney disease with heart failure and with stage 5 chronic kidney disease, or end stage renal disease (principal); G93.41 Metabolic encephalopathy; N18.6 End stage renal disease; I50.31 Acute diastolic (congestive) heart failure; I16.1 Hypertensive emergency; E87.5 Hyperkalemia; E87.70 Fluid overload, unspecified; Z99.2 Dependence on renal dialysis; E11.22 Type 2 diabetes mellitus with diabetic chronic kidney disease; D64.9 Anemia, unspecified; Z79.4 Long term (current) use of insulin; Z79.82 Long term (current) use of aspirin; E03.9 Hypothyroidism, unspecified; Z20.828 Contact with and (suspected) exposure to other viral communicable diseases
CPT/HCPCS: 36415; 70450; 71045; 80048; 80053; 80074; 82962; 85025; 93005; 94644; 96365; 96375; 96376; G0378; A9270-GY; J0360; J0610; J1815